=== PATIENT | female | born 1945 | race Caucasian/White ===

== ENCOUNTER 2019-11-25 12:24 | Outpatient (CLI) | payer MEDICARE, OTHER, SELFPAY ==
--- NOTE | ~2019-11-25 | XR_ITS ---
XR hip BI wo pelvis 11/25/2019 13:07 Indication: Low back pain. Procedure: 3 views of each hip Comparison: No prior studies for comparison. Findings: There is mild joint space narrowing of the hips. No fracture or traumatic malalignment. Sac ral foramen are symmetric. Pelvic structures are grossly unremarkable. No focal soft tissue abnormali ty. Impression: 1: Mild bilateral symmetric joint space narrowing, consistent with degenerative joint disease. Reviewed, dictated and finalized at location A. Impression: 1: Mild bilateral symmetric joint space narrowing, consistent with degenerative joint disease.
--- NOTE | ~2019-11-25 | XR_ITS ---
XR lumbar spine 2-3V DATE: 11/25/2019 13:07 INDICATION: Generalized low back pain. No injury or fall. TECHNIQUE: AP, lateral, coned lateral lumbosacral views COMPARISON: None FINDINGS: There is mild rotatory levoscoliosis. There is a transitional lumbosacral vertebra which may be a source of chronic low back pain. The included lower thoracic and lumbar pedicles are intact. There is moderate degenerative disc disease throughout the lumbar spine. No fracture or bone destruction or spondylolisthesis. The sacral iliac joints appear normal. IMPRESSION: Moderate degenerative disc disease throughout the lumbar spine Transitional lumbosacral vertebra, which may be associated with chronic low back pain Mild rotatory levoscoliosis Reviewed, dictated and finalized at location A. IMPRESSION: Moderate degenerative disc disease throughout the lumbar spine Transitional lumbosacral vertebra, which may be associated with chronic low johan k pain Mild rotatory levoscoliosis
--- NOTE | ~2019-11-25 | XR_ITS ---
XR sacroiliac joints min 3V DATE: 11/25/2019 13:07 INDICATION: Low back pain, sacroiliac pain. TECHNIQUE: AP and bilateral oblique views COMPARISON: None FINDINGS: There is normal alignment at the sacroiliac joints. No fracture or dislocation. No erosive change or ankylosis. Transitional lumbosacral vertebra. IMPRESSION: No significant abnormality of sacroiliac joints Transitional lumbosacral vertebra Reviewed, dictated and finalized at Location A. Reviewed, dictated and finalized at location A.
== END 2019-11-25 12:25 | disposition home or self-care (01) ==
LOC: ANHIMG 12:30
PROVIDERS: PCP Internal Medicine; Visit Provider Internal Medicine
DX: M54.5 Low back pain (principal); G89.29 Other chronic pain; M89.9 Disorder of bone, unspecified; M51.36 Other intervertebral disc degeneration, lumbar region; Q76.49 Other congenital malformations of spine, not associated with scoliosis; M41.86 Other forms of scoliosis, lumbar region
CPT/HCPCS: 72100; 72202; 73521

== ENCOUNTER 2020-01-23 15:27 | Outpatient (CLI) | payer MEDICARE, SELFPAY ==
--- NOTE | 2020-01-23 | ECHO_ITS ---
Patient Info Name: Polly Marks Age: 74 years : 1945 Gender: Female Ht: 66 in Wt: 162 lbs BSA: 1.86 m2 HR: 66 bpm BP: 202 / 78 mmHg Technical Quality: Good Exam Date: 01/23/2020 3:46 PM Exam Location: [facility] Patient Status: Outpatient Admit Date: 01/23/2020 Staff Ordering Physician: Sergo Guardado MD Manufacturing Planner: Lisbet Garcia RDCS Attending Provider: Sergo Guardado MD Referring Physician: Geo ALICEA; Exam Type: CA echo doppler color flow Study Info Indications - palpitations Complete two-dimensional, color flow and Doppler transthoracic echocardiogram is performed. Summary 1. Left ventricular chamber dimension is normal. 2. Left ventricular systolic function is normal, estimated at 65-70%. 3. Basal inferior/posterior wall are hypokinetic. 4. The left ventricular diastolic function is grade I diastolic dysfunction. 5. E/e' 11 is mildly elevated. 6. There is trace tricuspid valve regurgitation. 7. No pulmonary hypertension, estimated pulmonary arterial systolic pressure is 24 mmHg. Left Ventricle E/e' 11 is mildly elevated. Basal inferior/posterior wall are hypokinetic. Left ventricular chamber dimension is normal. Left ventricular systolic function is normal, estimated at 65-70%. The left ventricular diastolic function is grade I diastolic dysfunction. Right Ventricle Right ventricular chamber dimension is normal. Right ventricular systolic function is normal. Left Atria Left atrial chamber dimension is normal. Right Atria Right atrial chamber dimension is normal. Aortic Valve The aortic valve is trileaflet. There is no aortic valve stenosis. There is no aortic valve regurgitation. Pulmonic Valve There is no pulmonic regurgitation. Mitral Valve There is no mitral valve stenosis. There is no mitral valve regurgitation. Tricuspid Valve There is trace tricuspid valve regurgitation. No pulmonary hypertension, estimated pulmonary arterial systolic pressure is 24 mmHg. Pericardium/Pleural There is no pericardial effusion. Inferior Vena Cava Normal inferior vena cava with >50% collapse upon inspiration consistent with normal right atrial pressure, 5 mmHg. Aorta The aortic root size at the sinus of Valsalva is normal. Left Ventricular Outflow Tract Name Value Normal LVOT 2D LVOT Diameter 2.0 cm LVOT Doppler LVOT Peak Gradient 6 mmHg LVOT Mean Gradient 5 mmHg LVOT VTI 33 cm LVOT VTI/AV VTI Ratio 0.8 LVOT Stroke Volume 103 ml LVOT CO 19.8 l/min LVOT CI 10.6 l/min/m2 Pulmonic Valve Name Value Normal PV Doppler PV Peak Gradient 5 mmHg Mitral Valve -
== END 2020-01-23 15:28 | disposition home or self-care (01) ==
PROVIDERS: PCP Internal Medicine; Visit Provider Internal Medicine
DX: I34.1 Nonrheumatic mitral (valve) prolapse (principal); R00.2 Palpitations
CPT/HCPCS: 93306

== ENCOUNTER → 2020-06-05 14:18 | Outpatient (REF) | payer MEDICARE, SELFPAY | LOC: ANHLAB 14:18 | PROVIDERS: PCP Internal Medicine; Visit Provider Nurse Practitioner | DX: D49.2 Neoplasm of unspecified behavior of bone, soft tissue, and skin (principal) | CPT/HCPCS: 88305; 88342 ==

== ENCOUNTER 2021-05-22 11:40 | Outpatient (CLI) | payer MEDICARE, OTHER, SELFPAY ==
--- NOTE | ~2021-05-22 | XR_ITS ---
EXAMINATION: XR knee RT 3V DATE: 05/22/2021 12:12 INDICATION: Right knee pain. TECHNIQUE: 3 views of right knee were obtained. COMPARISON: None. FINDINGS: Bone alignment is normal. No fracture. There is mild osteoarthritis of medial and lateral c ompartments and moderate osteoarthritis of patellofemoral compartment. There is a small knee joint ef fusion. IMPRESSION: 1. Moderate right knee osteoarthritis. 2. Small right knee joint effusion. Reviewed, dictated and finalized at location A.
--- NOTE | ~2021-05-22 | XR_ITS ---
EXAMINATION: XR knee LT 3V DATE: 05/22/2021 12:12 INDICATION: Left knee pain. TECHNIQUE: 3 views of left knee were obtained. COMPARISON: None. FINDINGS: Bone alignment is normal. No fracture. There is mild osteoarthritis of medial and lateral c ompartments and severe osteoarthritis of patellofemoral compartment. No knee joint effusion. IMPRESSION: 1. Severe left knee osteoarthritis. Reviewed, dictated and finalized at location A.
== END 2021-05-22 11:41 | disposition home or self-care (01) ==
LOC: ANHIMG 11:44
PROVIDERS: PCP Internal Medicine; Visit Provider Internal Medicine
DX: M17.0 Bilateral primary osteoarthritis of knee (principal); M25.461 Effusion, right knee
CPT/HCPCS: 73562

== ENCOUNTER 2021-06-04 15:12 | Outpatient (CLI) | payer MEDICARE, OTHER, SELFPAY ==
--- NOTE | ~2021-06-04 | US_ITS ---
EXAMINATION: US venous doppler LE RT DATE: 06/04/2021 16:07 INDICATION: Right lower limb pain TECHNIQUE: Choi scale images without and with compression and Doppler images of the right lower extre mity veins were obtained. COMPARISON: None FINDINGS: The right common femoral vein, profunda femoral vein, femoral vein, popliteal vein, peronea l trunk, posterior tibial veins, and greater saphenous vein are patent. IMPRESSION: 1. Patent right lower extremity veins. No evidence of deep venous thrombosis. Reviewed, dictated and finalized at location B. 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
== END 2021-06-04 15:13 | disposition home or self-care (01) ==
LOC: ANHIMG 15:16
PROVIDERS: PCP Internal Medicine; Visit Provider Orthopaedic Surgery
DX: M79.661 Pain in right lower leg (principal); M79.89 Other specified soft tissue disorders
CPT/HCPCS: 93971

== ENCOUNTER 2021-12-26 12:37 | Outpatient (CLI) | payer MEDICARE, OTHER, SELFPAY ==
--- NOTE | ~2021-12-26 | US_ITS ---
EXAMINATION: US venous doppler LE RT DATE: 12/26/2021 13:23 INDICATION: Right lower limb swelling TECHNIQUE: Grayscale ultrasound images without and with compression and Doppler ultrasound images of the right lower extremity veins were obtained. COMPARISON: None. FINDINGS: The visualized portions of right common femoral vein, profunda (deep) femoral vein, femoral vein, pop liteal vein, peroneal trunk, posterior tibial veins, peroneal veins, gastrocnemius vein and greater s aphenous vein outflow are patent. IMPRESSION: 1. No deep venous thrombosis in the right lower limb. Reviewed, dictated and finalized at location B.
== END 2021-12-26 12:38 | disposition home or self-care (01) ==
PROVIDERS: PCP Internal Medicine; Visit Provider Nurse Practitioner
DX: M79.604 Pain in right leg (principal); R60.0 Localized edema
CPT/HCPCS: 93971

== ENCOUNTER → 2022-01-08 16:04 | Outpatient (CLI) | payer MEDICARE, OTHER, SELFPAY ==
--- NOTE | ~2022-01-08 | MR_ITS ---
EXAMINATION: MR knee RT wo con DATE: 01/08/2022 17:00 INDICATION: Right knee pain TECHNIQUE: Magnetic resonance imaging (MRI) of the right knee was performed without intravenous contr ast. Sequences included coronal PD-weighted FSE, coronal PD-weighted FS FSE, sagittal T2-weighted FS E, sagittal PD-weighted FS FSE and axial PD weighted fat saturated FSE. COMPARISON: None. FINDINGS: Medial compartment: Complex tear at the posterior horn of the medial meniscus with anterolateral displacement of a flap a rising from the central portion of the posterior horn which situated between the lateral margin of th e anterior weightbearing medial femoral condyle and the intercondylar eminence. Shallow chondral ulce ration along portions of the anterior to central weightbearing medial femoral condyle. Lateral compartment: Lateral meniscus is normal. Partial-thickness chondral fissuring at the central aspect of the lateral tibial plateau which appears to involve up to 50% the cartilage thickness but without degenerative s ubchondral changes. Partial-thickness chondral ulceration and deeper fissuring also without degenerat vidhya subchondral changes at the anterior weightbearing lateral femoral condyle. Patellofemoral compartment: Extensive full and near full-thickness chondral ulceration involving the medial patellar facet, apica l ridge and lateral side of the medial facet, the latter with mild underlying subarticular cystlike c hanges at the superomedial aspect of the lateral facet. Additional full and near full-thickness carti florencia loss involving the medial trochlea extending to the trochlear groove with a severe partial thick ness chondral ulceration along the medial side of the lateral trochlea. Ligaments and tendons: Anterior and posterior cruciate ligaments are normal. The fibular collateral ligament complex is norm al. There is mild thickening of the proximal medial collateral ligament without surrounding edema con sistent with mild scarring related to chronic sprain. The extensor mechanism is normal. The visualize d medial and lateral hamstring tendons as well as the iliotibial band are normal. Fluid: Small knee joint effusion with mild synovitis at the suprapatellar pouch. No loose osteochondral bodi es identified. Osseous/other: Small intraosseous ganglion cysts underlying the posterior medial aspect of the intercondylar eminenc e which appear to arise near the footplates of the posterior cruciate ligament and posterior horn of the medial meniscus. No fracture or abnormal marrow replacing process. IMPRESSION: 1. Complex tear at the posterior horn of the medial meniscus with small displaced meniscal flap. 2. Tricompartmental osteoarthritis, severe with extensive high-grade chondromalacia at the patellofem oral articulation and mild with small regions of moderate grade chondromalacia in the medial and late ral compartments. Reviewed, dictated and finalized at location A. IMPRESSION: 1. Complex tear at the posterior horn of the medial meniscus with small displac ed meniscal flap. 2. Tricompartmental osteoarthritis, severe with extensive high-grade chondromal acia at the patellofemoral articulation and mild with small regions of moderate grade chondromalacia in the medial and lateral compartments.
== END ==
PROVIDERS: PCP Internal Medicine; Visit Provider Orthopaedic Surgery
DX: M17.11 Unilateral primary osteoarthritis, right knee (principal); S83.231A Complex tear of medial meniscus, current injury, right knee, initial encounter; X58.XXXA Exposure to other specified factors, initial encounter
CPT/HCPCS: 73721

== ENCOUNTER 2022-04-21 01:15 | Day surgery (SDC) | payer MEDICARE, OTHER, SELFPAY ==
[2022-04-04 14:01] VITALS: BMI 25.8
--- NOTE | 2022-04-20 15:41 | PM.HPGS ---
History of Present Illness History of Present Illness Consent: Risks, benefits, and alternatives have been discussed and questions answered. Patient agrees to proceed with procedure. Chief complaint: family hx colon ca, change in bowel habits Narrative: Polly Marks is a 77 year old female With a family history of colon cancer. Her mother had colon cancer. She has also had a change in bowel habits. Her bowel movements have been loose. She is having having nocturnal diarrhea. Review of Systems Review of Systems: All systems reviewed & are unremarkable except as noted in HPI and below PMFSH Past Medical History Medical History Acute meniscal tear of right knee Back Pain Bilateral knee pain BMI 26.0-26.9,adult BMI 27.0-27.9,adult Breast cancer screening Bruxism Change in bowel habits Degenerative arthritis of knee, bilateral Depression Encounter for routine adult health examination with abnormal findings Encounter for routine adult health examination without abnormal findings Essential (primary) hypertension Fatigue FHx: colon cancer Fibromyalgia Fluctuating blood pressure Follow up Hemorrhoids History of basal cell carcinoma (BCC) Hormone replacement therapy (HRT) Hot flashes Hyperlipidemia Hypothyroidism (acquired) Low magnesium level Mild reactive airways disease MVP (mitral valve prolapse) Need for influenza vaccination Numbness in feet On penitentiary drug therapy DOUGLAS on CPAP Osteopenia Otalgia of left ear Palpitations Pedal edema Peripheral neuropathy Post menopausal syndrome Pre-diabetes Recurrent UTI Sacroiliitis Shortness of breath Shoulder pain Vitamin D deficiency Surgical History Surgical History History of bladder repair surgery History of cholecystectomy History of hysterectomy Family History Family History Mother Cerebrovascular accident No family history of malignant neoplasm Carcinoma of colon Sibling Family history of lung cancer Patient's brother is in good health Father Family history of heart disease in male family member before age 55 Family history of cardiovascular disease Family history of malignant neoplasm Family history of thyroid disease Other Diabetes mellitus Hypertension Social History Social History Smoking status: Never smoker Alcohol intake: current Drinks per week: 1 Substance use: never Substance use type: does not use Living arrangements: alone Gender identity (if verbalized by the patient): Female Spiritual care concerns: No Meds Home Medications and Allergies Home Medications Medication Instructions Recorded Confirmed Type biotin 1 tablet PO DAILY 06/05/20 04/04/22 History cholecalciferol (vitamin D3) PO DAILY 06/05/20 03/13/22 History pyridoxine (vitamin B6) 1 tablet PO DAILY 06/05/20 04/04/22 History diazepam 2 mg tablet 2 mg PO QHS PRN Sleep 02/04/21 04/04/22 History flaxseed oil 1,000 mg capsule 1,000 mg PO DAILY 06/18/21 04/04/22 History lisinopril 40 mg tablet See Rx Instructions .Route 06/28/21 04/04/22 Rx .COMPLEX #180 tabs levothyroxine 50 mcg tablet See Rx Instructions .Route 08/28/21 04/04/22 Rx .COMPLEX #90 tabs amlodipine 2.5 mg tablet See Rx Instructions .Route 10/28/21 04/04/22 Rx .COMPLEX #90 tabs carvedilol 25 mg tablet See Rx Instructions .Route 10/28/21 04/04/22 Rx .COMPLEX #180 tabs hydrochlorothiazide 12.5 mg tablet See Rx Instructions .Route 12/09/21 04/04/22 Rx .COMPLEX #90 tabs estradiol 0.5 mg tablet 0.5 mg PO .COMPLEX #90 tabs 01/20/22 04/04/22 Rx amitriptyline 25 mg tablet 25 mg PO ONCE #90 tabs 03/12/22 04/04/22 Rx pravastatin 80 mg tablet 80 mg PO BID 04/04/22 04/04/22 History tramadol 50 mg tablet 50 mg PO Q6H PRN Pain 04/04/22 04/04/22 History Allergies
[2022-04-21 09:33] VITALS: BP 174/73; PULSE 106; RESP 20; TEMP 36.2; O2SAT 100
[2022-04-21] MEDS: LACTATED RINGERS 1,000 ML 150 ML IV CONT (09:43)
--- NOTE | 2022-04-21 09:49 | WPDANESEPPF ---
Anes - Initial Pre Proc Eval Procedure: Operation Date: 04/21/22 10:30 Proposed Procedures p Colonoscopy - Fransisco Carlos MD Date/Time: 04/21/22 09:49 Surgeon: Fransisco Carlos MD Pre Op Diagnosis: family hx colon ca, change in bowel habits Patient Data Age: 77 Gender: F Height: 1.68 m Weight: 74.1 kg Last Vital Signs Temp 36.2 C L 04/21/22 09:33 Pulse 106 H 04/21/22 09:33 Resp 20 04/21/22 09:33 BP 174/73 H 04/21/22 09:33 Pulse Ox 100 04/21/22 09:33 O2 Del Method Room Air 04/21/22 09:33 Allergies Allergy/AdvReac Type Severity Reaction Status Date / Time Penicillins Allergy Severe Hives Verified 04/21/22 09:30 phenytoin Allergy Intermediate HIVES Verified 04/21/22 09:30 cefaclor Allergy Unknown THROAT Verified 04/21/22 09:30 SWELLING AND HIVES Home Medications Medication Instructions Recorded Confirmed Type biotin 1 tablet PO DAILY 06/05/20 04/04/22 History cholecalciferol (vitamin D3) PO DAILY 06/05/20 03/13/22 History pyridoxine (vitamin B6) 1 tablet PO DAILY 06/05/20 04/04/22 History diazepam 2 mg tablet 2 mg PO QHS PRN Sleep 02/04/21 04/04/22 History flaxseed oil 1,000 mg capsule 1,000 mg PO DAILY 06/18/21 04/04/22 History lisinopril 40 mg tablet See Rx Instructions .Route 06/28/21 04/04/22 Rx .COMPLEX #180 tabs levothyroxine 50 mcg tablet See Rx Instructions .Route 08/28/21 04/04/22 Rx .COMPLEX #90 tabs amlodipine 2.5 mg tablet See Rx Instructions .Route 10/28/21 04/04/22 Rx .COMPLEX #90 tabs carvedilol 25 mg tablet See Rx Instructions .Route 10/28/21 04/04/22 Rx .COMPLEX #180 tabs hydrochlorothiazide 12.5 mg tablet See Rx Instructions .Route 12/09/21 04/04/22 Rx .COMPLEX #90 tabs estradiol 0.5 mg tablet 0.5 mg PO .COMPLEX #90 tabs 01/20/22 04/04/22 Rx amitriptyline 25 mg tablet 25 mg PO ONCE #90 tabs 03/12/22 04/04/22 Rx pravastatin 80 mg tablet 80 mg PO BID 04/04/22 04/04/22 History tramadol 50 mg tablet 50 mg PO Q6H PRN Pain 04/04/22 04/04/22 History Patient hx anesthesia problems: none Family hx anesthesia problems: none Results Review: All pre-operative results and documents have been reviewed as part of the pre-operative evaluation. [facility] Past Medical History Medical History Acute meniscal tear of right knee Back Pain Bilateral knee pain BMI 26.0-26.9,adult BMI 27.0-27.9,adult Breast cancer screening Bruxism Change in bowel habits Degenerative arthritis of knee, bilateral Depression Encounter for routine adult health examination with abnormal findings Encounter for routine adult health examination without abnormal findings Essential (primary) hypertension Fatigue FHx: colon cancer Fibromyalgia Fluctuating blood pressure Follow up Hemorrhoids History of basal cell carcinoma (BCC) Hormone replacement therapy (HRT) Hot flashes Hyperlipidemia Hypothyroidism (acquired) Low magnesium level Mild reactive airways disease MVP (mitral valve prolapse) Need for influenza vaccination Numbness in feet On superintendent terminal drug therapy DOUGLAS on CPAP Osteopenia Otalgia of left ear Palpitations Pedal edema Peripheral neuropathy Post menopausal syndrome Pre-diabetes Recurrent UTI Sacroiliitis Shortness of breath Shoulder pain Vitamin D deficiency Surgical History Surgical History History of bladder repair surgery History of cholecystectomy History of hysterectomy Family History Family History Mother Cerebrovascular accident No family history of malignant neoplasm Carcinoma of colon Sibling Family history of lung cancer Patient's brother is in good health Father Family history of heart disease in male family member before age 55 Family history of cardiovascular disease Family history of malignant neoplasm Family history of thyroid disease Other Diabetes mellitus
[2022-04-21 10:25] VITALS: BP 134/62; PULSE 70; RESP 20; O2SAT 100
[2022-04-21 10:35] VITALS: BP 139/71; PULSE 76; RESP 20; O2SAT 100
[2022-04-21 10:45] VITALS: BP 153/75; PULSE 75; RESP 20; O2SAT 100
== END 2022-04-21 11:10 | disposition home or self-care (01) ==
PROVIDERS: PCP Internal Medicine; Visit Provider Internal Medicine Gastroenterology
PROC: 0DJD8ZZ Inspection of Lower Intestinal Tract, Via Natural or Artificial Opening Endoscopic (ICD-10-PCS; CPT 45378; principal; 2022-04-21 10:30)
DX: K59.00 Constipation, unspecified (principal); R19.7 Diarrhea, unspecified; D12.0 Benign neoplasm of cecum; Z98.0 Intestinal bypass and anastomosis status; K57.30 Diverticulosis of large intestine without perforation or abscess without bleeding; E03.9 Hypothyroidism, unspecified; R53.83 Other fatigue; I10 Essential (primary) hypertension; M79.7 Fibromyalgia; Z85.828 Personal history of other malignant neoplasm of skin; E78.5 Hyperlipidemia, unspecified; G47.33 Obstructive sleep apnea (adult) (pediatric); I34.1 Nonrheumatic mitral (valve) prolapse; M85.859 Other specified disorders of bone density and structure, unspecified thigh; R00.2 Palpitations; G62.9 Polyneuropathy, unspecified; R73.03 Prediabetes; E55.9 Vitamin D deficiency, unspecified; Z90.49 Acquired absence of other specified parts of digestive tract
CPT/HCPCS: 45380; 88305; J2704; J7120

== ENCOUNTER 2022-10-27 13:17 | Emergency (ER) | payer MEDICARE, OTHER, SELFPAY ==
--- NOTE | ~2022-10-27 | XR_ITS ---
EXAMINATION: XR chest 2V Exam Date/Time: 10/27/2022 14:14 CDT HISTORY: chest pain; tachycardia; hx of MVP, HTN, non smoker Comparison: None available. RESULT: Lines, tubes, and devices: None. Lungs and pleura: Clear. Cardiomediastinal silhouette: Stable. Other: No acute osseous or upper abdominal finding. IMPRESSION: No acute cardiopulmonary process. Reviewed, dictated and finalized at location K.
--- NOTE | 2022-10-27 13:18 | ECG_ITS ---
Measurements Intervals Kevin Rate: 87 P: 60 ID: [id number] QRS: -38 QRSD: 82 T: 78 QT: 369 QTc: 445 Interpretive Statements SINUS RHYTHM POSSIBLE LEFT ATRIAL ENLARGEMENT [-0.1mV P WAVE IN V1/V2] MARKED LEFT AXIS DEVIATION [QRS AXIS < -30] LEFT VENTRICULAR HYPERTROPHY AND ST-T CHANGE [VOLTAGE CRITERIA PLUS ST/T ABNORMALITY] NO PREVIOUS ECG AVAILABLE FOR COMPARISON Electronically Signed On 10-28-2022 14:57:33 CDT by Corbin Doherty M.D.
[2022-10-27 13:39] LABS: Basophils Absolute Auto 0.1 K/mm3 (0.0-0.1); Basophils Percent Auto 0.6 % (0.2-1.2); Eosinophils Absolute Auto 0.1 K/mm3 (0-0.3); Eosinophils Percent Auto 0.4 % (0-4.4); Hematocrit 40.4 % (37.0-47.0); Hemoglobin 13.5 g/dL (12.0-15.0); Immature Granulocyte Absolute 0.07 K/mm3 (0.00-0.031); Immature Granulocyte Percent A 0.5 % (0-0.5); Lymphocytes Absolute Auto 3.33 K/mm3 (0.9-3.2); Lymphocytes Percent Auto 25.3 % (18.3-44.2); Mean Corpuscular HGB Conc 33.4 g/dl (32-36); Mean Corpuscular Hemoglobin 30.8 pg (26-34); Mean Platelet Volume 9.8 fl (7.4-10.4); Monocytes Absolute Auto 0.9 K/mm3 (0.1-0.6); Monocytes Percent Auto 6.5 % (2.6-8.5); Neutrophils Absolute Auto 8.8 K/mm3 (1.3-6.7); Neutrophils Percent Auto 66.7 % (45.5-73.1); Platelet Count Result 376 k/mm3 (150-375); Red Blood Count 4.39 M/mm3 (4.2-5.4); Red Cell Distribution Width 12.4 % (11.5-14.5); White Blood Count 13.2 K/mm3 (4.5-10.0)
[2022-10-27 13:50] LABS: Alanine Aminotransferase 59 U/L (6-35); Albumin Level 4.7 g/dL (3.5-5.1); Alkaline Phosphatase 108 U/L (38-126); Anion Gap 10 mmol/L (8-16); Aspartate Amino Transferase 61 U/L (14-36); Bilirubin,Total 0.6 mg/dL (0.2-1.3); Blood Urea Nitrogen 29 mg/dL (7-17); Calcium 9.6 mg/dL (8.4-10.2); Carbon Dioxide 24 mmol/L (22-30); Chloride 97 mmol/L (98-107); Estimated Glomerular Filt Rate 27; Glucose 145 mg/dL (65-110); Lipase 99 U/L (23-300); Potassium 4.7 mmol/L (3.4-5.0); Sodium 131 mmol/L (137-145)
[2022-10-27 14:02] LABS: INR 1.1; Prothrombin Time 13.8 Seconds (11.1-14.7); Troponin I 0.012 ng/mL (0.000-0.034)
[2022-10-27 14:03] LABS: Partial Thromboplastin Time 30.1 SECONDS (22.3-36.8)
[2022-10-27 14:12] VITALS: BP 140/66; PULSE 101; RESP 18; TEMP 36.7; O2SAT 99
[2022-10-27 18:39] LABS: Troponin I 0.017 ng/mL (0.000-0.034)
[2022-10-27 20:07] LABS: Troponin I 0.019 ng/mL (0.000-0.034)
--- NOTE | 2022-10-27 22:43 | ED.GENADULT ---
HPI - General Adult General Chief complaint: Arrhythmia/Palpitations Stated complaint: palpitations, SOB Time Seen by Provider: 10/27/22 22:28 Source: patient and family Mode of arrival: ambulatory Limitations: no limitations History of Present Illness HPI narrative: Patient is 77 years old white female came to the emergency room with multiple symptoms including palpitation, feel like going to blackout, cannot get a deep breath, dizziness,. The symptoms mainly during the morning and the daytime, get better at night. The above symptoms started 1 day after her PMD changed her medication from lisinopril hydrochlorothiazide to losartan hydrochlorothiazide. Because of the swelling of the lower extremity. Patient was a today and did not eat or drink enough. Did not make urine all day long. Related Data Home Medications Medication Instructions Recorded Confirmed biotin 1 tablet PO DAILY 06/05/20 10/20/22 cholecalciferol (vitamin D3) PO DAILY 06/05/20 10/20/22 pyridoxine (vitamin B6) 1 tablet PO DAILY 06/05/20 10/20/22 diazepam 2 mg tablet 2 mg PO QHS PRN Sleep 02/04/21 10/20/22 flaxseed oil 1,000 mg capsule 1,000 mg PO DAILY 06/18/21 10/20/22 calcium carbonate 600 mg calcium 600 mg PO DAILY 07/23/22 10/20/22 (1,500 mg) tablet (Calcium) bupropion HCl 75 mg tablet 75 mg PO DAILY 10/20/22 10/20/22 Allergies Allergy/AdvReac Type Severity Reaction Status Date / Time Penicillins Allergy Severe Hives Verified 07/23/22 13:03 phenytoin Allergy Intermediate HIVES Verified 07/23/22 13:03 cefaclor Allergy Unknown THROAT Verified 07/23/22 13:03 SWELLING AND HIVES Review of Systems Review of Systems: All systems reviewed & are unremarkable except as noted in HPI and below PMFSH Past Medical History Medical History (Updated 10/28/22 @ 00:03 by Jamaal Becerra MD) Acute meniscal tear of right knee Back Pain Bilateral knee pain BMI 26.0-26.9,adult BMI 27.0-27.9,adult BMI 28.0-28.9,adult Breast cancer screening Bruxism Change in bowel habits Degenerative arthritis of knee, bilateral Depression Encounter for routine adult health examination with abnormal findings Encounter for routine adult health examination without abnormal findings Essential (primary) hypertension Fatigue FHx: colon cancer Fibromyalgia Fluctuating blood pressure Follow up Hemorrhoids History of basal cell carcinoma (BCC) Hormone replacement therapy (HRT) Hot flashes Hyperlipidemia Hypothyroidism (acquired) Low magnesium level Macular degeneration Mild reactive airways disease MVP (mitral valve prolapse) Need for influenza vaccination Numbness in feet On custodial drug therapy DOUGLAS on CPAP Osteopenia Otalgia of left ear Palpitations Pedal edema Peripheral edema Peripheral neuropathy Post menopausal syndrome Pre-diabetes Recurrent UTI Sacroiliitis Shortness of breath Shoulder pain Vitamin D deficiency Surgical History Surgical History History of bladder repair surgery History of cholecystectomy History of hysterectomy Family History Family History Mother Cerebrovascular accident No family history of malignant neoplasm Carcinoma of colon Sibling Family history of lung cancer Patient's brother is in good health Father Family history of heart disease in male family member before age 55 Family history of cardiovascular disease Family history of malignant neoplasm Family history of thyroid disease Other Diabetes mellitus Hypertension Social History Social History Smoking status: Never smoker Second hand tobacco smoke exposure: No Alcohol intake: current Drinks per week: 1 Substance use: never Substance use type: does not use Lack of Transportation: No Lack of Food: Never True Current Housing: I Have Housing Concerned About
[2022-10-27] MEDS: ASPIRIN 81 MG CHEWABLE TABLET 324 MG PO (23:23)
[2022-10-27] MEDS: SODIUM CHLORIDE 0.9% IV 1,000 ML 999 ML IV CONT (23:24)
[2022-10-27 23:26] LABS: NT Pro B Type Natriuretic Pept 499 pg/mL (19.9-100)
[2022-10-27 23:38] LABS: Alveolar/Arterial O2 Gradient 24.9 mmHg; Base Excess ABG -1.5 mEq/l (+/-2.0); Fractional Inspired Oxygen 21 %; HCO3 ABG 23.1 mEq/l (22.0-26.0); Oxygen Content ABG 17.4 %vol (16.0-22.0); Oxygen Saturation ABG 95.6 % (95.0-100.0); PCO2 ABG 38.8 mmHg (35.0-45.0); PO2 ABG 78.4 mmHg (80.0-100.0); PO2 FiO2 Ratio Arterial Blood 3.73 %; pH ABG 7.393 (7.350-7.450)
[2022-10-27 23:40] LABS: Modified Allen's Test Pass; Site Drawn RIGHT RADIAL
[2022-10-27 23:42] LABS: D Dimer < 0.27 ug/mL (<0.48)
[2022-10-28] MEDS: cloNIDine HCL 0.1 MG TABLET PO (00:04)
[2022-10-28 01:02] VITALS: BP 170/56; PULSE 88; RESP 16; O2SAT 98
== END 2022-10-28 01:03 | disposition home or self-care (01) ==
PROVIDERS: Emergency Provider Emergency Medicine; PCP Internal Medicine
DX: R00.2 Palpitations (principal); E86.0 Dehydration; E78.5 Hyperlipidemia, unspecified; J45.909 Unspecified asthma, uncomplicated; I34.1 Nonrheumatic mitral (valve) prolapse; G47.33 Obstructive sleep apnea (adult) (pediatric); E55.9 Vitamin D deficiency, unspecified; H35.30 Unspecified macular degeneration; R73.03 Prediabetes; M85.80 Other specified disorders of bone density and structure, unspecified site; M17.0 Bilateral primary osteoarthritis of knee; M79.7 Fibromyalgia; Z87.440 Personal history of urinary (tract) infections; Z85.828 Personal history of other malignant neoplasm of skin; Z90.710 Acquired absence of both cervix and uterus; R94.31 Abnormal electrocardiogram [ECG] [EKG]; R06.02 Shortness of breath
CPT/HCPCS: 36415; 36600; 71046; 80053; 82805; 83690; 83880; 84484; 85025; 85380; 85610; 85730; 93005; 96360; 99284; A9270; J7030

== ENCOUNTER 2023-06-19 11:27 | Outpatient (CLI) | payer MEDICARE, OTHER, SELFPAY ==
--- NOTE | ~2023-06-19 | XR_ITS ---
EXAMINATION: XR chest 2V DATE: 06/19/2023 11:54 INDICATION: Shortness of breath TECHNIQUE: Frontal and lateral views of the chest are obtained COMPARISON: 10/27/2022 FINDINGS: The lungs are free of acute opacities. No pleural effusion or pneumothorax. The cardiomedia stinal silhouette is normal. There is mild thoracic spondylosis. IMPRESSION: 1. No acute cardiopulmonary abnormality. Reviewed, dictated and finalized at location F. CTOR OF COUNSELING
[2023-06-19 11:59] LABS: Alanine Aminotransferase 28 U/L (6-35); Albumin Level 4.3 g/dL (3.5-5.1); Alkaline Phosphatase 94 U/L (38-126); Anion Gap 9 mmol/L (8-16); Aspartate Amino Transferase 38 U/L (14-36); Bilirubin,Total 0.5 mg/dL (0.2-1.3); Blood Urea Nitrogen 26 mg/dL (7-17); Calcium 9.1 mg/dL (8.4-10.2); Carbon Dioxide 26 mmol/L (22-30); Chloride 102 mmol/L (98-107); Estimated Glomerular Filt Rate 48; Glucose 106 mg/dL (65-110); Potassium 4.3 mmol/L (3.4-5.0); Sodium 137 mmol/L (137-145)
[2023-06-19 12:11] LABS: Troponin I < 0.012 ng/mL (0.000-0.034)
[2023-06-19 12:20] LABS: Free T4 Free Thyroxine 1.98 ng/mL (0.78-2.19)
[2023-06-19 12:29] LABS: Thyroid Stimulating Hormone 0.226 uIU/mL (0.465-4.680)
== END 2023-06-19 11:28 | disposition home or self-care (01) ==
PROVIDERS: PCP Internal Medicine; Visit Provider Internal Medicine
DX: E03.9 Hypothyroidism, unspecified (principal); R06.02 Shortness of breath
CPT/HCPCS: 36415; 71046; 80053; 83735; 84439; 84443; 84484

== ENCOUNTER 2023-08-06 14:21 | Outpatient (CLI) | payer MEDICARE, OTHER, SELFPAY ==
--- NOTE | 2023-08-06 14:47 | ECHO_ITS ---
Patient Info Name: Polly Marks Age: 78 years : 1945 Gender: Female Ht: 66 in Wt: 170 lbs BSA: 1.91 m2 HR: 53 bpm BP: 134 / 76 mmHg Technical Quality: Good Exam Date: 08/06/2023 2:54 PM Exam Location: Echo Lab Patient Status: Outpatient Admit Date: 08/06/2023 Staff Ordering Physician: Sergo Guardado MD Attending Provider: Sergo Guardado MD Referring Physician: Geo ALICEA; Exam Type: CA echo doppler color flow Study Info Indications I10 - Essential (primary) hypertension R00.2 - Palpitations Complete two-dimensional, color flow and Doppler transthoracic echocardiogram is performed. Summary 1. Complete two-dimensional, color flow and Doppler transthoracic echocardiogram is performed. 2. Left ventricular chamber dimension is normal. 3. Left ventricular systolic function is normal, estimated at 65-70%. 4. There is mild concentric increased left ventricular wall thickness. 5. The left ventricular diastolic function is abnormal. 6. E/e' 25 is elevated. 7. Left atrial chamber dimension is mildly enlarged. 8. There is moderate mitral valve regurgitation. 9. There is mild tricuspid valve regurgitation. 10. No pulmonary hypertension, estimated pulmonary arterial systolic pressure is 38 mmHg. 11. There is trace pulmonic regurgitation. 12. There is trivial pericardial effusion. Left Ventricle E/e' 25 is elevated. Left ventricular chamber dimension is normal. Left ventricular systolic function is normal, estimated at 65-70%. There is mild concentric increased left ventricular wall thickness. The left ventricular diastolic function is abnormal. Right Ventricle Right ventricular systolic function is normal and with normal TAPSE 2.2 cm. Right ventricular chamber dimension is normal. Left Atria Left atrial chamber dimension is mildly enlarged. Right Atria Right atrial chamber dimension is normal. Aortic Valve The aortic valve is trileaflet. There is no aortic valve stenosis. There is no aortic valve regurgitation. Pulmonic Valve There is trace pulmonic regurgitation. Mitral Valve There is no mitral valve stenosis. There is moderate mitral valve regurgitation. Tricuspid Valve There is mild tricuspid valve regurgitation. No pulmonary hypertension, estimated pulmonary arterial systolic pressure is 38 mmHg. Pericardium/Pleural There is trivial pericardial effusion. Inferior Vena Cava Normal inferior vena cava with >50% collapse upon inspiration consistent with normal right atrial pressure, 5 mmHg. Aorta The aortic root size at the sinus of Valsalva is normal. Left Ventricular Outflow Tract Name Value Normal LVOT 2D LVOT Diameter 2.0 cm LVOT Doppler LVOT Peak Gradient 3 mmHg LVOT Mean Gradient 2 mmHg LVOT VTI 29 cm LVOT VTI/AV VTI Ratio 0.6 LVOT Stroke Volume 88 ml LVOT CO 4.5 l/min LVOT CI 2.3 l/min/m2 Pulmonic Valve Name Value Normal
[2023-08-06 17:30] LABS: Free T4 Free Thyroxine 1.39 ng/mL (0.78-2.19)
== END 2023-08-06 14:22 | disposition home or self-care (01) ==
PROVIDERS: PCP Internal Medicine; Visit Provider Internal Medicine
DX: R00.2 Palpitations (principal); I34.1 Nonrheumatic mitral (valve) prolapse; I10 Essential (primary) hypertension; E03.9 Hypothyroidism, unspecified; Z79.899 Other long term (current) drug therapy
CPT/HCPCS: 36415; 84439; 84443; 93306

== ENCOUNTER 2023-09-23 14:10 | Outpatient (CLI) | payer MEDICARE, OTHER, SELFPAY ==
--- NOTE | ~2023-09-23 | XR_ITS ---
EXAMINATION: XR lumbar spine min 4V DATE: 09/23/2023 14:50 INDICATION: Dorsalgia, unspecified TECHNIQUE: Anteroposterior, lateral, and bilateral oblique views of the lumbar spine, and cone-down l ateral view of the lumbosacral junction were obtained. COMPARISON: 11/25/2019 FINDINGS: There are 15 degrees of lumbar levoscoliosis. There are 2 mm of anterolisthesis of L4 on L5 . Vertebral body heights are maintained. There is no fracture. There is moderate loss of intervertebr al disc space height throughout the lumbar spine. There is severe facet joint osteoarthritis at L4-5 and L5-S1 and moderate facet joint osteoarthritis throughout the remainder of the lumbar spine. IMPRESSION: 1. Moderate lumbar spondylosis without acute findings or significant interval change. Reviewed, dictated and finalized at location F. [employer] IMPRESSION: 1. Moderate lumbar spondylosis without acute findings or significant interval shireen bradley
--- NOTE | ~2023-09-23 | XR_ITS ---
EXAMINATION: XR chest 2V DATE: 09/23/2023 14:50 INDICATION: Shortness of breath. TECHNIQUE: Frontal and lateral views of the chest were obtained. COMPARISON: Chest 2 views 06/19/2023 FINDINGS: There is mild scarring at the lung apices. There is no pneumonia, pleural effusion, or pneu mothorax. The heart size is normal. IMPRESSION: 1. Stable mild scarring at the lung apices. Reviewed, dictated and finalized at location A. MENDER
[2023-09-23 15:09] LABS: Basophils Absolute Auto 0.1 K/mm3 (0.0-0.1); Basophils Percent Auto 0.6 % (0.2-1.2); Eosinophils Absolute Auto 0.3 K/mm3 (0-0.3); Eosinophils Percent Auto 2.4 % (0-4.4); Hematocrit 37.5 % (37.0-47.0); Hemoglobin 11.7 g/dL (12.0-15.0); Immature Granulocyte Absolute 0.05 K/mm3 (0.00-0.031); Immature Granulocyte Percent A 0.4 % (0-0.5); Lymphocytes Absolute Auto 3.03 K/mm3 (0.9-3.2); Lymphocytes Percent Auto 26.6 % (18.3-44.2); Mean Corpuscular HGB Conc 31.2 g/dl (32-36); Mean Corpuscular Hemoglobin 29.2 pg (26-34); Mean Corpuscular Volume 93.5 fl (80-100); Mean Platelet Volume 10.4 fl (7.4-10.4); Monocytes Absolute Auto 0.8 K/mm3 (0.1-0.6); Monocytes Percent Auto 6.8 % (2.6-8.5); Neutrophils Absolute Auto 7.2 K/mm3 (1.3-6.7); Neutrophils Percent Auto 63.2 % (45.5-73.1); Platelet Count Result 328 k/mm3 (150-375); Red Blood Count 4.01 M/mm3 (4.2-5.4); Red Cell Distribution Width 12.6 % (11.5-14.5); White Blood Count 11.4 K/mm3 (4.5-10.0)
[2023-09-23 15:21] LABS: Alanine Aminotransferase 28 U/L (6-35); Albumin Level 4.3 g/dL (3.5-5.1); Alkaline Phosphatase 88 U/L (38-126); Anion Gap 7 mmol/L (8-16); Aspartate Amino Transferase 40 U/L (14-36); Bilirubin,Total 0.7 mg/dL (0.2-1.3); Blood Urea Nitrogen 56 mg/dL (7-17); Calcium 9.3 mg/dL (8.4-10.2); Carbon Dioxide 29 mmol/L (22-30); Chloride 94 mmol/L (98-107); Cholesterol 190 mg/dL (0-200); Estimated Glomerular Filt Rate 31; Glucose 115 mg/dL (65-110); HDL Direct 34 mg/dL; Potassium 4.1 mmol/L (3.4-5.0); Sodium 130 mmol/L (137-145); Triglycerides 378 mg/dL (<150)
[2023-09-23 15:22] LABS: Hemoglobin A1C 6.4 % (<5.7)
[2023-09-23 15:33] LABS: LDL Cholesterol Direct 77 mg/dL
[2023-09-23 16:12] LABS: Free T4 Free Thyroxine 1.24 ng/mL (0.78-2.19)
== END 2023-09-23 14:11 | disposition home or self-care (01) ==
PROVIDERS: PCP Internal Medicine; Visit Provider Internal Medicine
DX: R06.02 Shortness of breath (principal); I10 Essential (primary) hypertension; E78.5 Hyperlipidemia, unspecified; E03.9 Hypothyroidism, unspecified; R73.03 Prediabetes; E78.2 Mixed hyperlipidemia; G89.29 Other chronic pain; M54.9 Dorsalgia, unspecified; M47.896 Other spondylosis, lumbar region; R91.8 Other nonspecific abnormal finding of lung field
CPT/HCPCS: 36415; 71046; 72110; 80053; 80061; 83036; 84439; 84443; 85025

== ENCOUNTER 2023-09-28 14:50 | Outpatient (CLI) | payer MEDICARE, OTHER, SELFPAY ==
[2023-09-28 15:38] LABS: Anion Gap 7 mmol/L (8-16); Blood Urea Nitrogen 34 mg/dL (7-17); Calcium 8.9 mg/dL (8.4-10.2); Carbon Dioxide 23 mmol/L (22-30); Chloride 106 mmol/L (98-107); Estimated Glomerular Filt Rate 39; Glucose 117 mg/dL (65-110); Potassium 4.4 mmol/L (3.4-5.0); Sodium 136 mmol/L (137-145)
== END 2023-09-28 14:51 | disposition home or self-care (01) ==
LOC: ANHLAB 14:53
PROVIDERS: PCP Internal Medicine; Visit Provider Internal Medicine
DX: R79.89 Other specified abnormal findings of blood chemistry (principal); R79.9 Abnormal finding of blood chemistry, unspecified
CPT/HCPCS: 36415; 80048

== ENCOUNTER 2023-10-26 11:56 | Outpatient (CLI) | payer MEDICARE, OTHER, SELFPAY ==
[2023-10-26 12:29] LABS: Anion Gap 9 mmol/L (4-12); Blood Urea Nitrogen 38 mg/dL (7-17); Calcium 9.3 mg/dL (8.4-10.2); Carbon Dioxide 23 mmol/L (22-30); Chloride 102 mmol/L (98-107); Estimated Glomerular Filt Rate 43; Glucose 126 mg/dL (65-110); Potassium 4.3 mmol/L (3.4-5.0); Sodium 134 mmol/L (137-145)
== END 2023-10-26 11:57 | disposition home or self-care (01) ==
LOC: ANHLAB 11:58
PROVIDERS: PCP Internal Medicine; Visit Provider Internal Medicine
DX: E87.20 Acidosis, unspecified (principal)
CPT/HCPCS: 36415; 80048

== ENCOUNTER 2024-01-07 15:05 | Emergency (ER) | payer MEDICARE, OTHER, SELFPAY ==
[2024-01-07] VITALS (9 sets, daily range): BP systolic 173–219; BP diastolic 68–78; PULSE 55–66; RESP 12–23; TEMP 36.8–37; O2SAT 97–100
--- NOTE | 2024-01-07 19:28 | ECG_ITS ---
Test Date: 2024-01-07 19:56:20 Measurements Intervals [place] Rate: 58 P: 60 MD: 189 QRS: -38 QRSD: 83 T: 77 QT: 421 QTc: 414 Interpretive Statements SINUS BRADYCARDIA MODERATE VOLTAGE CRITERIA FOR LVH, CONSIDER NORMAL VARIANT [MEETS CRITERIA IN ONE OF: R(aVL), S(V1), R(V5), R(V5/V6)+S(V1)] POSSIBLE ANTERIOR MYOCARDIAL INFARCTION , OF INDETERMINATE AGE [30 ms Q WAVE IN V3/V4, OR R < 0.2 mV IN V4] INFERIOR MYOCARDIAL INFARCTION , PROBABLY OLD [40+ ms Q WAVE AND/OR ST/T ABNORMALITY IN II/aVF] ABNORMAL ELECTROCARDIOGRAM No previous ECG available for comparison Electronically Signed On 01-08-2024 07:08:41 CDT by Robinson Salas M.D.
--- NOTE | 2024-01-07 20:08 | ED.GENADULT ---
HPI - General Adult General Chief complaint: Recheck/Abnormal Lab/Rx Stated complaint: high blood pressure Time Seen by Provider: 01/07/24 18:32 History of Present Illness HPI narrative: Patient is an 78-year-old female with history of hypertension, mitral valve prolapse here with high blood pressure reading at a outside primary care clinic. Patient states that she was establishing with a your OBGYN today. When she went to the clinic her blood pressure was elevated at 230 systolic and the clinic was terrified, try to request an ambulance to bring her to the ER even know it was right around the corner in the same building. Patient refused EMS transport but came into the emergency department out of an abundance of precaution given the concern of her OBGYN. She states that she never had any symptoms when it happened, denied any chest pain, headache, lightheadedness. She states she has some chronic shortness of breath which has been attributed to her mitral valve prolapse in the past, she is on a diuretic every 3 days to help with regurg. She currently denies any headache, chest pain. Related Data Home Medications Medication Instructions Recorded Confirmed biotin 1 tablet PO DAILY 06/05/20 10/27/23 cholecalciferol (vitamin D3) PO DAILY 06/05/20 10/27/23 pyridoxine (vitamin B6) 1 tablet PO DAILY 06/05/20 10/27/23 flaxseed oil 1,000 mg capsule 1,000 mg PO DAILY 06/18/21 10/27/23 Allergies Allergy/AdvReac Type Severity Reaction Status Date / Time Penicillins Allergy Severe Hives Verified 10/27/23 10:30 phenytoin Allergy Intermediate HIVES Verified 10/27/23 10:30 cefaclor Allergy Unknown THROAT Verified 10/27/23 10:30 SWELLING AND HIVES Review of Systems Review of Systems: All systems reviewed & are unremarkable except as noted in HPI and below PMFSH Past Medical History Medical History Acute meniscal tear of right knee Back Pain Bilateral knee pain BMI 26.0-26.9,adult BMI 27.0-27.9,adult BMI 28.0-28.9,adult Breast cancer screening Bruxism Change in bowel habits CKD (chronic kidney disease) Degenerative arthritis of knee, bilateral Encounter for routine adult health examination with abnormal findings Encounter for routine adult health examination without abnormal findings Essential (primary) hypertension Fatigue FHx: colon cancer Fibromyalgia Fluctuating blood pressure Follow up Hemorrhoids History of basal cell carcinoma (BCC) Hormone replacement therapy (HRT) Hot flashes Hyperlipidemia Hypothyroidism (acquired) Itchy skin Low magnesium level Macular degeneration Malaise Mild reactive airways disease MVP (mitral valve prolapse) Need for influenza vaccination Numbness in feet On 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 term care administrator drug therapy DOUGLAS on CPAP Osteopenia Otalgia of left ear Palpitations Pedal edema Peripheral edema Peripheral neuropathy Post menopausal syndrome Pre-diabetes Recurrent UTI Sacroiliitis Shortness of breath Shoulder pain Vitamin D deficiency Surgical History Surgical History History of bladder repair surgery History of cholecystectomy History of hysterectomy Family History Family History Mother Cerebrovascular accident No family history of malignant neoplasm Carcinoma of colon Sibling Family history of lung cancer Patient's brother is in good health Father Family history of heart disease in male family member before age 55 Family history of cardiovascular disease Family history of malignant neoplasm Family history of thyroid disease Other Diabetes mellitus Hypertension Social History Social History Smoking status: Never smoker Second hand tobacco smoke exposure: No Alcohol intake: current Drinks per week: 1 Substance use: never Substance use type: does
[2024-01-07] MEDS: hydrALAZINE HCL 25 MG TABLET PO (20:28)
== END 2024-01-07 21:03 | disposition home or self-care (01) ==
PROVIDERS: Emergency Provider Student in an Organized Health Care Education/Training Program; PCP Internal Medicine
DX: I12.9 Hypertensive chronic kidney disease with stage 1 through stage 4 chronic kidney disease, or unspecified chronic kidney disease (principal); N18.9 Chronic kidney disease, unspecified; I34.1 Nonrheumatic mitral (valve) prolapse; E78.5 Hyperlipidemia, unspecified; E03.9 Hypothyroidism, unspecified; E55.9 Vitamin D deficiency, unspecified; H35.30 Unspecified macular degeneration; G47.33 Obstructive sleep apnea (adult) (pediatric); G62.9 Polyneuropathy, unspecified; M79.7 Fibromyalgia; Z85.828 Personal history of other malignant neoplasm of skin; Z87.440 Personal history of urinary (tract) infections; Z90.49 Acquired absence of other specified parts of digestive tract; Z90.710 Acquired absence of both cervix and uterus; Z79.84 Long term (current) use of oral hypoglycemic drugs; Z79.899 Other long term (current) drug therapy
CPT/HCPCS: 93005; 99283; A9270

== ENCOUNTER 2024-01-18 12:54 | Emergency (ER) | payer MEDICARE, OTHER, SELFPAY ==
[2024-01-18] VITALS (10 sets, daily range): BP systolic 104–195; BP diastolic 51–67; PULSE 58–68; RESP 12–22; TEMP 35.8–36.2; O2SAT 100
--- NOTE | ~2024-01-18 | XR_ITS ---
EXAMINATION: XR chest 2V DATE: 01/18/2024 16:13 INDICATION: Shortness of breath TECHNIQUE: PA and lateral views of the chest were obtained. COMPARISON: Chest radiograph dated 09/23/[address] dated 01/28/2017 FINDINGS: Chronic mild lingular atelectasis/scarring along side a small left pericardial fat pad at the lateral left lower lung zone. Calcified right middle lobe nodule and calcified subcarinal lymph nodes consis tent with old granulomatous disease. No new airspace opacities, pulmonary edema, pleural effusion or pneumothorax. The cardiomediastinal silhouette is normal. Visualized bones and soft tissues are unrem arkable. IMPRESSION: 1. Chronic mild lingular atelectasis/scarring. No acute cardiopulmonary disease. Reviewed, dictated and finalized at location B. IMPRESSION: 1. Chronic mild lingular atelectasis/scarring. No acute cardiopulmonary disease .
--- NOTE | 2024-01-18 15:45 | ED.SOB ---
HPI - SOB/Dyspnea General Chief Complaint: Shortness of Breath/Dyspnea <Jennifer Mustafa PA-C - Last Filed: 01/18/24 15:56> Stated Complaint: SOB <Jennifer Mustafa PA-C - Last Filed: 01/18/24 15:56> Time Seen by Provider: 01/18/24 15:45 <Jennifer Mustafa PA-C - Last Filed: 01/18/24 15:56> Focused HPI: Patient is an 78 y/o female who presents to the ED with c/o shortness of breath. Patient reports she has been feeling intermittently short of breath over the last few months. States SOB is worse with any type of exertion. States she becomes winded with walking across a parking lot, up/down stairs. States this is abnormal for her. She will develop racing heart palpitations and lightheaded with exertion, as well. She saw her PCP for this recently, who adjusted her HTN medications and set her up for a cardiac stress test today. She reports she did not feel well yesterday with malaise and increased SOB. She did not go to the stress test today. She was then referred here for further evaluation. Patient denies cough, cold sx's, fevers, BLE pain or swelling, chest pain of any kind. GENERAL: Elderly but well-appearing, well-nourished, and in no acute distress. HEAD: Normocephalic, atraumatic. CHEST: Clear to auscultation. ?No respiratory distress. No focal lung sounds. HEART: Regular rate and rhythm.?+murmur. MSK: No edema. No calf tenderness. NEURO: ?Alert and oriented x3. Patient screened in triage and initial orders placed.? ?Additional care and disposition to be based upon?diagnostic testing and treatment. <KAYKAY Clayton Last Filed: 01/18/24 15:56> Focused HPI: Patient is an 78 y/o female who presents to the ED with c/o shortness of breath. Patient reports she has been feeling intermittently short of breath over the last few months. States SOB is worse with any type of exertion. States she becomes winded with walking across a parking lot, up/down stairs. States this is abnormal for her. She will develop racing heart palpitations and lightheaded with exertion, as well. She saw her PCP for this recently, who adjusted her HTN medications and set her up for a cardiac stress test today. She reports she did not feel well yesterday with malaise and increased SOB. She did not go to the stress test today. She was then referred here for further evaluation. Patient denies cough, cold sx's, fevers, BLE pain or swelling, chest pain of any kind. Patient states she checked her blood pressure twice daily and sometimes it will be within normal limits and sometimes it will be very elevated. She states she does not feel anxious when she checks her blood pressure. GENERAL: Elderly but well-appearing, well-nourished, and in no acute distress. HEAD: Normocephalic, atraumatic. CHEST: Clear to auscultation. ?No respiratory distress. No focal lung sounds. HEART: Regular rate and rhythm.?+murmur. MSK: No edema. No calf tenderness. NEURO: ?Alert and oriented x3. Patient screened in triage and initial orders placed.? ?Additional care and disposition to be based upon?diagnostic testing and treatment. <Christina Yin PA-C - Last Filed: 01/18/24 19:34> Source: patient <KAYKAY Clayton Last Filed: 01/18/24 15:56> Mode of arrival: ambulatory <KAYKAY Clayton Last Filed: 01/18/24 15:56> Limitations: no limitations <KAYKAY Clayton Last Filed: 01/18/24 15:56> History of Present Illness HPI Narrative: 78-year-old female with history of CKD, hypothyroidism, MVP, hyperparathyroidism, DM presents to the emergency department for increased shortness of breath for approximately 1 week and inconsistent blood pressure readings. Patient was seen in our emergency department on 01/06 for asymptomatic hypertension and was advised to follow-up with her PCP. she did follow-up with her PCP and had her hydroxyzine dose increased from 25 mg to 50 mg. She presents today because
--- NOTE | 2024-01-18 15:48 | ECG_ITS ---
Test Date: 2024-01-18 16:02:44 Measurements Intervals [place] Rate: 57 P: 54 MD: 190 QRS: -38 QRSD: 84 T: 85 QT: 430 QTc: 421 Interpretive Statements SINUS BRADYCARDIA LEFT VENTRICULAR HYPERTROPHY AND ST-T CHANGE [VOLTAGE CRITERIA PLUS ST/T ABNORMALITY] POSSIBLE ANTERIOR MYOCARDIAL INFARCTION , OF INDETERMINATE AGE [30 ms Q WAVE IN V3/V4, OR R < 0.2 mV IN V4] INFERIOR MYOCARDIAL INFARCTION , OF INDETERMINATE AGE [40+ ms Q WAVE AND/OR ST/T ABNORMALITY IN II/aVF] ABNORMAL ELECTROCARDIOGRAM Compared to ECG 01/07/2024 19:56:20 NO SIGNIFICANT DIFFERENCE Electronically Signed On 01-18-2024 16:06:11 CDT by Robinson Salas M.D.
[2024-01-18 16:10] LABS: Basophils Absolute Auto 0.1 K/mm3 (0.0-0.1); Basophils Percent Auto 0.6 % (0.2-1.2); Eosinophils Absolute Auto 0.2 K/mm3 (0-0.3); Eosinophils Percent Auto 1.5 % (0-4.4); Hematocrit 34.6 % (37.0-47.0); Hemoglobin 11.4 g/dL (12.0-15.0); Immature Granulocyte Absolute 0.04 K/mm3 (0.00-0.031); Immature Granulocyte Percent A 0.4 % (0-0.5); Lymphocytes Absolute Auto 3.17 K/mm3 (0.9-3.2); Lymphocytes Percent Auto 32.1 % (18.3-44.2); Mean Corpuscular HGB Conc 32.9 g/dl (32-36); Mean Corpuscular Hemoglobin 29.5 pg (26-34); Mean Corpuscular Volume 89.4 fl (80-100); Mean Platelet Volume 9.5 fl (7.4-10.4); Monocytes Absolute Auto 0.7 K/mm3 (0.1-0.6); Monocytes Percent Auto 6.7 % (2.6-8.5); Neutrophils Absolute Auto 5.8 K/mm3 (1.3-6.7); Neutrophils Percent Auto 58.7 % (45.5-73.1); Platelet Count Result 329 k/mm3 (150-375); Red Blood Count 3.87 M/mm3 (4.2-5.4); Red Cell Distribution Width 13.5 % (11.5-14.5); White Blood Count 9.9 K/mm3 (4.5-10.0)
[2024-01-18 16:23] LABS: Prothrombin Time 13.4 Seconds (11.1-14.7)
[2024-01-18 16:27] LABS: Alanine Aminotransferase 17 U/L (6-35); Albumin Level 4.3 g/dL (3.5-5.1); Alkaline Phosphatase 81 U/L (38-126); Anion Gap 10 mmol/L (4-12); Aspartate Amino Transferase 22 U/L (14-36); Bilirubin,Total 0.3 mg/dL (0.2-1.3); Blood Urea Nitrogen 47 mg/dL (7-17); Calcium 9.6 mg/dL (8.4-10.2); Carbon Dioxide 22 mmol/L (22-30); Chloride 105 mmol/L (98-107); Estimated CRCL calculation 21 ml/min; Estimated Glomerular Filt Rate 27; Glucose 101 mg/dL (65-110); Magnesium 2.1 mg/dL (1.6-2.3); Potassium 4.6 mmol/L (3.4-5.0); Sodium 137 mmol/L (137-145)
[2024-01-18 16:38] LABS: NT Pro B Type Natriuretic Pept 537 pg/mL (19.9-100); Troponin I < 0.012 ng/mL (0.000-0.034)
[2024-01-18 16:52] LABS: D Dimer 0.34 ug/mL (<0.48)
[2024-01-18 16:53] LABS: Influenza A QL RT-PCR Negative (Negative); Influenza B QL RT-PCR Negative (Negative); RSV RNA, RT-PCR Negative (Negative); SARS-CoV-2 RNA PCR Negative (Negative)
[2024-01-18 18:57] LABS: Appearance Urine Clear (Clear); Bacteria Urine None Seen /hpf; Bilirubin Urine Negative (Negative); Blood Urine Negative (Negative); Color Urine Yellow (Yellow); Glucose Urine UA Negative (Negative); Ketones Urine Negative (Negative); Leukocyte Esterase Ur 2+ LEU/UL (Negative); Mucus Urine Present /lpf; Need Manual Microscopic Reviewed; Nitrate Urine Negative (Negative); Protein Urine Negative (Negative); RBC Urine 0-2 /hpf (0-2); Specific Grav Ur 1.016 (1.001-1.035); Squamous Epithelial Cell Urine Occasional /hpf (Few); Urobilinogen Urine 0.2 mg/dL (<2.0); WBC Clumps Urine Present /HPF; WBC Urine 51-100 /hpf (0-3)
[2024-01-18 19:00] LABS: Add Urine Microscopic? YES
[2024-01-18] MEDS: CIPROFLOXACIN 250 MG TABLET PO (19:42)
== END 2024-01-18 19:48 | disposition home or self-care (01) ==
PROVIDERS: Physician Assistant; Emergency Provider Physician Assistant; PCP Internal Medicine
DX: R53.81 Other malaise (principal); R06.00 Dyspnea, unspecified; N39.0 Urinary tract infection, site not specified; E11.22 Type 2 diabetes mellitus with diabetic chronic kidney disease; I12.9 Hypertensive chronic kidney disease with stage 1 through stage 4 chronic kidney disease, or unspecified chronic kidney disease; N18.9 Chronic kidney disease, unspecified; E03.9 Hypothyroidism, unspecified; E78.5 Hyperlipidemia, unspecified; Z85.038 Personal history of other malignant neoplasm of large intestine; Z20.822 Contact with and (suspected) exposure to COVID-19
CPT/HCPCS: 36415; 71046; 80053; 81001; 83735; 83880; 84484; 85025; 85380; 85610; 85730; 87077; 87086; 87088; 87181; 87637; 93005; 99284; A9270

== ENCOUNTER 2024-01-19 12:38 | Outpatient (CLI) | payer MEDICARE, OTHER, SELFPAY ==
--- NOTE | 2024-01-19 16:34 | WPDPFTINT ---
PFT Procedure Performed PFT Procedure Performed Spirometry with Pre/Post Bronchodilator Plethysmography (Lung Vol) Diffusing Cap (DLCO) Flow Vol Loop PFT Interpretation This is a pulmonary function test with pre and post-bronchodilator spirometry, plethysmography and diffusing capacity. The test was performed and results interpreted in accordance with the 2019 and 2005 ATS/ERS Task Force guidelines respectively using the Global Lung Function Initiative-2012 reference equations. Patient demonstrated good effort and cooperation. Reproducibility criteria were met. The quality of the pre bronchodilator spirometry maneuver was Grade A and post bronchodilator spirometry maneuver was Grade A. Findings: Spirometry: the contour the inspiratory and expiratory flow tracing are normal. The pre bronchodilator FVC is 2.23 L, 82% predicted. The pre bronchodilator FEV1 is 1.65 L, 80% predicted. The pre bronchodilator FEV1: FVC ratio is 74%. The post bronchodilator FVC is 2.17 L, representing a 3% decrease. The post bronchodilator FEV1 is 1.59 L, representing a 4% decrease. The post bronchodilator FEV1: FVC ratio 73%. Plethysmography: The total lung capacity is 6.11 L, 114% predicted. The functional residual capacity is 4.21 L, 135% predicted. The residual volume is 3.88 L, 155% predicted. The residual volume: Total lung capacity ratio 63%. Diffusing capacity: The diffusing capacity unadjusted for hemoglobin and carboxyhemoglobin is 11.8, 58% predicted. The diffusing capacity adjusted for alveolar volume is 3.34, 83% predicted. Impression: The spirometry is normal without evidence of an obstructive abnormality. There is no significant improvement after inhaling a single dose of albuterol. The increase in residual volume to total lung volume ratio is consistent with hyperinflation. The diffusing capacity unadjusted for hemoglobin and carboxyhemoglobin is moderately decreased and normalizes when adjusted for alveolar volume. There are no prior studies for comparison.
== END 2024-01-19 12:39 | disposition home or self-care (01) ==
LOC: ANHPFT 12:40
PROVIDERS: PCP Internal Medicine; Visit Provider Internal Medicine
DX: R06.02 Shortness of breath (principal); R06.09 Other forms of dyspnea
CPT/HCPCS: 94060; 94726; 94729

== ENCOUNTER 2024-01-28 03:20 | Emergency (ER) | payer MEDICARE, OTHER, SELFPAY ==
[2024-01-28 03:25] VITALS: BP 187/62; PULSE 83; RESP 12; TEMP 36.4; O2SAT 99
--- NOTE | 2024-01-28 03:25 | ECG_ITS ---
Test Date: 2024-01-28 03:26:07 Measurements Intervals [place] Rate: 55 P: 64 SD: 196 QRS: -33 QRSD: 86 T: 82 QT: 436 QTc: 419 Interpretive Statements SINUS BRADYCARDIA LEFT AXIS DEVIATION LEFT VENTRICULAR HYPERTROPHY AND ST-T CHANGE CONSIDER ANTERIOR INFARCT, AGE INDETERMINATE INFERIOR INFARCT, AGE INDETERMINATE BASELINE ARTIFACT- I, II, III, AVR, AVL, AVF, V1-V6 ABNORMAL ECG Compared to ECG 01/18/2024 16:02:44 NO SIGNIFICANT CHANGE Electronically Signed On 01-28-2024 07:51:38 CDT by John Knight D.O.
[2024-01-28 03:42] LABS: Basophils Absolute Auto 0.1 K/mm3 (0.0-0.1); Basophils Percent Auto 0.5 % (0.2-1.2); Eosinophils Absolute Auto 0.2 K/mm3 (0-0.3); Eosinophils Percent Auto 2.2 % (0-4.4); Hematocrit 33.9 % (37.0-47.0); Hemoglobin 11.5 g/dL (12.0-15.0); Immature Granulocyte Absolute 0.04 K/mm3 (0.00-0.031); Immature Granulocyte Percent A 0.4 % (0-0.5); Lymphocytes Absolute Auto 4.23 K/mm3 (0.9-3.2); Lymphocytes Percent Auto 37.9 % (18.3-44.2); Mean Corpuscular HGB Conc 33.9 g/dl (32-36); Mean Corpuscular Hemoglobin 29.3 pg (26-34); Mean Corpuscular Volume 86.5 fl (80-100); Mean Platelet Volume 9.4 fl (7.4-10.4); Monocytes Absolute Auto 0.9 K/mm3 (0.1-0.6); Monocytes Percent Auto 8.2 % (2.6-8.5); Neutrophils Absolute Auto 5.7 K/mm3 (1.3-6.7); Neutrophils Percent Auto 50.8 % (45.5-73.1); Platelet Count Result 318 k/mm3 (150-375); Red Blood Count 3.92 M/mm3 (4.2-5.4); Red Cell Distribution Width 13.5 % (11.5-14.5); White Blood Count 11.2 K/mm3 (4.5-10.0)
[2024-01-28 03:53] LABS: Alanine Aminotransferase 17 U/L (6-35); Albumin Level 4.2 g/dL (3.5-5.1); Alkaline Phosphatase 71 U/L (38-126); Anion Gap 9 mmol/L (4-12); Aspartate Amino Transferase 23 U/L (14-36); Bilirubin,Total 0.5 mg/dL (0.2-1.3); Blood Urea Nitrogen 38 mg/dL (7-17); Calcium 9.1 mg/dL (8.4-10.2); Carbon Dioxide 22 mmol/L (22-30); Chloride 102 mmol/L (98-107); Estimated CRCL calculation 25 ml/min; Estimated Glomerular Filt Rate 33; Glucose 112 mg/dL (65-110); Lipase 126 U/L (23-300); Potassium 4.1 mmol/L (3.4-5.0); Sodium 133 mmol/L (137-145)
--- NOTE | 2024-01-28 04:19 | ED.GENADULT ---
HPI - General Adult General Chief complaint: Nausea/Vomiting/Diarrhea Stated complaint: Nausea Time Seen by Provider: 01/28/24 03:26 Source: patient Limitations: no limitations History of Present Illness HPI narrative: Patient is a 78-year-old female presents to the emergency department complaining of malaise, left ear pain, left neck discomfort. Patient states this is been going on since approximately 7:00 p.m. with the left ear discomfort her however with further questioning patient admits to the malaise overall been going on for the past 3 weeks. Patient was recently treated for urinary tract infection and completed treatment today with ciprofloxacin. Patient was also recently switch from Bumex to spironolactone. Patient denies any recent injuries, recent illness, sick contacts, nausea, vomiting, diarrhea, chest pain, difficulty breathing, cough,, sore throat, nasal congestion, runny nose, numbness, focal weakness, dysuria, frequency, urgency, diarrhea, melena, hematochezia, abdominal pain, confusion. Patient states that she checked her blood pressure at home it was high and she got concerned. Patient was that this or 3rd visit for elevated blood pressure. Patient denies any headache, vision changes. Patient she has been taking her medications as prescribed and is keeping a blood pressure log at home and overall her blood pressures been in a better range in the 140s at home. Patient's her primary care physician is coming up on the and she has a stress test on the . Related Data Home Medications Medication Instructions Recorded Confirmed biotin 1 tablet PO DAILY 06/05/20 01/11/24 cholecalciferol (vitamin D3) PO DAILY 06/05/20 01/11/24 pyridoxine (vitamin B6) 1 tablet PO DAILY 06/05/20 01/11/24 flaxseed oil 1,000 mg capsule 1,000 mg PO DAILY 06/18/21 01/11/24 Allergies Allergy/AdvReac Type Severity Reaction Status Date / Time Penicillins Allergy Severe Hives Verified 01/11/24 13:57 phenytoin Allergy Intermediate HIVES Verified 01/11/24 13:57 cefaclor Allergy Unknown THROAT Verified 01/11/24 13:57 SWELLING AND HIVES Review of Systems Review of Systems: A 10 system review of systems was completed on the patient and is negative except for what is stated in the HPI. Nursing and ancillary documentation was reviewed. [facility] Past Medical History Medical History Acute meniscal tear of right knee Back Pain Bilateral knee pain BMI 26.0-26.9,adult BMI 27.0-27.9,adult BMI 28.0-28.9,adult Breast cancer screening Bruxism Change in bowel habits CKD (chronic kidney disease) Degenerative arthritis of knee, bilateral Encounter for routine adult health examination with abnormal findings Encounter for routine adult health examination without abnormal findings Essential (primary) hypertension Fatigue FHx: colon cancer Fibromyalgia Fluctuating blood pressure Follow up Hemorrhoids History of basal cell carcinoma (BCC) Hormone replacement therapy (HRT) Hospital discharge follow-up Hot flashes Hyperlipidemia Hypothyroidism (acquired) Itchy skin Low magnesium level Macular degeneration Malaise Mild reactive airways disease MVP (mitral valve prolapse) Need for influenza vaccination Numbness in feet On shelter drug therapy DOUGLAS on CPAP Osteopenia Otalgia of left ear Palpitations Pedal edema Peripheral edema Peripheral neuropathy Post menopausal syndrome Pre-diabetes Recurrent UTI Sacroiliitis Shortness of breath Shoulder pain Vitamin D deficiency Surgical History Surgical History History of bladder repair surgery History of cholecystectomy History of hysterectomy Family History Family History Mother Cerebrovascular accident No family history of malignant neoplasm Carcinoma of colon Sibling Family history of lung cancer
[2024-01-28] MEDS: SODIUM CHLORIDE 0.9% IV 1,000 ML 999 ML IV CONT (04:37)
[2024-01-28 04:44] LABS: Creatine Kinase 45 U/L (30-135); Magnesium 1.7 mg/dL (1.6-2.3)
[2024-01-28 05:36] LABS: Troponin I < 0.012 ng/mL (0.000-0.034)
[2024-01-28 05:36] LABS: Appearance Urine Clear (Clear); Bacteria Urine None Seen /hpf; Bilirubin Urine Negative (Negative); Blood Urine Negative (Negative); Color Urine Yellow (Yellow); Glucose Urine UA Negative (Negative); Ketones Urine Negative (Negative); Leukocyte Esterase Ur Trace LEU/UL (Negative); Nitrate Urine Negative (Negative); Non Pathogenic Casts 0-2; Protein Urine Negative (Negative); RBC Urine 0-2 /hpf (0-2); Specific Grav Ur 1.008 (1.001-1.035); Squamous Epithelial Cell Urine None Seen /hpf (Few); Urobilinogen Urine 0.2 mg/dL (<2.0); WBC Urine 0-5 /hpf (0-3)
[2024-01-28 05:41] LABS: Add Urine Microscopic? YES
[2024-01-28 06:14] LABS: Free T4 Free Thyroxine Reflex 1.29 ng/dL (0.78-2.19)
[2024-01-28 06:17] VITALS: BP 164/53; PULSE 60; RESP 15; O2SAT 100
[2024-01-28 07:01] LABS: Total Triiodothyronine (T3) 1.07 NG/ML (0.97-1.69)
== END 2024-01-28 07:14 ==
PROVIDERS: Emergency Provider Student in an Organized Health Care Education/Training Program; PCP Internal Medicine
DX: R53.81 Other malaise (principal); N18.9 Chronic kidney disease, unspecified; I12.9 Hypertensive chronic kidney disease with stage 1 through stage 4 chronic kidney disease, or unspecified chronic kidney disease; I34.1 Nonrheumatic mitral (valve) prolapse; E78.5 Hyperlipidemia, unspecified; E03.9 Hypothyroidism, unspecified; E55.9 Vitamin D deficiency, unspecified; H35.30 Unspecified macular degeneration; M85.80 Other specified disorders of bone density and structure, unspecified site; G47.33 Obstructive sleep apnea (adult) (pediatric); G62.9 Polyneuropathy, unspecified; Z87.440 Personal history of urinary (tract) infections; R73.03 Prediabetes; M17.0 Bilateral primary osteoarthritis of knee; M79.7 Fibromyalgia; Z85.828 Personal history of other malignant neoplasm of skin; Z90.49 Acquired absence of other specified parts of digestive tract; Z90.710 Acquired absence of both cervix and uterus; Z79.899 Other long term (current) drug therapy; Z79.84 Long term (current) use of oral hypoglycemic drugs; R00.1 Bradycardia, unspecified; I51.7 Cardiomegaly; R94.31 Abnormal electrocardiogram [ECG] [EKG]
CPT/HCPCS: 36415; 80053; 81001; 82550; 83690; 83735; 84439; 84443; 84480; 84484; 85025; 93005; 96360; 96361; 99284; J7030

== ENCOUNTER 2024-04-05 11:30 | Outpatient (CLI) | payer MEDICARE, OTHER, SELFPAY ==
[2024-04-05 12:49] LABS: Thyroid Stimulating Hormone 0.314 uIU/mL (0.465-4.680)
[2024-04-05 14:17] LABS: Free T4 Free Thyroxine 1.26 ng/mL (0.78-2.19)
== END 2024-04-05 11:31 | disposition home or self-care (01) ==
LOC: ANHLAB 11:33
PROVIDERS: PCP Family Medicine; Visit Provider Family Medicine
DX: E03.9 Hypothyroidism, unspecified (principal)
CPT/HCPCS: 36415; 84439; 84443

== ENCOUNTER 2024-04-12 13:53 | Outpatient (CLI) | payer MEDICARE, OTHER, SELFPAY ==
[2024-04-12 16:37] LABS: Add Urine Microscopic? YES; Appearance Urine Clear (Clear); Bacteria Urine None Seen /hpf; Bilirubin Urine Negative (Negative); Blood Urine Negative (Negative); Color Urine Yellow (Yellow); Glucose Urine UA Negative (Negative); Ketones Urine Trace mg/dL (Negative); Leukocyte Esterase Ur 3+ LEU/UL (Negative); Need Manual Microscopic Reviewed; Nitrate Urine Negative (Negative); Protein Urine 1+ mg/dL (Negative); RBC Urine 0-2 /hpf (0-2); Specific Grav Ur 1.018 (1.001-1.035); Squamous Epithelial Cell Urine None Seen /hpf (Few); Urobilinogen Urine 0.2 mg/dL (<2.0); WBC Urine 21-50 /hpf (0-3)
== END 2024-04-12 13:54 | disposition home or self-care (01) ==
LOC: ANHLAB 13:56
PROVIDERS: PCP Family Medicine; Visit Provider Physician Assistant
DX: N39.0 Urinary tract infection, site not specified (principal); R39.11 Hesitancy of micturition
CPT/HCPCS: 81001; 87086

== ENCOUNTER 2024-04-21 15:57 | Outpatient (CLI) | payer MEDICARE, OTHER, SELFPAY ==
[2024-04-22 23:50] LABS: Add Urine Microscopic? YES; Appearance Urine Clear (Clear); Bacteria Urine None Seen /hpf; Bilirubin Urine Negative (Negative); Blood Urine Negative (Negative); Color Urine Yellow (Yellow); Glucose Urine UA Negative (Negative); Ketones Urine Negative (Negative); Leukocyte Esterase Ur 2+ LEU/UL (Negative); Nitrate Urine Negative (Negative); Protein Urine Trace mg/dL (Negative); RBC Urine 0-2 /hpf (0-2); Specific Grav Ur 1.014 (1.001-1.035); Squamous Epithelial Cell Urine None Seen /hpf (Few); Urobilinogen Urine 0.2 mg/dL (<2.0); WBC Urine 21-50 /hpf (0-3); pH Urine 5.5 (5.0-9.0)
== END 2024-04-21 15:58 | disposition home or self-care (01) ==
LOC: ANHLAB 16:00
PROVIDERS: PCP Family Medicine; Visit Provider Physician Assistant Medical
DX: N39.0 Urinary tract infection, site not specified (principal); R39.89 Other symptoms and signs involving the genitourinary system; Z79.899 Other long term (current) drug therapy
CPT/HCPCS: 81001; 87086

== ENCOUNTER 2024-05-03 15:31 | Outpatient (CLI) | payer MEDICARE, OTHER, SELFPAY ==
[2024-05-03 16:15] LABS: Hematocrit 35.7 % (37.0-47.0); Hemoglobin 11.5 g/dL (12.0-15.0); Mean Corpuscular HGB Conc 32.2 g/dl (32-36); Mean Corpuscular Hemoglobin 29.5 pg (26-34); Mean Corpuscular Volume 91.5 fl (80-100); Mean Platelet Volume 9.8 fl (7.4-10.4); Platelet Count Result 376 k/mm3 (150-375); Red Cell Distribution Width 12.4 % (11.5-14.5); White Blood Count 12.1 K/mm3 (4.5-10.0)
[2024-05-03 16:23] LABS: Add Urine Microscopic? YES; Appearance Urine Clear (Clear); Bacteria Urine None Seen /hpf; Bilirubin Urine Negative (Negative); Blood Urine Negative (Negative); Color Urine Yellow (Yellow); Glucose Urine UA Negative (Negative); Ketones Urine Negative (Negative); Leukocyte Esterase Ur 2+ LEU/UL (Negative); Nitrate Urine Negative (Negative); Protein Urine Trace mg/dL (Negative); RBC Urine 0-2 /hpf (0-2); Specific Grav Ur 1.016 (1.001-1.035); Squamous Epithelial Cell Urine None Seen /hpf (Few); Urobilinogen Urine 0.2 mg/dL (<2.0); pH Urine 5.5 (5.0-9.0)
[2024-05-03 16:44] LABS: Erythrocyte Sedimentation Rate 26 mm/hr (0-20)
[2024-05-03 16:45] LABS: Albumin Level 4.4 g/dL (3.5-5.1); Anion Gap 10 mmol/L (4-12); Blood Urea Nitrogen 50 mg/dL (7-17); Calcium 9.4 mg/dL (8.4-10.2); Carbon Dioxide 21 mmol/L (22-30); Chloride 101 mmol/L (98-107); Creatine Kinase 33 U/L (30-135); Estimated Glomerular Filt Rate 31; Glucose 107 mg/dL (65-110); Phosphorus 4.3 mg/dL (2.5-4.5); Potassium 5.5 mmol/L (3.4-5.0); Sodium 132 mmol/L (137-145)
[2024-05-03 16:52] LABS: Complement C3 113 mg/dL (88-165)
[2024-05-03 16:57] LABS: Parathyroid Intact 44.9 pg/mL (14.5-75.2)
[2024-05-03 20:46] LABS: Creatinine Urine 102.7 mg/dL; Total Protein Urine Random 16 mg/dL; Ur Ttl Prot Creatinine Ratio 0.16 mg/mg (0-0.20)
[2024-05-05 15:28] LABS: Kappa\\Lambda Light Chains 1.99 (0.26-1.65)
[2024-05-07 22:09] LABS: Immunofixation, Serum Normal pattern.
[2024-05-11 14:29] LABS: Complement Total CH50 55 U/mL (31-60)
== END 2024-05-03 15:32 | disposition home or self-care (01) ==
PROVIDERS: PCP Family Medicine; Visit Provider Internal Medicine Nephrology
DX: R94.4 Abnormal results of kidney function studies (principal); I10 Essential (primary) hypertension; E78.2 Mixed hyperlipidemia
CPT/HCPCS: 36415; 80069; 81001; 82088; 82550; 82570; 83883; 83970; 84156; 84244; 85027; 85652; 86038; 86039; 86160; 86162; 86334

== ENCOUNTER 2024-05-05 06:36 | Outpatient (RCR) | payer MEDICARE, OTHER, SELFPAY ==
[2024-05-05 17:17] LABS: Total Volume 24 Hour Urine 375 ml; Urea Nitrogen 24 Hour Urine 1.5 G/DAY (12-20)
[2024-05-13 08:41] LABS: Metanephrine, Urine 16
[2024-05-13 08:42] LABS: Normetanephrine, Urine 169
[2024-05-13 08:44] LABS: Metanephrine, Total Urine 185
[2024-05-16 16:40] LABS: Pro/Creat Ratio 256
== END 2024-05-05 07:00 | disposition home or self-care (01) ==
LOC: ANHLAB 06:36
PROVIDERS: PCP Family Medicine; Visit Provider Internal Medicine Nephrology
DX: Z51.81 Encounter for therapeutic drug level monitoring (principal); I10 Essential (primary) hypertension; E87.1 Hypo-osmolality and hyponatremia; E87.5 Hyperkalemia; R94.4 Abnormal results of kidney function studies; R82.81 Pyuria; Z79.899 Other long term (current) drug therapy
CPT/HCPCS: 81050; 83835; 84540; 86335; 87086

== ENCOUNTER 2024-06-14 08:47 | Outpatient (CLI) | payer MEDICARE, OTHER, SELFPAY ==
--- NOTE | ~2024-06-14 | CT_ITS ---
EXAMINATION: CTA abdomen pelvis DATE: 06/14/2024 09:34 INDICATION: Hypertension. Renal artery stenosis. TECHNIQUE: Computed tomographic angiography (CTA) of the abdomen and pelvis was performed with 100 mL Omnipaque-350 intravenous contrast. Automated exposure control and iterative reconstruction techniqu e were employed. The dose-length product was 581.16 mGy-cm. Maximum intensity projection 3D-reconstru ctions of the aorta and other arteries were constructed by the technologist on a separate workstation . COMPARISON: CT abdomen 06/30/2007 FINDINGS: The visualized portions of the lung bases since from mild atelectasis. No pleural effusion. The heart size is normal. No pericardial effusion. The liver, spleen, pancreas, and adrenal glands a re normal. There is a 5 mm cyst in right kidney. There is mild atrophy of left kidney. There is diver ticulosis of the colon without evidence of diverticulitis. There are no dilated loops of bowel. The a ppendix is not visualized. No ascites. There are no pathologically enlarged lymph nodes. Aortic ather osclerosis is noted. There is no significant stenosis of celiac axis, superior mesenteric artery, the renal arteries, or inferior mesenteric artery. There is lumbar levoscoliosis and severe spondylosis. IMPRESSION: 1. No significant arterial occlusive disease. Reviewed, dictated and finalized at location A. Y MOTORMAN
[2024-06-14 09:16] LABS: Estimated Glomerular Filt Rate 31
== END 2024-06-14 08:48 | disposition home or self-care (01) ==
LOC: MICIMG 08:49
PROVIDERS: PCP Family Medicine; Visit Provider Internal Medicine Nephrology
DX: I10 Essential (primary) hypertension (principal)
CPT/HCPCS: 74174; Q9967

== ENCOUNTER 2024-06-15 08:47 | Inpatient (IN) | payer MEDICARE, OTHER, SELFPAY ==
[2024-06-15] VITALS (10 sets, daily range): BP systolic 142–168; BP diastolic 51–62; PULSE 83–96; RESP 14–20; TEMP 36.2–36.8; O2SAT 97–100; BMI 21.3
--- NOTE | ~2024-06-15 | US_ITS ---
EXAMINATION: US venous doppler [facility] DATE: 06/16/2024 14:34 INDICATION: DVT is suspected clinically TECHNIQUE: Grayscale ultrasound images without and with compression and Doppler ultrasound images of the bilateral lower extremity veins were obtained. COMPARISON: 06/04/2021 and 12/26/2021 (both negative) FINDINGS: The visualized portions of right common femoral vein, profunda (deep) femoral vein, femoral vein, pop liteal vein, peroneal veins, posterior tibial veins, and greater saphenous vein outflow are patent. The visualized portions of left common femoral vein, profunda femoral vein, femoral vein, popliteal v ein, peroneal veins, posterior tibial veins, and greater saphenous vein outflow are patent. IMPRESSION: 1. No deep venous thrombosis within the bilateral lower extremities, as detailed above. Reviewed, dictated and finalized at location A. [employer]ESSING [employer]NER IMPRESSION: 1. No deep venous thrombosis within the bilateral lower extremities, as detail ed above.
--- NOTE | ~2024-06-15 | XR_ITS ---
EXAMINATION: XR chest 2V DATE: 06/15/2024 09:58 INDICATION: Shortness of breath. Tachycardia. TECHNIQUE: AP and lateral views of the chest were obtained. COMPARISON: Chest radiograph dated 01/18/2024 FINDINGS: Mild biapical pleural-parenchymal scarring. Unchanged chronic mild lingular atelectasis/scarring theresa g side a small left pericardial fat pad. Calcified nodule in the left lower lung zone consistent with old granulomatous disease. No new airspace opacities, pulmonary edema, pleural effusion or pneumotho rax. The cardiomediastinal silhouette is normal. Chronic T4 compression fracture with mild anterior w edging. IMPRESSION: 1. Chronic mild lingular atelectasis/scarring. No acute cardiopulmonary disease. Reviewed, dictated and finalized at location B. CHIPPER IMPRESSION: 1. Chronic mild lingular atelectasis/scarring. No acute cardiopulmonary disease .
--- NOTE | 2024-06-15 09:00 | ECG_ITS ---
Test Date: 2024-06-15 09:03:12 Measurements Intervals [place] Rate: 81 P: 57 UT: 175 QRS: -41 QRSD: 86 T: 78 QT: 387 QTc: 451 Interpretive Statements SINUS RHYTHM LEFT VENTRICULAR HYPERTROPHY WITH ST-T CHANGE CONSIDER ANTERIOR INFARCT, AGE INDETERMINATE INFERIOR INFARCT, AGE INDETERMINATE BASELINE ARTIFACT- I, II, III, AVR, AVL, AVF, V1-V6 ABNORMAL ECG Compared to ECG 01/28/2024 03:26:07 HEART RATE HAS INCREASED Electronically Signed On 06-15-2024 09:18:27 DESKTOP OPERATOR by John Knight D.O.
[2024-06-15 09:45] LABS: Basophils Absolute Auto 0.1 K/mm3 (0.0-0.1); Basophils Percent Auto 0.7 % (0.2-1.2); Eosinophils Absolute Auto 0.2 K/mm3 (0-0.3); Eosinophils Percent Auto 1.3 % (0-4.4); Hematocrit 35.7 % (37.0-47.0); Hemoglobin 11.6 g/dL (12.0-15.0); Immature Granulocyte Absolute 0.05 K/mm3 (0.00-0.031); Immature Granulocyte Percent A 0.4 % (0-0.5); Lymphocytes Absolute Auto 3.24 K/mm3 (0.9-3.2); Lymphocytes Percent Auto 25.5 % (18.3-44.2); Mean Corpuscular HGB Conc 32.5 g/dl (32-36); Mean Corpuscular Hemoglobin 28.9 pg (26-34); Mean Platelet Volume 9.4 fl (7.4-10.4); Monocytes Percent Auto 7.9 % (2.6-8.5); Neutrophils Absolute Auto 8.2 K/mm3 (1.3-6.7); Neutrophils Percent Auto 64.2 % (45.5-73.1); Platelet Count Result 438 k/mm3 (150-375); Red Blood Count 4.01 M/mm3 (4.2-5.4); Red Cell Distribution Width 13.4 % (11.5-14.5); White Blood Count 12.7 K/mm3 (4.5-10.0)
[2024-06-15] MEDS: diazePAM INJ (*CRX) 10 MG/2 ML SYRINGE 5 MG IV PUSH (09:55)
[2024-06-15] MEDS: SODIUM CHLORIDE 0.9% IV 1,000 ML 999 ML IV CONT (09:55)
[2024-06-15 10:03] LABS: Alanine Aminotransferase 16 U/L (6-35); Albumin Level 4.3 g/dL (3.5-5.1); Alkaline Phosphatase 99 U/L (38-126); Anion Gap 11 mmol/L (4-12); Aspartate Amino Transferase 22 U/L (14-36); Bilirubin,Total 0.5 mg/dL (0.2-1.3); Blood Urea Nitrogen 31 mg/dL (7-17); Calcium 9.5 mg/dL (8.4-10.2); Carbon Dioxide 17 mmol/L (22-30); Chloride 107 mmol/L (98-107); Estimated CRCL calculation 27 ml/min; Estimated Glomerular Filt Rate 36; Glucose 126 mg/dL (65-110); Potassium 4.3 mmol/L (3.4-5.0); Sodium 135 mmol/L (137-145)
[2024-06-15 11:59] LABS: Free T4 Free Thyroxine Reflex 1.48 ng/dL (0.78-2.19)
[2024-06-15 14:07] LABS: Total Triiodothyronine (T3) 1.06 NG/ML (0.97-1.69)
[2024-06-15 16:03] LABS: Basophils Absolute Auto 0.1 K/mm3 (0.0-0.1); Basophils Percent Auto 0.7 % (0.2-1.2); Eosinophils Absolute Auto 0.1 K/mm3 (0-0.3); Eosinophils Percent Auto 0.9 % (0-4.4); Hematocrit 32.8 % (37.0-47.0); Hemoglobin 10.8 g/dL (12.0-15.0); Immature Granulocyte Absolute 0.04 K/mm3 (0.00-0.031); Immature Granulocyte Percent A 0.3 % (0-0.5); Lymphocytes Absolute Auto 2.93 K/mm3 (0.9-3.2); Lymphocytes Percent Auto 24.6 % (18.3-44.2); Mean Corpuscular HGB Conc 32.9 g/dl (32-36); Mean Corpuscular Hemoglobin 29.8 pg (26-34); Mean Corpuscular Volume 90.4 fl (80-100); Mean Platelet Volume 9.2 fl (7.4-10.4); Monocytes Percent Auto 8.4 % (2.6-8.5); Neutrophils Absolute Auto 7.7 K/mm3 (1.3-6.7); Neutrophils Percent Auto 65.1 % (45.5-73.1); Platelet Count Result 383 k/mm3 (150-375); Red Blood Count 3.63 M/mm3 (4.2-5.4); Red Cell Distribution Width 13.7 % (11.5-14.5); White Blood Count 11.9 K/mm3 (4.5-10.0)
[2024-06-15 16:11] LABS: Lactic Acid Reflex 0.8 mmol/L (0.7-2.0)
[2024-06-15 16:13] LABS: INR 1.1; Prothrombin Time 14.5 Seconds (11.1-14.7)
[2024-06-15 16:14] LABS: Partial Thromboplastin Time 29.6 Seconds (22.3-36.8)
[2024-06-15 16:26] LABS: Troponin I 0.085 ng/mL (0.000-0.034)
--- NOTE | 2024-06-15 16:38 | ED_ITS ---
HPI - General Adult General Chief complaint: Shortness of Breath/Dyspnea Stated complaint: SOB Time Seen by Provider: 06/15/24 08:49 History of Present Illness HPI narrative: this is an 79 year female presenting ED with chief complaint shortness of breath. last night patient was feeling anxious, short of breath and had elevated blood pressures. She tried multiple things including relaxing music and Valium. Eventually she was able to go to sleep. However when she woke in the morning she was still short of breath and had developed a pressure in the center of her chest. It was nonradiating, 4/10 in intensity, constant. she has never had pain like this before there are no exacerbating alleviating symptoms. It was not related with exertion, no diaphoresis vomiting. Patient has been seen in the ED multiple times for elevated blood pressures each time with a negative workup. Yesterday patient had a CT abdomen pelvis with contrast to evaluate her kidneys due to persistent hypertension. She continue to take her metformin afterwards. Related Data Home Medications Medication Instructions Recorded Confirmed biotin 1 tablet PO DAILY 06/05/20 05/04/24 cholecalciferol (vitamin D3) PO DAILY 06/05/20 05/04/24 pyridoxine (vitamin B6) 1 tablet PO DAILY 06/05/20 05/04/24 flaxseed oil 1,000 mg capsule 1,000 mg PO DAILY 06/18/21 05/04/24 fluconazole 150 mg tablet 150 mg PO ONCE PRN 05/02/24 05/04/24 Allergies Allergy/AdvReac Type Severity Reaction Status Date / Time Penicillins Allergy Severe Hives Verified 06/15/24 09:06 phenytoin Allergy Intermediate HIVES Verified 06/15/24 09:06 cefaclor Allergy Unknown THROAT Verified 06/15/24 09:06 SWELLING AND HIVES [facility] Past Medical History Medical History Back Pain Bilateral knee pain Breast cancer screening Bruxism Change in bowel habits CKD (chronic kidney disease), stage III Degenerative arthritis of knee, bilateral Essential (primary) hypertension FHx: colon cancer Fibromyalgia Hemorrhoids History of basal cell carcinoma (BCC) Hormone replacement therapy (HRT) Hot flashes Hy kid 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 Hyperlipidemia Hypothyroidism (acquired) Low magnesium level Macular degeneration Mild reactive airways disease MVP (mitral valve prolapse) Numbness in feet On snf drug therapy DOUGLAS on CPAP Osteopenia Otalgia of left ear Palpitations Pedal edema Peripheral edema Peripheral neuropathy Post menopausal syndrome Pre-diabetes Recurrent UTI Sacroiliitis Shortness of breath Vitamin D deficiency Surgical History Surgical History History of bladder repair surgery History of cholecystectomy History of hysterectomy Family History Family History Mother Cerebrovascular accident No family history of malignant neoplasm Carcinoma of colon Sibling Family history of lung cancer Patient's brother is in good health Father Family history of heart disease in male family member before age 55 Family history of cardiovascular disease Family history of malignant neoplasm Family history of thyroid disease Other Diabetes mellitus Hypertension Social History Social History Social History: Smoking status: Never smoker Second hand tobacco smoke exposure: No Alcohol intake: current Alcohol use details: Occasionally Substance use: never Substance use type: does not use Do You Feel Safe in your Home?: Yes Lack of Transportation: No Lack of Food: Never True Current Housing: I Have Housing Concerned About Future Housing: No Difficulty Paying Gas/Electric Bills: No Difficulty Paying for Meds: No Currently Unemployed: YES Education: High School Diploma/GED Difficulty w/ Childcare or Family Care: No Living arrangements: alone Occupation/Education: retired Gender identity (if verbalized by the patient): Female Sexual Orientation (if Verbalized by the Patient): Straight or Heterosexual Spiritual care concerns: No Exam Narrative: APPEARANCE: anxious appearing Head: atraumatic. EYES: EOMI, NOSE: Atraumatic NECK: Trachea midline RESPIRATORY: tachypneic , clear to auscultation CARDIOVASCULAR: RRR, no peripheral edema ABDOMINAL: soft nontender no guarding rebound MUSCULOSKELETAl: No obvious deformities NEURO: Alert. Moving 4/4 extremities SKIN:: Warm, dry. Normal color PSYCHIATRIC: anxious. Course Vital Signs Vital signs: Vital Signs Temperature 97.2 F L 06/15/24 09:00 Pulse Rate 83 06/15/24 09:00 Respiratory Rate 14 06/15/24 09:00 Blood Pressure 157/60 H 06/15/24 09:00 Pulse Oximetry 100 06/15/24 09:00 Oxygen Delivery Room Air 06/15/24 09:00 Temperature 97.2 F L 06/15/24 09:00 Pulse Rate 90 06/15/24 16:30 Respiratory Rate 16 06/15/24 16:30 Blood Pressure 163/57 H 06/15/24 16:30 Pulse Oximetry 97 06/15/24 16:30 Oxygen Delivery Room Air 06/15/24 09:00 Medical Decision Making MDM Narrative Medical decision making narrative: -Course: 79-year-old female presenting with chest pressure and shortness of breath. patient was very anxious on arrival and was given 5 mg of IV Valium. Workup showed an elevated troponin 0.08->.085. no ischemic changes on EKG. Chest pain resolved after several hours in the emergency department and she is currently pain-free. Elevated tropes could be due to ACS vs hypertensive emergency. patient will be given aspirin/heparin. Family was concerned about Metformin/IV contrast. She was slightly acidotic on arrival but no lactic acidosis which I would expect to see from a metformin overdose 2/2 iv contrast. Patient's initial troponin was delayed and not ordered until 6 hours after arrival. This error was explained to the family and will not have any negative impact on the patient's care. I apologized to the patient and her family. Patien will be admitted for further management. -DDX includes but is not limited to: ACS, hypertensive emergency, metformin overdose, anxiety -Independent interpretation of studies: Independent EKG interpretation: Rhythm [sinus], Rate [81], Jansen -[normal], GA -[normal], QRS [narrow], QTC [normal], T waves -[negative for concerning inversions], ST Segments - [Negative for concerning elevations] Final interpretations: [Normal Sinus Rhythm] -Discussion of Management/Consultants:Harika -Interventions: 5 mg Valium, aspirin, heparin, 1 L normal saline -Shared decision making / Disposition:Admitted. Vital Signs Vital Signs: Vital Signs Temperature 97.2 F L 06/15/24 09:00 Pulse Rate 83 06/15/24 09:00 Respiratory Rate 14 06/15/24 09:00 Blood Pressure 157/60 H 06/15/24 09:00 Pulse Oximetry 100 06/15/24 09:00 Oxygen Delivery Room Air 06/15/24 09:00 Temperature 97.2 F L 06/15/24 09:00 Pulse Rate 90 06/15/24 16:30 Respiratory Rate 16 06/15/24 16:30 Blood Pressure 163/57 H 06/15/24 16:30 Pulse Oximetry 97 06/15/24 16:30 Oxygen Delivery Room Air 06/15/24 09:00 Lab Data 06/15/24 15:49 06/15/24 09:39 Labs: Lab Results 06/15/24 06/15/24 Range/Units 09:39 15:49 WBC 12.7 H 11.9 H (4.5-10.0) K/mm3 RBC 4.01 L 3.63 L (4.2-5.4) M/mm3 Hgb 11.6 L 10.8 L (12.0-15.0) g/dL Hct 35.7 L 32.8 L (37.0-47.0) % MCV 89.0 90.4 (80-100) fl MCH 28.9 29.8 (26-34) pg MCHC 32.5 32.9 (32-36) g/dl RDW 13.4 13.7 (11.5-14.5) % Plt Count 438 H 383 H (150-375) k/mm3 MPV 9.4 9.2 (7.4-10.4) fl Immature Gran % (Auto) 0.4 0.3 (0-0.5) % Neut % (Auto) 64.2 65.1 (45.5-73.1) % Lymph % (Auto) 25.5 24.6 (18.3-44.2) % Grady % (Auto) 7.9 8.4 (2.6-8.5) % Eos % (Auto) 1.3 0.9 (0-4.4) % Baso % (Auto) 0.7 0.7 (0.2-1.2) % Lymph # (Auto) 3.24 H 2.93 (0.9-3.2) K/mm3 Grady # (Auto) 1.0 H 1.0 H (0.1-0.6) K/mm3 Eos # (Auto) 0.2 0.1 (0-0.3) K/mm3 Baso # (Auto) 0.1 0.1 (0.0-0.1) K/mm3 Abs Immat Gran (auto) 0.05 H 0.04 H (0.00-0.031) K/mm3 Absolute Neuts (auto) 8.2 H 7.7 H (1.3-6.7) K/mm3 Absolute Nucleated RBC 0.000 0.000 (0.0-0.012) K/mm3 Nucleated RBC % 0.0 0.0 (0.0-0.2) % PT 14.5 (11.1-14.7) Seconds INR 1.1 APTT 29.6 (22.3-36.8) Seconds Sodium 135 L (137-145) mmol/L Potassium 4.3 (3.4-5.0) mmol/L Chloride 107 (98-107) mmol/L Carbon Dioxide 17 L (22-30) mmol/L Anion Gap 11 (4-12) mmol/L BUN 31 H (7-17) mg/dL Creatinine 1.40 H (0.7-1.0) mg/dL Estim Creat Clear Calc 27 ml/min Estimated GFR 36 L (59 - ) Glucose 126 H (65-110) mg/dL Lactic Acid 0.8 (0.7-2.0) mmol/L Calcium 9.5 (8.4-10.2) mg/dL Total Bilirubin 0.5 (0.2-1.3) mg/dL AST 22 (14-36) U/L ALT 16 (6-35) U/L Alkaline Phosphatase 99 (38-126) U/L Troponin I 0.080 H* 0.085 H* (0.000-0.034) ng/mL Total Protein 8.0 (6.3-8.2) g/dL Albumin 4.3 (3.5-5.1) g/dL TSH (Reflex) 4.640 (0.465-4.68) uIU/mL Free T4 1.48 (0.78-2.19) ng/dL Total T3 1.06 (0.97-1.69) NG/ML Discharge Plan Discharge Clinical Impression: Elevated troponin Patient Disposition: Still a Patient Condition: Stable Prescriptions: No Action metformin 500 mg tablet See Rx Instructions .ROUTE .COMPLEX Qty: 180 3RF Dose Instruction: TAKE 1 TABLET BY MOUTH TWICE DAILY Rx Instructions: TAKE 1 TABLET BY MOUTH TWICE DAILY hydroxyzine HCl 25 mg tablet See Rx Instructions .ROUTE .COMPLEX Qty: 40 2RF Dose Instruction: TAKE 1 TABLET BY MOUTH FOUR TIMES DAILY NEEDED FOR ITCHING Rx Instructions: TAKE 1 TABLET BY MOUTH FOUR TIMES DAILY NEEDED FOR ITCHING amlodipine 5 mg tablet 5 mg PO DAILY Qty: 30 5RF chlorthalidone 25 mg tablet 25 mg PO DAILY Qty: 30 5RF pyridoxine (vitamin B6) 1 tablet PO DAILY cholecalciferol (vitamin D3) PO DAILY biotin 1 tablet PO DAILY flaxseed oil 1,000 mg capsule 1,000 mg PO DAILY Rx Instructions: administer with a meal meloxicam 15 mg tablet See Rx Instructions .ROUTE .COMPLEX PRN (Reason: joint pain) Qty: 30 0RF Hold Instructions: due to edema Dose Instruction: TAKE 1 TABLET BY MOUTH DAILY Rx Instructions: TAKE 1 TABLET BY MOUTH DAILY PRN; (DME) blood-glucose meter [Blood Glucose Monitoring] Kit See Rx Instructions .Route Qty: 1 0RF Rx Instructions: Use 4 times weekly for blood glucose checks. Please fill for what is covered by INS pravastatin 80 mg tablet See Rx Instructions .ROUTE .COMPLEX Qty: 90 0RF Dose Instruction: TAKE 1 TABLET BY MOUTH DAILY. DISCONTINUE THE PRAVASTATIN 40 MG Rx Instructions: TAKE 1 TABLET BY MOUTH DAILY. fluconazole 150 mg tablet 150 mg PO ONCE PRN Rx Instructions: as a single dose prochlorperazine maleate [Compazine] 10 mg tablet 10 mg PO Q8H PRN (Reason: nausea and vomiting) Qty: 14 0RF carvedilol 25 mg tablet See Rx Instructions .ROUTE BID Qty: 180 1RF Dose Instruction: TAKE 1 TABLET BY MOUTH TWICE DAILY WITH FOOD Rx Instructions: TAKE 1 TABLET BY MOUTH DAILY WITH FOOD twice a day; tramadol 50 mg tablet 50 mg PO Q4-6H Qty: 90 0RF (DME) lancets [OneTouch Delica Plus Lancet] 30 gauge misc See Rx Instructions .ROUTE .COMPLEX Qty: 100 0RF Dose Instruction: USE TO TEST 4 TIMES A WEEK Rx Instructions: USE TO TEST 4 TIMES A WEEK (DME) OneTouch Verio test strips Strip See Rx Instructions .ROUTE .COMPLEX Qty: 50 0RF Dose Instruction: USE TO TEST BLOOD GLUCOSE 4 TIMES WEEKLY Rx Instructions: USE TO TEST BLOOD GLUCOSE 4 TIMES WEEKLY hydralazine 50 mg tablet 50 mg PO QID Qty: 360 1RF fluconazole 150 mg tablet 150 mg PO Q72H Qty: 2 0RF diazepam 2 mg tablet 2 mg PO TID PRN (Reason: anxiety) Qty: 90 0RF valsartan 320 mg tablet 320 mg PO DAILY Qty: 90 3RF amitriptyline 25 mg tablet 50 mg PO .at bedtime Qty: 180 0RF levothyroxine 50 mcg tablet See Rx Instructions .ROUTE .COMPLEX Qty: 90 1RF Dose Instruction: TAKE 1 TABLET BY MOUTH DAILY Rx Instructions: TAKE 1 TABLET BY MOUTH DAILY Follow-up/Referrals: Christopher Solis MD [Primary Care Provider] -
[2024-06-15] MEDS: HEPARIN SODIUM 5,000 UNITS/ML VIAL 4000 UNITS IV PUSH (16:42)
[2024-06-15] MEDS: ASPIRIN 81 MG CHEWABLE TABLET 324 MG PO (16:42)
[2024-06-15] MEDS: HEPARIN SOD/D5W 100 UNITS/ML 25,000 UNITS/250 ML BAG 8 UNITS IV CONT (16:44)
--- NOTE | 2024-06-15 16:49 | ECG_ITS ---
Test Date: 2024-06-15 17:21:16 Measurements Intervals [place] Rate: 93 P: 55 NV: 181 QRS: -44 QRSD: 82 T: 74 QT: 353 QTc: 441 Interpretive Statements SINUS RHYTHM LEFT VENTRICULAR HYPERTROPHY WITH ST-T CHANGE CONSIDER ANTERIOR INFARCT, AGE INDETERMINATE INFERIOR INFARCT, AGE INDETERMINATE BASELINE ARTIFACT- I, II, III, AVR, AVL, AVF, V1-V6 ABNORMAL ECG Compared to ECG 06/15/2024 09:03:12 NO SIGNIFICANT CHANGE Electronically Signed On 06-15-2024 18:42:30 [employer] by John Knight D.O.
--- NOTE | 2024-06-15 16:59 | PC.NURSE ---
This RN attempted additional IV access x2 with no success. Other staff RNs notified and to bedside to attempt. Heparin started with 1 peripheral line so treatment is not delayed.
--- NOTE | 2024-06-15 20:20 | PM.IMHP ---
H&P: HPI History of Present Illness Date/Time: 06/15/24 20:20 Chief Complaint: chest pain Narrative: This is an 79-year-old female with past medical history significant for mitral valve disease, hypertension, type diabetes mellitus, chronic kidney disease, obstructive sleep apnea on CPAP, peripheral neuropathy. patient presents to the emergency room due to palpitations, shortness of breath, generalized anxiety. This happened while in her sleep kept her up all night eventually started having chest pressure. Patient has been in her usual state of health prior to this, denies fevers, rigors, chills, nausea, vomiting, chest pain. Had lightheadedness no syncope or near syncope. Preliminary workup in emergency room was significant for troponins 0.0800 and 0.085 x 2. chemistry panel showed creatinine of 1.4 BUN 31 patient was rule out for acute pulmonary embolism with a CT chest PE protocol. Patient has been admitted for further evaluation management and treatment. XAMINATION: XR chest 2V DATE: 06/15/2024 09:58 INDICATION: Shortness of breath. Tachycardia. TECHNIQUE: AP and lateral views of the chest were obtained. COMPARISON: Chest radiograph dated 01/18/2024 FINDINGS: Mild biapical pleural-parenchymal scarring. Unchanged chronic mild lingular atelectasis/scarring along side a small left pericardial fat pad. Calcified nodule in the left lower lung zone consistent with old granulomatous disease. No new airspace opacities, pulmonary edema, pleural effusion or pneumothorax. The cardiomediastinal silhouette is normal. Chronic T4 compression fracture with mild anterior wedging. IMPRESSION: 1. Chronic mild lingular atelectasis/scarring. No acute cardiopulmonary disease. EXAMINATION: CTA abdomen pelvis DATE: 06/14/2024 09:34 INDICATION: Hypertension. Renal artery stenosis. TECHNIQUE: Computed tomographic angiography (CTA) of the abdomen and pelvis was performed with 100 mL Omnipaque-350 intravenous contrast. Automated exposure control and iterative reconstruction technique were employed. The dose-length product was 581.16 mGy-cm. Maximum intensity projection 3D-reconstructions of the aorta and other arteries were constructed by the technologist on a separate workstation. COMPARISON: CT abdomen 06/30/2007 FINDINGS: The visualized portions of the lung bases since from mild atelectasis. No pleural effusion. The heart size is normal. No pericardial effusion. The liver, spleen, pancreas, and adrenal glands are normal. There is a 5 mm cyst in right kidney. There is mild atrophy of left kidney. There is diverticulosis of the colon without evidence of diverticulitis. There are no dilated loops of bowel. The appendix is not visualized. No ascites. There are no pathologically enlarged lymph nodes. Aortic atherosclerosis is noted. There is no significant stenosis of celiac axis, superior mesenteric artery, the renal arteries, or inferior mesenteric artery. There is lumbar levoscoliosis and severe spondylosis. IMPRESSION: 1. No significant arterial occlusive disease. Review of Systems Review of Systems: Palpitations, anxiety, lightheadedness, shortness of breath, chest pressure. 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 on CPAP Osteopenia Otalgia of left ear Palpitations Pedal edema Peripheral edema Peripheral neuropathy Post menopausal syndrome Pre-diabetes Recurrent UTI Sacroiliitis Shortness of breath Vitamin D deficiency Surgical History Surgical History History of bladder repair surgery History of cholecystectomy History of hysterectomy Family History Family History (Updated 06/15/24 @ 22:37 by Rebecca Oquendo RN) Mother No family history of malignant neoplasm Carcinoma of colon Cerebrovascular accident Diabetes mellitus Hypertension Sibling Family history of lung cancer Patient's brother is in good health Diabetes mellitus Hypertension Father Family history of heart disease in male family member before age 55 Family history of cardiovascular disease Family history of malignant neoplasm Family history of thyroid disease Diabetes mellitus Hypertension Social History Social History Social History: Smoking status: Never smoker Second hand tobacco smoke exposure: No Alcohol intake: current Alcohol use details: Occasionally Substance use: never Substance use type: does not use Do You Feel Safe in your Home?: Yes Lack of Transportation: No Lack of Food: Never True Current Housing: I Have Housing Concerned About Future Housing: No Difficulty Paying Gas/Electric Bills: No Difficulty Paying for Meds: No Currently Unemployed: YES Education: High School Diploma/GED Difficulty w/ Childcare or Family Care: No Living arrangements: alone Occupation/Education: retired Gender identity (if verbalized by the patient): Female Sexual Orientation (if Verbalized by the Patient): Straight or Heterosexual Spiritual care concerns: No Meds Home Medications and Allergies Home Medications Medication Instructions Recorded Confirmed Type cholecalciferol (vitamin D3) 1 tablet PO DAILY 06/05/20 06/15/24 History pyridoxine (vitamin B6) 1 tablet PO DAILY 06/05/20 06/15/24 History blood-glucose meter (Blood Glucose #1 ea 09/29/23 06/15/24 Rx Monitoring kit) lancets 30 gauge (OneTouch Delica #100 ea 11/16/23 06/15/24 Rx Plus Lancet) blood sugar diagnostic (OneTouch #50 strips 12/01/23 06/15/24 Rx Verio test strips) amlodipine 5 mg tablet 5 mg PO DAILY #30 tabs 04/06/24 06/15/24 Rx valsartan 320 mg tablet 320 mg PO DAILY #90 tabs 05/04/24 06/15/24 Rx chlorthalidone 25 mg tablet 25 mg PO DAILY #30 tabs 06/08/24 06/15/24 Rx amitriptyline 25 mg tablet 50 mg PO HS 06/15/24 06/15/24 History carvedilol 25 mg tablet 25 mg PO BIDWM 06/15/24 06/15/24 History diazepam 2 mg tablet 4 mg PO HS 06/15/24 06/15/24 History hydralazine 50 mg tablet 50 mg PO TID 06/15/24 06/15/24 History hydroxyzine HCl 25 mg tablet 25 mg PO BID 06/15/24 06/15/24 History levothyroxine 50 mcg tablet 50 mcg PO DAILY 06/15/24 06/15/24 History metformin 500 mg tablet 500 mg PO BID 06/15/24 06/15/24 History pravastatin 80 mg tablet 80 mg PO DAILY 06/15/24 06/15/24 History tramadol 50 mg tablet 50 mg PO Q4-6H PRN Pain 06/15/24 06/15/24 History Allergies Allergy/AdvReac Type Severity Reaction Status Date / Time Penicillins Allergy Severe Hives Verified 06/15/24 22:22 phenytoin Allergy Intermediate HIVES Verified 06/15/24 22:22 cefaclor Allergy Unknown THROAT Verified 06/15/24 22:22 SWELLING AND HIVES Vital Signs Vital Signs - 24 hr 06/15/24 09:00 06/15/24 09:00 06/15/24 11:20 Temperature 97.2 F L Pulse Rate 83 92 Respiratory Rate 14 16 Blood Pressure 157/60 H 159/54 H Pulse Oximetry 100 100 Oxygen Delivery Room Air Room Air 06/15/24 14:56 06/15/24 16:30 06/15/24 19:00 Temperature Pulse Rate 89 90 96 Respiratory Rate 15 16 16 Blood Pressure 142/58 H 163/57 H 163/57 H Pulse Oximetry 100 97 99 Oxygen Delivery Exam Narrative: Patient is laying in a stretcher Const: General: comfortable, no acute distress, well developed, alert, awake and average body habitus Nutritional Appearance: average body habitus Orientation/consciousness: patient oriented x3 HENMT: Head: normal to inspection, normocephalic and atraumatic Ears: hearing grossly normal bilaterally Face/Nose/Sinus: normal facial exam Face and sinus: normal facial exam Eyes: General: appearance normal, both eyes and all related structures Pupils: Equal, round and reactive pupils present EOM: EOMs intact bilaterally Neck: Neck: full ROM, no lymphadenopathy and no JVD Thyroid: thyroid normal Lymphatic: no lymphadenopathy noted Resp: Effort & Inspection: normal respiratory effort and able to speak in complete sentences Auscultation: clear to auscultation bilaterally Cardio: Jugular venous distension: no JVD Rate: regular rate Rhythm: regular rhythm Heart sounds: S1 normal heart sound present, S2 normal heart sound present and Murmur heart sound present continuous GI: GI Palp: Yes Soft to palpation and Yes No hepatosplenomegaly present : General: Yes deferred Skin: Rashes: no rashes Wounds: no wounds Neuro: General: patient oriented x3 and CN's II-XI intact bilaterally Cranial nerves: Yes CN's II-XII intact bilaterally and Yes Equal, round and reactive pupils present Cognition (Neuro): normal cognition Speech: normal speech Gait exam (Neuro): Normal gait present Motor exam (neuro): 5/5 motor strength present throughout Extrem: General: normal to inspection, full ROM, no joint enlargement and no pedal edema H&P: Results Labs Labs: Short CBC 06/15/24 06/15/24 Range/Units 09:39 15:49 WBC 12.7 H 11.9 H (4.5-10.0) K/mm3 Hgb 11.6 L 10.8 L (12.0-15.0) g/dL Hct 35.7 L 32.8 L (37.0-47.0) % Plt Count 438 H 383 H (150-375) k/mm3 BMP 06/15/24 09:39 Sodium 135 L Potassium 4.3 Chloride 107 Carbon Dioxide 17 L BUN 31 H Creatinine 1.40 H Glucose 126 H Calcium 9.5 Cardiac Enzymes 06/15/24 06/15/24 Range/Units 09:39 15:49 Troponin I 0.080 H* 0.085 H* (0.000-0.034) ng/mL Liver Function 06/15/24 Range/Units 09:39 Total Bilirubin 0.5 (0.2-1.3) mg/dL AST 22 (14-36) U/L ALT 16 (6-35) U/L Alkaline Phosphatase 99 (38-126) U/L Albumin 4.3 (3.5-5.1) g/dL Assessment and Plan Assessment and plan (1) Elevated troponin: Code(s): R79.89 - Other specified abnormal findings of blood chemistry Status: Acute Assessment and Plan: admit to IMU on heparin drip cardiology consult continue to trend (2) DOUGLAS on CPAP: Code(s): G47.33 - Obstructive sleep apnea (adult) (pediatric); Z99.89 - Dependence on other enabling machines and devices Status: Acute Assessment and Plan: continue CPAP at nighttime (3) MVP (mitral valve prolapse): Code(s): I34.1 - Nonrheumatic mitral (valve) prolapse Status: Acute Assessment and Plan: follow-up in outpatient setting (4) Peripheral neuropathy: Qualifiers: Peripheral neuropathy type: idiopathic neuropathy, unspecified Qualified Code(s): G60.9 - Hereditary and idiopathic neuropathy, unspecified Code(s): G62.9 - Polyneuropathy, unspecified Status: Acute Assessment and Plan: unchanged (5) Fibromyalgia: Code(s): M79.7 - Fibromyalgia Status: Acute Assessment and Plan: unchanged (6) COPD (chronic obstructive pulmonary disease): Code(s): J44.9 - Chronic obstructive pulmonary disease, unspecified Status: Acute Assessment and Plan: unchanged (7) CKD (chronic kidney disease), stage III: Code(s): N18.30 - Chronic kidney disease, stage 3 unspecified Status: Acute Assessment and Plan: BUN and creatinine at patient's baseline (8) Essential (primary) hypertension: Code(s): I10 - Essential (primary) hypertension Status: Acute Assessment and Plan: restart [facility] Advance Care Plan I have confirmed that the patient's Advanced Care Plan is present, code status is documented, or surrogate decision maker is listed in patient medical record.: Yes Medication Reconciliation I have utilized all available resources to obtain, update and review the patients current medications (includes all prescriptions, OTC, herbals, cannabis, and nutritional supplements).: Yes
[2024-06-15] MEDS: LORazepam INJ (*CRX) 2 MG/ML VIAL 1 MG IV PUSH (21:43)
--- NOTE | 2024-06-15 22:00 | ADMGEN ---
This patient, Polly Marks, was admitted to IMU Room 209-. Patient/family oriented to hospital policies and general routines including ID bracelet, bed and alarms, visiting hours, pain management, procedures, bathroom and other care routines, personal items, smoking policy, room service/diet, and visiting hours. Information on how to activate the Rapid Response Team has been discussed. Patient/Family are encouraged to report perceived risks to care and to ask questions if they do not understand what they are told or what they should do.
[2024-06-15] MEDS: carvediloL 25 MG TABLET PO (22:49)
[2024-06-15] MEDS: hydrOXYzine HCL 25 MG TABLET PO (22:49)
[2024-06-15] MEDS: hydrALAZINE HCL 50 MG TABLET PO (22:49)
[2024-06-15] MEDS: AMITRIPTYLINE HCL 25 MG TABLET 50 MG PO (23:49)
[2024-06-15] MEDS: diazePAM (*CRX) 2 MG TABLET 4 MG PO (23:49)
[2024-06-15 23:55] LABS: Partial Thromboplastin Time 179.6 Seconds (22.3-36.8)
[2024-06-16] VITALS (21 sets, daily range): BP systolic 113–162; BP diastolic 38–63; PULSE 60–85; RESP 16–20; TEMP 36.4–37; O2SAT 97–100
--- NOTE | 2024-06-16 | ECHO_ITS ---
Patient Info Name: Polly Marks Age: 79 years : 1945 Gender: Female Ht: 66 in Wt: 132 lbs BSA: 1.67 m2 HR: 72 bpm BP: 131 / 50 mmHg Technical Quality: Poor Exam Date: 06/16/2024 10:05 AM Exam Location: Echo Lab Patient Status: Inpatient Admit Date: 06/15/2024 Staff Ordering Physician: Ernie Vásquez MD/megan) Surgical Garment Assembler: BECCA Attending Provider: Mk Jaimes MD Referring Physician: Thalia BLISS; Exam Type: CA echo dop color flow w con Study Info Indications - MITRAL REGURGITATION Complete two-dimensional, color flow and Doppler transthoracic echocardiogram is performed with contrast to opacify the left ventricle and to improve the deliniation of the left ventricle endocardial borders. Contrast/Agitated Saline Contrast/Ag. Saline: Definity Amount: 2.00 ml Existing IV Access: Yes Reason for Poor Study: poor echocardiographic windows Summary 1. Left ventricular chamber dimension is normal. 2. There is moderately increased left ventricular wall thickness. More symmetric septal hypertrophy. Signmoid septum. 3. Left ventricular systolic function is hyperdynamic with a visually estimated ejection fraction of 75-80%. 4. The left ventricular diastolic function is grade I diastolic dysfunction. 5. No left ventricular intracavitary gradient. 6. Mild anterior prolapse seen. 7. There is mild mitral valve regurgitation. 8. Normal inferior vena cava with >50% collapse upon inspiration consistent with normal right atrial pressure, 3 mmHg. Left Ventricle Left ventricular chamber dimension is normal. There is moderately increased left ventricular wall thickness. More symmetric septal hypertrophy. Signmoid septum. Left ventricular systolic function is hyperdynamic with a visually estimated ejection fraction of 75-80%. No left ventricular intracavitary gradient. The left ventricular diastolic function is grade I diastolic dysfunction. Right Ventricle Right ventricular chamber dimension is normal. Right ventricular systolic function is normal. Left Atria Left atrial chamber dimension is normal. Right Atria Right atrial chamber dimension is normal. Aortic Valve The aortic valve is trileaflet. There is no aortic valve regurgitation. There is no aortic valve stenosis seen. Mitral Valve Mild anterior prolapse seen. There is mild mitral valve regurgitation. Tricuspid Valve There is no tricuspid valve regurgitation. Pericardium/Pleural The pericardium appears normal. There is no pericardial effusion. Inferior Vena Cava Normal inferior vena cava with >50% collapse upon inspiration consistent with normal right atrial pressure, 3 mmHg. Aorta The prox ascending aorta size is normal. The ascending aorta arch size is normal. Left Ventricular Outflow Tract Name Value Normal LVOT 2D LVOT Diameter 1.87 cm Pulmonic Valve Name Value Normal RVOT Doppler RVOT Peak Gradient 4 mmHg PV Doppler PV Peak Gradient 5 mmHg Mitral Valve Name Value Normal MV Doppler MV Decel [place] 420.04 cm/s2 MV PHT 0 s MV Area (PHT) 5.02 cm2 4.00-5.00 MV Diastolic Function MV E Peak Velocity 63.47 cm/s MV A Peak Velocity 131.41 cm/s MV E/A 0.48 MV Decel Time 0 s MV Annular TDI MV E/e' (Septal) 10.36 <=8.00 MV E/e' (Lateral) 9.68 <=8.00 MV E/e' (Average) 10.02 Tricuspid Valve Name Value Normal TV Regurgitation Doppler TR Peak Velocity 232.83 cm/s TR Peak Gradient 22 mmHg Estimated PAP/RSVP RA Pressure 3 mmHg <=5 PA Systolic Pressure 25 mmHg <36 RV Systolic Pressure 25 mmHg <36 Aorta Name Value Normal Ascending Aorta Ao Root Diameter (MM) 3.14 cm Ao Root Diam Index (MM) 1.88 cm/m2 Aortic Valve Name Value Normal AV Regurgitation 2D LVOT Area 2.75 cm2 Ventricles Name Value Normal LV Dimensions 2D/MM IVS Diastolic Thickness (2D) 1.28 cm 0.60-1.00 LVID Diastole (2D) 3.83 cm 3.80-5.20 LVIW Diastolic Thickness (2D) 1.21 cm 0.60-0.90 LVID Systole (2D) 1.79 cm 2.20-3.50 LVOT Diameter 1.87 cm LV Mass (2D Cubed) 163.01 g 67.00-162.00 LV Mass Index (2D Cubed) 0.01 g/cm2 0.00-0.01 Relative Wall Thickness (2D) 0.63 LV Fractional Shortening/Ejection Fraction 2D/MM LV Fractional Shortening (2D) 48 % 27-45 LV EF (2D Teicholz) 79 % 54-74 LV Diastolic Volume (4C MOD) 81.59 ml LV EF (4C MOD) 89 % LV Diastolic Volume (2C MOD) 90.42 ml LV EF (2C MOD) 86 % LV Diastolic Volume (BP MOD) 85.80 ml 46.00-106.00 LV Diastolic Volume Index (BP MOD) 0.05 l/m2 0.03-0.06 LV Systolic Volume (BP MOD) 10.32 ml 14.00-42.00 LV Systolic Volume Index (BP MOD) 0.01 l/m2 0.01-0.02 LV EF (BP MOD) 88 % 54-74 LV Diastolic Length (4C) 8.17 cm LV Systolic Length (4C) 6.26 cm LV Stroke Volume (4C MOD) 72.90 ml Atria Name Value Normal LA Dimensions LA Dimension (MM) 3.16 cm 2.70-3.80 LA Volume (4C A-L) 43.26 ml LA Volume (BP A-L) 48.47 ml RA Dimensions RA Area (4C) 8.44 cm2 <=18.00 Report Signatures
[2024-06-16] MEDS: LEVOTHYROXINE SODIUM 50 MCG TABLET PO (05:15)
[2024-06-16 07:16] LABS: Basophils Absolute Auto 0.1 K/mm3 (0.0-0.1); Basophils Percent Auto 0.8 % (0.2-1.2); Eosinophils Absolute Auto 0.3 K/mm3 (0-0.3); Eosinophils Percent Auto 3.1 % (0-4.4); Hematocrit 29.6 % (37.0-47.0); Hemoglobin 9.4 g/dL (12.0-15.0); Immature Granulocyte Absolute 0.03 K/mm3 (0.00-0.031); Immature Granulocyte Percent A 0.3 % (0-0.5); Lymphocytes Percent Auto 32.6 % (18.3-44.2); Mean Corpuscular HGB Conc 31.8 g/dl (32-36); Mean Corpuscular Hemoglobin 28.8 pg (26-34); Mean Corpuscular Volume 90.8 fl (80-100); Mean Platelet Volume 9.2 fl (7.4-10.4); Monocytes Absolute Auto 0.8 K/mm3 (0.1-0.6); Monocytes Percent Auto 8.2 % (2.6-8.5); Neutrophils Absolute Auto 5.4 K/mm3 (1.3-6.7); Platelet Count Result 335 k/mm3 (150-375); Red Blood Count 3.26 M/mm3 (4.2-5.4); Red Cell Distribution Width 13.7 % (11.5-14.5); White Blood Count 9.8 K/mm3 (4.5-10.0)
[2024-06-16 07:27] LABS: Partial Thromboplastin Time 83.6 Seconds (22.3-36.8)
[2024-06-16] MEDS: amLODIPine BESYLATE 5 MG TABLET PO (08:14)
[2024-06-16] MEDS: carvediloL 25 MG TABLET PO ×2 (08:14→21:06)
[2024-06-16] MEDS: VALSARTAN 160 MG TABLET 320 MG PO (08:15)
[2024-06-16] MEDS: hydrOXYzine HCL 25 MG TABLET PO ×2 (08:15→21:05)
[2024-06-16] MEDS: PRAVASTATIN SODIUM 20 MG TABLET 80 MG PO (08:15)
[2024-06-16] MEDS: hydrALAZINE HCL 50 MG TABLET PO ×3 (08:15→16:54)
[2024-06-16] MEDS: PYRIDOXINE HCL 50 MG TABLET 100 MG PO (08:15)
[2024-06-16] MEDS: CHLORTHALIDONE 25 MG TABLET PO (08:15)
[2024-06-16] MEDS: CHOLECALCIFEROL 5,000 UNITS TABLET 5000 UNITS BY MOUTH (08:15)
[2024-06-16] MEDS: PERFLUTREN LIPID MICROSPHERES 1.5 ML VIAL DILUTED TO 10 ML TOTAL VOLUME IV PUSH (10:30)
[2024-06-16 10:53] LABS: Iron 119 ug/dL (37-170)
[2024-06-16 10:55] LABS: Albumin Level 3.5 g/dL (3.5-5.1); Anion Gap 6 mmol/L (4-12); Blood Urea Nitrogen 32 mg/dL (7-17); Calcium 8.7 mg/dL (8.4-10.2); Carbon Dioxide 21 mmol/L (22-30); Chloride 109 mmol/L (98-107); Estimated CRCL calculation 25 ml/min; Estimated Glomerular Filt Rate 33; Glucose 110 mg/dL (65-110); Phosphorus 4.4 mg/dL (2.5-4.5); Potassium 5.1 mmol/L (3.4-5.0); Sodium 136 mmol/L (137-145)
[2024-06-16 11:04] LABS: Percent Iron Saturation 41 % (20-50)
--- NOTE | 2024-06-16 11:04 | IVDEFINITY ---
Prior to administration of IV Definity the patient was educated on the risks and benefits of the imaging enhancing agent including potential adverse side effects. The patient verbalized understanding. Allergies were verified. No exclusion criteria were identified and at least one of the following inclusion criteria were met: 1) physician request, 2) patient technically difficult to image (per the [place] [employer] guidelines of two or more segments not discernable within the apical view), or 3) questionable left ventricular function. ?
--- NOTE | 2024-06-16 11:09 | PM.IMPN ---
Progress Note: A&P Assessment and Plan (1) Chest pain: Code(s): R07.9 - Chest pain, unspecified Status: Acute Assessment and Plan: Patient presents with SOB and CP. She has been having progressively worsening SOB associated with chest tightness at times. Chest tightness has not been worsening but was more sever on day of admission. Troponin elevated at 0.08 and about the same on repeat 6 hours apart EKG showing NSR with LVH, age-indeterminate inferior OR but no change from prior. Repeat EKG showing similar findings Echo Jul 2023 showing EF 65-70%, Grade I DD and mod MR. Repeat Echo pending. Cardiology consulted and appreciate their input Chemical Stress test January 2024 showing hyperdynamic global LV systolic fxn with normal myocardial perfusion. PFTs December 2023 showing no obstructive defect but with hyperinflation Heparin drip started. Continue ASA, Coreg and statin therapy. Check LE venous doppler given physical findings. LHC being considered (2) Elevated troponin: Code(s): R79.89 - Other specified abnormal findings of blood chemistry Status: Acute Assessment and Plan: As above. (3) Anemia: Code(s): D64.9 - Anemia, unspecified Status: Acute Assessment and Plan: Hgb normally runs in the 11 range. Hgb 11.6 on admission but has trended down to 9.4. Iron studies, B12 and foalte normal. Follow. (4) Essential (primary) hypertension: Code(s): I10 - Essential (primary) hypertension Status: Acute Assessment and Plan: Patient's blood pressure was reviewed on 06/16 Blood pressure remains reasonably well controlled after resuming her home medications. Will continue current medications. Suspect she has valvular disease and HTN but concern for pheochromocytoma. Unable to check for this at this time since she is on TCA. This will need to be weaned down and off. (5) CKD (chronic kidney disease), stage III: Code(s): N18.30 - Chronic kidney disease, stage 3 unspecified Status: Acute Assessment and Plan: BUN 32 and Cr 1.6 on admission and about at baseline. Potassium higher today and mild metabolic nongap acidosis. Low potassium diet. Follow (6) DOUGLAS on CPAP: Code(s): G47.33 - Obstructive sleep apnea (adult) (pediatric); Z99.89 - Dependence on other enabling machines and devices Status: Acute Assessment and Plan: Continue CPAP at nighttime (7) MVP (mitral valve prolapse): Code(s): I34.1 - Nonrheumatic mitral (valve) prolapse Status: Acute Assessment and Plan: Echo as above. Repeat Echo ordered and is pending. Suspect her SOB probably related to worsening mitral regurg. (8) COPD (chronic obstructive pulmonary disease): Code(s): J44.9 - Chronic obstructive pulmonary disease, unspecified Status: Acute Assessment and Plan: Stable. No wheezing. Remains on room air Follow Plan DVT prophylaxis - Heparin Code status - full Subjective Date/time seen: 06/16/24 11:09 Interval history: 79yo female with MV disease, HTN, DM, CKD and DOUGLAS here for chest pain, worsening SOLIZ and palpitations. Patient has been having 3 months of chest heaviness with exertion. It has not become more severe or more frequent until the day of admission. She has SOLIZ that has slowly worsened over the past few months limiting her ability to do ADLs. Symptoms are associated with tachycardia/palpitations. Chemical stress test in January was normal. Does not take NSAID. Colonoscopy 3 years ago was clear. No evidence of acute blood loss. Had viral symptoms a few days prior to admission with facial flushing, loose stools and nausea. no fever/chills Exam Narrative: AF 98.6 131/50 67 20 97% ra Gen - NARD Chest - CTA bilaterally, nml RR CV - RRR S1/S2 wit 2/6 systolic murmur left upper sternal border and at apex; Tele showing no significant dysrhythmias Abd - Soft, NT/ND, Positive BS Ext - left slightly larger than right with +Homans on left. Neuro - Alert and oriented. Nonfocal exam. Psych - Nml mood and affect Skin - Warm and dry Objective Data Vital Signs Vital Signs: Vital Signs - 24 hr 06/15/24 11:20 06/15/24 14:56 06/15/24 16:30 Temperature Pulse Rate 92 89 90 Respiratory Rate 16 15 16 Blood Pressure 159/54 H 142/58 H 163/57 H Pulse Oximetry 100 100 97 Oxygen Delivery 06/15/24 19:00 06/15/24 21:42 06/15/24 22:00 Temperature 98.2 F Pulse Rate 96 92 94 Respiratory Rate 16 16 20 Blood Pressure 163/57 H 142/62 H 168/57 H Pulse Oximetry 99 98 100 Oxygen Delivery 06/15/24 22:49 06/15/24 23:18 06/15/24 23:54 Temperature 98.2 F Pulse Rate 89 89 Respiratory Rate 20 Blood Pressure 161/51 H Pulse Oximetry 99 Oxygen Delivery Room Air 06/16/24 01:37 06/16/24 00:00 06/16/24 02:00 Temperature Pulse Rate 85 63 Respiratory Rate Blood Pressure 132/54 L Pulse Oximetry Oxygen Delivery 06/16/24 04:22 06/16/24 04:00 06/16/24 04:00 Temperature 98.5 F Pulse Rate 75 72 Respiratory Rate 20 Blood Pressure 126/54 L Pulse Oximetry 98 Oxygen Delivery Room Air 06/16/24 06:00 06/16/24 08:14 06/16/24 08:31 Temperature 98.6 F Pulse Rate 69 72 72 Respiratory Rate 20 Blood Pressure 131/50 L Pulse Oximetry 97 Oxygen Delivery 06/16/24 08:00 06/16/24 08:00 06/16/24 09:38 Temperature Pulse Rate 75 Respiratory Rate Blood Pressure Pulse Oximetry 97 Oxygen Delivery Room Air Room Air 06/16/24 10:00 06/15/24 22:22 Temperature 98.2 F Pulse Rate 67 94 Respiratory Rate 20 Blood Pressure 168/57 H Pulse Oximetry 100 Oxygen Delivery Intake/Output Intake/Output: Intake & Output 06/13/24 06/14/24 06/15/24 06/16/24 23:59 23:59 23:59 23:59 Intake Total 1000 499.7 Output Total 200 Balance 800 499.7 Meds/Results Medications: Active Medications Generic Name Dose Route Start Last Admin Trade Name Miguel Angelq PRN Reason Stop Dose Admin Amitriptyline HCl 50 mg 06/15/24 22:40 06/15/24 23:49 Amitriptyline Hcl 25 Mg Tablet PO 50 mg HS JOLIE Administration Amlodipine Besylate 5 mg 06/16/24 09:00 06/16/24 08:14 Amlodipine Besylate 5 Mg Tablet PO 5 mg DAILY JOLIE Administration Carvedilol 25 mg 06/15/24 22:35 06/16/24 08:14 Carvedilol 25 Mg Tablet PO 25 mg Q12HR JOLEI Administration Chlorthalidone 25 mg 06/16/24 09:00 06/16/24 08:15 Chlorthalidone 25 Mg Tablet PO 25 mg DAILY JOLIE Administration Diazepam 4 mg 06/15/24 22:40 06/15/24 23:49 Diazepam (*Crx) 2 Mg Tablet PO 4 mg HS JOLIE Administration Heparin Sodium (Porcine) 4,000 units 06/15/24 15:34 Heparin Sodium 5,000 Units/Ml Vial IV PUSH PRN PRN aPTT less than 55 seconds Heparin Sodium (Porcine) 2,500 units 06/15/24 15:34 Heparin Sodium 5,000 Units/Ml Vial IV PUSH PRN PRN aPTT 55 - 70 seconds Hydralazine HCl 50 mg 06/15/24 22:40 06/16/24 08:15 Hydralazine Hcl 50 Mg Tablet PO 50 mg TID JOLIE Administration Hydroxyzine HCl 25 mg 06/15/24 22:40 06/16/24 08:15 Hydroxyzine Hcl 25 Mg Tablet PO 25 mg Q12HR JOLIE Administration Heparin Sodium/Dextrose 25,000 units in 250 mls @ 6 mls/hr 06/15/24 15:40 06/16/24 07:55 Heparin Sodium/D5w 100 Units/Ml IV CONT 600 units/hr .Q24H JOLIE 6 mls/hr Titration Protocol 600 UNITS/HR Levothyroxine Sodium 50 mcg 06/16/24 06:30 06/16/24 05:15 Levothyroxine Sodium 50 Mcg Tablet PO 50 mcg DAILY@0630 JOLIE Administration Pravastatin Sodium 80 mg 06/16/24 09:00 06/16/24 08:15 Pravastatin Sodium 20 Mg Tablet PO 80 mg DAILY JOLIE Administration Pyridoxine HCl 100 mg 06/16/24 09:00 06/16/24 08:15 Pyridoxine Hcl 50 Mg Tablet PO 100 mg DAILY JOLIE Administration Tramadol HCl 50 mg 06/15/24 22:27 Tramadol Hcl (*Crx) 50 Mg Tablet PO Q4-6H PRN PAIN RATED 4-6 Valsartan 320 mg 06/16/24 09:00 06/16/24 08:15 Valsartan 160 Mg Tablet PO 320 mg DAILY JOLIE Administration Vitamin D 5,000 units 06/16/24 09:00 06/16/24 08:15 Cholecalciferol 5,000 Units Tablet BY MOUTH 5,000 units DAILY JOLIE Administration Radiology Results: ITS Impressions Chest X-Ray 06/15/24 10:15 IMPRESSION: 1. Chronic mild lingular atelectasis/scarring. No acute cardiopulmonary disease. Labs Labs: Laboratory Results - last 24 hr 06/15/24 06/15/24 06/15/24 09:39 15:49 23:29 WBC 11.9 H RBC 3.63 L Hgb 10.8 L Hct 32.8 L MCV 90.4 MCH 29.8 MCHC 32.9 RDW 13.7 Plt Count 383 H MPV 9.2 Immature Gran % (Auto) 0.3 Neut % (Auto) 65.1 Lymph % (Auto) 24.6 Mchenry % (Auto) 8.4 Eos % (Auto) 0.9 Baso % (Auto) 0.7 Lymph # (Auto) 2.93 Mchenry # (Auto) 1.0 H Eos # (Auto) 0.1 Baso # (Auto) 0.1 Abs Immat Gran (auto) 0.04 H Absolute Neuts (auto) 7.7 H Absolute Nucleated RBC 0.000 Nucleated RBC % 0.0 PT 14.5 INR 1.1 APTT 29.6 179.6 H* Sodium Potassium Chloride Carbon Dioxide Anion Gap BUN Creatinine Estim Creat Clear Calc Estimated GFR Glucose Lactic Acid 0.8 Calcium Phosphorus Iron TIBC Troponin I 0.080 H* 0.085 H* Albumin Free T4 1.48 Total T3 1.06 06/16/24 07:03 WBC 9.8 RBC 3.26 L Hgb 9.4 L Hct 29.6 L MCV 90.8 MCH 28.8 MCHC 31.8 L RDW 13.7 Plt Count 335 MPV 9.2 Immature Gran % (Auto) 0.3 Neut % (Auto) 55.0 Lymph % (Auto) 32.6 Mchenry % (Auto) 8.2 Eos % (Auto) 3.1 Baso % (Auto) 0.8 Lymph # (Auto) 3.20 Mchenry # (Auto) 0.8 H Eos # (Auto) 0.3 Baso # (Auto) 0.1 Abs Immat Gran (auto) 0.03 Absolute Neuts (auto) 5.4 Absolute Nucleated RBC 0.000 Nucleated RBC % 0.0 PT INR APTT 83.6 H Sodium 136 L Potassium 5.1 H Chloride 109 H Carbon Dioxide 21 L Anion Gap 6 BUN 32 H Creatinine 1.50 H Estim Creat Clear Calc 25 Estimated GFR 33 L Glucose 110 Lactic Acid Calcium 8.7 Phosphorus 4.4 Iron 119 TIBC 293 Troponin I Albumin 3.5 Free T4 Total T3
[2024-06-16] MEDS: traMADol HCL (*CRX) 50 MG TABLET PO (11:41)
[2024-06-16 12:07] LABS: Folic Acid > 20.0 ng/mL (2.76->20)
--- NOTE | 2024-06-16 12:23 | PM.CNCAR ---
Assessment and Plan Assessment and plan (1) MVP (mitral valve prolapse): Code(s): I34.1 - Nonrheumatic mitral (valve) prolapse Status: Acute (2) Essential (primary) hypertension: Code(s): I10 - Essential (primary) hypertension Status: Acute (3) Type 2 [place] (myocardial infarction): Code(s): I21.A1 - Myocardial infarction type 2 Status: Acute Plan 1. NSTEMI 2. HTN 3. MVP/Mitral regurgitation - It is my clinical impression that Ms Polly Marks may have underlying obstructive heart disease. she does have symptoms of worsening dyspnea on exertion and occasional chest heaviness. However with her history of recurrent presentations and several ER visits with palpitation, anxiety and accelerated hypertension I think she should be investigated for pheochromocytoma. I will leave that decision to the primary team - she will need a cardiac catheterization, the timing of which will based on her hemoglobin levels. currently a hemoglobin went down on heparin infusion. we will continue heparin infusion and monitor her hemoglobin. if it remains stable we will challenge her with antiplatelets. - Her creatinine is around 1.2-1.3. currently it is 1.5 - she is currently on pravastatin and beta-tammie - echo to assess the mitral valve History of Present Illness History of Present Illness Consult date/time: 06/16/24 12:23 Reason For Visit: Elevated Trop Narrative: Ms Polly Marks is a pleasant 79-year-old lady with history of hypertension, diabetes, CKD, sleep apnea on CPAP, mitral valve prolapse with mitral regurgitation. cardiology consulted for NSTEMI. she was admitted with symptoms of palpitation, new onset dyspnea, anxiety and chest heaviness. she has been having these symptoms intermittently for the past several months. she has also noticed worsening dyspnea on exertion for the past year. she also has had several episodes of ER visits with similar episode with similar presentation and elevated blood pressure. EKG done shows normal sinus rhythm, Q-waves in inferior leads, poor R-wave progression troponin has been flat; 0.085, 0.080 no prior history of CAD, CVA, bleeding from any source baseline hemoglobin is 11.6-11.7 hemoglobin on heparin has gone down to 9.4 Review of Systems Review of Systems: Palpitations, anxiety, lightheadedness, shortness of breath, chest pressure. 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 Hyperlipidemia Hypothyroidism (acquired) Low magnesium level Macular degeneration Mild reactive airways disease MVP (mitral valve prolapse) Numbness in feet On half-way drug therapy DOUGLAS on CPAP Osteopenia Otalgia of left ear Palpitations Pedal edema Peripheral edema Peripheral neuropathy Post menopausal syndrome Pre-diabetes Recurrent UTI Sacroiliitis Shortness of breath Vitamin D deficiency Surgical History Surgical History History of bladder repair surgery History of cholecystectomy History of hysterectomy Family History Family History (Updated 06/15/24 @ 22:37 by Rebecca Oquendo RN) Mother No family history of malignant neoplasm Carcinoma of colon Cerebrovascular accident Diabetes mellitus Hypertension Sibling Family history of lung cancer Patient's brother is in good health Diabetes mellitus Hypertension Father Family history of heart disease in male family member before age 55 Family history of cardiovascular disease Family history of malignant neoplasm Family history of thyroid disease Diabetes mellitus Hypertension Social History Social History Social History: Smoking status: Never smoker Second hand tobacco smoke exposure: No Alcohol intake: current Drinks per week: 1 Alcohol use details: Occasionally Substance use: never Substance use type: does not use Do You Feel Safe in your Home?: Yes Lack of Transportation: No Lack of Food: Never True Current Housing: I Have Housing Concerned About Future Housing: No Difficulty Paying Gas/Electric Bills: No Difficulty Paying for Meds: No Currently Unemployed: No Education: High School Diploma/GED Difficulty w/ Childcare or Family Care: No Living arrangements: alone Occupation/Education: retired Gender identity (if verbalized by the patient): Female Sexual Orientation (if Verbalized by the Patient): Straight or Heterosexual Spiritual care concerns: No Meds Home Medications and Allergies Home Medications Medication Instructions Recorded Confirmed Type cholecalciferol (vitamin D3) 1 tablet PO DAILY 06/05/20 06/15/24 History pyridoxine (vitamin B6) 1 tablet PO DAILY 06/05/20 06/15/24 History blood-glucose meter (Blood Glucose #1 ea 09/29/23 06/15/24 Rx Monitoring kit) lancets 30 gauge (OneTouch Delica #100 ea 11/16/23 06/15/24 Rx Plus Lancet) blood sugar diagnostic (Loxam HoldingTouch #50 strips 12/01/23 06/15/24 Rx Verio test strips) amlodipine 5 mg tablet 5 mg PO DAILY #30 tabs 04/06/24 06/15/24 Rx valsartan 320 mg tablet 320 mg PO DAILY #90 tabs 05/04/24 06/15/24 Rx chlorthalidone 25 mg tablet 25 mg PO DAILY #30 tabs 06/08/24 06/15/24 Rx amitriptyline 25 mg tablet 50 mg PO HS 06/15/24 06/15/24 History carvedilol 25 mg tablet 25 mg PO BIDWM 06/15/24 06/15/24 History diazepam 2 mg tablet 4 mg PO HS 06/15/24 06/15/24 History hydralazine 50 mg tablet 50 mg PO TID 06/15/24 06/15/24 History hydroxyzine HCl 25 mg tablet 25 mg PO BID 06/15/24 06/15/24 History levothyroxine 50 mcg tablet 50 mcg PO DAILY 06/15/24 06/15/24 History metformin 500 mg tablet 500 mg PO BID 06/15/24 06/15/24 History pravastatin 80 mg tablet 80 mg PO DAILY 06/15/24 06/15/24 History tramadol 50 mg tablet 50 mg PO Q4-6H PRN Pain 06/15/24 06/15/24 History Allergies Allergy/AdvReac Type Severity Reaction Status Date / Time Penicillins Allergy Severe Hives Verified 06/15/24 22:22 phenytoin Allergy Intermediate HIVES Verified 06/15/24 22:22 cefaclor Allergy Unknown THROAT Verified 06/15/24 22:22 SWELLING AND HIVES Vital Signs Vital Signs - 24 hr 06/15/24 14:56 06/15/24 16:30 06/15/24 19:00 Temperature Pulse Rate 89 90 96 Respiratory Rate 15 16 16 Blood Pressure 142/58 H 163/57 H 163/57 H Pulse Oximetry 100 97 99 Oxygen Delivery 06/15/24 21:42 06/15/24 22:00 06/15/24 22:49 Temperature 36.8 C Pulse Rate 92 94 89 Respiratory Rate 16 20 Blood Pressure 142/62 H 168/57 H Pulse Oximetry 98 100 Oxygen Delivery 06/15/24 23:18 06/15/24 23:54 06/16/24 01:37 Temperature 36.8 C Pulse Rate 89 Respiratory Rate 20 Blood Pressure 161/51 H 132/54 L Pulse Oximetry 99 Oxygen Delivery Room Air 06/16/24 00:00 06/16/24 02:00 06/16/24 04:22 Temperature 36.9 C Pulse Rate 85 63 75 Respiratory Rate 20 Blood Pressure 126/54 L Pulse Oximetry 98 Oxygen Delivery 06/16/24 04:00 06/16/24 04:00 06/16/24 06:00 Temperature Pulse Rate 72 69 Respiratory Rate Blood Pressure Pulse Oximetry Oxygen Delivery Room Air 06/16/24 08:14 06/16/24 08:31 06/16/24 08:00 Temperature 37.0 C Pulse Rate 72 72 Respiratory Rate 20 Blood Pressure 131/50 L Pulse Oximetry 97 Oxygen Delivery Room Air 06/16/24 08:00 06/16/24 09:38 06/16/24 10:00 Temperature Pulse Rate 75 67 Respiratory Rate Blood Pressure Pulse Oximetry 97 Oxygen Delivery Room Air 06/16/24 11:43 06/15/24 22:22 Temperature 36.6 C 36.8 C Pulse Rate 67 94 Respiratory Rate 16 20 Blood Pressure 155/54 H 168/57 H Pulse Oximetry 100 100 Oxygen Delivery Exam Narrative: AF 98.6 131/50 67 20 97% ra Gen - NARD Chest - CTA bilaterally, nml RR CV - RRR S1/S2 wit 2/6 systolic murmur left upper sternal border and at apex; Tele showing no significant dysrhythmias Abd - Soft, NT/ND, Positive BS Ext - left slightly larger than right with +Homans on left. Neuro - Alert and oriented. Nonfocal exam. Psych - Nml mood and affect Skin - Warm and dry Const: General: comfortable, no acute distress, well developed, alert, awake and average body habitus Nutritional Appearance: average body habitus Orientation/consciousness: patient oriented x3 HENMT: Head: normal to inspection, normocephalic and atraumatic Ears: hearing grossly normal bilaterally Face/Nose/Sinus: normal facial exam Face and sinus: normal facial exam Eyes: General: appearance normal, both eyes and all related structures Pupils: Equal, round and reactive pupils present EOM: EOMs intact bilaterally Neck: Neck: full ROM, no lymphadenopathy and no JVD Thyroid: thyroid normal Lymphatic: no lymphadenopathy noted Resp: Effort & Inspection: normal respiratory effort and able to speak in complete sentences Auscultation: clear to auscultation bilaterally Cardio: Jugular venous distension: no JVD Rate: regular rate Rhythm: regular rhythm Heart sounds: S1 normal heart sound present, S2 normal heart sound present and Murmur heart sound present continuous : General: Yes deferred Skin: Rashes: no rashes Wounds: no wounds Neuro: General: patient oriented x3 and CN's II-XI intact bilaterally Cranial nerves: Yes CN's II-XII intact bilaterally and Yes Equal, round and reactive pupils present Cognition (Neuro): normal cognition Speech: normal speech Gait exam (Neuro): Normal gait present Motor exam (neuro): 5/5 motor strength present throughout Extrem: General: normal to inspection, full ROM, no joint enlargement and no pedal edema Results Labs and Meds 06/16/24 07:03 06/16/24 07:03 Lab results: Cardiac Enzymes 06/15/24 06/15/24 Range/Units 09:39 15:49 Troponin I 0.080 H* 0.085 H* (0.000-0.034) ng/mL Coagulation 06/15/24 06/15/24 06/16/24 Range/Units 15:49 23:29 07:03 PT 14.5 (11.1-14.7) Seconds APTT 29.6 179.6 H* 83.6 H (22.3-36.8) Seconds CBC 06/15/24 06/16/24 Range/Units 15:49 07:03 WBC 11.9 H 9.8 (4.5-10.0) K/mm3 RBC 3.63 L 3.26 L (4.2-5.4) M/mm3 Hgb 10.8 L 9.4 L (12.0-15.0) g/dL Hct 32.8 L 29.6 L (37.0-47.0) % Plt Count 383 H 335 (150-375) k/mm3 Lymph # (Auto) 2.93 3.20 (0.9-3.2) K/mm3 [place] # (Auto) 1.0 H 0.8 H (0.1-0.6) K/mm3 Eos # (Auto) 0.1 0.3 (0-0.3) K/mm3 Baso # (Auto) 0.1 0.1 (0.0-0.1) K/mm3 Comprehensive Metabolic Panel 06/16/24 Range/Units 07:03 Sodium 136 L (137-145) mmol/L Potassium 5.1 H (3.4-5.0) mmol/L Chloride 109 H (98-107) mmol/L Carbon Dioxide 21 L (22-30) mmol/L BUN 32 H (7-17) mg/dL Creatinine 1.50 H (0.7-1.0) mg/dL Glucose 110 (65-110) mg/dL Calcium 8.7 (8.4-10.2) mg/dL Albumin 3.5 (3.5-5.1) g/dL Intake and Output 06/15/24 06/16/24 06/16/24 23:59 07:59 15:59 Intake Total 299.7 200 Output Total 200 Balance -200 299.7 200 Intake: IV 99.7 Heparin Sod/D5w 100 Units/ml 25 99.7 ,000 units In 250 ml @ 600 UNITS/HR 6 mls/hr IV CONT .Q24H [facility] Rx#:[id number] Oral 200 200 Output: Urine 200 Patient Weight 06/16/24 23:59 Weight 60 kg
[2024-06-16 12:26] LABS: Influenza A QL RT-PCR Negative (Negative); Influenza B QL RT-PCR Negative (Negative); RSV RNA, RT-PCR Negative (Negative); SARS-CoV-2 RNA PCR Negative (Negative)
[2024-06-16 13:29] LABS: Partial Thromboplastin Time 63.4 Seconds (22.3-36.8)
[2024-06-16 13:30] LABS: IFOB Positive Control Positive; Immunochemical Fecal Occult Bl Negative (N)
[2024-06-16] MEDS: HEPARIN SODIUM 5,000 UNITS/ML VIAL 2500 UNITS IV PUSH (13:51)
[2024-06-16] MEDS: ACETAMINOPHEN 325 MG TABLET 650 MG PO (15:39)
[2024-06-16 16:59] LABS: Hematocrit 30.3 % (37.0-47.0); Hemoglobin 9.9 g/dL (12.0-15.0)
[2024-06-16 17:10] LABS: Albumin Level 3.7 g/dL (3.5-5.1); Anion Gap 8 mmol/L (4-12); Blood Urea Nitrogen 34 mg/dL (7-17); Carbon Dioxide 21 mmol/L (22-30); Chloride 107 mmol/L (98-107); Estimated CRCL calculation 27 ml/min; Estimated Glomerular Filt Rate 36; Glucose 137 mg/dL (65-110); Phosphorus 4.3 mg/dL (2.5-4.5); Potassium 4.3 mmol/L (3.4-5.0); Sodium 136 mmol/L (137-145)
--- NOTE | 2024-06-16 17:32 | PCRCNOTE ---
Pt states she does not have a home CPAP machine and does not want to use one of ours.
[2024-06-16 21:02] LABS: Partial Thromboplastin Time 105.8 Seconds (22.3-36.8)
[2024-06-16] MEDS: AMITRIPTYLINE HCL 25 MG TABLET PO (21:05)
[2024-06-16] MEDS: diazePAM (*CRX) 2 MG TABLET 4 MG PO (21:05)
[2024-06-17] VITALS (14 sets, daily range): BP systolic 112–170; BP diastolic 37–53; PULSE 57–70; RESP 16; TEMP 36.6–36.8; O2SAT 97–100
[2024-06-17 02:16] LABS: Basophils Absolute Auto 0.1 K/mm3 (0.0-0.1); Basophils Percent Auto 0.6 % (0.2-1.2); Eosinophils Absolute Auto 0.3 K/mm3 (0-0.3); Eosinophils Percent Auto 3.6 % (0-4.4); Hematocrit 27.6 % (37.0-47.0); Hemoglobin 9.1 g/dL (12.0-15.0); Immature Granulocyte Absolute 0.02 K/mm3 (0.00-0.031); Immature Granulocyte Percent A 0.2 % (0-0.5); Lymphocytes Absolute Auto 3.17 K/mm3 (0.9-3.2); Lymphocytes Percent Auto 34.2 % (18.3-44.2); Mean Corpuscular Hemoglobin 29.6 pg (26-34); Mean Corpuscular Volume 89.9 fl (80-100); Mean Platelet Volume 9.1 fl (7.4-10.4); Monocytes Absolute Auto 0.9 K/mm3 (0.1-0.6); Monocytes Percent Auto 9.2 % (2.6-8.5); Neutrophils Absolute Auto 4.9 K/mm3 (1.3-6.7); Neutrophils Percent Auto 52.2 % (45.5-73.1); Platelet Count Result 290 k/mm3 (150-375); Red Blood Count 3.07 M/mm3 (4.2-5.4); Red Cell Distribution Width 13.4 % (11.5-14.5); White Blood Count 9.3 K/mm3 (4.5-10.0)
[2024-06-17 02:27] LABS: Alanine Aminotransferase 13 U/L (6-35); Albumin Level 3.2 g/dL (3.5-5.1); Alkaline Phosphatase 69 U/L (38-126); Anion Gap 6 mmol/L (4-12); Aspartate Amino Transferase 21 U/L (14-36); Bilirubin,Total 0.3 mg/dL (0.2-1.3); Blood Urea Nitrogen 31 mg/dL (7-17); Calcium 8.7 mg/dL (8.4-10.2); Carbon Dioxide 22 mmol/L (22-30); Chloride 108 mmol/L (98-107); Estimated CRCL calculation 25 ml/min; Estimated Glomerular Filt Rate 33; Glucose 129 mg/dL (65-110); Magnesium 1.7 mg/dL (1.6-2.3); Phosphorus 4.8 mg/dL (2.5-4.5); Potassium 4.3 mmol/L (3.4-5.0); Sodium 136 mmol/L (137-145)
[2024-06-17 02:29] LABS: Partial Thromboplastin Time 95.7 Seconds (22.3-36.8)
[2024-06-17 02:34] LABS: NT Pro B Type Natriuretic Pept 743 pg/mL (19.9-100)
[2024-06-17] MEDS: ACETAMINOPHEN 325 MG TABLET 650 MG PO ×2 (03:18→13:04)
[2024-06-17] MEDS: LEVOTHYROXINE SODIUM 50 MCG TABLET PO (05:56)
[2024-06-17] MEDS: HEPARIN SOD/D5W 100 UNITS/ML 25,000 UNITS/250 ML BAG 7 UNITS IV CONT (05:57)
[2024-06-17] MEDS: PRAVASTATIN SODIUM 20 MG TABLET 80 MG PO (09:34)
[2024-06-17] MEDS: PYRIDOXINE HCL 50 MG TABLET 100 MG PO (09:35)
[2024-06-17] MEDS: VALSARTAN 160 MG TABLET 320 MG PO (09:35)
[2024-06-17] MEDS: ASPIRIN 81 MG ENTERIC TABLET PO (09:35)
[2024-06-17] MEDS: carvediloL 25 MG TABLET PO ×2 (09:35→20:58)
[2024-06-17] MEDS: CHOLECALCIFEROL 5,000 UNITS TABLET 5000 UNITS BY MOUTH (09:36)
[2024-06-17] MEDS: amLODIPine BESYLATE 5 MG TABLET PO (09:36)
[2024-06-17] MEDS: CHLORTHALIDONE 25 MG TABLET PO (09:36)
[2024-06-17] MEDS: hydrALAZINE HCL 50 MG TABLET PO ×3 (09:39→17:41)
[2024-06-17] MEDS: hydrOXYzine HCL 25 MG TABLET PO ×2 (09:39→20:58)
--- NOTE | 2024-06-17 15:22 | PM.PNCARD ---
Progress Note: A&P Assessment and Plan (1) MVP (mitral valve prolapse): Code(s): I34.1 - Nonrheumatic mitral (valve) prolapse Status: Acute (2) Essential (primary) hypertension: Code(s): I10 - Essential (primary) hypertension Status: Acute (3) Type 2 [place] (myocardial infarction): Code(s): I21.A1 - Myocardial infarction type 2 Status: Acute Plan 1. NSTEMI 2. HTN 3. MVP/Mitral regurgitation -echo shows preserved EF with no significant mitral valve prolapse or regurgitation -await GI consult prior to cardiac catheterization - Her creatinine is around 1.2-1.3. currently it is 1.5. Consider gentle hydration - she is currently on pravastatin and beta-tammie -continue heparin infusion Subjective Date/time seen: 06/17/24 15:22 Interval history: No acyute events overnight No more chest pain or dyspnea Hb remains relatively stable on heparin infusion, HB 9.1; baseline 11.6-11.7 Exam Narrative: AF 98.6 131/50 67 20 97% ra Gen - NARD Chest - CTA bilaterally, nml RR CV - RRR S1/S2 wit 2/6 systolic murmur left upper sternal border and at apex; Tele showing no significant dysrhythmias Abd - Soft, NT/ND, Positive BS Ext - left slightly larger than right with +Homans on left. Neuro - Alert and oriented. Nonfocal exam. Psych - Nml mood and affect Skin - Warm and dry Const: General: comfortable, no acute distress, well developed, alert, awake and average body habitus Nutritional Appearance: average body habitus Orientation/consciousness: patient oriented x3 HENMT: Head: normal to inspection, normocephalic and atraumatic Ears: hearing grossly normal bilaterally Face/Nose/Sinus: normal facial exam Face and sinus: normal facial exam Eyes: General: appearance normal, both eyes and all related structures Pupils: Equal, round and reactive pupils present EOM: EOMs intact bilaterally Neck: Neck: full ROM, no lymphadenopathy and no JVD Thyroid: thyroid normal Lymphatic: no lymphadenopathy noted Resp: Effort & Inspection: normal respiratory effort and able to speak in complete sentences Auscultation: clear to auscultation bilaterally Cardio: Jugular venous distension: no JVD Rate: regular rate Rhythm: regular rhythm Heart sounds: S1 normal heart sound present, S2 normal heart sound present and Murmur heart sound present continuous : General: Yes deferred Skin: Rashes: no rashes Wounds: no wounds Neuro: General: patient oriented x3 and CN's II-XI intact bilaterally Cranial nerves: Yes CN's II-XII intact bilaterally and Yes Equal, round and reactive pupils present Cognition (Neuro): normal cognition Speech: normal speech Gait exam (Neuro): Normal gait present Motor exam (neuro): 5/5 motor strength present throughout Extrem: General: normal to inspection, full ROM, no joint enlargement and no pedal edema Objective Data Vital Signs Vital Signs: Vital Signs - 24 hr 06/16/24 15:51 06/16/24 16:00 06/16/24 16:00 Temperature 36.4 C L Pulse Rate 65 63 Respiratory Rate 18 Blood Pressure 143/63 H Pulse Oximetry 98 Oxygen Delivery Room Air 06/16/24 18:00 06/16/24 20:00 06/16/24 20:00 Temperature 36.6 C Pulse Rate 60 64 Respiratory Rate 18 Blood Pressure 162/48 H Pulse Oximetry 100 Oxygen Delivery Room Air 06/16/24 21:06 06/16/24 20:00 06/16/24 22:00 Temperature Pulse Rate 66 65 66 Respiratory Rate Blood Pressure Pulse Oximetry Oxygen Delivery 06/16/24 23:16 06/17/24 00:00 06/17/24 00:00 Temperature 36.8 C Pulse Rate 60 64 Respiratory Rate 18 Blood Pressure 113/38 L Pulse Oximetry 98 Oxygen Delivery Room Air 06/17/24 02:00 06/17/24 04:00 06/17/24 04:00 Temperature Pulse Rate 63 58 L Respiratory Rate Blood Pressure Pulse Oximetry Oxygen Delivery Room Air 06/17/24 04:00 06/17/24 06:00 06/17/24 08:00 Temperature 36.8 C 36.7 C Pulse Rate 61 58 L 58 L Respiratory Rate 16 16 Blood Pressure 112/37 L 166/53 H Pulse Oximetry 100 97 Oxygen Delivery 06/17/24 09:35 06/17/24 08:00 06/17/24 10:00 Temperature Pulse Rate 57 L 60 57 L Respiratory Rate Blood Pressure Pulse Oximetry Oxygen Delivery 06/17/24 08:00 06/17/24 12:00 Temperature 36.6 C Pulse Rate 59 L Respiratory Rate 16 Blood Pressure 159/50 H Pulse Oximetry 97 97 Oxygen Delivery Room Air Intake/Output Intake/Output: Intake & Output 06/14/24 06/15/24 06/16/24 06/17/24 23:59 23:59 23:59 23:59 Intake Total 1000 1466.1 801.9 Output Total 200 550 400 Balance 800 916.1 401.9 Meds/Results Medications: Active Medications Generic Name Dose Route Start Last Admin Trade Name Freq PRN Reason Stop Dose Admin Acetaminophen 650 mg 06/16/24 15:03 06/17/24 13:04 Acetaminophen 325 Mg Tablet PO 650 mg Q6H PRN Administration Mild Pain (1-3) or Fever Amitriptyline HCl 25 mg 06/16/24 21:00 06/16/24 21:05 Amitriptyline Hcl 25 Mg Tablet PO 25 mg HS JOLIE Administration Amlodipine Besylate 5 mg 06/16/24 09:00 06/17/24 09:36 Amlodipine Besylate 5 Mg Tablet PO 5 mg DAILY JOLIE Administration Aspirin 81 mg 06/17/24 09:00 06/17/24 09:35 Aspirin 81 Mg Enteric Tablet PO 81 mg QAM JOLIE Administration Carvedilol 25 mg 06/15/24 22:35 06/17/24 09:35 Carvedilol 25 Mg Tablet PO 25 mg Q12HR JOLIE Administration Chlorthalidone 25 mg 06/16/24 09:00 06/17/24 09:36 Chlorthalidone 25 Mg Tablet PO 25 mg DAILY JOLIE Administration Diazepam 4 mg 06/15/24 22:40 06/16/24 21:05 Diazepam (*Crx) 2 Mg Tablet PO 4 mg HS JOLIE Administration Heparin Sodium (Porcine) 4,000 units 06/15/24 15:34 Heparin Sodium 5,000 Units/Ml Vial IV PUSH PRN PRN aPTT less than 55 seconds Heparin Sodium (Porcine) 2,500 units 06/15/24 15:34 06/16/24 13:51 Heparin Sodium 5,000 Units/Ml Vial IV PUSH 2,500 units PRN PRN Administration aPTT 55 - 70 seconds Hydralazine HCl 50 mg 06/15/24 22:40 06/17/24 12:46 Hydralazine Hcl 50 Mg Tablet PO 50 mg TID JOLIE Administration Hydroxyzine HCl 25 mg 06/15/24 22:40 06/17/24 09:39 Hydroxyzine Hcl 25 Mg Tablet PO 25 mg Q12HR JOLIE Administration Heparin Sodium/Dextrose 25,000 units in 250 mls @ 7 mls/hr 06/15/24 15:40 06/17/24 05:57 Heparin Sodium/D5w 100 Units/Ml IV CONT 700 units/hr .Q24H JOLIE 7 mls/hr Administration Protocol 700 UNITS/HR Levothyroxine Sodium 50 mcg 06/16/24 06:30 06/17/24 05:56 Levothyroxine Sodium 50 Mcg Tablet PO 50 mcg DAILY@0630 JOLIE Administration Pravastatin Sodium 80 mg 06/16/24 09:00 06/17/24 09:34 Pravastatin Sodium 20 Mg Tablet PO 80 mg DAILY JOLIE Administration Pyridoxine HCl 100 mg 06/16/24 09:00 06/17/24 09:35 Pyridoxine Hcl 50 Mg Tablet PO 100 mg DAILY JOLIE Administration Tramadol HCl 50 mg 06/15/24 22:27 06/16/24 11:41 Tramadol Hcl (*Crx) 50 Mg Tablet PO 50 mg Q4-6H PRN Administration PAIN RATED 4-6 Valsartan 320 mg 06/16/24 09:00 06/17/24 09:35 Valsartan 160 Mg Tablet PO 320 mg DAILY [facility] Administration Vitamin D 5,000 units 06/16/24 09:00 06/17/24 09:36 Cholecalciferol 5,000 Units Tablet BY MOUTH 5,000 units DAILY JOLIE Administration Radiology Results: ITS Impressions Chest X-Ray 06/15/24 10:15 IMPRESSION: 1. Chronic mild lingular atelectasis/scarring. No acute cardiopulmonary disease. Venous Doppler Study 06/16/24 15:09 IMPRESSION: 1. No deep venous thrombosis within the bilateral lower extremities, as detailed above. Labs Labs: Laboratory Results - last 24 hr 06/16/24 06/16/24 06/17/24 16:53 20:27 02:03 WBC 9.3 RBC 3.07 L Hgb 9.9 L 9.1 L Hct 30.3 L 27.6 L MCV 89.9 MCH 29.6 MCHC 33.0 RDW 13.4 Plt Count 290 MPV 9.1 Immature Gran % (Auto) 0.2 Neut % (Auto) 52.2 Lymph % (Auto) 34.2 [place] % (Auto) 9.2 H Eos % (Auto) 3.6 Baso % (Auto) 0.6 Lymph # (Auto) 3.17 [place] # (Auto) 0.9 H Eos # (Auto) 0.3 Baso # (Auto) 0.1 Abs Immat Gran (auto) 0.02 Absolute Neuts (auto) 4.9 Absolute Nucleated RBC 0.000 Nucleated RBC % 0.0 APTT 105.8 H 95.7 H Sodium 136 L 136 L Potassium 4.3 4.3 Chloride 107 108 H Carbon Dioxide 21 L 22 Anion Gap 8 6 BUN 34 H 31 H Creatinine 1.40 H 1.50 H Estim Creat Clear Calc 27 25 Estimated GFR 36 L 33 L Glucose 137 H 129 H Calcium 9.0 8.7 Phosphorus 4.3 4.8 H Magnesium 1.7 Total Bilirubin 0.3 AST 21 ALT 13 Alkaline Phosphatase 69 NT-Pro-B Natriuret Pep 743 H Total Protein 6.0 L Albumin 3.7 3.2 L
--- NOTE | 2024-06-17 19:00 | P.PNIM_ITS ---
Progress Note: A&P Assessment and Plan (1) Chest pain: Code(s): R07.9 - Chest pain, unspecified Status: Acute Assessment and Plan: Patient presents with SOB and CP. She has been having progressively worsening S OB associated with chest tightness at times. Chest tightness has not been worsening but was more severe on day of admission. Chemical Stress test January 2024 showing hyperdynamic global LV systolic fxn with normal myocardial perfusion. PFTs December 2023 showing no obstructive defect but with hyperinflation Troponin elevated at 0.08 and about the same on repeat 6 hours apart EKG showing NSR with LVH, age-indeterminate inferior CA but no change from prior. Repeat EKG showing similar findings Echo showing mod LV wall thickness, symmetric septal hypertrophy with sigmoid septum, EF 75-80%, Grade I diastolic dysfxn and mild MR. LE venous doppler negative for DVT. Cardiology consulted and appreciate their input Heparin drip started. Continue ASA, Coreg and statin therapy. LHC being considered but concern to preceed with the decrease in the HH. GI consult. Possible LHC Thursday. (2) Elevated troponin: Code(s): R79.89 - Other specified abnormal findings of blood chemistry Status: Acute Assessment and Plan: As above. (3) Anemia: Code(s): D64.9 - Anemia, unspecified Status: Acute Assessment and Plan: Hgb normally runs in the 11 range. Hgb 11.6 on admission but has trended down to 9.1 bit more stable now. No evidence of acute blood loss. Stool is guaiac negative. Iron studies, B12 and folate normal. Probably chronic from her renal failure. GI consulted. Follow. (4) Essential (primary) hypertension: Code(s): I10 - Essential (primary) hypertension Status: Acute Assessment and Plan: Patient's blood pressure was reviewed on 06/17 Blood pressure remains reasonably well controlled after resuming her home medications with SBP 110-160. Concern for pheochromocytoma and has been tested for this. We are unable to check for Pheo at this time since she is on TCA. Will continue current medications. (5) CKD (chronic kidney disease), stage III: Code(s): N18.30 - Chronic kidney disease, stage 3 unspecified Status: Acute Assessment and Plan: BUN 32 and Cr 1.6 on admission and about at baseline. Potassium was higher with mild metabolic nongap acidosis but these findings have resolved. Repeat BUN and Cr stable. Continue low potassium diet. Monitor renal function Follow (6) DOUGALS on CPAP: Code(s): G47.33 - Obstructive sleep apnea (adult) (pediatric); Z99.89 - Dependence on other enabling machines and devices Status: Acute Assessment and Plan: Patient does not wear CPAP at home and refuses it here. (7) MVP (mitral valve prolapse): Code(s): I34.1 - Nonrheumatic mitral (valve) prolapse Status: Acute Assessment and Plan: Echo as above. Has mild mitral regurg. (8) COPD (chronic obstructive pulmonary disease): Code(s): J44.9 - Chronic obstructive pulmonary disease, unspecified Status: Acute Assessment and Plan: Stable. No wheezing. Remains on room air Follow Plan DVT prophylaxis - Heparin Code status - full Subjective Date/time seen: 06/17/24 19:00 Interval history: 79yo female with MV disease, HTN, DM, CKD and DOUGLAS here for chest pain, worsening SOLIZ and palpitations. Eating okay. No CP or SOB. Slight headache. No n/v. No melana or hetochezia since admission. Exam Narrative: AF 98 157/44 61 16 98% ra Gen - NARD Chest - few bibasilar crackles CV - RRR S1/S2; Tele showing no significant dysrhythmias Abd - Soft, NT/ND, Positive BS Ext - no pedla edema Psych - Nml mood and affect Skin - Warm and dry Objective Data Vital Signs Vital Signs: Vital Signs - 24 hr 06/16/24 20:00 06/16/24 20:00 06/16/24 21:06 Temperature 98 F Pulse Rate 64 66 Respiratory Rate 18 Blood Pressure 162/48 H Pulse Oximetry 100 Oxygen Delivery Room Air 06/16/24 20:00 06/16/24 22:00 06/16/24 23:16 Temperature 98.2 F Pulse Rate 65 66 60 Respiratory Rate 18 Blood Pressure 113/38 L Pulse Oximetry 98 Oxygen Delivery 06/17/24 00:00 06/17/24 00:00 06/17/24 02:00 Temperature Pulse Rate 64 63 Respiratory Rate Blood Pressure Pulse Oximetry Oxygen Delivery Room Air 06/17/24 04:00 06/17/24 04:00 06/17/24 04:00 Temperature 98.3 F Pulse Rate 58 L 61 Respiratory Rate 16 Blood Pressure 112/37 L Pulse Oximetry 100 Oxygen Delivery Room Air 06/17/24 06:00 06/17/24 08:00 06/17/24 09:35 Temperature 98.1 F Pulse Rate 58 L 58 L 57 L Respiratory Rate 16 Blood Pressure 166/53 H Pulse Oximetry 97 Oxygen Delivery 06/17/24 08:00 06/17/24 10:00 06/17/24 08:00 Temperature Pulse Rate 60 57 L Respiratory Rate Blood Pressure Pulse Oximetry 97 Oxygen Delivery Room Air 06/17/24 12:00 06/17/24 12:00 06/17/24 12:00 Temperature 98 F Pulse Rate 59 L 57 L Respiratory Rate 16 Blood Pressure 159/50 H Pulse Oximetry 97 Oxygen Delivery Room Air 06/17/24 14:00 06/17/24 15:39 06/17/24 16:00 Temperature 98 F Pulse Rate 61 61 Respiratory Rate 16 Blood Pressure 157/44 H Pulse Oximetry 98 Oxygen Delivery Room Air Intake/Output Intake/Output: Intake & Output 06/14/24 06/15/24 06/16/24 06/17/24 23:59 23:59 23:59 23:59 Intake Total 1000 1466.1 1041.9 Output Total 200 550 400 Balance 800 916.1 641.9 Meds/Results Medications: Active Medications Generic Name Dose Route Start Last Admin Trade Name Freq PRN Reason Stop Dose Admin Acetaminophen 650 mg 06/16/24 15:03 06/17/24 13:04 Acetaminophen 325 Mg Tablet PO 650 mg Q6H PRN Administration Mild Pain (1-3) or Fever Amitriptyline HCl 25 mg 06/16/24 21:00 06/16/24 21:05 Amitriptyline Hcl 25 Mg Tablet PO 25 mg HS JOLIE Administration Amlodipine Besylate 5 mg 06/16/24 09:00 06/17/24 09:36 Amlodipine Besylate 5 Mg Tablet PO 5 mg DAILY JOLIE Administration Aspirin 81 mg 06/17/24 09:00 06/17/24 09:35 Aspirin 81 Mg Enteric Tablet PO 81 mg QAM JOLIE Administration Carvedilol 25 mg 06/15/24 22:35 06/17/24 09:35 Carvedilol 25 Mg Tablet PO 25 mg Q12HR JOLIE Administration Chlorthalidone 25 mg 06/16/24 09:00 06/17/24 09:36 Chlorthalidone 25 Mg Tablet PO 25 mg DAILY JOLIE Administration Diazepam 4 mg 06/15/24 22:40 06/16/24 21:05 Diazepam (*Crx) 2 Mg Tablet PO 4 mg HS JOLIE Administration Heparin Sodium (Porcine) 4,000 units 06/15/24 15:34 Heparin Sodium 5,000 Units/Ml Vial IV PUSH PRN PRN aPTT less than 55 seconds Heparin Sodium (Porcine) 2,500 units 06/15/24 15:34 06/16/24 13:51 Heparin Sodium 5,000 Units/Ml Vial IV PUSH 2,500 units PRN PRN Administration aPTT 55 - 70 seconds Hydralazine HCl 50 mg 06/15/24 22:40 06/17/24 17:41 Hydralazine Hcl 50 Mg Tablet PO 50 mg TID JOLIE Administration Hydroxyzine HCl 25 mg 06/15/24 22:40 06/17/24 09:39 Hydroxyzine Hcl 25 Mg Tablet PO 25 mg Q12HR JOLIE Administration Heparin Sodium/Dextrose 25,000 units in 250 mls @ 7 mls/hr 06/15/24 15:40 06/17/24 05:57 Heparin Sodium/D5w 100 Units/Ml IV CONT 700 units/hr .Q24H JOLIE 7 mls/hr Administration Protocol 700 UNITS/HR Levothyroxine Sodium 50 mcg 06/16/24 06:30 06/17/24 05:56 Levothyroxine Sodium 50 Mcg Tablet PO 50 mcg DAILY@0630 JOLIE Administration Pravastatin Sodium 80 mg 06/16/24 09:00 06/17/24 09:34 Pravastatin Sodium 20 Mg Tablet PO 80 mg DAILY JOLIE Administration Pyridoxine HCl 100 mg 06/16/24 09:00 06/17/24 09:35 Pyridoxine Hcl 50 Mg Tablet PO 100 mg DAILY JOLIE Administration Tramadol HCl 50 mg 06/15/24 22:27 06/16/24 11:41 Tramadol Hcl (*Crx) 50 Mg Tablet PO 50 mg Q4-6H PRN Administration PAIN RATED 4-6 Valsartan 320 mg 06/16/24 09:00 06/17/24 09:35 Valsartan 160 Mg Tablet PO 320 mg DAILY JOLIE Administration Vitamin D 5,000 units 06/16/24 09:00 06/17/24 09:36 Cholecalciferol 5,000 Units Tablet BY MOUTH 5,000 units DAILY JOLIE Administration Radiology Results: ITS Impressions Chest X-Ray 06/15/24 10:15 IMPRESSION: 1. Chronic mild lingular atelectasis/scarring. No acute cardiopulmonary disease. Venous Doppler Study 06/16/24 15:09 IMPRESSION: 1. No deep venous thrombosis within the bilateral lower extremities, as detailed above. Labs Labs: Laboratory Results - last 24 hr 06/16/24 06/17/24 20:27 02:03 WBC 9.3 RBC 3.07 L Hgb 9.1 L Hct 27.6 L MCV 89.9 MCH 29.6 MCHC 33.0 RDW 13.4 Plt Count 290 MPV 9.1 Immature Gran % (Auto) 0.2 Neut % (Auto) 52.2 Lymph % (Auto) 34.2 [place] % (Auto) 9.2 H Eos % (Auto) 3.6 Baso % (Auto) 0.6 Lymph # (Auto) 3.17 [place] # (Auto) 0.9 H Eos # (Auto) 0.3 Baso # (Auto) 0.1 Abs Immat Gran (auto) 0.02 Absolute Neuts (auto) 4.9 Absolute Nucleated RBC 0.000 Nucleated RBC % 0.0 APTT 105.8 H 95.7 H Sodium 136 L Potassium 4.3 Chloride 108 H Carbon Dioxide 22 Anion Gap 6 BUN 31 H Creatinine 1.50 H Estim Creat Clear Calc 25 Estimated GFR 33 L Glucose 129 H Calcium 8.7 Phosphorus 4.8 H Magnesium 1.7 Total Bilirubin 0.3 AST 21 ALT 13 Alkaline Phosphatase 69 NT-Pro-B Natriuret Pep 743 H Total Protein 6.0 L Albumin 3.2 L
[2024-06-17] MEDS: diazePAM (*CRX) 2 MG TABLET 4 MG PO (20:57)
[2024-06-17] MEDS: AMITRIPTYLINE HCL 25 MG TABLET PO (20:58)
[2024-06-18] VITALS (15 sets, daily range): BP systolic 107–171; BP diastolic 37–48; PULSE 58–89; RESP 14–18; TEMP 36.5–36.8; O2SAT 97–99
[2024-06-18 04:38] LABS: Hemoglobin 9.1 g/dL (12.0-15.0); Mean Corpuscular HGB Conc 31.4 g/dl (32-36); Mean Corpuscular Hemoglobin 28.7 pg (26-34); Mean Corpuscular Volume 91.5 fl (80-100); Mean Platelet Volume 9.3 fl (7.4-10.4); Platelet Count Result 307 k/mm3 (150-375); Red Blood Count 3.17 M/mm3 (4.2-5.4); Red Cell Distribution Width 13.2 % (11.5-14.5); White Blood Count 9.6 K/mm3 (4.5-10.0)
[2024-06-18 04:47] LABS: Anion Gap 5 mmol/L (4-12); Blood Urea Nitrogen 29 mg/dL (7-17); Calcium 8.9 mg/dL (8.4-10.2); Carbon Dioxide 20 mmol/L (22-30); Chloride 108 mmol/L (98-107); Estimated CRCL calculation 27 ml/min; Estimated Glomerular Filt Rate 36; Glucose 119 mg/dL (65-110); Potassium 4.3 mmol/L (3.4-5.0); Sodium 133 mmol/L (137-145)
[2024-06-18 04:53] LABS: Partial Thromboplastin Time 74.8 Seconds (22.3-36.8)
[2024-06-18] MEDS: LEVOTHYROXINE SODIUM 50 MCG TABLET PO (06:21)
--- NOTE | 2024-06-18 08:29 | P.CONGI_ITS ---
Assessment and Plan Assessment and plan (1) Anemia: Code(s): D64.9 - Anemia, unspecified Status: Acute Assessment and Plan: Patient has a more than 2 points drop in Hb with no evidence or acute or chronic GI losses (normal iron studies, no melena). I will perform EGD on Thursday afternoon to document abscence of gastro duodenal sources of GI bleeding prior to catheterization and initiation of antiaggregant or anticoagulant therapy. GI Consult Note Consult date/time: 06/18/24 08:29 HPI: Polly Marks is a 79 year old female who is currently admitted with a history of chest pain, SOB, cardiac enzyme elevation and EKG abnormalitites, currently monitored and treated with IV heparin. She is currently awaiting cardiac catheterization. Regarding her GI history, it is only relevant for chronic GERD for which she takes nightly Omeprazole, with good control. She denies melena, hematochezia, change in bowel habits, abdominal pain. She has had multiple colonoscopies for screening purposes throughout her life, all within normal limits. From the lab standpoint, she has had an unexplained drop in Hb from 11.4 (December) to 9.4 (06/16) and 9.1 (today). Iron studies (06/16): % iron saturation 41%, Ferritin 29.4 The reason for the consultation : rule out active or potential sources of GI bleeding prior to catheterization. 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 Hyperlipidemia Hypothyroidism (acquired) Low magnesium level Macular degeneration Mild reactive airways disease MVP (mitral valve prolapse) Numbness in feet On [facility] drug therapy DOUGLAS on CPAP Osteopenia Otalgia of left ear Palpitations Pedal edema Peripheral edema Peripheral neuropathy Post menopausal syndrome Pre-diabetes Recurrent UTI Sacroiliitis Shortness of breath Vitamin D deficiency Surgical History Surgical History History of bladder repair surgery History of cholecystectomy History of hysterectomy Family History Family History (Updated 06/15/24 @ 22:37 by Rebecca Oquendo RN) Mother No family history of malignant neoplasm Carcinoma of colon Cerebrovascular accident Diabetes mellitus Hypertension Sibling Family history of lung cancer Patient's brother is in good health Diabetes mellitus Hypertension Father Family history of heart disease in male family member before age 55 Family history of cardiovascular disease Family history of malignant neoplasm Family history of thyroid disease Diabetes mellitus Hypertension Social History Social History Social History: Smoking status: Never smoker Second hand tobacco smoke exposure: No Alcohol intake: current Drinks per week: 1 Alcohol use details: Occasionally Substance use: never Substance use type: does not use Do You Feel Safe in your Home?: Yes Lack of Transportation: No Lack of Food: Never True Current Housing: I Have Housing Concerned About Future Housing: No Difficulty Paying Gas/Electric Bills: No Difficulty Paying for Meds: No Currently Unemployed: No Education: High School Diploma/GED Difficulty w/ Childcare or Family Care: No Living arrangements: alone Occupation/Education: retired Gender identity (if verbalized by the patient): Female Sexual Orientation (if Verbalized by the Patient): Straight or Heterosexual Spiritual care concerns: No Meds Home Medications and Allergies Home Medications Medication Instructions Recorded Confirmed Type cholecalciferol (vitamin D3) 1 tablet PO DAILY 06/05/20 06/15/24 History pyridoxine (vitamin B6) 1 tablet PO DAILY 06/05/20 06/15/24 History blood-glucose meter (Blood Glucose #1 ea 09/29/23 06/15/24 Rx Monitoring kit) lancets 30 gauge (OneTouch Delica #100 ea 11/16/23 06/15/24 Rx Plus Lancet) blood sugar diagnostic (OneTouch #50 strips 12/01/23 06/15/24 Rx Verio test strips) amlodipine 5 mg tablet 5 mg PO DAILY #30 tabs 04/06/24 06/15/24 Rx valsartan 320 mg tablet 320 mg PO DAILY #90 tabs 05/04/24 06/15/24 Rx chlorthalidone 25 mg tablet 25 mg PO DAILY #30 tabs 06/08/24 06/15/24 Rx amitriptyline 25 mg tablet 50 mg PO HS 06/15/24 06/15/24 History carvedilol 25 mg tablet 25 mg PO BIDWM 06/15/24 06/15/24 History diazepam 2 mg tablet 4 mg PO HS 06/15/24 06/15/24 History hydralazine 50 mg tablet 50 mg PO TID 06/15/24 06/15/24 History hydroxyzine HCl 25 mg tablet 25 mg PO BID 06/15/24 06/15/24 History levothyroxine 50 mcg tablet 50 mcg PO DAILY 06/15/24 06/15/24 History metformin 500 mg tablet 500 mg PO BID 06/15/24 06/15/24 History pravastatin 80 mg tablet 80 mg PO DAILY 06/15/24 06/15/24 History tramadol 50 mg tablet 50 mg PO Q4-6H PRN Pain 06/15/24 06/15/24 History Allergies Allergy/AdvReac Type Severity Reaction Status Date / Time Penicillins Allergy Severe Hives Verified 06/15/24 22:22 phenytoin Allergy Intermediate HIVES Verified 06/15/24 22:22 cefaclor Allergy Unknown THROAT Verified 06/15/24 22:22 SWELLING AND HIVES Vital Signs Vital Signs - 24 hr 06/17/24 09:35 06/17/24 10:00 06/17/24 12:00 Temperature 98 F Pulse Rate 57 L 57 L 59 L Respiratory Rate 16 Blood Pressure 159/50 H Pulse Oximetry 97 Oxygen Delivery 06/17/24 12:00 06/17/24 12:00 06/17/24 14:00 Temperature Pulse Rate 57 L 61 Respiratory Rate Blood Pressure Pulse Oximetry Oxygen Delivery Room Air 06/17/24 15:39 06/17/24 16:00 06/17/24 16:00 Temperature 98 F Pulse Rate 61 62 Respiratory Rate 16 Blood Pressure 157/44 H Pulse Oximetry 98 Oxygen Delivery Room Air 06/17/24 18:00 06/17/24 20:00 06/17/24 20:58 Temperature 98.1 F Pulse Rate 66 64 68 Respiratory Rate 16 Blood Pressure 170/50 H Pulse Oximetry 100 Oxygen Delivery 06/17/24 20:00 06/17/24 20:00 06/17/24 22:00 Temperature Pulse Rate 65 70 Respiratory Rate Blood Pressure Pulse Oximetry Oxygen Delivery Room Air 06/18/24 00:00 06/18/24 00:00 06/18/24 00:00 Temperature 98.0 F Pulse Rate 66 61 Respiratory Rate 16 Blood Pressure 119/37 L Pulse Oximetry 98 Oxygen Delivery Room Air 06/18/24 02:00 06/18/24 04:00 06/18/24 04:00 Temperature 98.2 F Pulse Rate 59 L 60 Respiratory Rate 16 Blood Pressure 107/40 L Pulse Oximetry 98 Oxygen Delivery Room Air 06/18/24 04:00 06/18/24 06:00 06/18/24 08:00 Temperature 97.7 F Pulse Rate 58 L 85 62 Respiratory Rate 18 Blood Pressure 165/45 H Pulse Oximetry 99 Oxygen Delivery Exam Narrative: AF 98 157/44 61 16 98% ra Gen - NARD Chest - few bibasilar crackles CV - RRR S1/S2; Tele showing no significant dysrhythmias Abd - Soft, NT/ND, Positive BS Ext - no pedla edema Psych - Nml mood and affect Skin - Warm and dry Results Labs 06/18/24 04:31 06/18/24 04:31 Labs: Short CBC 06/18/24 Range/Units 04:31 WBC 9.6 (4.5-10.0) K/mm3 Hgb 9.1 L (12.0-15.0) g/dL Hct 29.0 L (37.0-47.0) % Plt Count 307 (150-375) k/mm3 [facility] 06/18/24 04:31 Sodium 133 L Potassium 4.3 Chloride 108 H Carbon Dioxide 20 L BUN 29 H Creatinine 1.40 H Glucose 119 H Calcium 8.9
[2024-06-18] MEDS: ASPIRIN 81 MG ENTERIC TABLET PO (09:05)
[2024-06-18] MEDS: VALSARTAN 160 MG TABLET 320 MG PO (09:05)
[2024-06-18] MEDS: hydrOXYzine HCL 25 MG TABLET PO ×2 (09:05→21:03)
[2024-06-18] MEDS: CHLORTHALIDONE 25 MG TABLET PO (09:05)
[2024-06-18] MEDS: amLODIPine BESYLATE 5 MG TABLET PO (09:06)
[2024-06-18] MEDS: hydrALAZINE HCL 50 MG TABLET PO ×3 (09:06→17:48)
[2024-06-18] MEDS: carvediloL 25 MG TABLET PO ×2 (09:06→21:03)
[2024-06-18] MEDS: CHOLECALCIFEROL 5,000 UNITS TABLET 5000 UNITS BY MOUTH (09:06)
[2024-06-18] MEDS: PYRIDOXINE HCL 50 MG TABLET 100 MG PO (09:06)
[2024-06-18] MEDS: PRAVASTATIN SODIUM 20 MG TABLET 80 MG PO (09:07)
--- NOTE | 2024-06-18 12:41 | PM.PNCARD ---
Progress Note: A&P Assessment and Plan (1) MVP (mitral valve prolapse): Code(s): I34.1 - Nonrheumatic mitral (valve) prolapse Status: Acute (2) Essential (primary) hypertension: Code(s): I10 - Essential (primary) hypertension Status: Acute (3) Type 2 LA (myocardial infarction): Code(s): I21.A1 - Myocardial infarction type 2 Status: Acute Plan 1. NSTEMI 2. HTN 3. MVP/Mitral regurgitation - Echo shows preserved EF with no significant mitral valve prolapse or regurgitation - EGD scheduled for Thursday - Her creatinine is around 1.2-1.3. currently it is 1.4. Consider gentle hydration - She is currently on pravastatin and beta-tammie - Continue heparin infusion Subjective Date/time seen: 06/18/24 12:41 Interval history: No acyute events overnight No more chest pain or dyspnea Hb remains relatively stable on heparin infusion, HB 9.1; baseline 11.6-11.7 Seen by GI, EGD scheduled fro Thursday Review of Systems Review of Systems: Palpitations, anxiety, lightheadedness, shortness of breath, chest pressure. Exam Narrative: AF 98.6 131/50 67 20 97% ra Gen - NARD Chest - CTA bilaterally, nml RR CV - RRR S1/S2 wit 2/6 systolic murmur left upper sternal border and at apex; Tele showing no significant dysrhythmias Abd - Soft, NT/ND, Positive BS Ext - left slightly larger than right with +Homans on left. Neuro - Alert and oriented. Nonfocal exam. Psych - Nml mood and affect Skin - Warm and dry Const: General: comfortable, no acute distress, well developed, alert, awake and average body habitus Nutritional Appearance: average body habitus Orientation/consciousness: patient oriented x3 HENMT: Head: normal to inspection, normocephalic and atraumatic Ears: hearing grossly normal bilaterally Face/Nose/Sinus: normal facial exam Face and sinus: normal facial exam Eyes: General: appearance normal, both eyes and all related structures Pupils: Equal, round and reactive pupils present EOM: EOMs intact bilaterally Neck: Neck: full ROM, no lymphadenopathy and no JVD Thyroid: thyroid normal Lymphatic: no lymphadenopathy noted Resp: Effort & Inspection: normal respiratory effort and able to speak in complete sentences Auscultation: clear to auscultation bilaterally Cardio: Jugular venous distension: no JVD Rate: regular rate Rhythm: regular rhythm Heart sounds: S1 normal heart sound present, S2 normal heart sound present and Murmur heart sound present continuous : General: Yes deferred Skin: Rashes: no rashes Wounds: no wounds Neuro: General: patient oriented x3 and CN's II-XI intact bilaterally Cranial nerves: Yes CN's II-XII intact bilaterally and Yes Equal, round and reactive pupils present Cognition (Neuro): normal cognition Speech: normal speech Gait exam (Neuro): Normal gait present Motor exam (neuro): 5/5 motor strength present throughout Extrem: General: normal to inspection, full ROM, no joint enlargement and no pedal edema Objective Data Vital Signs Vital Signs: Vital Signs - 24 hr 06/17/24 14:00 06/17/24 15:39 06/17/24 16:00 Temperature 36.6 C Pulse Rate 61 61 Respiratory Rate 16 Blood Pressure 157/44 H Pulse Oximetry 98 Oxygen Delivery Room Air 06/17/24 16:00 06/17/24 18:00 06/17/24 20:00 Temperature 36.7 C Pulse Rate 62 66 64 Respiratory Rate 16 Blood Pressure 170/50 H Pulse Oximetry 100 Oxygen Delivery 06/17/24 20:58 06/17/24 20:00 06/17/24 20:00 Temperature Pulse Rate 68 65 Respiratory Rate Blood Pressure Pulse Oximetry Oxygen Delivery Room Air 06/17/24 22:00 06/18/24 00:00 06/18/24 00:00 Temperature 36.7 C Pulse Rate 70 66 Respiratory Rate 16 Blood Pressure 119/37 L Pulse Oximetry 98 Oxygen Delivery Room Air 06/18/24 00:00 06/18/24 02:00 06/18/24 04:00 Temperature Pulse Rate 61 59 L Respiratory Rate Blood Pressure Pulse Oximetry Oxygen Delivery Room Air 06/18/24 04:00 06/18/24 04:00 06/18/24 06:00 Temperature 36.8 C Pulse Rate 60 58 L 85 Respiratory Rate 16 Blood Pressure 107/40 L Pulse Oximetry 98 Oxygen Delivery 06/18/24 08:00 06/18/24 11:43 Temperature 36.5 C 36.7 C Pulse Rate 62 89 Respiratory Rate 18 16 Blood Pressure 165/45 H 134/45 L Pulse Oximetry 99 97 Oxygen Delivery Intake/Output Intake/Output: Intake & Output 06/15/24 06/16/24 06/17/24 06/18/24 23:59 23:59 23:59 23:59 Intake Total 1000 1466.1 2031.9 539.4 Output Total 651 178 7311 500 Balance 800 916.1 806.9 39.4 Meds/Results Medications: Active Medications Generic Name Dose Route Start Last Admin Trade Name Freq PRN Reason Stop Dose Admin Acetaminophen 650 mg 06/16/24 15:03 06/17/24 13:04 Acetaminophen 325 Mg Tablet PO 650 mg Q6H PRN Administration Mild Pain (1-3) or Fever Amitriptyline HCl 25 mg 06/16/24 21:00 06/17/24 20:58 Amitriptyline Hcl 25 Mg Tablet PO 25 mg HS JOLIE Administration Amlodipine Besylate 5 mg 06/16/24 09:00 06/18/24 09:06 Amlodipine Besylate 5 Mg Tablet PO 5 mg DAILY JLOIE Administration Aspirin 81 mg 06/17/24 09:00 06/18/24 09:05 Aspirin 81 Mg Enteric Tablet PO 81 mg QAM JOLIE Administration Carvedilol 25 mg 06/15/24 22:35 06/18/24 09:06 Carvedilol 25 Mg Tablet PO 25 mg Q12HR JOLIE Administration Chlorthalidone 25 mg 06/16/24 09:00 06/18/24 09:05 Chlorthalidone 25 Mg Tablet PO 25 mg DAILY JOLIE Administration Diazepam 4 mg 06/15/24 22:40 06/17/24 20:57 Diazepam (*Crx) 2 Mg Tablet PO 4 mg HS JOLIE Administration Heparin Sodium (Porcine) 4,000 units 06/15/24 15:34 Heparin Sodium 5,000 Units/Ml Vial IV PUSH PRN PRN aPTT less than 55 seconds Heparin Sodium (Porcine) 2,500 units 06/15/24 15:34 06/16/24 13:51 Heparin Sodium 5,000 Units/Ml Vial IV PUSH 2,500 units PRN PRN Administration aPTT 55 - 70 seconds Hydralazine HCl 50 mg 06/15/24 22:40 06/18/24 12:27 Hydralazine Hcl 50 Mg Tablet PO 50 mg TID JOLIE Administration Hydroxyzine HCl 25 mg 06/15/24 22:40 06/18/24 09:05 Hydroxyzine Hcl 25 Mg Tablet PO 25 mg Q12HR JOLIE Administration Heparin Sodium/Dextrose 25,000 units in 250 mls @ 7 mls/hr 06/15/24 15:40 06/18/24 09:00 Heparin Sodium/D5w 100 Units/Ml IV CONT 700 units/hr .Q24H JOLIE 7 mls/hr Titration Protocol 700 UNITS/HR Levothyroxine Sodium 50 mcg 06/16/24 06:30 06/18/24 06:21 Levothyroxine Sodium 50 Mcg Tablet PO 50 mcg DAILY@0630 JOLIE Administration Pravastatin Sodium 80 mg 06/16/24 09:00 06/18/24 09:07 Pravastatin Sodium 20 Mg Tablet PO 80 mg DAILY JOLIE Administration Pyridoxine HCl 100 mg 06/16/24 09:00 06/18/24 09:06 Pyridoxine Hcl 50 Mg Tablet PO 100 mg DAILY JOLIE Administration Tramadol HCl 50 mg 06/15/24 22:27 06/16/24 11:41 Tramadol Hcl (*Crx) 50 Mg Tablet PO 50 mg Q4-6H PRN Administration PAIN RATED 4-6 Valsartan 320 mg 06/16/24 09:00 06/18/24 09:05 Valsartan 160 Mg Tablet PO 320 mg DAILY JOLIE Administration Vitamin D 5,000 units 06/16/24 09:00 06/18/24 09:06 Cholecalciferol 5,000 Units Tablet BY MOUTH 5,000 units DAILY JOLIE Administration Radiology Results: ITS Impressions Chest X-Ray 06/15/24 10:15 IMPRESSION: 1. Chronic mild lingular atelectasis/scarring. No acute cardiopulmonary disease. Venous Doppler Study 06/16/24 15:09 IMPRESSION: 1. No deep venous thrombosis within the bilateral lower extremities, as detailed above. Labs Labs: Laboratory Results - last 24 hr 06/18/24 04:31 WBC 9.6 RBC 3.17 L Hgb 9.1 L Hct 29.0 L MCV 91.5 MCH 28.7 MCHC 31.4 L RDW 13.2 Plt Count 307 MPV 9.3 APTT 74.8 H Sodium 133 L Potassium 4.3 Chloride 108 H Carbon Dioxide 20 L Anion Gap 5 BUN 29 H Creatinine 1.40 H Estim Creat Clear Calc 27 Estimated GFR 36 L Glucose 119 H Calcium 8.9
--- NOTE | 2024-06-18 13:31 | P.PNIM_ITS ---
Progress Note: A&P Assessment and Plan (1) Chest pain: Code(s): R07.9 - Chest pain, unspecified Status: Acute Assessment and Plan: Patient presents with SOB and CP. She has been having progressively worsening S OB associated with chest tightness at times. Chest tightness has not been worsening but was more severe on day of admission. Chemical Stress test January 2024 showing hyperdynamic global LV systolic fxn with normal myocardial perfusion. PFTs December 2023 showing no obstructive defect but with hyperinflation Troponin elevated at 0.08 and about the same on repeat 6 hours apart EKG showing NSR with LVH, age-indeterminate inferior [place] but no change from prior. Repeat EKG showing similar findings Echo showing mod LV wall thickness, symmetric septal hypertrophy with sigmoid septum, EF 75-80%, Grade I diastolic dysfxn and mild MR. LE venous doppler negative for DVT. Cardiology consulted and appreciate their input Heparin drip started. Continue ASA, Coreg and statin therapy. LHC being considered but concern to proceed with the decrease in the HH. GI consulted. Possible LHC Thursday. (2) Elevated troponin: Code(s): R79.89 - Other specified abnormal findings of blood chemistry Status: Acute Assessment and Plan: As above. (3) Anemia: Code(s): D64.9 - Anemia, unspecified Status: Acute Assessment and Plan: Hgb normally runs in the 11 range. Hgb 11.6 on admission but has trended down to 9.1 and stable now. No evidence of acute blood loss. Stool is guaiac negative. Iron studies, B12 and folate normal. Probably chronic from her renal failure. GI consulted. EGD planned. Follow. (4) Essential (primary) hypertension: Code(s): I10 - Essential (primary) hypertension Status: Acute Assessment and Plan: Patient's blood pressure was reviewed on 06/18 Blood pressure remains reasonably well controlled after resuming her home medications with SBP 100-160. Concern for pheochromocytoma and testing has been performed prior to admission We are unable to check for Pheo here since she is on TCA. Will continue current medications. (5) CKD (chronic kidney disease), stage III: Code(s): N18.30 - Chronic kidney disease, stage 3 unspecified Status: Acute Assessment and Plan: BUN 32 and Cr 1.6 on admission and about at baseline. Potassium was higher but this resolved. She has a intermittnet mild metabolic nongap acidosis Repeat BUN and Cr stable. Continue low potassium diet. Monitor renal function Follow (6) DOUGLAS on CPAP: Code(s): G47.33 - Obstructive sleep apnea (adult) (pediatric); Z99.89 - Dependence on other enabling machines and devices Status: Acute Assessment and Plan: Patient does not wear CPAP at home and refuses it here. (7) MVP (mitral valve prolapse): Code(s): I34.1 - Nonrheumatic mitral (valve) prolapse Status: Acute Assessment and Plan: Echo as above. Has mild mitral regurg. (8) COPD (chronic obstructive pulmonary disease): Code(s): J44.9 - Chronic obstructive pulmonary disease, unspecified Status: Acute Assessment and Plan: Stable. No wheezing. Remains on room air Follow Plan DVT prophylaxis - Heparin Code status - full Subjective Date/time seen: 06/18/24 13:31 Interval history: 79yo female with MV disease, HTN, DM, CKD and DOUGLAS here for chest pain, worsening SOLIZ and palpitations. Still having occasional headache but better with tyelnol. No CP or SOB. No SOLIZ or CP with exertion. Walking to the BR. Exam Narrative: AF 98.1 134/45 89 16 97% ra Gen - NARD sitting up in chair feeding herself lunch Chest - clear bilaterally CV - RRR S1/S2; Tele showing no significant dysrhythmias Abd - Soft, NT/ND, Positive BS Ext - no pedal edema Psych - Nml mood and affect Skin - Warm and dry Objective Data Vital Signs Vital Signs: Vital Signs - 24 hr 06/17/24 14:00 06/17/24 15:39 06/17/24 16:00 Temperature 98 F Pulse Rate 61 61 Respiratory Rate 16 Blood Pressure 157/44 H Pulse Oximetry 98 Oxygen Delivery Room Air 06/17/24 16:00 06/17/24 18:00 06/17/24 20:00 Temperature 98.1 F Pulse Rate 62 66 64 Respiratory Rate 16 Blood Pressure 170/50 H Pulse Oximetry 100 Oxygen Delivery 06/17/24 20:58 06/17/24 20:00 06/17/24 20:00 Temperature Pulse Rate 68 65 Respiratory Rate Blood Pressure Pulse Oximetry Oxygen Delivery Room Air 06/17/24 22:00 06/18/24 00:00 06/18/24 00:00 Temperature 98.0 F Pulse Rate 70 66 Respiratory Rate 16 Blood Pressure 119/37 L Pulse Oximetry 98 Oxygen Delivery Room Air 06/18/24 00:00 06/18/24 02:00 06/18/24 04:00 Temperature Pulse Rate 61 59 L Respiratory Rate Blood Pressure Pulse Oximetry Oxygen Delivery Room Air 06/18/24 04:00 06/18/24 04:00 06/18/24 06:00 Temperature 98.2 F Pulse Rate 60 58 L 85 Respiratory Rate 16 Blood Pressure 107/40 L Pulse Oximetry 98 Oxygen Delivery 06/18/24 08:00 06/18/24 11:43 Temperature 97.7 F 98.1 F Pulse Rate 62 89 Respiratory Rate 18 16 Blood Pressure 165/45 H 134/45 L Pulse Oximetry 99 97 Oxygen Delivery Intake/Output Intake/Output: Intake & Output 06/15/24 06/16/24 06/17/24 06/18/24 23:59 23:59 23:59 23:59 Intake Total 1000 1466.1 2031.9 779.4 Output Total 990 717 4384 500 Balance 800 916.1 806.9 279.4 Meds/Results Medications: Active Medications Generic Name Dose Route Start Last Admin Trade Name Freq PRN Reason Stop Dose Admin Acetaminophen 650 mg 06/16/24 15:03 06/17/24 13:04 Acetaminophen 325 Mg Tablet PO 650 mg Q6H PRN Administration Mild Pain (1-3) or Fever Amitriptyline HCl 25 mg 06/16/24 21:00 06/17/24 20:58 Amitriptyline Hcl 25 Mg Tablet PO 25 mg HS JOLIE Administration Amlodipine Besylate 5 mg 06/16/24 09:00 06/18/24 09:06 Amlodipine Besylate 5 Mg Tablet PO 5 mg DAILY JOLIE Administration Aspirin 81 mg 06/17/24 09:00 06/18/24 09:05 Aspirin 81 Mg Enteric Tablet PO 81 mg QAM JOLIE Administration Carvedilol 25 mg 06/15/24 22:35 06/18/24 09:06 Carvedilol 25 Mg Tablet PO 25 mg Q12HR JOLIE Administration Chlorthalidone 25 mg 06/16/24 09:00 06/18/24 09:05 Chlorthalidone 25 Mg Tablet PO 25 mg DAILY JOLIE Administration Diazepam 4 mg 06/15/24 22:40 06/17/24 20:57 Diazepam (*Crx) 2 Mg Tablet PO 4 mg HS JOLIE Administration Heparin Sodium (Porcine) 4,000 units 06/15/24 15:34 Heparin Sodium 5,000 Units/Ml Vial IV PUSH PRN PRN aPTT less than 55 seconds Heparin Sodium (Porcine) 2,500 units 06/15/24 15:34 06/16/24 13:51 Heparin Sodium 5,000 Units/Ml Vial IV PUSH 2,500 units PRN PRN Administration aPTT 55 - 70 seconds Hydralazine HCl 50 mg 06/15/24 22:40 06/18/24 12:27 Hydralazine Hcl 50 Mg Tablet PO 50 mg TID JOLIE Administration Hydroxyzine HCl 25 mg 06/15/24 22:40 06/18/24 09:05 Hydroxyzine Hcl 25 Mg Tablet PO 25 mg Q12HR JOLIE Administration Heparin Sodium/Dextrose 25,000 units in 250 mls @ 7 mls/hr 06/15/24 15:40 06/18/24 09:00 Heparin Sodium/D5w 100 Units/Ml IV CONT 700 units/hr .Q24H JOLIE 7 mls/hr Titration Protocol 700 UNITS/HR Levothyroxine Sodium 50 mcg 06/16/24 06:30 06/18/24 06:21 Levothyroxine Sodium 50 Mcg Tablet PO 50 mcg DAILY@0630 JOLIE Administration Pravastatin Sodium 80 mg 06/16/24 09:00 06/18/24 09:07 Pravastatin Sodium 20 Mg Tablet PO 80 mg DAILY JOLIE Administration Pyridoxine HCl 100 mg 06/16/24 09:00 06/18/24 09:06 Pyridoxine Hcl 50 Mg Tablet PO 100 mg DAILY JOLIE Administration Tramadol HCl 50 mg 06/15/24 22:27 06/16/24 11:41 Tramadol Hcl (*Crx) 50 Mg Tablet PO 50 mg Q4-6H PRN Administration PAIN RATED 4-6 Valsartan 320 mg 06/16/24 09:00 06/18/24 09:05 Valsartan 160 Mg Tablet PO 320 mg DAILY JOLIE Administration Vitamin D 5,000 units 06/16/24 09:00 06/18/24 09:06 Cholecalciferol 5,000 Units Tablet BY MOUTH 5,000 units DAILY JOLIE Administration Radiology Results: ITS Impressions Chest X-Ray 06/15/24 10:15 IMPRESSION: 1. Chronic mild lingular atelectasis/scarring. No acute cardiopulmonary disease. Venous Doppler Study 06/16/24 15:09 IMPRESSION: 1. No deep venous thrombosis within the bilateral lower extremities, as detailed above. Labs Labs: Laboratory Results - last 24 hr 06/18/24 04:31 WBC 9.6 RBC 3.17 L Hgb 9.1 L Hct 29.0 L MCV 91.5 MCH 28.7 MCHC 31.4 L RDW 13.2 Plt Count 307 MPV 9.3 APTT 74.8 H Sodium 133 L Potassium 4.3 Chloride 108 H Carbon Dioxide 20 L Anion Gap 5 BUN 29 H Creatinine 1.40 H Estim Creat Clear Calc 27 Estimated GFR 36 L Glucose 119 H Calcium 8.9
[2024-06-18] MEDS: ACETAMINOPHEN 325 MG TABLET 650 MG PO (15:49)
[2024-06-18] MEDS: HEPARIN SOD/D5W 100 UNITS/ML 25,000 UNITS/250 ML BAG 7 UNITS IV CONT (15:52)
[2024-06-18] MEDS: diazePAM (*CRX) 2 MG TABLET 4 MG PO (21:03)
[2024-06-18] MEDS: AMITRIPTYLINE HCL 25 MG TABLET PO (21:03)
[2024-06-19] VITALS (19 sets, daily range): BP systolic 101–163; BP diastolic 43–63; PULSE 56–68; RESP 14–20; TEMP 36.5–36.9; O2SAT 97–100
[2024-06-19] MEDS: LEVOTHYROXINE SODIUM 50 MCG TABLET PO (05:24)
[2024-06-19 05:46] LABS: Hematocrit 29.8 % (37.0-47.0); Hemoglobin 9.6 g/dL (12.0-15.0); Mean Corpuscular HGB Conc 32.2 g/dl (32-36); Mean Corpuscular Hemoglobin 29.2 pg (26-34); Mean Corpuscular Volume 90.6 fl (80-100); Platelet Count Result 324 k/mm3 (150-375); Red Blood Count 3.29 M/mm3 (4.2-5.4); Red Cell Distribution Width 13.2 % (11.5-14.5); White Blood Count 10.6 K/mm3 (4.5-10.0)
[2024-06-19 05:51] LABS: Anion Gap 7 mmol/L (4-12); Blood Urea Nitrogen 31 mg/dL (7-17); Calcium 9.5 mg/dL (8.4-10.2); Carbon Dioxide 21 mmol/L (22-30); Chloride 106 mmol/L (98-107); Estimated CRCL calculation 25 ml/min; Estimated Glomerular Filt Rate 33; Glucose 127 mg/dL (65-110); Potassium 4.2 mmol/L (3.4-5.0); Sodium 134 mmol/L (137-145)
[2024-06-19 05:55] LABS: Partial Thromboplastin Time 67.7 Seconds (22.3-36.8)
[2024-06-19] MEDS: HEPARIN SODIUM 5,000 UNITS/ML VIAL 2500 UNITS IV PUSH (06:08)
[2024-06-19] MEDS: PYRIDOXINE HCL 50 MG TABLET 100 MG PO (08:52)
[2024-06-19] MEDS: hydrALAZINE HCL 50 MG TABLET PO ×3 (08:52→18:52)
[2024-06-19] MEDS: carvediloL 25 MG TABLET PO ×2 (08:52→21:04)
[2024-06-19] MEDS: CHLORTHALIDONE 25 MG TABLET PO (08:52)
[2024-06-19] MEDS: VALSARTAN 160 MG TABLET 320 MG PO (08:52)
[2024-06-19] MEDS: ASPIRIN 81 MG ENTERIC TABLET PO (08:52)
[2024-06-19] MEDS: hydrOXYzine HCL 25 MG TABLET PO ×2 (08:53→21:04)
[2024-06-19] MEDS: PRAVASTATIN SODIUM 20 MG TABLET 80 MG PO (08:53)
[2024-06-19] MEDS: amLODIPine BESYLATE 5 MG TABLET PO (08:53)
[2024-06-19] MEDS: CHOLECALCIFEROL 5,000 UNITS TABLET 5000 UNITS BY MOUTH (08:53)
--- NOTE | 2024-06-19 10:22 | WPDGIPROGNO ---
Progress Note: A&P Assessment and Plan (1) Anemia: Code(s): D64.9 - Anemia, unspecified Status: Acute Assessment and Plan: hemoglobin has remained stable. Doubt GI bleeding. Regardless, tomorrow afternoon will perform EGD to provide documentation of the absence of peptic ulcer disease in order to proceed with cardiac catheterization. Subjective Date/time seen: 06/19/24 10:22 Objective Data Vital Signs Vital Signs: Vital Signs - 24 hr 06/18/24 11:43 06/18/24 12:00 06/18/24 15:48 Temperature 98.1 F Pulse Rate 89 58 L Respiratory Rate 16 Blood Pressure 134/45 L Pulse Oximetry 97 Oxygen Delivery Room Air 06/18/24 16:00 06/18/24 14:00 06/18/24 16:00 Temperature 98.0 F Pulse Rate 62 60 64 Respiratory Rate 14 Blood Pressure 146/48 H Pulse Oximetry 99 Oxygen Delivery 06/18/24 18:00 06/18/24 21:03 06/18/24 20:00 Temperature Pulse Rate 65 63 Respiratory Rate Blood Pressure Pulse Oximetry Oxygen Delivery Room Air 06/18/24 21:14 06/18/24 20:00 06/18/24 22:00 Temperature 98.2 F Pulse Rate 62 62 63 Respiratory Rate 14 Blood Pressure 171/47 H Pulse Oximetry 99 Oxygen Delivery 06/19/24 00:00 06/19/24 00:00 06/19/24 00:00 Temperature 98.1 F Pulse Rate 65 61 Respiratory Rate 16 Blood Pressure 129/46 L Pulse Oximetry 97 Oxygen Delivery Room Air 06/19/24 02:00 06/19/24 04:00 06/19/24 04:00 Temperature Pulse Rate 63 59 L Respiratory Rate Blood Pressure Pulse Oximetry Oxygen Delivery Room Air 06/19/24 04:00 06/19/24 06:00 06/19/24 07:52 Temperature 98.1 F 97.7 F Pulse Rate 60 63 62 Respiratory Rate 16 14 Blood Pressure 147/46 H 130/50 L Pulse Oximetry 98 99 Oxygen Delivery 06/19/24 08:00 Temperature Pulse Rate Respiratory Rate Blood Pressure Pulse Oximetry Oxygen Delivery Room Air Intake/Output Intake/Output: Intake & Output 06/16/24 06/17/24 06/18/24 06/19/24 23:59 23:59 23:59 23:59 Intake Total 1466.1 2031.9 1377.5 114.8 Output Total 550 2555 922 0983 Balance 916.1 806.9 477.5 -885.2 Meds/Results Medications: Active Medications Generic Name Dose Route Start Last Admin Trade Name Freq PRN Reason Stop Dose Admin Acetaminophen 650 mg 06/16/24 15:03 06/18/24 15:49 Acetaminophen 325 Mg Tablet PO 650 mg Q6H PRN Administration Mild Pain (1-3) or Fever Amitriptyline HCl 25 mg 06/16/24 21:00 06/18/24 21:03 Amitriptyline Hcl 25 Mg Tablet PO 25 mg HS JOLIE Administration Amlodipine Besylate 5 mg 06/16/24 09:00 06/19/24 08:53 Amlodipine Besylate 5 Mg Tablet PO 5 mg DAILY JOLIE Administration Aspirin 81 mg 06/17/24 09:00 06/19/24 08:52 Aspirin 81 Mg Enteric Tablet PO 81 mg QAM JOLIE Administration Carvedilol 25 mg 06/15/24 22:35 06/19/24 08:52 Carvedilol 25 Mg Tablet PO 25 mg Q12HR JOLIE Administration Chlorthalidone 25 mg 06/16/24 09:00 06/19/24 08:52 Chlorthalidone 25 Mg Tablet PO 25 mg DAILY JOLIE Administration Diazepam 4 mg 06/15/24 22:40 06/18/24 21:03 Diazepam (*Crx) 2 Mg Tablet PO 4 mg HS JOLIE Administration Heparin Sodium (Porcine) 4,000 units 06/15/24 15:34 Heparin Sodium 5,000 Units/Ml Vial IV PUSH PRN PRN aPTT less than 55 seconds Heparin Sodium (Porcine) 2,500 units 06/15/24 15:34 06/19/24 06:08 Heparin Sodium 5,000 Units/Ml Vial IV PUSH 2,500 units PRN PRN Administration aPTT 55 - 70 seconds Hydralazine HCl 50 mg 06/15/24 22:40 06/19/24 08:52 Hydralazine Hcl 50 Mg Tablet PO 50 mg TID JOLIE Administration Hydroxyzine HCl 25 mg 06/15/24 22:40 06/19/24 08:53 Hydroxyzine Hcl 25 Mg Tablet PO 25 mg Q12HR JOLIE Administration Heparin Sodium/Dextrose 25,000 units in 250 mls @ 8 mls/hr 06/15/24 15:40 06/19/24 08:00 Heparin Sodium/D5w 100 Units/Ml IV CONT 800 units/hr .Q24H JOLIE 8 mls/hr Titration Protocol 800 UNITS/HR Levothyroxine Sodium 50 mcg 06/16/24 06:30 06/19/24 05:24 Levothyroxine Sodium 50 Mcg Tablet PO 50 mcg DAILY@0630 JOLIE Administration Pravastatin Sodium 80 mg 06/16/24 09:00 06/19/24 08:53 Pravastatin Sodium 20 Mg Tablet PO 80 mg DAILY JOLIE Administration Pyridoxine HCl 100 mg 06/16/24 09:00 06/19/24 08:52 Pyridoxine Hcl 50 Mg Tablet PO 100 mg DAILY JOLIE Administration Sodium Chloride 1 spray 06/19/24 05:29 Saline 0.65% Jorge Soln 44 Ml Btl NASAL Q6HR PRN Congestion Tramadol HCl 50 mg 06/15/24 22:27 06/16/24 11:41 Tramadol Hcl (*Crx) 50 Mg Tablet PO 50 mg Q4-6H PRN Administration PAIN RATED 4-6 Valsartan 320 mg 06/16/24 09:00 06/19/24 08:52 Valsartan 160 Mg Tablet PO 320 mg DAILY JOLIE Administration Vitamin D 5,000 units 06/16/24 09:00 06/19/24 08:53 Cholecalciferol 5,000 Units Tablet BY MOUTH 5,000 units DAILY JOLIE Administration Radiology Results: ITS Impressions Chest X-Ray 06/15/24 10:15 IMPRESSION: 1. Chronic mild lingular atelectasis/scarring. No acute cardiopulmonary disease. Venous Doppler Study 06/16/24 15:09 IMPRESSION: 1. No deep venous thrombosis within the bilateral lower extremities, as detailed above. Labs Labs: Laboratory Results - last 24 hr 06/19/24 04:34 WBC 10.6 H RBC 3.29 L Hgb 9.6 L Hct 29.8 L MCV 90.6 MCH 29.2 MCHC 32.2 RDW 13.2 Plt Count 324 MPV 10.0 APTT 67.7 H Sodium 134 L Potassium 4.2 Chloride 106 Carbon Dioxide 21 L Anion Gap 7 BUN 31 H Creatinine 1.50 H Estim Creat Clear Calc 25 Estimated GFR 33 L Glucose 127 H Calcium 9.5
[2024-06-19 12:37] LABS: Partial Thromboplastin Time 133.9 Seconds (22.3-36.8)
[2024-06-19] MEDS: ACETAMINOPHEN 325 MG TABLET 650 MG PO (12:59)
--- NOTE | 2024-06-19 17:14 | P.PNIM_ITS ---
Progress Note: A&P Assessment and Plan (1) Chest pain: Code(s): R07.9 - Chest pain, unspecified Status: Acute Assessment and Plan: Patient presents with SOB and CP. She has been having progressively worsening S OB associated with chest tightness at times. Chest tightness has not been worsening but was more severe on day of admission. Chemical Stress test January 2024 showing hyperdynamic global LV systolic fxn with normal myocardial perfusion. PFTs December 2023 showing no obstructive defect but with hyperinflation Troponin elevated at 0.08 and about the same on repeat 6 hours apart EKG showing NSR with LVH, age-indeterminate inferior [place] but no change from prior. Repeat EKG showing similar findings Echo showing mod LV wall thickness, symmetric septal hypertrophy with sigmoid septum, EF 75-80%, Grade I diastolic dysfxn and mild MR. LE venous doppler negative for DVT. Cardiology consulted and appreciate their input Heparin drip started. Continue ASA, Coreg and statin therapy. LHC being considered but concern to proceed with the decrease in the HH. GI consulted with EGD planned for tomorrow and then with LHC if negative EGD.. (2) Elevated troponin: Code(s): R79.89 - Other specified abnormal findings of blood chemistry Status: Acute Assessment and Plan: As above. (3) Anemia: Code(s): D64.9 - Anemia, unspecified Status: Acute Assessment and Plan: Hgb normally runs in the 11 range. Hgb 11.6 on admission but has trended down to 9.1 and stable now. No evidence of acute blood loss. Stool is guaiac negative. Iron studies, B12 and folate normal. Probably chronic from her renal failure. GI consulted. EGD planned for tomorrow. Follow. (4) Essential (primary) hypertension: Code(s): I10 - Essential (primary) hypertension Status: Acute Assessment and Plan: Patient's blood pressure was reviewed on 06/19 Blood pressure remains well controlled after resuming her home medications with SBP 100-150. Concern for pheochromocytoma and testing has been performed prior to admission We are unable to check for Pheo here since she is on TCA. Will continue current medications. (5) CKD (chronic kidney disease), stage III: Code(s): N18.30 - Chronic kidney disease, stage 3 unspecified Status: Acute Assessment and Plan: BUN 32 and Cr 1.6 on admission and about at baseline. Potassium was higher but this resolved. She has a intermittent mild metabolic nongap acidosis Repeat BUN and Cr stable. Potassium remains normal. Continue low potassium diet. Monitor renal function Follow (6) DOUGLAS on CPAP: Code(s): G47.33 - Obstructive sleep apnea (adult) (pediatric); Z99.89 - Dependence on other enabling machines and devices Status: Acute Assessment and Plan: Patient does not wear CPAP at home and refuses it here. (7) MVP (mitral valve prolapse): Code(s): I34.1 - Nonrheumatic mitral (valve) prolapse Status: Acute Assessment and Plan: Echo as above. Has mild mitral regurg. (8) COPD (chronic obstructive pulmonary disease): Code(s): J44.9 - Chronic obstructive pulmonary disease, unspecified Status: Acute Assessment and Plan: Stable. No wheezing. Remains on room air Follow Plan DVT prophylaxis - Heparin Code status - full Subjective Date/time seen: 06/19/24 17:14 Interval history: 79yo female with MV disease, HTN, DM, CKD and DOUGLAS here for chest pain, worsening SOLIZ and palpitations. No problems overnight. No CP. Walking to the bathroom. Had some SOb with exertion but not consistent Exam Narrative: AF 98.2 135/48 68 18 100% ra Gen - NARD Chest - CTA bilaterally, nml RR CV - RRR S1/S2; Tele showing no significant dysrhythmias Abd - Soft, NT/ND, Positive BS Ext - no pedal edema Psych - Nml mood and affect Skin - Warm and dry Objective Data Vital Signs Vital Signs: Vital Signs - 24 hr 06/18/24 18:00 06/18/24 21:03 06/18/24 20:00 Temperature Pulse Rate 65 63 Respiratory Rate Blood Pressure Pulse Oximetry Oxygen Delivery Room Air 06/18/24 21:14 06/18/24 20:00 06/18/24 22:00 Temperature 98.2 F Pulse Rate 62 62 63 Respiratory Rate 14 Blood Pressure 171/47 H Pulse Oximetry 99 Oxygen Delivery 06/19/24 00:00 06/19/24 00:00 06/19/24 00:00 Temperature 98.1 F Pulse Rate 65 61 Respiratory Rate 16 Blood Pressure 129/46 L Pulse Oximetry 97 Oxygen Delivery Room Air 06/19/24 02:00 06/19/24 04:00 06/19/24 04:00 Temperature Pulse Rate 63 59 L Respiratory Rate Blood Pressure Pulse Oximetry Oxygen Delivery Room Air 06/19/24 04:00 06/19/24 06:00 06/19/24 07:52 Temperature 98.1 F 97.7 F Pulse Rate 60 63 62 Respiratory Rate 16 14 Blood Pressure 147/46 H 130/50 L Pulse Oximetry 98 99 Oxygen Delivery 06/19/24 08:00 06/19/24 12:00 06/19/24 12:00 Temperature 98.4 F Pulse Rate 61 Respiratory Rate 20 Blood Pressure 136/49 L Pulse Oximetry 99 Oxygen Delivery Room Air Room Air 06/19/24 08:00 06/19/24 10:00 06/19/24 15:54 Temperature 98.2 F Pulse Rate 65 64 56 L Respiratory Rate 18 Blood Pressure 126/45 L Pulse Oximetry 99 Oxygen Delivery 06/19/24 16:00 06/19/24 16:04 06/19/24 12:00 Temperature Pulse Rate 61 68 56 L Respiratory Rate Blood Pressure 156/44 H 135/48 L Pulse Oximetry 99 100 Oxygen Delivery 06/19/24 14:00 06/19/24 16:00 06/19/24 16:00 Temperature Pulse Rate 56 L 57 L Respiratory Rate Blood Pressure Pulse Oximetry Oxygen Delivery Room Air 06/19/24 16:02 Temperature Pulse Rate 67 Respiratory Rate Blood Pressure 101/63 Pulse Oximetry 100 Oxygen Delivery Intake/Output Intake/Output: Intake & Output 06/16/24 06/17/24 06/18/24 06/19/24 23:59 23:59 23:59 23:59 Intake Total 1466.1 2031.9 1377.5 402.9 Output Total 550 9100 852 1175 Balance 916.1 806.9 477.5 -747.1 Meds/Results Medications: Active Medications Generic Name Dose Route Start Last Admin Trade Name Freq PRN Reason Stop Dose Admin Acetaminophen 650 mg 06/16/24 15:03 06/19/24 12:59 Acetaminophen 325 Mg Tablet PO 650 mg Q6H PRN Administration Mild Pain (1-3) or Fever Amitriptyline HCl 25 mg 06/16/24 21:00 06/18/24 21:03 Amitriptyline Hcl 25 Mg Tablet PO 25 mg HS JOLIE Administration Amlodipine Besylate 5 mg 06/16/24 09:00 06/19/24 08:53 Amlodipine Besylate 5 Mg Tablet PO 5 mg DAILY JOLIE Administration Aspirin 81 mg 06/17/24 09:00 06/19/24 08:52 Aspirin 81 Mg Enteric Tablet PO 81 mg QAM JOLIE Administration Carvedilol 25 mg 06/15/24 22:35 06/19/24 08:52 Carvedilol 25 Mg Tablet PO 25 mg Q12HR JOLIE Administration Chlorthalidone 25 mg 06/16/24 09:00 06/19/24 08:52 Chlorthalidone 25 Mg Tablet PO 25 mg DAILY JOLIE Administration Diazepam 4 mg 06/15/24 22:40 06/18/24 21:03 Diazepam (*Crx) 2 Mg Tablet PO 4 mg HS JOLIE Administration Heparin Sodium (Porcine) 4,000 units 06/15/24 15:34 Heparin Sodium 5,000 Units/Ml Vial IV PUSH PRN PRN aPTT less than 55 seconds Heparin Sodium (Porcine) 2,500 units 06/15/24 15:34 06/19/24 06:08 Heparin Sodium 5,000 Units/Ml Vial IV PUSH 2,500 units PRN PRN Administration aPTT 55 - 70 seconds Hydralazine HCl 50 mg 06/15/24 22:40 06/19/24 13:00 Hydralazine Hcl 50 Mg Tablet PO 50 mg TID JOLIE Administration Hydroxyzine HCl 25 mg 06/15/24 22:40 06/19/24 08:53 Hydroxyzine Hcl 25 Mg Tablet PO 25 mg Q12HR JOLIE Administration Heparin Sodium/Dextrose 25,000 units in 250 mls @ 6 mls/hr 06/15/24 15:40 06/19/24 13:57 Heparin Sodium/D5w 100 Units/Ml IV CONT 600 units/hr .Q24H [facility] 6 mls/hr Titration Protocol 600 UNITS/HR Levothyroxine Sodium 50 mcg 06/16/24 06:30 06/19/24 05:24 Levothyroxine Sodium 50 Mcg Tablet PO 50 mcg DAILY@0630 [facility] Administration Pravastatin Sodium 80 mg 06/16/24 09:00 06/19/24 08:53 Pravastatin Sodium 20 Mg Tablet PO 80 mg DAILY JOLIE Administration Pyridoxine HCl 100 mg 06/16/24 09:00 06/19/24 08:52 Pyridoxine Hcl 50 Mg Tablet PO 100 mg DAILY JOLIE Administration Sodium Chloride 1 spray 06/19/24 05:29 Saline 0.65% Jorge Soln 44 Ml Btl NASAL Q6HR PRN Congestion Tramadol HCl 50 mg 06/15/24 22:27 06/16/24 11:41 Tramadol Hcl (*Crx) 50 Mg Tablet PO 50 mg Q4-6H PRN Administration PAIN RATED 4-6 Valsartan 320 mg 06/16/24 09:00 06/19/24 08:52 Valsartan 160 Mg Tablet PO 320 mg DAILY JOLIE Administration Vitamin D 5,000 units 06/16/24 09:00 06/19/24 08:53 Cholecalciferol 5,000 Units Tablet BY MOUTH 5,000 units DAILY JOLIE Administration Radiology Results: ITS Impressions Chest X-Ray 06/15/24 10:15 IMPRESSION: 1. Chronic mild lingular atelectasis/scarring. No acute cardiopulmonary disease. Venous Doppler Study 06/16/24 15:09 IMPRESSION: 1. No deep venous thrombosis within the bilateral lower extremities, as detailed above. Labs Labs: Laboratory Results - last 24 hr 06/19/24 06/19/24 04:34 12:08 WBC 10.6 H RBC 3.29 L Hgb 9.6 L Hct 29.8 L MCV 90.6 MCH 29.2 MCHC 32.2 RDW 13.2 Plt Count 324 MPV 10.0 APTT 67.7 H 133.9 H Sodium 134 L Potassium 4.2 Chloride 106 Carbon Dioxide 21 L Anion Gap 7 BUN 31 H Creatinine 1.50 H Estim Creat Clear Calc 25 Estimated GFR 33 L Glucose 127 H Calcium 9.5
[2024-06-19 19:39] LABS: Partial Thromboplastin Time 55.4 Seconds (22.3-36.8)
[2024-06-19] MEDS: diazePAM (*CRX) 2 MG TABLET 4 MG PO (21:04)
[2024-06-19] MEDS: AMITRIPTYLINE HCL 25 MG TABLET PO (21:04)
[2024-06-20] VITALS (22 sets, daily range): BP systolic 105–149; BP diastolic 40–92; PULSE 49–67; RESP 18–24; TEMP 36.2–36.7; O2SAT 98–100
[2024-06-20 01:05] LABS: Partial Thromboplastin Time 35.9 Seconds (22.3-36.8)
[2024-06-20] MEDS: HEPARIN SODIUM 5,000 UNITS/ML VIAL 4000 UNITS IV PUSH ×3 (01:54→22:19)
[2024-06-20] MEDS: LEVOTHYROXINE SODIUM 50 MCG TABLET PO (07:02)
[2024-06-20 07:48] LABS: Hematocrit 29.6 % (37.0-47.0); Hemoglobin 9.7 g/dL (12.0-15.0); Mean Corpuscular HGB Conc 32.8 g/dl (32-36); Mean Corpuscular Hemoglobin 29.6 pg (26-34); Mean Corpuscular Volume 90.2 fl (80-100); Mean Platelet Volume 9.5 fl (7.4-10.4); Platelet Count Result 296 k/mm3 (150-375); Red Blood Count 3.28 M/mm3 (4.2-5.4); Red Cell Distribution Width 13.2 % (11.5-14.5); White Blood Count 11.5 K/mm3 (4.5-10.0)
[2024-06-20 08:12] LABS: Albumin Level 3.6 g/dL (3.5-5.1); Anion Gap 7 mmol/L (4-12); Blood Urea Nitrogen 34 mg/dL (7-17); Calcium 9.4 mg/dL (8.4-10.2); Carbon Dioxide 21 mmol/L (22-30); Chloride 105 mmol/L (98-107); Estimated CRCL calculation 24 ml/min; Estimated Glomerular Filt Rate 33; Glucose 117 mg/dL (65-110); Magnesium 1.5 mg/dL (1.6-2.3); Phosphorus 4.5 mg/dL (2.5-4.5); Potassium 4.1 mmol/L (3.4-5.0); Sodium 133 mmol/L (137-145)
[2024-06-20] MEDS: PYRIDOXINE HCL 50 MG TABLET 100 MG PO (08:46)
[2024-06-20] MEDS: VALSARTAN 160 MG TABLET 320 MG PO (08:46)
[2024-06-20] MEDS: PRAVASTATIN SODIUM 20 MG TABLET 80 MG PO (08:46)
[2024-06-20] MEDS: MAGNESIUM SULF 2 GM/WATER 50ML 2 GM/50 ML BAG IVPB (08:46)
[2024-06-20] MEDS: carvediloL 25 MG TABLET PO ×2 (08:47→20:20)
[2024-06-20] MEDS: CHLORTHALIDONE 25 MG TABLET PO (08:47)
[2024-06-20] MEDS: hydrOXYzine HCL 25 MG TABLET PO ×2 (08:47→20:20)
[2024-06-20] MEDS: amLODIPine BESYLATE 5 MG TABLET PO (08:47)
[2024-06-20] MEDS: hydrALAZINE HCL 50 MG TABLET PO ×3 (08:47→18:09)
[2024-06-20] MEDS: ASPIRIN 81 MG ENTERIC TABLET PO (08:47)
[2024-06-20] MEDS: CHOLECALCIFEROL 5,000 UNITS TABLET 5000 UNITS BY MOUTH (08:48)
--- NOTE | 2024-06-20 09:16 | SUR.PREOP ---
Spoke with Dr Hernandez, order to stop heparin drip at this time. I then called and spoke with Aletha SARABIA on IMU and informed her to turn Heparin drip off.
[2024-06-20 09:37] LABS: Partial Thromboplastin Time 199.4 Seconds (22.3-36.8)
[2024-06-20] MEDS: LACTATED RINGERS 1,000 ML 150 ML IV CONT (13:39)
--- NOTE | 2024-06-20 14:19 | WPDGIPROGNO ---
Progress Note: A&P Assessment and Plan (1) Anemia: Code(s): D64.9 - Anemia, unspecified Status: Acute Assessment and Plan: Patient here for EGD prior to planned left-sided cardiac catheterization. The patient had a slight drop in hemoglobin in the absence of overt GI bleeding. Subjective Date/time seen: 06/20/24 14:19 Objective Data Vital Signs Vital Signs: Vital Signs - 24 hr 06/19/24 15:54 06/19/24 16:00 06/19/24 16:04 Temperature 98.2 F Pulse Rate 56 L 61 68 Respiratory Rate 18 Blood Pressure 126/45 L 156/44 H 135/48 L Pulse Oximetry 99 99 100 Oxygen Delivery 06/19/24 16:00 06/19/24 16:00 06/19/24 16:02 Temperature Pulse Rate 57 L 67 Respiratory Rate Blood Pressure 101/63 Pulse Oximetry 100 Oxygen Delivery Room Air 06/19/24 18:00 06/19/24 20:11 06/19/24 21:04 Temperature 97.7 F Pulse Rate 59 L 61 65 Respiratory Rate 18 Blood Pressure 153/46 H Pulse Oximetry 98 Oxygen Delivery 06/19/24 20:00 06/19/24 22:00 06/19/24 23:16 Temperature 97.7 F Pulse Rate 58 L 60 62 Respiratory Rate 18 Blood Pressure 163/43 H Pulse Oximetry 98 Oxygen Delivery 06/20/24 00:05 06/20/24 02:00 06/20/24 04:00 Temperature Pulse Rate 67 59 L 56 L Respiratory Rate Blood Pressure Pulse Oximetry Oxygen Delivery 06/20/24 07:01 06/20/24 07:55 06/20/24 08:47 Temperature 97.8 F 98.0 F Pulse Rate 60 60 57 L Respiratory Rate 18 22 H Blood Pressure 149/48 H 147/92 H Pulse Oximetry 100 100 Oxygen Delivery 06/20/24 08:00 06/20/24 11:39 06/20/24 10:00 Temperature 97.5 F L Pulse Rate 57 L 51 L 49 L Respiratory Rate 18 Blood Pressure 116/40 L Pulse Oximetry 99 Oxygen Delivery 06/20/24 12:00 06/20/24 13:54 Temperature 97.1 F L Pulse Rate 49 L 54 L Respiratory Rate 18 Blood Pressure 130/43 L Pulse Oximetry 98 Oxygen Delivery Room Air Intake/Output Intake/Output: Intake & Output 06/17/24 06/18/24 06/19/24 06/20/24 23:59 23:59 23:59 23:59 Intake Total 2031.9 1377.5 1219.9 1065.3 Output Total 5766 241 9031 300 Balance 806.9 477.5 -130.1 765.3 Meds/Results Medications: Active Medications Generic Name Dose Route Start Last Admin Trade Name Freq PRN Reason Stop Dose Admin Acetaminophen 650 mg 06/16/24 15:03 06/19/24 12:59 Acetaminophen 325 Mg Tablet PO 650 mg Q6H PRN Administration Mild Pain (1-3) or Fever Amitriptyline HCl 25 mg 06/16/24 21:00 06/19/24 21:04 Amitriptyline Hcl 25 Mg Tablet PO 25 mg HS JOLIE Administration Amlodipine Besylate 5 mg 06/16/24 09:00 06/20/24 08:47 Amlodipine Besylate 5 Mg Tablet PO 5 mg DAILY JOLIE Administration Aspirin 81 mg 06/17/24 09:00 06/20/24 08:47 Aspirin 81 Mg Enteric Tablet PO 81 mg QAM JOLIE Administration Carvedilol 25 mg 06/15/24 22:35 06/20/24 08:47 Carvedilol 25 Mg Tablet PO 25 mg Q12HR JOLIE Administration Chlorthalidone 25 mg 06/16/24 09:00 06/20/24 08:47 Chlorthalidone 25 Mg Tablet PO 25 mg DAILY JOLIE Administration Diazepam 4 mg 06/15/24 22:40 06/19/24 21:04 Diazepam (*Crx) 2 Mg Tablet PO 4 mg HS JOLIE Administration Heparin Sodium (Porcine) 4,000 units 06/15/24 15:34 06/20/24 01:59 Heparin Sodium 5,000 Units/Ml Vial IV PUSH 4,000 units PRN PRN Administration aPTT less than 55 seconds Heparin Sodium (Porcine) 2,500 units 06/15/24 15:34 06/19/24 06:08 Heparin Sodium 5,000 Units/Ml Vial IV PUSH 2,500 units PRN PRN Administration aPTT 55 - 70 seconds Hydralazine HCl 50 mg 06/15/24 22:40 06/20/24 12:11 Hydralazine Hcl 50 Mg Tablet PO 50 mg TID JOLIE Administration Hydroxyzine HCl 25 mg 06/15/24 22:40 06/20/24 08:47 Hydroxyzine Hcl 25 Mg Tablet PO 25 mg Q12HR JOLIE Administration Heparin Sodium/Dextrose 25,000 units in 250 mls @ 0 mls/hr 06/15/24 15:40 06/20/24 09:20 Heparin Sodium/D5w 100 Units/Ml IV CONT 0 units/hr .Q0M JOLIE 0 mls/hr Titration Protocol Lactated Ringer's 1,000 mls @ 150 mls/hr 06/20/24 13:40 06/20/24 13:39 Lr - Lactated Ringers Iv IV CONT 150 mls/hr .Q6H40M JOLIE Administration Levothyroxine Sodium 50 mcg 06/16/24 06:30 06/20/24 07:02 Levothyroxine Sodium 50 Mcg Tablet PO 50 mcg DAILY@0630 JOLIE Administration Pravastatin Sodium 80 mg 06/16/24 09:00 06/20/24 08:46 Pravastatin Sodium 20 Mg Tablet PO 80 mg DAILY JOLIE Administration Pyridoxine HCl 100 mg 06/16/24 09:00 06/20/24 08:46 Pyridoxine Hcl 50 Mg Tablet PO 100 mg DAILY JOLIE Administration Sodium Chloride 1 spray 06/19/24 05:29 Saline 0.65% Jorge Soln 44 Ml Btl NASAL Q6HR PRN Congestion Tramadol HCl 50 mg 06/15/24 22:27 06/16/24 11:41 Tramadol Hcl (*Crx) 50 Mg Tablet PO 50 mg Q4-6H PRN Administration PAIN RATED 4-6 Valsartan 320 mg 06/16/24 09:00 06/20/24 08:46 Valsartan 160 Mg Tablet PO 320 mg DAILY JOLIE Administration Vitamin D 5,000 units 06/16/24 09:00 06/20/24 08:48 Cholecalciferol 5,000 Units Tablet BY MOUTH 5,000 units DAILY JOLIE Administration Radiology Results: ITS Impressions Chest X-Ray 06/15/24 10:15 IMPRESSION: 1. Chronic mild lingular atelectasis/scarring. No acute cardiopulmonary disease. Venous Doppler Study 06/16/24 15:09 IMPRESSION: 1. No deep venous thrombosis within the bilateral lower extremities, as detailed above. Labs Labs: Laboratory Results - last 24 hr 06/19/24 06/20/24 06/20/24 19:17 00:36 07:40 WBC 11.5 H RBC 3.28 L Hgb 9.7 L Hct 29.6 L MCV 90.2 MCH 29.6 MCHC 32.8 RDW 13.2 Plt Count 296 MPV 9.5 APTT 55.4 H 35.9 Sodium 133 L Potassium 4.1 Chloride 105 Carbon Dioxide 21 L Anion Gap 7 BUN 34 H Creatinine 1.50 H Estim Creat Clear Calc 24 Estimated GFR 33 L Glucose 117 H Calcium 9.4 Phosphorus 4.5 Magnesium 1.5 L Albumin 3.6 06/20/24 09:04 WBC RBC Hgb Hct MCV MCH MCHC RDW Plt Count MPV APTT 199.4 H* Sodium Potassium Chloride Carbon Dioxide Anion Gap BUN Creatinine Estim Creat Clear Calc Estimated GFR Glucose Calcium Phosphorus Magnesium Albumin
--- NOTE | 2024-06-20 14:24 | P.PNAN_ITS ---
Anes - Initial Pre Proc Eval Procedure: Operation Date: 06/20/24 13:30 Proposed Procedures p Esophagogastroduodenoscopy - Melvin Hernandez MD Date/Time: 06/20/24 14:24 Surgeon: Kurt Jaimes MD Pre Op Diagnosis: Elevated Trop Patient Data Age: 79 Gender: F Height: 1.68 m Weight: 58 kg Last Vital Signs Temp 97.1 F L 06/20/24 13:54 Pulse 54 L 06/20/24 13:54 Resp 18 06/20/24 13:54 BP 130/43 L 06/20/24 13:54 Pulse Ox 98 06/20/24 13:54 O2 Del Method Room Air 06/20/24 13:54 Allergies Allergy/AdvReac Type Severity Reaction Status Date / Time Penicillins Allergy Severe Hives Verified 06/20/24 13:50 phenytoin Allergy Intermediate HIVES Verified 06/20/24 13:50 cefaclor Allergy Unknown THROAT Verified 06/20/24 13:50 SWELLING AND HIVES Home Medications Medication Instructions Recorded Confirmed Type cholecalciferol (vitamin D3) 1 tablet PO DAILY 06/05/20 06/15/24 History pyridoxine (vitamin B6) 1 tablet PO DAILY 06/05/20 06/15/24 History blood-glucose meter (Blood Glucose #1 ea 09/29/23 06/15/24 Rx Monitoring kit) lancets 30 gauge (OneTouch Delica #100 ea 11/16/23 06/15/24 Rx Plus Lancet) blood sugar diagnostic (OneTouch #50 strips 12/01/23 06/15/24 Rx Verio test strips) amlodipine 5 mg tablet 5 mg PO DAILY #30 tabs 04/06/24 06/15/24 Rx valsartan 320 mg tablet 320 mg PO DAILY #90 tabs 05/04/24 06/15/24 Rx chlorthalidone 25 mg tablet 25 mg PO DAILY #30 tabs 06/08/24 06/15/24 Rx amitriptyline 25 mg tablet 50 mg PO HS 06/15/24 06/15/24 History carvedilol 25 mg tablet 25 mg PO BIDWM 06/15/24 06/15/24 History diazepam 2 mg tablet 4 mg PO HS 06/15/24 06/15/24 History hydralazine 50 mg tablet 50 mg PO TID 06/15/24 06/15/24 History hydroxyzine HCl 25 mg tablet 25 mg PO BID 06/15/24 06/15/24 History levothyroxine 50 mcg tablet 50 mcg PO DAILY 06/15/24 06/15/24 History metformin 500 mg tablet 500 mg PO BID 06/15/24 06/15/24 History pravastatin 80 mg tablet 80 mg PO DAILY 06/15/24 06/15/24 History tramadol 50 mg tablet 50 mg PO Q4-6H PRN Pain 06/15/24 06/15/24 History Laboratory Tests 06/19/24 06/20/24 06/20/24 19:17 00:36 07:40 WBC 11.5 H K/mm3 (4.5-10.0) RBC 3.28 L M/mm3 (4.2-5.4) Hgb 9.7 L g/dL (12.0-15.0) Hct 29.6 L % (37.0-47.0) MCV 90.2 fl (80-100) MCH 29.6 pg (26-34) MCHC 32.8 g/dl (32-36) RDW 13.2 % (11.5-14.5) Plt Count 296 k/mm3 (150-375) MPV 9.5 fl (7.4-10.4) APTT 55.4 H Seconds 35.9 Seconds (22.3-36.8) (22.3-36.8) Sodium 133 L mmol/L (137-145) Potassium 4.1 mmol/L (3.4-5.0) Chloride 105 mmol/L (98-107) Carbon Dioxide 21 L mmol/L (22-30) Anion Gap 7 mmol/L (4-12) BUN 34 H mg/dL (7-17) Creatinine 1.50 H mg/dL (0.7-1.0) Estim Creat Clear Calc 24 ml/min Estimated GFR 33 L (59 - ) Glucose 117 H mg/dL (65-110) Calcium 9.4 mg/dL (8.4-10.2) Phosphorus 4.5 mg/dL (2.5-4.5) Magnesium 1.5 L mg/dL (1.6-2.3) Albumin 3.6 g/dL (3.5-5.1) 06/20/24 09:04 WBC RBC Hgb Hct MCV MCH MCHC RDW Plt Count MPV APTT 199.4 H* Seconds (22.3-36.8) Sodium Potassium Chloride Carbon Dioxide Anion Gap BUN Creatinine Estim Creat Clear Calc Estimated GFR Glucose Calcium Phosphorus Magnesium Albumin Patient hx anesthesia problems: none Family hx anesthesia problems: none Results Review: All pre-operative results and documents have been reviewed as part of the pre- operative evaluation. 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 DOUGLAS on CPAP Osteopenia Otalgia of left ear Palpitations Pedal edema Peripheral edema Peripheral neuropathy Post menopausal syndrome Pre-diabetes Recurrent UTI Sacroiliitis Shortness of breath Vitamin D deficiency Surgical History Surgical History History of bladder repair surgery History of cholecystectomy History of hysterectomy Family History Family History Mother No family history of malignant neoplasm Carcinoma of colon Cerebrovascular accident Diabetes mellitus Hypertension Sibling Family history of lung cancer Patient's brother is in good health Diabetes mellitus Hypertension Father Family history of heart disease in male family member before age 55 Family history of cardiovascular disease Family history of malignant neoplasm Family history of thyroid disease Diabetes mellitus Hypertension Social History Social History Social History: Smoking status: Never smoker Second hand tobacco smoke exposure: No Alcohol intake: current Drinks per week: 1 Alcohol use details: Occasionally Substance use: never Substance use type: does not use Do You Feel Safe in your Home?: Yes Lack of Transportation: No Lack of Food: Never True Current Housing: I Have Housing Concerned About Future Housing: No Difficulty Paying Gas/Electric Bills: No Difficulty Paying for Meds: No Currently Unemployed: No Education: High School Diploma/GED Difficulty w/ Childcare or Family Care: No Living arrangements: alone Occupation/Education: retired Gender identity (if verbalized by the patient): Female Sexual Orientation (if Verbalized by the Patient): Straight or Heterosexual Spiritual care concerns: No Anes - Eval Final PreProcedure Day of Procedure 06/20/24 14:24 Patient weight: normal Heart: regular rate and rhythm Lungs: clear to auscultation Airway: Mallampati scale class II Neurological: alert and oriented Last oral intake: >/= 8 hours ASA classification: IV Emergent: no Anesthetic plan: proceed Anesthesia type and monitoring: general GIVS and standard monitoring Results Review: All pre-operative results and documents have been reviewed as part of the pre- operative evaluation. NSTEMI w anemia, Hgb 9 today. Appreciate cardiology notes, their rec is for EGD to eval anemia which is falling but stable. They will do cardiac cath tmrw. Pt without cp, sob at this time and feeling well overall. Informed Consent: The patient's anesthetic plan and its attendant risks and benefits were discu ssed with the patient/family/POA. Questions were solicited and answers provided to the satisfaction of the patient/family/POA.
--- NOTE | 2024-06-20 14:55 | PM.PNCARD ---
Progress Note: A&P Assessment and Plan (1) Type 2 IN (myocardial infarction): Code(s): I21.A1 - Myocardial infarction type 2 Status: Acute Plan 79-year-old woman with mitral valve prolapse, hypertension, and hyperlipidemia who initially presented to the hospital with chest heaviness and exertional dyspnea found to have troponin elevation whose clinical presentation is concerning for non ST elevation IN who is undergoing endoscopy today for decline in hemoglobin in setting of heparin drip Non ST-elevation IN -NPO past midnight for cardiac catheterization tomorrow her endoscopy unrevealing for bleeding -continue aspirin 81 mg and pravastatin 80 mg every evening -continue carvedilol 25 mg p.o. b.i.d. Hypertension -continue hydralazine 50 mg t.i.d. Hyperlipidemia -continue pravastatin 80 mg every evening Subjective Date/time seen: 06/20/24 14:55 Interval history: No chest heaviness. No shortness of breath. No orthopnea. Review of Systems Cardiovascular: Cardiovascular: Reports as per HPI Respiratory: Respiratory: Reports as per HPI Exam Const: General: comfortable HENMT: Mouth: Yes moist mucous membranes Eyes: EOM: EOMs intact bilaterally Neck: Neck: no JVD Resp: Effort & Inspection: normal respiratory effort Auscultation: clear to auscultation bilaterally Cardio: Rate: regular rate Rhythm: regular rhythm Heart sounds: Murmur heart sound present GI: GI Palp: Yes Soft to palpation Neuro: Speech: normal speech Extrem: General: no edema Objective Data Vital Signs Vital Signs: Vital Signs - 24 hr 06/19/24 15:54 06/19/24 16:00 06/19/24 16:04 Temperature 36.8 C Pulse Rate 56 L 61 68 Respiratory Rate 18 Blood Pressure 126/45 L 156/44 H 135/48 L Pulse Oximetry 99 99 100 Oxygen Delivery 06/19/24 16:00 06/19/24 16:00 06/19/24 16:02 Temperature Pulse Rate 57 L 67 Respiratory Rate Blood Pressure 101/63 Pulse Oximetry 100 Oxygen Delivery Room Air 06/19/24 18:00 06/19/24 20:11 06/19/24 21:04 Temperature 36.5 C Pulse Rate 59 L 61 65 Respiratory Rate 18 Blood Pressure 153/46 H Pulse Oximetry 98 Oxygen Delivery 06/19/24 20:00 06/19/24 22:00 06/19/24 23:16 Temperature 36.5 C Pulse Rate 58 L 60 62 Respiratory Rate 18 Blood Pressure 163/43 H Pulse Oximetry 98 Oxygen Delivery 06/20/24 00:05 06/20/24 02:00 06/20/24 04:00 Temperature Pulse Rate 67 59 L 56 L Respiratory Rate Blood Pressure Pulse Oximetry Oxygen Delivery 06/20/24 07:01 06/20/24 07:55 06/20/24 08:47 Temperature 36.6 C 36.7 C Pulse Rate 60 60 57 L Respiratory Rate 18 22 H Blood Pressure 149/48 H 147/92 H Pulse Oximetry 100 100 Oxygen Delivery 06/20/24 08:00 06/20/24 11:39 06/20/24 10:00 Temperature 36.4 C L Pulse Rate 57 L 51 L 49 L Respiratory Rate 18 Blood Pressure 116/40 L Pulse Oximetry 99 Oxygen Delivery 06/20/24 12:00 06/20/24 13:54 06/20/24 14:44 Temperature 36.2 C L Pulse Rate 49 L 54 L 52 L Respiratory Rate 18 23 H Blood Pressure 130/43 L 105/47 L Pulse Oximetry 98 99 Oxygen Delivery Room Air Room Air Intake/Output Intake/Output: Intake & Output 06/17/24 06/18/24 06/19/24 06/20/24 23:59 23:59 23:59 23:59 Intake Total 2031.9 1377.5 1219.9 1065.3 Output Total 8867 932 6231 300 Balance 806.9 477.5 -130.1 765.3 Meds/Results Medications: Active Medications Generic Name Dose Route Start Last Admin Trade Name Marianela PRN Reason Stop Dose Admin Acetaminophen 650 mg 06/16/24 15:03 06/19/24 12:59 Acetaminophen 325 Mg Tablet PO 650 mg Q6H PRN Administration Mild Pain (1-3) or Fever Amitriptyline HCl 25 mg 06/16/24 21:00 06/19/24 21:04 Amitriptyline Hcl 25 Mg Tablet PO 25 mg HS JOLIE Administration Amlodipine Besylate 5 mg 06/16/24 09:00 06/20/24 08:47 Amlodipine Besylate 5 Mg Tablet PO 5 mg DAILY JOLIE Administration Aspirin 81 mg 06/17/24 09:00 06/20/24 08:47 Aspirin 81 Mg Enteric Tablet PO 81 mg QAM JOLIE Administration Carvedilol 25 mg 06/15/24 22:35 06/20/24 08:47 Carvedilol 25 Mg Tablet PO 25 mg Q12HR JOLIE Administration Chlorthalidone 25 mg 06/16/24 09:00 06/20/24 08:47 Chlorthalidone 25 Mg Tablet PO 25 mg DAILY JOLIE Administration Diazepam 4 mg 06/15/24 22:40 06/19/24 21:04 Diazepam (*Crx) 2 Mg Tablet PO 4 mg HS JOLIE Administration Heparin Sodium (Porcine) 4,000 units 06/15/24 15:34 06/20/24 01:59 Heparin Sodium 5,000 Units/Ml Vial IV PUSH 4,000 units PRN PRN Administration aPTT less than 55 seconds Heparin Sodium (Porcine) 2,500 units 06/15/24 15:34 06/19/24 06:08 Heparin Sodium 5,000 Units/Ml Vial IV PUSH 2,500 units PRN PRN Administration aPTT 55 - 70 seconds Hydralazine HCl 50 mg 06/15/24 22:40 06/20/24 12:11 Hydralazine Hcl 50 Mg Tablet PO 50 mg TID JOLIE Administration Hydroxyzine HCl 25 mg 06/15/24 22:40 06/20/24 08:47 Hydroxyzine Hcl 25 Mg Tablet PO 25 mg Q12HR JOLIE Administration Heparin Sodium/Dextrose 25,000 units in 250 mls @ 0 mls/hr 06/15/24 15:40 06/20/24 09:20 Heparin Sodium/D5w 100 Units/Ml IV CONT 0 units/hr .Q0M JOLIE 0 mls/hr Titration Protocol Lactated Ringer's 1,000 mls @ 150 mls/hr 06/20/24 13:40 06/20/24 14:39 Lr - Lactated Ringers Iv IV CONT 150 mls/hr .Q6H40M JOLIE Infusion Levothyroxine Sodium 50 mcg 06/16/24 06:30 06/20/24 07:02 Levothyroxine Sodium 50 Mcg Tablet PO 50 mcg DAILY@0630 JOLIE Administration Pravastatin Sodium 80 mg 06/16/24 09:00 06/20/24 08:46 Pravastatin Sodium 20 Mg Tablet PO 80 mg DAILY JOLIE Administration Pyridoxine HCl 100 mg 06/16/24 09:00 06/20/24 08:46 Pyridoxine Hcl 50 Mg Tablet PO 100 mg DAILY JOLIE Administration Sodium Chloride 1 spray 06/19/24 05:29 Saline 0.65% Jorge Soln 44 Ml Btl NASAL Q6HR PRN Congestion Tramadol HCl 50 mg 06/15/24 22:27 06/16/24 11:41 Tramadol Hcl (*Crx) 50 Mg Tablet PO 50 mg Q4-6H PRN Administration PAIN RATED 4-6 Valsartan 320 mg 06/16/24 09:00 06/20/24 08:46 Valsartan 160 Mg Tablet PO 320 mg DAILY JOLIE Administration Vitamin D 5,000 units 06/16/24 09:00 06/20/24 08:48 Cholecalciferol 5,000 Units Tablet BY MOUTH 5,000 units DAILY JOLIE Administration Radiology Results: ITS Impressions Chest X-Ray 06/15/24 10:15 IMPRESSION: 1. Chronic mild lingular atelectasis/scarring. No acute cardiopulmonary disease. Venous Doppler Study 06/16/24 15:09 IMPRESSION: 1. No deep venous thrombosis within the bilateral lower extremities, as detailed above. Labs Labs: Laboratory Results - last 24 hr 06/19/24 06/20/24 06/20/24 19:17 00:36 07:40 WBC 11.5 H RBC 3.28 L Hgb 9.7 L Hct 29.6 L MCV 90.2 MCH 29.6 MCHC 32.8 RDW 13.2 Plt Count 296 MPV 9.5 APTT 55.4 H 35.9 Sodium 133 L Potassium 4.1 Chloride 105 Carbon Dioxide 21 L Anion Gap 7 BUN 34 H Creatinine 1.50 H Estim Creat Clear Calc 24 Estimated GFR 33 L Glucose 117 H Calcium 9.4 Phosphorus 4.5 Magnesium 1.5 L Albumin 3.6 06/20/24 09:04 WBC RBC Hgb Hct MCV MCH MCHC RDW Plt Count MPV APTT 199.4 H* Sodium Potassium Chloride Carbon Dioxide Anion Gap BUN Creatinine Estim Creat Clear Calc Estimated GFR Glucose Calcium Phosphorus Magnesium Albumin
[2024-06-20] MEDS: HEPARIN SOD/D5W 100 UNITS/ML 25,000 UNITS/250 ML BAG 7 UNITS IV CONT (15:45)
--- NOTE | 2024-06-20 16:48 | P.PNIM_ITS ---
Progress Note: A&P Assessment and Plan (1) Chest pain: Code(s): R07.9 - Chest pain, unspecified Status: Acute Assessment and Plan: Patient presents with SOB and CP. She has been having progressively worsening S OB associated with chest tightness at times. Chest tightness has not been worsening but was more severe on day of admission. Chemical Stress test January 2024 showing hyperdynamic global LV systolic fxn with normal myocardial perfusion. PFTs December 2023 showing no obstructive defect but with hyperinflation Troponin elevated at 0.08 and about the same on repeat 6 hours apart EKG showing NSR with LVH, age-indeterminate inferior NH but no change from prior. Repeat EKG showing similar findings Echo showing mod LV wall thickness, symmetric septal hypertrophy with sigmoid septum, EF 75-80%, Grade I diastolic dysfxn and mild MR. LE venous doppler negative for DVT. Cardiology consulted and appreciate their input Heparin drip started. Continue ASA, Coreg and statin therapy. LHC being considered but concern for decreasing HH. GI consulted. EGD showing moderate diffuse acute erosive gastritis body of stomach and antrum with moderate erosive changes. GI felt patient could proceed to [facility] safely. (2) Elevated troponin: Code(s): R79.89 - Other specified abnormal findings of blood chemistry Status: Acute Assessment and Plan: As above. (3) Anemia: Code(s): D64.9 - Anemia, unspecified Status: Acute Assessment and Plan: Hgb normally runs in the 11 range. Hgb 11.6 on admission but trended down to 9.1 and stable now. No evidence of acute blood loss. Stool is guaiac negative. Iron studies, B12 and folate normal. Probably chronic from her renal failure. GI consulted. EGD as above Follow HH. (4) Essential (primary) hypertension: Code(s): I10 - Essential (primary) hypertension Status: Acute Assessment and Plan: Patient's blood pressure was reviewed on 06/20 Blood pressure remains well controlled after resuming her home medications with SBP 100-130. Concern for pheochromocytoma and testing was performed prior to admission We are unable to check for Pheo here since she is on TCA. Will continue current medications. (5) CKD (chronic kidney disease), stage III: Code(s): N18.30 - Chronic kidney disease, stage 3 unspecified Status: Acute Assessment and Plan: BUN 32 and Cr 1.6 on admission and about at baseline. Potassium was higher but this resolved. She has a intermittent mild metabolic nongap acidosis Repeat BUN and Cr stable. Potassium remains normal. Continue low potassium diet. Monitor renal function Follow (6) DOUGLAS on CPAP: Code(s): G47.33 - Obstructive sleep apnea (adult) (pediatric); Z99.89 - Dependence on other enabling machines and devices Status: Acute Assessment and Plan: Patient does not wear CPAP at home and refuses it here. (7) MVP (mitral valve prolapse): Code(s): I34.1 - Nonrheumatic mitral (valve) prolapse Status: Acute Assessment and Plan: Echo as above. Has mild mitral regurg. (8) COPD (chronic obstructive pulmonary disease): Code(s): J44.9 - Chronic obstructive pulmonary disease, unspecified Status: Acute Assessment and Plan: Stable. No wheezing. Remains on room air Follow Plan DVT prophylaxis - Heparin Code status - full Subjective Date/time seen: 06/20/24 16:48 Interval history: 79yo female with MV disease, HTN, DM, CKD and DOUGLAS here for chest pain, worsening SOLIZ and palpitations. Slept poorly. No CP or SOB. Walking steady with staff. No SOLIZ Exam Narrative: AF 97.6 136/53 56 20 100% ra Gen - NARD Chest - left base inspiratory crackles o/w clear. CV - RRR S1/S2 with USB murmur; Tele showing no significant dysrhythmias Abd - Soft, NT/ND, Positive BS Ext - no pedal edema Psych - Nml mood and affect Skin - Warm and dry Objective Data Vital Signs Vital Signs: Vital Signs - 24 hr 06/19/24 18:00 06/19/24 20:11 06/19/24 21:04 Temperature 97.7 F Pulse Rate 59 L 61 65 Respiratory Rate 18 Blood Pressure 153/46 H Pulse Oximetry 98 Oxygen Delivery 06/19/24 20:00 06/19/24 22:00 06/19/24 23:16 Temperature 97.7 F Pulse Rate 58 L 60 62 Respiratory Rate 18 Blood Pressure 163/43 H Pulse Oximetry 98 Oxygen Delivery 06/20/24 00:05 06/20/24 02:00 06/20/24 04:00 Temperature Pulse Rate 67 59 L 56 L Respiratory Rate Blood Pressure Pulse Oximetry Oxygen Delivery 06/20/24 07:01 06/20/24 07:55 06/20/24 08:47 Temperature 97.8 F 98.0 F Pulse Rate 60 60 57 L Respiratory Rate 18 22 H Blood Pressure 149/48 H 147/92 H Pulse Oximetry 100 100 Oxygen Delivery 06/20/24 08:00 06/20/24 11:39 06/20/24 10:00 Temperature 97.5 F L Pulse Rate 57 L 51 L 49 L Respiratory Rate 18 Blood Pressure 116/40 L Pulse Oximetry 99 Oxygen Delivery 06/20/24 12:00 06/20/24 13:54 06/20/24 14:44 Temperature 97.1 F L Pulse Rate 49 L 54 L 52 L Respiratory Rate 18 23 H Blood Pressure 130/43 L 105/47 L Pulse Oximetry 98 99 Oxygen Delivery Room Air Room Air 06/20/24 14:54 06/20/24 15:04 06/20/24 16:18 Temperature 97.6 F Pulse Rate 53 L 56 L 56 L Respiratory Rate 24 H 21 H 20 Blood Pressure 112/49 L 121/52 L 136/53 L Pulse Oximetry 98 100 100 Oxygen Delivery Room Air Room Air Intake/Output Intake/Output: Intake & Output 06/17/24 06/18/24 06/19/24 06/20/24 23:59 23:59 23:59 23:59 Intake Total 2031.9 1377.5 1219.9 1265.3 Output Total 9283 946 7612 300 Balance 806.9 477.5 -130.1 965.3 Meds/Results Medications: Active Medications Generic Name Dose Route Start Last Admin Trade Name Marianela PRN Reason Stop Dose Admin Acetaminophen 650 mg 06/16/24 15:03 06/19/24 12:59 Acetaminophen 325 Mg Tablet PO 650 mg Q6H PRN Administration Mild Pain (1-3) or Fever Amitriptyline HCl 25 mg 06/16/24 21:00 06/19/24 21:04 Amitriptyline Hcl 25 Mg Tablet PO 25 mg HS JOLIE Administration Amlodipine Besylate 5 mg 06/16/24 09:00 06/20/24 08:47 Amlodipine Besylate 5 Mg Tablet PO 5 mg DAILY JOLIE Administration Aspirin 81 mg 06/17/24 09:00 06/20/24 08:47 Aspirin 81 Mg Enteric Tablet PO 81 mg QAM JOLIE Administration Carvedilol 25 mg 06/15/24 22:35 06/20/24 08:47 Carvedilol 25 Mg Tablet PO 25 mg Q12HR JOLIE Administration Chlorthalidone 25 mg 06/16/24 09:00 06/20/24 08:47 Chlorthalidone 25 Mg Tablet PO 25 mg DAILY JOLIE Administration Diazepam 4 mg 06/15/24 22:40 06/19/24 21:04 Diazepam (*Crx) 2 Mg Tablet PO 4 mg HS JOLIE Administration Heparin Sodium (Porcine) 4,000 units 06/15/24 15:34 06/20/24 01:59 Heparin Sodium 5,000 Units/Ml Vial IV PUSH 4,000 units PRN PRN Administration aPTT less than 55 seconds Heparin Sodium (Porcine) 2,500 units 06/15/24 15:34 06/19/24 06:08 Heparin Sodium 5,000 Units/Ml Vial IV PUSH 2,500 units PRN PRN Administration aPTT 55 - 70 seconds Hydralazine HCl 50 mg 06/15/24 22:40 06/20/24 12:11 Hydralazine Hcl 50 Mg Tablet PO 50 mg TID JOLIE Administration Hydroxyzine HCl 25 mg 06/15/24 22:40 06/20/24 08:47 Hydroxyzine Hcl 25 Mg Tablet PO 25 mg Q12HR JOLIE Administration Heparin Sodium/Dextrose 25,000 units in 250 mls @ 7 mls/hr 06/15/24 15:40 06/20/24 15:45 Heparin Sodium/D5w 100 Units/Ml IV CONT 700 units/hr .Q24H JOLIE 7 mls/hr Administration Protocol 700 UNITS/HR Levothyroxine Sodium 50 mcg 06/16/24 06:30 06/20/24 07:02 Levothyroxine Sodium 50 Mcg Tablet PO 50 mcg DAILY@0630 JOLIE Administration Pantoprazole Sodium 40 mg 06/20/24 21:00 Pantoprazole Sodium Iv 40 Mg Vial IV PUSH Q12HR JOLIE Pravastatin Sodium 80 mg 06/16/24 09:00 06/20/24 08:46 Pravastatin Sodium 20 Mg Tablet PO 80 mg DAILY JOLIE Administration Pyridoxine HCl 100 mg 06/16/24 09:00 06/20/24 08:46 Pyridoxine Hcl 50 Mg Tablet PO 100 mg DAILY JOLIE Administration Sodium Chloride 1 spray 06/19/24 05:29 Saline 0.65% Jorge Soln 44 Ml Btl NASAL Q6HR PRN Congestion Tramadol HCl 50 mg 06/15/24 22:27 06/16/24 11:41 Tramadol Hcl (*Crx) 50 Mg Tablet PO 50 mg Q4-6H PRN Administration PAIN RATED 4-6 Valsartan 320 mg 06/16/24 09:00 06/20/24 08:46 Valsartan 160 Mg Tablet PO 320 mg DAILY JOLIE Administration Vitamin D 5,000 units 06/16/24 09:00 06/20/24 08:48 Cholecalciferol 5,000 Units Tablet BY MOUTH 5,000 units DAILY JOLIE Administration Radiology Results: ITS Impressions Chest X-Ray 06/15/24 10:15 IMPRESSION: 1. Chronic mild lingular atelectasis/scarring. No acute cardiopulmonary disease. Venous Doppler Study 06/16/24 15:09 IMPRESSION: 1. No deep venous thrombosis within the bilateral lower extremities, as detailed above. Labs Labs: Laboratory Results - last 24 hr 06/19/24 06/20/24 06/20/24 19:17 00:36 07:40 WBC 11.5 H RBC 3.28 L Hgb 9.7 L Hct 29.6 L MCV 90.2 MCH 29.6 MCHC 32.8 RDW 13.2 Plt Count 296 MPV 9.5 APTT 55.4 H 35.9 Sodium 133 L Potassium 4.1 Chloride 105 Carbon Dioxide 21 L Anion Gap 7 BUN 34 H Creatinine 1.50 H Estim Creat Clear Calc 24 Estimated GFR 33 L Glucose 117 H Calcium 9.4 Phosphorus 4.5 Magnesium 1.5 L Albumin 3.6 06/20/24 09:04 WBC RBC Hgb Hct MCV MCH MCHC RDW Plt Count MPV APTT 199.4 H* Sodium Potassium Chloride Carbon Dioxide Anion Gap BUN Creatinine Estim Creat Clear Calc Estimated GFR Glucose Calcium Phosphorus Magnesium Albumin
[2024-06-20] MEDS: PANTOPRAZOLE SODIUM IV 40 MG VIAL IV PUSH (20:19)
[2024-06-20] MEDS: diazePAM (*CRX) 2 MG TABLET 4 MG PO (20:20)
[2024-06-20] MEDS: AMITRIPTYLINE HCL 25 MG TABLET PO (20:23)
[2024-06-20 22:10] LABS: Partial Thromboplastin Time 52.1 Seconds (22.3-36.8)
[2024-06-21] VITALS (44 sets, daily range): BP systolic 100–158; BP diastolic 31–67; PULSE 52–84; RESP 12–20; TEMP 36.4–36.8; O2SAT 93–100
[2024-06-21 05:29] LABS: Partial Thromboplastin Time > 200.0 Seconds (22.3-36.8)
[2024-06-21] MEDS: LEVOTHYROXINE SODIUM 50 MCG TABLET PO (05:36)
--- NOTE | 2024-06-21 09:13 | WPDANESPN ---
Anes - Prog Note Post-Op Date/Time: 06/21/24 09:13 Cardiovascular status: normal Respiratory status: normal Airway patency: baseline Mental status: baseline Post-Op hydration status: normal Vital Signs: Last Vital Signs Temp 36.8 C 06/21/24 07:23 Pulse 67 06/21/24 07:23 Resp 20 06/21/24 07:23 BP 130/44 L 06/21/24 07:23 Pulse Ox 100 06/21/24 07:23 O2 Del Method Room Air 06/21/24 04:00 Pain Score (VAS): 210 I/O: Intake & Output 06/20/24 06/21/24 06/21/24 23:59 07:59 15:59 Intake Total 486.2 71.7 Balance 486.2 71.7 Laboratory Tests 06/20/24 07:40 06/20/24 07:40 06/20/24 06/20/24 06/21/24 09:04 21:52 04:37 APTT 199.4 H* 52.1 H > 200.0 H* Post-procedural complaints: none Patient Feedback: Patient satisfied with anesthetic care.
[2024-06-21] MEDS: PRAVASTATIN SODIUM 20 MG TABLET 80 MG PO (09:49)
[2024-06-21] MEDS: PYRIDOXINE HCL 50 MG TABLET 100 MG PO (09:49)
[2024-06-21] MEDS: amLODIPine BESYLATE 5 MG TABLET PO (09:49)
[2024-06-21] MEDS: VALSARTAN 160 MG TABLET 320 MG PO (09:49)
[2024-06-21] MEDS: hydrOXYzine HCL 25 MG TABLET PO ×2 (09:49→21:23)
[2024-06-21] MEDS: CHOLECALCIFEROL 5,000 UNITS TABLET 5000 UNITS BY MOUTH (09:50)
[2024-06-21] MEDS: hydrALAZINE HCL 50 MG TABLET PO ×3 (09:50→21:24)
[2024-06-21] MEDS: ASPIRIN 81 MG ENTERIC TABLET PO (09:50)
[2024-06-21] MEDS: carvediloL 25 MG TABLET PO ×2 (09:50→21:23)
[2024-06-21] MEDS: CHLORTHALIDONE 25 MG TABLET PO (09:50)
[2024-06-21] MEDS: PANTOPRAZOLE SODIUM IV 40 MG VIAL IV PUSH ×2 (09:51→21:24)
[2024-06-21 11:50] LABS: Partial Thromboplastin Time 160.3 Seconds (22.3-36.8)
--- NOTE | 2024-06-21 13:06 | P.PNIM_ITS ---
Progress Note: A&P Assessment and Plan (1) Chest pain: Code(s): R07.9 - Chest pain, unspecified Status: Acute Assessment and Plan: Patient presents with SOB and CP. She has been having progressively worsening S OB associated with chest tightness at times. Chemical Stress test January 2024 showing hyperdynamic global LV systolic fxn with normal myocardial perfusion. PFTs December 2023 showing no obstructive defect but with hyperinflation Troponin elevated at 0.08 and about the same on repeat 6 hours apart EKG showing NSR with LVH, age-indeterminate inferior DE but no change from prior. Repeat EKG showing similar findings Echo showing mod LV wall thickness, symmetric septal hypertrophy with sigmoid septum, EF 75-80%, Grade I diastolic dysfxn and mild MR. LE venous doppler negative for DVT. Cardiology consulted and appreciate their input Heparin drip started. Continue ASA, Coreg and statin therapy. [facility] planned but concern for decreasing HH. GI consulted. EGD showing moderate diffuse acute erosive gastritis body of stomach and antrum with moderate erosive changes. GI felt patient could proceed to [facility] safely. [facility] today. (2) Elevated troponin: Code(s): R79.89 - Other specified abnormal findings of blood chemistry Status: Acute Assessment and Plan: As above. (3) Anemia: Code(s): D64.9 - Anemia, unspecified Status: Acute Assessment and Plan: Hgb normally runs in the 11 range. Hgb 11.6 on admission but trended down to 9.1 and stable now. No evidence of acute blood loss. Stool is guaiac negative. Iron studies, B12 and folate normal. Probably chronic from her renal failure. GI consulted. EGD as above Follow HH. (4) Essential (primary) hypertension: Code(s): I10 - Essential (primary) hypertension Status: Acute Assessment and Plan: Patient's blood pressure was reviewed on 06/20 Blood pressure remains well controlled after resuming her home medications with SBP 100-130. Concern for pheochromocytoma and testing was performed prior to admission We are unable to check for Pheo here since she is on TCA. Will continue current medications. (5) CKD (chronic kidney disease), stage III: Code(s): N18.30 - Chronic kidney disease, stage 3 unspecified Status: Acute Assessment and Plan: BUN 32 and Cr 1.6 on admission and about at baseline. Potassium was higher but this resolved. She has a intermittent mild metabolic nongap acidosis Repeat BUN and Cr stable. Potassium remains normal. Continue low potassium diet. Monitor renal function Follow (6) DOUGLAS on CPAP: Code(s): G47.33 - Obstructive sleep apnea (adult) (pediatric); Z99.89 - Dependence on other enabling machines and devices Status: Acute Assessment and Plan: Patient does not wear CPAP at home and refuses it here. (7) MVP (mitral valve prolapse): Code(s): I34.1 - Nonrheumatic mitral (valve) prolapse Status: Acute Assessment and Plan: Echo as above. Has mild mitral regurg. (8) COPD (chronic obstructive pulmonary disease): Code(s): J44.9 - Chronic obstructive pulmonary disease, unspecified Status: Acute Assessment and Plan: Stable. No wheezing. Remains on room air Follow Plan DVT prophylaxis - Heparin Code status - full Subjective Date/time seen: 06/21/24 13:06 Interval history: 79yo female with MV disease, HTN, DM, CKD and DOUGLAS here for chest pain, worsening SOLIZ and palpitations. No CP or SOB. Walking to the BR. Exam Narrative: AF 97.8 123/37 56 18 98% ra Gen - NARD Chest - CTA bilaterally CV - RRR S1/S2; Tele showing no significant dysrhythmias Abd - Soft, NT/ND, Positive BS Ext - no pedal edema Psych - Nml mood and affect Skin - Warm and dry Objective Data Vital Signs Vital Signs: Vital Signs - 24 hr 06/20/24 13:54 06/20/24 14:44 06/20/24 14:54 Temperature 97.1 F L Pulse Rate 54 L 52 L 53 L Respiratory Rate 18 23 H 24 H Blood Pressure 130/43 L 105/47 L 112/49 L Pulse Oximetry 98 99 98 Oxygen Delivery Room Air Room Air Room Air 06/20/24 15:04 06/20/24 16:18 06/20/24 16:00 Temperature 97.6 F Pulse Rate 56 L 56 L 55 L Respiratory Rate 21 H 20 Blood Pressure 121/52 L 136/53 L Pulse Oximetry 100 100 Oxygen Delivery Room Air 06/20/24 18:00 06/20/24 19:56 06/20/24 20:20 Temperature Pulse Rate 57 L 57 L 59 L Respiratory Rate 20 Blood Pressure Pulse Oximetry 100 Oxygen Delivery Room Air 06/20/24 20:40 06/20/24 20:00 06/20/24 22:12 Temperature 97.6 F Pulse Rate 56 L 57 L 59 L Respiratory Rate 20 Blood Pressure 145/41 H Pulse Oximetry 99 Oxygen Delivery 06/21/24 00:24 06/21/24 00:00 06/21/24 00:00 Temperature 98.1 F Pulse Rate 62 62 62 Respiratory Rate 20 20 Blood Pressure 129/42 L Pulse Oximetry 97 97 Oxygen Delivery Room Air 06/21/24 02:22 06/21/24 04:00 06/21/24 04:00 Temperature Pulse Rate 56 L 56 L 56 L Respiratory Rate 20 Blood Pressure Pulse Oximetry 97 Oxygen Delivery Room Air 06/21/24 04:40 06/21/24 06:00 06/21/24 07:23 Temperature 98.3 F 98.3 F Pulse Rate 60 63 67 Respiratory Rate 20 20 Blood Pressure 123/45 L 130/44 L Pulse Oximetry 98 100 Oxygen Delivery 06/21/24 09:50 06/21/24 11:15 Temperature 97.8 F Pulse Rate 58 L 56 L Respiratory Rate 18 Blood Pressure 123/37 L Pulse Oximetry 98 Oxygen Delivery Intake/Output Intake/Output: Intake & Output 06/18/24 06/19/24 06/20/24 06/21/24 23:59 23:59 23:59 23:59 Intake Total 1377.5 1219.9 1751.5 116.9 Output Total 900 1350 300 Balance 477.5 -130.1 1451.5 116.9 Meds/Results Medications: Active Medications Generic Name Dose Route Start Last Admin Trade Name Marianela PRN Reason Stop Dose Admin Acetaminophen 650 mg 06/16/24 15:03 06/19/24 12:59 Acetaminophen 325 Mg Tablet PO 650 mg Q6H PRN Administration Mild Pain (1-3) or Fever Amitriptyline HCl 25 mg 06/16/24 21:00 06/20/24 20:23 Amitriptyline Hcl 25 Mg Tablet PO 25 mg HS JOLIE Administration Amlodipine Besylate 5 mg 06/16/24 09:00 06/21/24 09:49 Amlodipine Besylate 5 Mg Tablet PO 5 mg DAILY JOLIE Administration Aspirin 81 mg 06/17/24 09:00 06/21/24 09:50 Aspirin 81 Mg Enteric Tablet PO 81 mg QAM JOLIE Administration Carvedilol 25 mg 06/15/24 22:35 06/21/24 09:50 Carvedilol 25 Mg Tablet PO 25 mg Q12HR JOLIE Administration Chlorthalidone 25 mg 06/16/24 09:00 06/21/24 09:50 Chlorthalidone 25 Mg Tablet PO 25 mg DAILY JOLIE Administration Diazepam 4 mg 06/15/24 22:40 06/20/24 20:20 Diazepam (*Crx) 2 Mg Tablet PO 4 mg HS JOLIE Administration Heparin Sodium (Porcine) 4,000 units 06/15/24 15:34 06/20/24 22:19 Heparin Sodium 5,000 Units/Ml Vial IV PUSH 4,000 units PRN PRN Administration aPTT less than 55 seconds Heparin Sodium (Porcine) 2,500 units 06/15/24 15:34 06/19/24 06:08 Heparin Sodium 5,000 Units/Ml Vial IV PUSH 2,500 units PRN PRN Administration aPTT 55 - 70 seconds Hydralazine HCl 50 mg 06/15/24 22:40 06/21/24 12:13 Hydralazine Hcl 50 Mg Tablet PO 50 mg TID JOLIE Administration Hydroxyzine HCl 25 mg 06/15/24 22:40 06/21/24 09:49 Hydroxyzine Hcl 25 Mg Tablet PO 25 mg Q12HR JOLIE Administration Heparin Sodium/Dextrose 25,000 units in 250 mls @ 0 mls/hr 06/15/24 15:40 06/21/24 12:14 Heparin Sodium/D5w 100 Units/Ml IV CONT 0 units/hr .Q0M JOLIE 0 mls/hr Titration Protocol Levothyroxine Sodium 50 mcg 06/16/24 06:30 06/21/24 05:36 Levothyroxine Sodium 50 Mcg Tablet PO 50 mcg DAILY@0630 JOLIE Administration Pantoprazole Sodium 40 mg 06/20/24 21:00 06/21/24 09:51 Pantoprazole Sodium Iv 40 Mg Vial IV PUSH 40 mg Q12HR JOLIE Administration Pravastatin Sodium 80 mg 06/16/24 09:00 06/21/24 09:49 Pravastatin Sodium 20 Mg Tablet PO 80 mg DAILY JOLIE Administration Pyridoxine HCl 100 mg 06/16/24 09:00 06/21/24 09:49 Pyridoxine Hcl 50 Mg Tablet PO 100 mg DAILY JOLIE Administration Sodium Chloride 1 spray 06/19/24 05:29 Saline 0.65% Jorge Soln 44 Ml Btl NASAL Q6HR PRN Congestion Tramadol HCl 50 mg 06/15/24 22:27 06/16/24 11:41 Tramadol Hcl (*Crx) 50 Mg Tablet PO 50 mg Q4-6H PRN Administration PAIN RATED 4-6 Valsartan 320 mg 06/16/24 09:00 06/21/24 09:49 Valsartan 160 Mg Tablet PO 320 mg DAILY JOLIE Administration Vitamin D 5,000 units 06/16/24 09:00 06/21/24 09:50 Cholecalciferol 5,000 Units Tablet BY MOUTH 5,000 units DAILY JOLIE Administration Radiology Results: ITS Impressions Chest X-Ray 06/15/24 10:15 IMPRESSION: 1. Chronic mild lingular atelectasis/scarring. No acute cardiopulmonary disease. Venous Doppler Study 06/16/24 15:09 IMPRESSION: 1. No deep venous thrombosis within the bilateral lower extremities, as detailed above. Labs Labs: Laboratory Results - last 24 hr 06/20/24 06/21/24 06/21/24 21:52 04:37 11:02 APTT 52.1 H > 200.0 H* 160.3 H*
--- NOTE | 2024-06-21 13:48 | PM.PNCARD ---
Progress Note: A&P Assessment and Plan (1) NSTEMI (non-ST elevated myocardial infarction): Code(s): I21.4 - Non-ST elevation (NSTEMI) myocardial infarction Status: Acute Assessment and Plan: 79-year-old woman with mitral valve prolapse, hypertension, and hyperlipidemia who initially presented to the hospital with chest heaviness and exertional dyspnea found to have troponin elevation whose clinical presentation is concerning for non ST [place] today. -Continue Aspirin 81 mg and Pravastatin 80 mg every evening -Continue Carvedilol 25 mg p.o. BID Hypertension -Continue Hydralazine -Continue Amlodipine -Continue Carvedilol -Continue Chlorthalidone -Continue Valsartan Hyperlipidemia -Continue Pravastatin 80 mg every evening Subjective Date/time seen: 06/21/24 13:48 Interval history: Reason for visit: NSTEMI Date of service 06/21: No chest pain, otherwise feeling well. Review of Systems Review of Systems: All systems reviewed & are unremarkable except as noted in HPI and below (HPI) Exam Const: General: comfortable and no acute distress HENMT: Mouth: Yes moist mucous membranes Eyes: General: appearance normal, both eyes and all related structures Sclera: sclerae normal Resp: Effort & Inspection: normal respiratory effort Cardio: Rate: regular rate Rhythm: regular rhythm Skin: General skin exam: normal color Neuro: Speech: normal speech Psych: Mental Status: mental status grossly normal Affect: normal affect Objective Data Vital Signs Vital Signs: Vital Signs - 24 hr 06/20/24 13:54 06/20/24 14:44 06/20/24 14:54 Temperature 36.2 C L Pulse Rate 54 L 52 L 53 L Respiratory Rate 18 23 H 24 H Blood Pressure 130/43 L 105/47 L 112/49 L Pulse Oximetry 98 99 98 Oxygen Delivery Room Air Room Air Room Air 06/20/24 15:04 06/20/24 16:18 06/20/24 16:00 Temperature 36.4 C Pulse Rate 56 L 56 L 55 L Respiratory Rate 21 H 20 Blood Pressure 121/52 L 136/53 L Pulse Oximetry 100 100 Oxygen Delivery Room Air 06/20/24 18:00 06/20/24 19:56 06/20/24 20:20 Temperature Pulse Rate 57 L 57 L 59 L Respiratory Rate 20 Blood Pressure Pulse Oximetry 100 Oxygen Delivery Room Air 06/20/24 20:40 06/20/24 20:00 06/20/24 22:12 Temperature 36.4 C Pulse Rate 56 L 57 L 59 L Respiratory Rate 20 Blood Pressure 145/41 H Pulse Oximetry 99 Oxygen Delivery 06/21/24 00:24 06/21/24 00:00 06/21/24 00:00 Temperature 36.7 C Pulse Rate 62 62 62 Respiratory Rate 20 20 Blood Pressure 129/42 L Pulse Oximetry 97 97 Oxygen Delivery Room Air 06/21/24 02:22 06/21/24 04:00 06/21/24 04:00 Temperature Pulse Rate 56 L 56 L 56 L Respiratory Rate 20 Blood Pressure Pulse Oximetry 97 Oxygen Delivery Room Air 06/21/24 04:40 06/21/24 06:00 06/21/24 07:23 Temperature 36.8 C 36.8 C Pulse Rate 60 63 67 Respiratory Rate 20 20 Blood Pressure 123/45 L 130/44 L Pulse Oximetry 98 100 Oxygen Delivery 06/21/24 09:50 06/21/24 11:15 Temperature 36.6 C Pulse Rate 58 L 56 L Respiratory Rate 18 Blood Pressure 123/37 L Pulse Oximetry 98 Oxygen Delivery Intake/Output Intake/Output: Intake & Output 06/18/24 06/19/24 06/20/24 06/21/24 23:59 23:59 23:59 23:59 Intake Total 1377.5 1219.9 1751.5 116.9 Output Total 900 1350 300 Balance 477.5 -130.1 1451.5 116.9 Meds/Results Medications: Active Medications Generic Name Dose Route Start Last Admin Trade Name Marianela PRN Reason Stop Dose Admin Acetaminophen 650 mg 06/16/24 15:03 06/19/24 12:59 Acetaminophen 325 Mg Tablet PO 650 mg Q6H PRN Administration Mild Pain (1-3) or Fever Amitriptyline HCl 25 mg 06/16/24 21:00 06/20/24 20:23 Amitriptyline Hcl 25 Mg Tablet PO 25 mg HS JOLIE Administration Amlodipine Besylate 5 mg 06/16/24 09:00 06/21/24 09:49 Amlodipine Besylate 5 Mg Tablet PO 5 mg DAILY JOLIE Administration Aspirin 81 mg 06/17/24 09:00 06/21/24 09:50 Aspirin 81 Mg Enteric Tablet PO 81 mg QAM JOLIE Administration Carvedilol 25 mg 06/15/24 22:35 06/21/24 09:50 Carvedilol 25 Mg Tablet PO 25 mg Q12HR JOLIE Administration Chlorthalidone 25 mg 06/16/24 09:00 06/21/24 09:50 Chlorthalidone 25 Mg Tablet PO 25 mg DAILY JOLIE Administration Diazepam 4 mg 06/15/24 22:40 06/20/24 20:20 Diazepam (*Crx) 2 Mg Tablet PO 4 mg HS JOLIE Administration Heparin Sodium (Porcine) 4,000 units 06/15/24 15:34 06/20/24 22:19 Heparin Sodium 5,000 Units/Ml Vial IV PUSH 4,000 units PRN PRN Administration aPTT less than 55 seconds Heparin Sodium (Porcine) 2,500 units 06/15/24 15:34 06/19/24 06:08 Heparin Sodium 5,000 Units/Ml Vial IV PUSH 2,500 units PRN PRN Administration aPTT 55 - 70 seconds Hydralazine HCl 50 mg 06/15/24 22:40 06/21/24 12:13 Hydralazine Hcl 50 Mg Tablet PO 50 mg TID JOLIE Administration Hydroxyzine HCl 25 mg 06/15/24 22:40 06/21/24 09:49 Hydroxyzine Hcl 25 Mg Tablet PO 25 mg Q12HR JOLIE Administration Heparin Sodium/Dextrose 25,000 units in 250 mls @ 6 mls/hr 06/15/24 15:40 06/21/24 13:28 Heparin Sodium/D5w 100 Units/Ml IV CONT 600 units/hr .Q24H JOLIE 6 mls/hr Titration Protocol 600 UNITS/HR Levothyroxine Sodium 50 mcg 06/16/24 06:30 06/21/24 05:36 Levothyroxine Sodium 50 Mcg Tablet PO 50 mcg DAILY@0630 JOLIE Administration Pantoprazole Sodium 40 mg 06/20/24 21:00 06/21/24 09:51 Pantoprazole Sodium Iv 40 Mg Vial IV PUSH 40 mg Q12HR JOLIE Administration Polyethylene Glycol 17 gm 06/21/24 13:10 Polyethylene Glycol 3350 17 Gm Powd.Pack PO QAM JOLIE Pravastatin Sodium 80 mg 06/16/24 09:00 06/21/24 09:49 Pravastatin Sodium 20 Mg Tablet PO 80 mg DAILY JOLIE Administration Pyridoxine HCl 100 mg 06/16/24 09:00 06/21/24 09:49 Pyridoxine Hcl 50 Mg Tablet PO 100 mg DAILY JOLIE Administration Sodium Chloride 1 spray 06/19/24 05:29 Saline 0.65% Jorge Soln 44 Ml Btl NASAL Q6HR PRN Congestion Tramadol HCl 50 mg 06/15/24 22:27 06/16/24 11:41 Tramadol Hcl (*Crx) 50 Mg Tablet PO 50 mg Q4-6H PRN Administration PAIN RATED 4-6 Valsartan 320 mg 06/16/24 09:00 06/21/24 09:49 Valsartan 160 Mg Tablet PO 320 mg DAILY JOLIE Administration Vitamin D 5,000 units 06/16/24 09:00 06/21/24 09:50 Cholecalciferol 5,000 Units Tablet BY MOUTH 5,000 units DAILY JOLIE Administration Radiology Results: ITS Impressions Chest X-Ray 06/15/24 10:15 IMPRESSION: 1. Chronic mild lingular atelectasis/scarring. No acute cardiopulmonary disease. Venous Doppler Study 06/16/24 15:09 IMPRESSION: 1. No deep venous thrombosis within the bilateral lower extremities, as detailed above. Labs Labs: Laboratory Results - last 24 hr 06/20/24 06/21/24 06/21/24 21:52 04:37 11:02 APTT 52.1 H > 200.0 H* 160.3 H*
--- NOTE | 2024-06-21 15:26 | WPDMODSED ---
Moderate Sedation Note-Pt Data Patient Data Diagnosis: NSTEMI Present Complaint: NSTEMI Procedure to be performed/Plan: Coronary angiography, left heart cath, +/- PCI Allergies Allergy/AdvReac Type Severity Reaction Status Date / Time Penicillins Allergy Severe Hives Verified 06/20/24 13:50 phenytoin Allergy Intermediate HIVES Verified 06/20/24 13:50 cefaclor Allergy Unknown THROAT Verified 06/20/24 13:50 SWELLING AND HIVES Home Medications Medication Instructions Recorded Confirmed Type cholecalciferol (vitamin D3) 1 tablet PO DAILY 06/05/20 06/15/24 History pyridoxine (vitamin B6) 1 tablet PO DAILY 06/05/20 06/15/24 History blood-glucose meter (Blood Glucose #1 ea 09/29/23 06/15/24 Rx Monitoring kit) lancets 30 gauge (Revolve.Touch Delica #100 ea 11/16/23 06/15/24 Rx Plus Lancet) blood sugar diagnostic (Revolve.Touch #50 strips 12/01/23 06/15/24 Rx Verio test strips) amlodipine 5 mg tablet 5 mg PO DAILY #30 tabs 04/06/24 06/15/24 Rx valsartan 320 mg tablet 320 mg PO DAILY #90 tabs 05/04/24 06/15/24 Rx chlorthalidone 25 mg tablet 25 mg PO DAILY #30 tabs 06/08/24 06/15/24 Rx amitriptyline 25 mg tablet 50 mg PO HS 06/15/24 06/15/24 History carvedilol 25 mg tablet 25 mg PO BIDWM 06/15/24 06/15/24 History diazepam 2 mg tablet 4 mg PO HS 06/15/24 06/15/24 History hydralazine 50 mg tablet 50 mg PO TID 06/15/24 06/15/24 History hydroxyzine HCl 25 mg tablet 25 mg PO BID 06/15/24 06/15/24 History levothyroxine 50 mcg tablet 50 mcg PO DAILY 06/15/24 06/15/24 History metformin 500 mg tablet 500 mg PO BID 06/15/24 06/15/24 History pravastatin 80 mg tablet 80 mg PO DAILY 06/15/24 06/15/24 History tramadol 50 mg tablet 50 mg PO Q4-6H PRN Pain 06/15/24 06/15/24 History Current Medications: Active Medications Acetaminophen (Acetaminophen 325 Mg Tablet) 650 mg PO Q6H PRN PRN Reason: Mild Pain (1-3) or Fever Last Admin: 06/19/24 12:59 Dose: 650 mg Amitriptyline HCl (Amitriptyline Hcl 25 Mg Tablet) 25 mg PO HS [facility] Last Admin: 06/20/24 20:23 Dose: 25 mg Amlodipine Besylate (Amlodipine Besylate 5 Mg Tablet) 5 mg PO DAILY [facility] Last Admin: 06/21/24 09:49 Dose: 5 mg Aspirin (Aspirin 81 Mg Enteric Tablet) 81 mg PO QAM [facility] Last Admin: 06/21/24 09:50 Dose: 81 mg Atorvastatin Calcium (Atorvastatin 40 Mg Tablet) 80 mg PO DAILY [facility] Carvedilol (Carvedilol 25 Mg Tablet) 25 mg PO Q12HR [facility] Last Admin: 06/21/24 09:50 Dose: 25 mg Chlorthalidone (Chlorthalidone 25 Mg Tablet) 25 mg PO DAILY [facility] Last Admin: 06/21/24 09:50 Dose: 25 mg Diazepam (Diazepam (*Crx) 2 Mg Tablet) 4 mg PO HS [facility] Last Admin: 06/20/24 20:20 Dose: 4 mg Hydralazine HCl (Hydralazine Hcl 50 Mg Tablet) 50 mg PO TID [facility] Last Admin: 06/21/24 12:13 Dose: 50 mg Hydroxyzine HCl (Hydroxyzine Hcl 25 Mg Tablet) 25 mg PO Q12HR [facility] Last Admin: 06/21/24 09:49 Dose: 25 mg Levothyroxine Sodium (Levothyroxine Sodium 50 Mcg Tablet) 50 mcg PO DAILY@0630 [facility] Last Admin: 06/21/24 05:36 Dose: 50 mcg Pantoprazole Sodium (Pantoprazole Sodium Iv 40 Mg Vial) 40 mg IV PUSH Q12HR [facility] Last Admin: 06/21/24 09:51 Dose: 40 mg Polyethylene Glycol (Polyethylene Glycol 3350 17 Gm Powd.Pack) 17 gm PO QAM [facility] Pyridoxine HCl (Pyridoxine Hcl 50 Mg Tablet) 100 mg PO DAILY [facility] Last Admin: 06/21/24 09:49 Dose: 100 mg Sodium Chloride (Saline 0.65% Jorge Soln 44 Ml Btl) 1 spray NASAL Q6HR PRN PRN Reason: Congestion Ticagrelor (Ticagrelor 90 Mg Tablet) 90 mg PO Q12HR [facility] Tramadol HCl (Tramadol Hcl (*Crx) 50 Mg Tablet) 50 mg PO Q4-6H PRN PRN Reason: PAIN RATED 4-6 Last Admin: 06/16/24 11:41 Dose: 50 mg Valsartan (Valsartan 160 Mg Tablet) 320 mg PO DAILY [facility] Last Admin: 06/21/24 09:49 Dose: 320 mg Vitamin D (Cholecalciferol 5,000 Units Tablet) 5,000 units BY MOUTH DAILY [facility] Last Admin: 06/21/24 09:50 Dose: 5,000 units Sedation/Anesthesia: No previous sedation/anesthesia problems (including family history). 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 Hyperlipidemia Hypothyroidism (acquired) Low magnesium level Macular degeneration Mild reactive airways disease MVP (mitral valve prolapse) Numbness in feet On fdc drug therapy DOUGLAS on CPAP Osteopenia Otalgia of left ear Palpitations Pedal edema Peripheral edema Peripheral neuropathy Post menopausal syndrome Pre-diabetes Recurrent UTI Sacroiliitis Shortness of breath Vitamin D deficiency Surgical History Surgical History History of bladder repair surgery History of cholecystectomy History of hysterectomy Family History Family History Mother No family history of malignant neoplasm Carcinoma of colon Cerebrovascular accident Diabetes mellitus Hypertension Sibling Family history of lung cancer Patient's brother is in good health Diabetes mellitus Hypertension Father Family history of heart disease in male family member before age 55 Family history of cardiovascular disease Family history of malignant neoplasm Family history of thyroid disease Diabetes mellitus Hypertension Social History Social History Social History: Smoking status: Never smoker Second hand tobacco smoke exposure: No Alcohol intake: current Drinks per week: 1 Alcohol use details: Occasionally Substance use: never Substance use type: does not use Do You Feel Safe in your Home?: Yes Lack of Transportation: No Lack of Food: Never True Current Housing: I Have Housing Concerned About Future Housing: No Difficulty Paying Gas/Electric Bills: No Difficulty Paying for Meds: No Currently Unemployed: No Education: High School Diploma/GED Difficulty w/ Childcare or Family Care: No Living arrangements: alone Occupation/Education: retired Gender identity (if verbalized by the patient): Female Sexual Orientation (if Verbalized by the Patient): Straight or Heterosexual Spiritual care concerns: No Mod Sed Physical Exam Physical Exam Pre Procedural Exam: Normal: Appearance, Heart Rate, Heart Rhythm, Neuro Exam, Extremities and Skin Hours since solid foods: 12 Hours since liquid intake: 8 Mallampati Classification: class II and class III Internal Medicine - PN: Obj Da Vital Signs Vital Signs: Vital Signs - 24 hr 06/20/24 16:18 06/20/24 16:00 06/20/24 18:00 Temperature 36.4 C Pulse Rate 56 L 55 L 57 L Respiratory Rate 20 Blood Pressure 136/53 L Pulse Oximetry 100 Oxygen Delivery 06/20/24 19:56 06/20/24 20:20 06/20/24 20:40 Temperature 36.4 C Pulse Rate 57 L 59 L 56 L Respiratory Rate 20 20 Blood Pressure 145/41 H Pulse Oximetry 100 99 Oxygen Delivery Room Air 06/20/24 20:00 06/20/24 22:12 06/21/24 00:24 Temperature 36.7 C Pulse Rate 57 L 59 L 62 Respiratory Rate 20 Blood Pressure 129/42 L Pulse Oximetry 97 Oxygen Delivery 06/21/24 00:00 06/21/24 00:00 06/21/24 02:22 Temperature Pulse Rate 62 62 56 L Respiratory Rate 20 Blood Pressure Pulse Oximetry 97 Oxygen Delivery Room Air 06/21/24 04:00 06/21/24 04:00 06/21/24 04:40 Temperature 36.8 C Pulse Rate 56 L 56 L 60 Respiratory Rate 20 20 Blood Pressure 123/45 L Pulse Oximetry 97 98 Oxygen Delivery Room Air 06/21/24 06:00 06/21/24 07:23 06/21/24 09:50 Temperature 36.8 C Pulse Rate 63 67 58 L Respiratory Rate 20 Blood Pressure 130/44 L Pulse Oximetry 100 Oxygen Delivery 06/21/24 11:15 06/21/24 08:00 06/21/24 10:00 Temperature 36.6 C Pulse Rate 56 L 84 61 Respiratory Rate 18 Blood Pressure 123/37 L Pulse Oximetry 98 Oxygen Delivery 06/21/24 12:00 Temperature Pulse Rate 59 L Respiratory Rate Blood Pressure Pulse Oximetry Oxygen Delivery Intake/Output Intake/Output: Intake & Output 06/18/24 06/19/24 06/20/24 06/21/24 23:59 23:59 23:59 23:59 Intake Total 1377.5 1219.9 1751.5 116.9 Output Total 900 1350 300 Balance 477.5 -130.1 1451.5 116.9 Meds/Results Medications: Active Medications Generic Name Dose Route Start Last Admin Trade Name Freq PRN Reason Stop Dose Admin Acetaminophen 650 mg 06/16/24 15:03 06/19/24 12:59 Acetaminophen 325 Mg Tablet PO 650 mg Q6H PRN Administration Mild Pain (1-3) or Fever Amitriptyline HCl 25 mg 06/16/24 21:00 06/20/24 20:23 Amitriptyline Hcl 25 Mg Tablet PO 25 mg HS JOLIE Administration Amlodipine Besylate 5 mg 06/16/24 09:00 06/21/24 09:49 Amlodipine Besylate 5 Mg Tablet PO 5 mg DAILY JOLIE Administration Aspirin 81 mg 06/17/24 09:00 06/21/24 09:50 Aspirin 81 Mg Enteric Tablet PO 81 mg QAM JOLIE Administration Atorvastatin Calcium 80 mg 06/22/24 09:00 Atorvastatin 40 Mg Tablet PO DAILY JOLIE Carvedilol 25 mg 06/15/24 22:35 06/21/24 09:50 Carvedilol 25 Mg Tablet PO 25 mg Q12HR JOLIE Administration Chlorthalidone 25 mg 06/16/24 09:00 06/21/24 09:50 Chlorthalidone 25 Mg Tablet PO 25 mg DAILY JOLIE Administration Diazepam 4 mg 06/15/24 22:40 06/20/24 20:20 Diazepam (*Crx) 2 Mg Tablet PO 4 mg HS JOLIE Administration Hydralazine HCl 50 mg 06/15/24 22:40 06/21/24 12:13 Hydralazine Hcl 50 Mg Tablet PO 50 mg TID JOLIE Administration Hydroxyzine HCl 25 mg 06/15/24 22:40 06/21/24 09:49 Hydroxyzine Hcl 25 Mg Tablet PO 25 mg Q12HR JOLIE Administration Levothyroxine Sodium 50 mcg 06/16/24 06:30 06/21/24 05:36 Levothyroxine Sodium 50 Mcg Tablet PO 50 mcg DAILY@0630 JOLIE Administration Pantoprazole Sodium 40 mg 06/20/24 21:00 06/21/24 09:51 Pantoprazole Sodium Iv 40 Mg Vial IV PUSH 40 mg Q12HR JOLIE Administration Polyethylene Glycol 17 gm 06/21/24 13:10 Polyethylene Glycol 3350 17 Gm Powd.Pack PO QAM JOLIE Pyridoxine HCl 100 mg 06/16/24 09:00 06/21/24 09:49 Pyridoxine Hcl 50 Mg Tablet PO 100 mg DAILY JOLIE Administration Sodium Chloride 1 spray 06/19/24 05:29 Saline 0.65% Jorge Soln 44 Ml Btl NASAL Q6HR PRN Congestion Ticagrelor 90 mg 06/21/24 21:00 Ticagrelor 90 Mg Tablet PO Q12HR JOLIE Tramadol HCl 50 mg 06/15/24 22:27 06/16/24 11:41 Tramadol Hcl (*Crx) 50 Mg Tablet PO 50 mg Q4-6H PRN Administration PAIN RATED 4-6 Valsartan 320 mg 06/16/24 09:00 06/21/24 09:49 Valsartan 160 Mg Tablet PO 320 mg DAILY [facility] Administration Vitamin D 5,000 units 06/16/24 09:00 06/21/24 09:50 Cholecalciferol 5,000 Units Tablet BY MOUTH 5,000 units DAILY JOLIE Administration Radiology Results: ITS Impressions Chest X-Ray 06/15/24 10:15 IMPRESSION: 1. Chronic mild lingular atelectasis/scarring. No acute cardiopulmonary disease. Venous Doppler Study 06/16/24 15:09 IMPRESSION: 1. No deep venous thrombosis within the bilateral lower extremities, as detailed above. Labs 06/20/24 07:40 06/20/24 07:40 Labs: Laboratory Results - last 24 hr 06/20/24 06/21/24 06/21/24 21:52 04:37 11:02 APTT 52.1 H > 200.0 H* 160.3 H* ASA Classification/Sedation ASA Classification/Sedation ASA Class: III Emergent: No Risks: Risks, benefits and alternatives explained and patient/family accepted plan for sedation. Patient re-evaluated immediately prior to sedation.
--- NOTE | 2024-06-21 15:27 | WPDCARDPROC ---
Cardiac Cath Procedure Note Date of procedure:: 06/21/24 Performing physician:: CATHETERIZATION LABORATORY REPORT Procedure Date: 06/21/2024 Tape Recorder Repairer: Corbin Doherty M.D., [facility]? Referring Physician: Vinny Wahl M.D. ? Anesthesia: Versed and Fentanyl were ordered and given in my presence at 14:18, procedure ended at 15:14. Supervision of nurse monitored moderate sedation with Versed and Fentanyl was provided for 56 minutes. Total of Versed 1.5mg and Fentanyl 50mcg were administered by the Tax Accountant RN Bao Zhang. Pre-op Diagnosis: Coronary artery disease Post-op Diagnosis: 1. Significant obstructive disease in the mid LAD and distal LAD s/p PCI with JAVID x 1 in the mid LAD and JAVID x 1 in the distal LAD. 2. Significant obstructive disease in diagonal branch. Will plan for medical management given small vessel size. 3. Left-dominant coronary artery system Procedure(s): 1. Moderate sedation 2. Ultrasound-guided access of the right radial artery 3. Coronary angiography 4. Left heart cath 5. PCI of the mid LAD with JAVID x 1 6. PCI of the distal LAD with JAVID x 1 7. IVUS Access Site: Right radial artery Brief History and Clinical Indications: Patient is an 79 year old female who is referred for [facility] for NSTEMI. All risks, benefits and alternatives to left heart catheterization with or without percutaneous coronary intervention was discussed at length with the patient. Risk of complications including but not limited to bleeding, infection, arrhythmia, stroke, worsening kidney function, blood loss, groin hematoma, limb loss, emergency coronary artery bypass grafting, and even were discussed with the patient and all questions were answered. The patient understood and wished to proceed. Time out called, patient name, date of , medical record number, allergies, procedure performed, identify Tape Recorder Repairer, patient and staff member concurred with accurate data, procedure carried on. Findings: LEFT HEART CATHETERIZATION FINDINGS: 1. Left main: The left main coronary artery is widely patent without any significant obstructive disease. 2. Left anterior descending: The proximal LAD has mild diffuse disease. The mid portion has a focal 70% stenosis. The distal LAD has a focal 80% stenosis. The first diagonal branch is a small caliber branch with an 80-90% stenosis in the mid portion. 3. Left circumflex: The left circumflex artery is the dominant vessel. The mid portion of the LCX has mild disease. The proximal portion of OM-2 has moderate disease. 4. Right coronary artery: The RCA is the non-dominant vessel. Small caliber artery. The proximal and mid portions have mild-moderate diffuse disease. Description of Procedure and PCI: Informed consent signed and placed in the chart. Patient transferred to landscaping and groundskeeping laborer room. Prepped and draped in usual sterile fashion. 2% lidocaine injected subcutaneously in right wrist area. 22-gauge venipuncture catheter used to access the right radial artery under ultrasound guidance. 6-FR slender sheath placed in right radial artery. Nitroglycerine and Verapamil were given intraarterial through the sheath. Versacore wire advanced under fluoroscopy 5F Tig 4 diagnostic catheter engaged Left Main Coronary Artery. 5F Tig 4 diagnostic catheter engaged Right Coronary Artery Multiple orthogonal angiogram obtained and reviewed Hemostasis was achieved by application of TR band. Angiomax was used for anticoagulation. 6F EBU 3.0 guide catheter was used to intubate the left main. 0.014 [place] coronary wire was passed in to the distal LAD The distal lesion was pre-dilated with a 2.0 mm x 10 mm balloon inflated to high SHAN. The mid lesion was pre-dilated with a 2.0 mm x 10 mm balloon inflated to high SHAN. A 2.0 mm x 12 mm Rivera JAIVD was successfully deployed into mid-distal LAD. A 2.75 mm x 12 mm Rivera JAVID was successfully deployed in the the mid LAD. Attempted to pass IVUS catheter distal to the stent, but would not cross without losing guide support. Intracoronary NTG was administered Coronary wire and guide-catheter were removed Pre-procedure - ROYCE 3 flow Post-procedure - ROYCE 3 flow No angiographic complications identified. Hemostasis was achieved by application of TR band. Disposition: Floor Plan: The patient will be monitored in the recovery area. DAPT for 1 year followed by ASA indefinitely. Continue aggressive medical therapy and risk factor modification. ? Corbin Doherty M.D. Interventional Cardiology
[2024-06-21] MEDS: polyethylene glycoL 3350 17 GM POWD.PACK PO (21:22)
[2024-06-21] MEDS: diazePAM (*CRX) 2 MG TABLET 4 MG PO (21:23)
[2024-06-21] MEDS: AMITRIPTYLINE HCL 25 MG TABLET PO (21:23)
[2024-06-21] MEDS: TICAGRELOR 90 MG TABLET PO (21:24)
[2024-06-22] VITALS (12 sets, daily range): BP systolic 132–146; BP diastolic 45–71; PULSE 53–60; RESP 16–18; TEMP 36.4–36.8; O2SAT 97–100
[2024-06-22] MEDS: ACETAMINOPHEN 325 MG TABLET 650 MG PO (03:27)
[2024-06-22] MEDS: LEVOTHYROXINE SODIUM 50 MCG TABLET PO (06:09)
[2024-06-22 08:39] LABS: Anion Gap 7 mmol/L (4-12); Blood Urea Nitrogen 31 mg/dL (7-17); Calcium 9.2 mg/dL (8.4-10.2); Carbon Dioxide 21 mmol/L (22-30); Chloride 101 mmol/L (98-107); Estimated CRCL calculation 22 ml/min; Estimated Glomerular Filt Rate 29; Glucose 133 mg/dL (65-110); Potassium 4.5 mmol/L (3.4-5.0); Sodium 129 mmol/L (137-145)
--- NOTE | 2024-06-22 09:37 | P.PNCA_ITS ---
Progress Note: A&P Assessment and Plan (1) NSTEMI (non-ST elevated myocardial infarction): Code(s): I21.4 - Non-ST elevation (NSTEMI) myocardial infarction Status: Acute Assessment and Plan: 79-year-old woman with mitral valve prolapse, hypertension, and hyperlipidemia who initially presented to the hospital with chest heaviness and exertional dyspnea found to have troponin elevation whose clinical presentation is concerning for non ST elevation [place] Non ST-elevation [place] -[facility] 06/21. Underwent PCI to the mid and distal LAD with JAVID x 2. -Continue Aspirin 81 mg. -Contiue Brilinta 90mg BID for at least 1 year. -Switched the Pravastatin to Atorvastatin for high intensity dosing. -Continue Carvedilol 25 mg p.o. BID -Refer to cardiac rehab. Hypertension -Continue Hydralazine -Continue Amlodipine -Continue Carvedilol -Continue Chlorthalidone -Continue Valsartan Hyperlipidemia -Switched the Pravastatin to Atorvastatin for high intensity dosing. Okay to discharge home from a cardiac standpoint. Will arrange follow up in our office. Recommendations and plan discussed with Hospitalist. Subjective Date/time seen: 06/22/24 09:37 Interval history: Reason for visit: NSTEMI Date of service 06/21: No chest pain, otherwise feeling well. Date of service 06/22: Doing well. Review of Systems Review of Systems: All systems reviewed & are unremarkable except as noted in HPI and below (HPI) Exam Const: General: comfortable and no acute distress HENMT: Mouth: Yes moist mucous membranes Eyes: General: appearance normal, both eyes and all related structures Sclera: sclerae normal Resp: Effort & Inspection: normal respiratory effort Cardio: Rate: regular rate Rhythm: regular rhythm Skin: General skin exam: normal color Neuro: Speech: normal speech Psych: Mental Status: mental status grossly normal Affect: normal affect Objective Data Vital Signs Vital Signs: Vital Signs - 24 hr 06/21/24 09:50 06/21/24 11:15 06/21/24 10:00 Temperature 36.6 C Pulse Rate 58 L 56 L 61 Pulse Rate [Radial] Respiratory Rate 18 Blood Pressure 123/37 L Pulse Oximetry 98 Oxygen Delivery 06/21/24 12:00 06/21/24 15:45 06/21/24 16:00 Temperature Pulse Rate 59 L 58 L Pulse Rate [Radial] 58 L Respiratory Rate 12 Blood Pressure 122/44 L Pulse Oximetry 96 Oxygen Delivery Room Air 06/21/24 15:45 06/21/24 16:30 06/21/24 16:45 Temperature Pulse Rate 57 L 61 57 L Pulse Rate [Radial] Respiratory Rate 12 15 19 Blood Pressure 114/46 L 125/44 L 119/45 L Pulse Oximetry 93 97 97 Oxygen Delivery Room Air Room Air Room Air 06/21/24 17:00 06/21/24 16:15 06/21/24 17:30 Temperature Pulse Rate 56 L 54 L Pulse Rate [Radial] 53 L Respiratory Rate 16 20 Blood Pressure 124/46 L 110/47 L Pulse Oximetry 98 97 Oxygen Delivery Room Air Room Air 06/21/24 17:30 06/21/24 17:45 06/21/24 17:45 Temperature Pulse Rate 53 L 53 L Pulse Rate [Radial] 53 L Respiratory Rate 16 16 Blood Pressure 103/52 L 110/58 L Pulse Oximetry 96 96 Oxygen Delivery Room Air Room Air 06/21/24 18:15 06/21/24 18:15 06/21/24 18:30 Temperature Pulse Rate 59 L Pulse Rate [Radial] 59 L 52 L Respiratory Rate 16 Blood Pressure 127/44 L Pulse Oximetry 100 Oxygen Delivery Room Air 06/21/24 18:30 06/21/24 18:45 06/21/24 18:45 Temperature Pulse Rate 52 L 55 L Pulse Rate [Radial] 55 L Respiratory Rate 18 16 Blood Pressure 110/42 L 121/44 L Pulse Oximetry 100 100 Oxygen Delivery Room Air Room Air 06/21/24 19:15 06/21/24 19:15 06/21/24 19:45 Temperature Pulse Rate 57 L Pulse Rate [Radial] 54 L 61 Respiratory Rate 19 Blood Pressure 141/40 H Pulse Oximetry 99 Oxygen Delivery Room Air 06/21/24 19:45 06/21/24 20:00 06/21/24 20:00 Temperature Pulse Rate 61 55 L Pulse Rate [Radial] 59 L Respiratory Rate 18 17 Blood Pressure 138/67 139/40 L Pulse Oximetry 98 98 Oxygen Delivery Room Air Room Air 06/21/24 20:15 06/21/24 20:15 06/21/24 20:30 Temperature Pulse Rate 57 L 58 L Pulse Rate [Radial] 59 L Respiratory Rate 16 17 Blood Pressure 137/44 L 116/40 L Pulse Oximetry 98 99 Oxygen Delivery Room Air Room Air 06/21/24 20:30 06/21/24 18:00 06/21/24 18:00 Temperature Pulse Rate 54 L Pulse Rate [Radial] 56 L 56 L Respiratory Rate 16 Blood Pressure 158/58 H Pulse Oximetry 100 Oxygen Delivery Room Air 06/21/24 19:00 06/21/24 19:00 06/21/24 19:30 Temperature Pulse Rate 54 L 59 L Pulse Rate [Radial] 56 L Respiratory Rate 18 20 Blood Pressure 125/45 L 140/48 L Pulse Oximetry 100 Oxygen Delivery Room Air 06/21/24 19:30 06/21/24 20:45 06/21/24 20:45 Temperature Pulse Rate 58 L Pulse Rate [Radial] 54 L 59 L Respiratory Rate Blood Pressure 117/31 L Pulse Oximetry 98 Oxygen Delivery Room Air 06/21/24 21:23 06/21/24 21:15 06/21/24 21:45 Temperature 36.4 C 36.5 C Pulse Rate 76 58 L 57 L Pulse Rate [Radial] Respiratory Rate 16 16 Blood Pressure 113/32 L 141/40 H Pulse Oximetry 98 100 Oxygen Delivery 06/21/24 20:00 06/21/24 20:00 06/21/24 21:01 Temperature Pulse Rate 57 L 57 L Pulse Rate [Radial] 57 L Respiratory Rate 16 Blood Pressure Pulse Oximetry 100 Oxygen Delivery Room Air 06/21/24 21:03 06/21/24 21:18 06/21/24 21:48 Temperature Pulse Rate Pulse Rate [Radial] 57 L 57 L 57 L Respiratory Rate Blood Pressure Pulse Oximetry Oxygen Delivery 06/21/24 22:00 06/21/24 22:18 06/21/24 22:45 Temperature 36.7 C Pulse Rate 58 L 58 L Pulse Rate [Radial] 57 L Respiratory Rate 16 Blood Pressure 112/40 L Pulse Oximetry 100 Oxygen Delivery 06/21/24 23:45 06/21/24 23:18 06/22/24 00:00 Temperature 36.7 C Pulse Rate 54 L 54 L Pulse Rate [Radial] 57 L Respiratory Rate 16 16 Blood Pressure 100/35 L Pulse Oximetry 98 98 Oxygen Delivery Room Air 06/22/24 00:00 06/22/24 00:00 06/22/24 02:00 Temperature Pulse Rate 54 L 54 L 57 L Pulse Rate [Radial] Respiratory Rate Blood Pressure Pulse Oximetry Oxygen Delivery 06/22/24 03:58 06/22/24 03:58 06/22/24 04:00 Temperature 36.4 C L Pulse Rate 57 L 57 L 60 Pulse Rate [Radial] Respiratory Rate 16 16 Blood Pressure 135/71 Pulse Oximetry 98 99 Oxygen Delivery Room Air 06/22/24 06:00 06/22/24 08:08 Temperature 36.8 C Pulse Rate 56 L 57 L Pulse Rate [Radial] Respiratory Rate 18 Blood Pressure 132/45 L Pulse Oximetry 100 Oxygen Delivery Intake/Output Intake/Output: Intake & Output 06/19/24 06/20/24 06/21/24 06/22/24 23:59 23:59 23:59 23:59 Intake Total 1219.9 1751.5 596.9 350 Output Total 1350 300 600 800 Balance -130.1 1451.5 -3.1 -450 Meds/Results Medications: Active Medications Generic Name Dose Route Start Last Admin Trade Name Freq PRN Reason Stop Dose Admin Acetaminophen 650 mg 06/16/24 15:03 06/22/24 03:27 Acetaminophen 325 Mg Tablet PO 650 mg Q6H PRN Administration Mild Pain (1-3) or Fever Amitriptyline HCl 25 mg 06/16/24 21:00 06/21/24 21:23 Amitriptyline Hcl 25 Mg Tablet PO 25 mg HS JOLIE Administration Amlodipine Besylate 5 mg 06/16/24 09:00 06/21/24 09:49 Amlodipine Besylate 5 Mg Tablet PO 5 mg DAILY JOLIE Administration Aspirin 81 mg 06/17/24 09:00 06/21/24 09:50 Aspirin 81 Mg Enteric Tablet PO 81 mg QAM JOLIE Administration Atorvastatin Calcium 80 mg 06/22/24 09:00 Atorvastatin 40 Mg Tablet PO DAILY JOLIE Carvedilol 25 mg 06/15/24 22:35 06/21/24 21:23 Carvedilol 25 Mg Tablet PO 25 mg Q12HR JOLIE Administration Chlorthalidone 25 mg 06/16/24 09:00 06/21/24 09:50 Chlorthalidone 25 Mg Tablet PO 25 mg DAILY JOLIE Administration Diazepam 4 mg 06/15/24 22:40 06/21/24 21:23 Diazepam (*Crx) 2 Mg Tablet PO 4 mg HS JOLIE Administration Hydralazine HCl 50 mg 06/15/24 22:40 06/21/24 21:24 Hydralazine Hcl 50 Mg Tablet PO 50 mg TID JOLIE Administration Hydroxyzine HCl 25 mg 06/15/24 22:40 06/21/24 21:23 Hydroxyzine Hcl 25 Mg Tablet PO 25 mg Q12HR JOLIE Administration Levothyroxine Sodium 50 mcg 06/16/24 06:30 06/22/24 06:09 Levothyroxine Sodium 50 Mcg Tablet PO 50 mcg DAILY@0630 JOLIE Administration Pantoprazole Sodium 40 mg 06/20/24 21:00 06/21/24 21:24 Pantoprazole Sodium Iv 40 Mg Vial IV PUSH 40 mg Q12HR JOLIE Administration Polyethylene Glycol 17 gm 06/21/24 13:10 06/21/24 21:22 Polyethylene Glycol 3350 17 Gm Powd.Pack PO 17 gm QAM JOLIE Administration Pyridoxine HCl 100 mg 06/16/24 09:00 06/21/24 09:49 Pyridoxine Hcl 50 Mg Tablet PO 100 mg DAILY JOLIE Administration Sodium Chloride 1 spray 06/19/24 05:29 Saline 0.65% Jorge Soln 44 Ml Btl NASAL Q6HR PRN Congestion Ticagrelor 90 mg 06/21/24 21:00 06/21/24 21:24 Ticagrelor 90 Mg Tablet PO 90 mg Q12HR JOLIE Administration Tramadol HCl 50 mg 06/15/24 22:27 06/16/24 11:41 Tramadol Hcl (*Crx) 50 Mg Tablet PO 50 mg Q4-6H PRN Administration PAIN RATED 4-6 Valsartan 320 mg 06/16/24 09:00 06/21/24 09:49 Valsartan 160 Mg Tablet PO 320 mg DAILY JOLIE Administration Vitamin D 5,000 units 06/16/24 09:00 06/21/24 09:50 Cholecalciferol 5,000 Units Tablet BY MOUTH 5,000 units DAILY JOLIE Administration Radiology Results: ITS Impressions Chest X-Ray 06/15/24 10:15 IMPRESSION: 1. Chronic mild lingular atelectasis/scarring. No acute cardiopulmonary disease. Venous Doppler Study 06/16/24 15:09 IMPRESSION: 1. No deep venous thrombosis within the bilateral lower extremities, as detailed above. Labs Labs: Laboratory Results - last 24 hr 06/21/24 06/22/24 11:02 08:16 APTT 160.3 H* Sodium 129 L Potassium 4.5 Chloride 101 Carbon Dioxide 21 L Anion Gap 7 BUN 31 H Creatinine 1.70 H Estim Creat Clear Calc 22 Estimated GFR 29 L Glucose 133 H Calcium 9.2
[2024-06-22] MEDS: PYRIDOXINE HCL 50 MG TABLET 100 MG PO (09:51)
[2024-06-22] MEDS: amLODIPine BESYLATE 5 MG TABLET PO (09:51)
[2024-06-22] MEDS: ATORVASTATIN 40 MG TABLET 80 MG PO (09:51)
[2024-06-22] MEDS: VALSARTAN 160 MG TABLET 320 MG PO (09:51)
[2024-06-22] MEDS: polyethylene glycoL 3350 17 GM POWD.PACK PO (09:51)
[2024-06-22] MEDS: carvediloL 25 MG TABLET PO (09:52)
[2024-06-22] MEDS: TICAGRELOR 90 MG TABLET PO (09:52)
[2024-06-22] MEDS: hydrOXYzine HCL 25 MG TABLET PO (09:52)
[2024-06-22] MEDS: ASPIRIN 81 MG ENTERIC TABLET PO (09:52)
[2024-06-22] MEDS: hydrALAZINE HCL 50 MG TABLET PO ×2 (09:52→12:48)
[2024-06-22] MEDS: PANTOPRAZOLE SODIUM IV 40 MG VIAL IV PUSH (09:53)
[2024-06-22] MEDS: CHLORTHALIDONE 25 MG TABLET PO (09:53)
[2024-06-22] MEDS: CHOLECALCIFEROL 5,000 UNITS TABLET 5000 UNITS BY MOUTH (09:53)
--- NOTE | 2024-06-22 11:32 | PCNWS ---
Weekly nutritional screen. Patient is tolerating current heart healthy diet with adequate intake per pt. No weight loss reported. No nutritional recommendations at this time.
[2024-06-22] MEDS: MAGNESIUM OXIDE 400 MG TABLET PO (12:48)
--- NOTE | 2024-06-22 14:27 | PCCPR ---
Spoke with pt at bedside providing overview of the [facility] program. She verbalized interested in participation. States she will be looking forward to getting started soon.
--- NOTE | 2024-06-22 14:44 | PM.DS ---
DS: Admitting Diagnosis Discharge Date 06/22/2024 Admitting Diagnosis Chest pain DS: Discharge Diagnosis Discharge Diagnosis (1) Chest pain: Code(s): R07.9 - Chest pain, unspecified Status: Acute Assessment and Plan: Patient presents with SOB and CP. She has been having progressively worsening SOB associated with chest tightness at times. Chemical Stress test January 2024 showing hyperdynamic global LV systolic fxn with normal myocardial perfusion. PFTs December 2023 showing no obstructive defect but with hyperinflation Troponin elevated at 0.08 and about the same on repeat 6 hours apart EKG showing NSR with LVH, age-indeterminate inferior OH but no change from prior. Repeat EKG showing similar findings Echo showing mod LV wall thickness, symmetric septal hypertrophy with sigmoid septum, EF 75-80%, Grade I diastolic dysfxn and mild MR. LE venous doppler negative for DVT. Cardiology consulted and appreciate their input Heparin drip started. Continue ASA, Coreg and statin therapy. [facility] planned but concern for decreasing HH. GI consulted. EGD showing moderate diffuse acute erosive gastritis body of stomach and antrum with moderate erosive changes. GI felt patient could proceed to [facility] safely. LHC today. (2) Elevated troponin: Code(s): R79.89 - Other specified abnormal findings of blood chemistry Status: Acute Assessment and Plan: As above. (3) Anemia: Code(s): D64.9 - Anemia, unspecified Status: Acute Assessment and Plan: Hgb normally runs in the 11 range. Hgb 11.6 on admission but trended down to 9.1 and stable now. No evidence of acute blood loss. Stool is guaiac negative. Iron studies, B12 and folate normal. Probably chronic from her renal failure. GI consulted. EGD as above Follow HH. (4) Essential (primary) hypertension: Code(s): I10 - Essential (primary) hypertension Status: Acute Assessment and Plan: Patient's blood pressure was reviewed on 06/20 Blood pressure remains well controlled after resuming her home medications with SBP 100-130. Concern for pheochromocytoma and testing was performed prior to admission We are unable to check for Pheo here since she is on TCA. Will continue current medications. (5) CKD (chronic kidney disease), stage III: Code(s): N18.30 - Chronic kidney disease, stage 3 unspecified Status: Acute Assessment and Plan: BUN 32 and Cr 1.6 on admission and about at baseline. Potassium was higher but this resolved. She has a intermittent mild metabolic nongap acidosis Repeat BUN and Cr stable. Potassium remains normal. Continue low potassium diet. Monitor renal function Follow (6) DOUGLAS on CPAP: Code(s): G47.33 - Obstructive sleep apnea (adult) (pediatric); Z99.89 - Dependence on other enabling machines and devices Status: Acute Assessment and Plan: Patient does not wear CPAP at home and refuses it here. (7) MVP (mitral valve prolapse): Code(s): I34.1 - Nonrheumatic mitral (valve) prolapse Status: Acute Assessment and Plan: Echo as above. Has mild mitral regurg. (8) COPD (chronic obstructive pulmonary disease): Code(s): J44.9 - Chronic obstructive pulmonary disease, unspecified Status: Acute Assessment and Plan: Stable. No wheezing. Remains on room air Follow Plan DVT prophylaxis - Heparin Code status - full DS: Summary Hospital Course Reason for hospitalization: Chest pain Hospital Course: 79 years old female was admitted for chest pain. Patient has elevated troponin and EKG changes. Cardiology was consulted. Cardiac catheterization was done that showed patient has mid and distal LAD obstruction. Patient was stented and medical management was started. Today patient is feeling better and was discharged home in stable condition follow-up with primary care and cardiology scheduled. Patient advised to return to ER if she gets chest pain and not feeling good at home. Status at Discharge Cognitive/behavioral status at discharge: Stable Time Spent with Patient Time attestation: Total time spent providing and/or coordinating discharge services: 30 minute Exam Narrative: AF 97.8 123/37 56 18 98% ra Gen - NARD Chest - CTA bilaterally CV - RRR S1/S2; Tele showing no significant dysrhythmias Abd - Soft, NT/ND, Positive BS Ext - no pedal edema Psych - Nml mood and affect Skin - Warm and dry Const: General: comfortable, no acute distress, well developed, alert, awake and average body habitus Nutritional Appearance: average body habitus Orientation/consciousness: patient oriented x3 HENMT: Head: normal to inspection, normocephalic and atraumatic Ears: hearing grossly normal bilaterally Face/Nose/Sinus: normal facial exam Face and sinus: normal facial exam Eyes: General: appearance normal, both eyes and all related structures Pupils: Equal, round and reactive pupils present EOM: EOMs intact bilaterally Neck: Neck: full ROM, no lymphadenopathy and no JVD Thyroid: thyroid normal Lymphatic: no lymphadenopathy noted Resp: Effort & Inspection: normal respiratory effort and able to speak in complete sentences Auscultation: clear to auscultation bilaterally Cardio: Jugular venous distension: no JVD Rate: regular rate Rhythm: regular rhythm Heart sounds: S1 normal heart sound present, S2 normal heart sound present and Murmur heart sound present continuous : General: Yes deferred Skin: Rashes: no rashes Wounds: no wounds Neuro: General: patient oriented x3 and CN's II-XI intact bilaterally Cranial nerves: Yes CN's II-XII intact bilaterally and Yes Equal, round and reactive pupils present Cognition (Neuro): normal cognition Speech: normal speech Gait exam (Neuro): Normal gait present Motor exam (neuro): 5/5 motor strength present throughout Extrem: General: normal to inspection, full ROM, no joint enlargement and no pedal edema DS: Data Data Completed and Pending Labs on day of discharge: Labs from last 24 hours 06/22/24 08:16 Sodium 129 L Potassium 4.5 Chloride 101 Carbon Dioxide 21 L Anion Gap 7 BUN 31 H Creatinine 1.70 H Estim Creat Clear Calc 22 Estimated GFR 29 L Glucose 133 H Calcium 9.2 Discharge Plan Discharge Attending physician on discharge: Almas Vásquez Consulting providers: Ernie Vásquez Discharging Clinician: Almas Vásquez Patient Disposition: Home, Self-Care Activity: as tolerated Diet: as tolerated and heart healthy Discharge Instructions: Elevated Troponin Patient Instructions: Antibiotic Form, Heparin (By injection), Chest Pain (GEN), After Radial Heart Catheterization (GEN) Follow-up/Referrals: Christopher Solis MD [Primary Care Provider] - Ernie Vásquez MD [Physician] - Discharge Medications: New Brilinta 90 mg Tablet 90 mg PO Q12HR Qty: 180 3RF aspirin 81 mg Tablet,Delayed Release (Dr/Ec) 81 mg PO QAM Qty: 90 3RF atorvastatin 80 mg tablet 80 mg PO DAILY Qty: 90 3RF Brilinta 90 mg tablet 90 mg PO Q12H Qty: 60 0RF aspirin 81 mg tablet,delayed release (DR/EC) 81 mg PO DAILY Qty: 30 0RF atorvastatin 80 mg tablet 80 mg PO DAILY Qty: 30 0RF carvedilol [Coreg] 25 mg Tablet 25 mg PO Q12HR Qty: 60 0RF Continued amlodipine 5 mg tablet 5 mg PO DAILY Qty: 30 5RF chlorthalidone 25 mg tablet 25 mg PO DAILY Qty: 30 5RF pyridoxine (vitamin B6) 1 tablet PO DAILY cholecalciferol (vitamin D3) 1 tablet PO DAILY (DME) blood-glucose meter [Blood Glucose Monitoring] Kit See Rx Instructions .Route Qty: 1 0RF Rx Instructions: Use 4 times weekly for blood glucose checks. Please fill for what is covered by INS metformin 500 mg tablet 500 mg PO BID tramadol 50 mg tablet 50 mg PO Q4-6H PRN (Reason: Pain) amitriptyline 25 mg tablet 50 mg PO HS diazepam 2 mg tablet 4 mg PO HS levothyroxine 50 mcg tablet 50 mcg PO DAILY hydroxyzine HCl 25 mg tablet 25 mg PO BID (DME) lancets [OneTouch Delica Plus Lancet] 30 gauge misc See Rx Instructions .ROUTE .COMPLEX Qty: 100 0RF Dose Instruction: USE TO TEST 4 TIMES A WEEK Rx Instructions: USE TO TEST 4 TIMES A WEEK (DME) OneTouch Verio test strips Strip See Rx Instructions .ROUTE .COMPLEX Qty: 50 0RF Dose Instruction: USE TO TEST BLOOD GLUCOSE 4 TIMES WEEKLY Rx Instructions: USE TO TEST BLOOD GLUCOSE 4 TIMES WEEKLY valsartan 320 mg tablet 320 mg PO DAILY Qty: 90 3RF carvedilol 25 mg tablet 25 mg PO BID Qty: 180 1RF hydralazine 50 mg tablet 50 mg PO TID Qty: 270 1RF Discontinued pravastatin 80 mg tablet 80 mg PO DAILY Date of admission: 06/15/24 18:05 Primary Care Provider: Christopher Solis Admitting Provider: Mk Jaimes Attending physician on admission: Mk Jaimes Condition: Stable
--- NOTE | 2024-06-22 16:46 | PC.NURSE ---
Addendum entered by CRISTIANA HUNTER 06/22/24 16:47: Stent card sent with patient Original Note: 1615- Meds to bed delivered. IVs and tele removed. DC instructions given to patient and family friend. RASHEEDA garica.
== END 2024-06-22 16:15 | disposition home or self-care (01) | DRG 321 ==
LOC: ANHED 16:51 → ANHIMU 21:49
PROVIDERS: Internal Medicine; Internal Medicine Gastroenterology; Internal Medicine Interventional Cardiology; Nurse Practitioner; Admitting Provider Internal Medicine; Emergency Provider Emergency Medicine; PCP Family Medicine; Visit Provider Internal Medicine
PROC: 0DJ08ZZ Inspection of Upper Intestinal Tract, Via Natural or Artificial Opening Endoscopic (ICD-10-PCS; CPT 43235; principal; 2024-06-20 13:30)
PROC: 027035Z Dilation of Coronary Artery, One Artery with Two Drug-eluting Intraluminal Devices, Percutaneous Approach (ICD-10-PCS; CPT 93454; principal; 2024-06-21 14:00)
PROC: 027035Z Dilation of Coronary Artery, One Artery with Two Drug-eluting Intraluminal Devices, Percutaneous Approach (ICD-10-PCS; 2024-06-21 14:00)
PROC: 027035Z Dilation of Coronary Artery, One Artery with Two Drug-eluting Intraluminal Devices, Percutaneous Approach (ICD-10-PCS; 2024-06-21 14:00)
DX: I25.10 Atherosclerotic heart disease of native coronary artery without angina pectoris (principal); K29.01 Acute gastritis with bleeding; I12.9 Hypertensive chronic kidney disease with stage 1 through stage 4 chronic kidney disease, or unspecified chronic kidney disease; N18.30 Chronic kidney disease, stage 3 unspecified; I34.1 Nonrheumatic mitral (valve) prolapse; D64.9 Anemia, unspecified; E03.9 Hypothyroidism, unspecified; E55.9 Vitamin D deficiency, unspecified; E78.5 Hyperlipidemia, unspecified; K21.9 Gastro-esophageal reflux disease without esophagitis; M79.7 Fibromyalgia; M17.0 Bilateral primary osteoarthritis of knee; M85.80 Other specified disorders of bone density and structure, unspecified site; R73.03 Prediabetes; G47.33 Obstructive sleep apnea (adult) (pediatric); G62.9 Polyneuropathy, unspecified; H35.30 Unspecified macular degeneration; Z20.822 Contact with and (suspected) exposure to COVID-19; Z80.0 Family history of malignant neoplasm of digestive organs; Z79.899 Other long term (current) drug therapy
CPT/HCPCS: 36415; 71046; 80048; 80053; 80069; 82274; 82607; 82728; 82746; 83540; 83550; 83605; 83735; 83880; 84100; 84439; 84443; 84480; 84484; 85014; 85018; 85025; 85027; 85610; 85730; 87637; 92978; 93005; 93454; 93970; 96361; 96365; 96375; 99285; A9270; C1725; C1753; C1769; C1874; C1887; C1894; C8929; C9600; J0583; J1644; J2003; J2060; J2250; J2305; J2470; J2704; J3010; J3360; J3475; J7030; J7040; J7120; Q9957

== ENCOUNTER 2024-07-14 15:20 | Outpatient (CLI) | payer MEDICARE, OTHER, SELFPAY ==
[2024-07-14 15:57] LABS: Anion Gap 10 mmol/L (4-12); Blood Urea Nitrogen 29 mg/dL (7-17); Carbon Dioxide 18 mmol/L (22-30); Chloride 104 mmol/L (98-107); Estimated Glomerular Filt Rate 31; Glucose 123 mg/dL (65-110); Potassium 4.4 mmol/L (3.4-5.0); Sodium 132 mmol/L (137-145)
== END 2024-07-14 15:21 | disposition home or self-care (01) ==
PROVIDERS: PCP Family Medicine; Visit Provider Internal Medicine Nephrology
DX: I10 Essential (primary) hypertension (principal)
CPT/HCPCS: 36415; 80048

== ENCOUNTER 2024-08-23 13:43 | Outpatient (CLI) | payer MEDICARE, OTHER, SELFPAY ==
--- OUTSIDE RECORDS SUMMARY | 2024-08-23 14:22 | XMS_ITS | Clinical Summary ---
Author Organization [facility] [employer] Address [facility] [place] [address] Care Team Providers Care Newspaper Columnist Name Role Phone Sergo Guardado MD Primary Care Provider [phone] Source Comments [facility],non-owned Affiliates and Associated Physician Practices is amultiple site organization consisting of ambulatory clinics and hospital sitesin [place], [place], [place] and [place]. This disclosure is being madepursuant to the Care Everywhere program and may not contain all information available regarding this patient. Last updated 18.[facility] [employer] Allergies Active Allergy Reactions Criticality Noted Date Comments Cephalexin 06/30/2017 Flu like symptoms Penicillins Anaphylaxis High 06/30/2017 Medications * Be aware that medications may not be up to date on this document. Alwaysverify current medications with the patient. Medication Sig Dispensed Refills Start Date End Date Status AMITRIPTYLINE HCL PO Active AMLODIPINE BESYLATE PO Active CARVEDILOL PO Active HYDROCHLOROTHIAZIDE PO Active LEVOTHYROXINE SODIUM PO Active LISINOPRIL PO Active PRAVASTATIN SODIUM PO Active Omeprazole (PRILOSEC PO) Active traMADol (ULTRAM) 50 MG tablet Take 1 (one) tablet by mouth every 6 hours as needed for Pain Active Cyanocobalamin (VITAMIN B12 PO) Active Cholecalciferol (VITAMIN D-3 PO) Active biotin 5 MG tablet Take 1 (one) tablet by mouth once daily Active Estradiol (ESTRACE VA) Active azithromycin (ZITHROMAX) 250 MG tablet 2 tabs po x 1 day then 1 tab days 2-5 6 tablet 12/09/2017 Active amitriptyline (Elavil) 25 MG tablet Take 2 (two) tablets by mouth at bedtime 07/10/2023 Active diazePAM (Valium) 2 MG tablet 08/03/2023 Active estradiol (Estrace) 0.5 MG tablet 07/09/2023 Active hydrALAZINE (Apresoline) 25 MG tablet Take 1 (one) tablet by mouth 3 times daily 06/29/2023 Active hydrOXYzine HCl (Atarax) 25 MG tablet Take 1 (one) tablet by mouth 4 times daily as needed For itching. 06/30/2023 Active levothyroxine (Synthroid) 25 MCG tablet TAKE 1 TABLET BY MOUTH 5 DAYS A WEEK 07/14/2023 Active levothyroxine (Synthroid) 50 MCG tablet TAKE 1 TABLET BY MOUTH 2 DAYS A WEEK 07/14/2023 Active meloxicam (Mobic) 15 MG tablet Take 1 (one) tablet by mouth once daily 06/28/2023 Active sulfamethoxazole-tr imethoprim (Bactrim DS; Septra DS) 800-160 MG tablet TAKE 1 TABLET BY MOUTH EVERY 12 HOURS FOR UTI 06/08/2023 Active valsartan-hydroCHLO ROthiazide (Diovan HCT) 320-25 MG tablet TAKE 1 TABLET BY MOUTH DAILY. DISCONTINUE HCTZ AND LISINOPRIL. THANK YOU 05/13/2023 Active METFORMIN HCL PO Active Hospital, Clinic, or Other Facility Administered Medication Ordered Dose Route Frequency Start Date End Date Status methylPREDNISolone acetate (DEPO-Medrol) injection 160 mgIndications:Primary osteoarthritis of both knees 160 mg IX ONCE 07/29/2024 07/29/2024 Ended lidocaine PF (Xylocaine MPF) 1 % injection 6 mLIndications:Primary osteoarthritis of both knees 6 mL IX ONCE 07/29/2024 07/29/2024 Ended Active Problems Problem Noted Date Diagnosed Date Primary osteoarthritis of both knees 06/16/2023 Encounters Date Type Department Care Team Description 07/29/2024 11:50 AM ATTENDANT SELF SERVICE STORE Office Visit [facility] [address] [facility], [address] [address] Anthony Loza MD Primary osteoarthritis of both knees (Primary Dx) from Last 3 Months Family History Medical History Relation Name Comments Cancer - Lung Brother smoker Cancer - Other Father Hypertension Father Hypertension Mother Relation Name Status Comments Brother Father Mother Social History Tobacco Use Types Packs/Day Years Used Date Smoking Tobacco: Never Smokeless Tobacco: Never PHQ-2 Answer Date Recorded Patient Health Questionnaire-2 Score 1 07/29/2024 Sex and Gender Information Value Date Recorded Sex Assigned at Not on file Gender Identity Not on file Sexual Orientation Not on file Last Filed Vital Signs Vital Sign Reading Time Taken Comments Blood Pressure 116/60 12/09/2017 2:51 PM CDT Pulse 59 12/09/2017 2:51 PM CDT Temperature 36.8 ??C (98.3 ??F) 12/09/2017 2:51 PM CD T Respiratory Rate 16 12/09/2017 2:51 PM CDT Oxygen Saturation 97% 12/09/2017 2:51 PM CDT Inhaled Oxygen Concentration - - Weight 76.7 kg (169 lb) 04/24/2023 11:46 AM CDT Height 167.6 cm (5' 6 ) 04/24/2023 11:46 AM CDT Body Mass Index 27.28 04/24/2023 11:46 AM CDT Plan of Treatment Upcoming Encounters Date Type Department Care Team (Late st Contact Info) Description 10/31/2024 11:40 AM CDT Office Visit [facility] Orth[facility] [address] [facility], [address] [place] [address] Stanislaw Ricardo, BUCKLE 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 12 MONTHS 1945 DTAP/TDAP/TD VACCINES (1 - Tdap) 1962 PNEUMOCOCCAL VACCINE 50+ (1 of 1 - PCV) 1993 ZOSTER VACCINE (1 of 2) 1993 Respiratory Syncytial Virus (RSV) Vaccine Pt: or over 60 yrs (1 - 1-dose 75+ series) 2018 COVID-19 VACCINE (2 - 2023-2 5 season) 2024 05/24/2021 INFLUENZA VACCINE (#1) 2024 DEPRESSION SCREENING Completed 07/29/2024, 08/04/2023, 06/15/2023 HEPATITIS B VACCINE Aged Out No longe r eligible based on patient's age to complete this topic HIB VACCINE Aged Out No longer eligi ble based on patient's age to complete this topic HPV VACCINE Aged Out No longer eligi ble based on patient's age to complete this topic MENINGOCOCCAL (Group B) VACCINE Aged Out No longer eligible b ased on patient's age to complete this topic MENINGOCOCCAL VACCINE Aged Out No jose jonathan eligible based on patient's age to complete this topic Care Teams Newspaper Columnist Relationship Specialty Start Date End Date Sergo Guardado MD [address] [place] [address] PCP - General 04/25/22
--- OUTSIDE RECORDS SUMMARY | 2024-08-23 14:22 | XMS_ITS | Clinical Summary ---
Author Organization [facility] Address [address] [place] [address]. [place], [place] [address] [place] [address] Care Team Providers Care Electronics Research Engineer Name Role Phone Unavailable Primary Care Provider Unavailabl e Social History Tobacco Use Types Packs/Day Years Used Date Smoking Tobacco: Never Assessed Comments Unknown Sex and Gender Information Value Date Recorded Sex Assigned at Not on file Legal Sex Female 6:07 PM CDT Gender Identity Not on file Sexual Orientation Not on file Last Filed Vital Signs Vital Sign Reading Time Taken Comments Blood Pressure 157/60 07/22/2013 11:24 AM REGIONAL SALES CONSULTANT Pulse 60 07/22/2013 11:24 AM REGIONAL SALES CONSULTANT Temperature - - Respiratory Rate - - Oxygen Saturation - - Inhaled Oxygen Concentration - - Weight 70.3 kg (155 lb) 07/22/2013 11:24 AM REGIONAL SALES CONSULTANT Height 167.6 cm (5' 6 ) 07/22/2013 11:24 AM REGIONAL SALES CONSULTANT Body Mass Index 25.02 07/22/2013 11:24 AM REGIONAL SALES CONSULTANT Plan of Treatment Health Maintenance Due Date Last Done Comments DTaP, Tdap and Td Vaccines ( 1 - Tdap) 1962 Zoster Vaccines (1 of 2) 1993 Dexa Scan (General) 2008 Pneumococcal Vaccine: 65+ Ye ars (1 of 1 - PCV) 2008 RSV Immunization or 60+ Years (1 - 1-dose 75+ series) 2018 COVID-19 Vaccine ( - 2023-2 5 season) 2024 Influenza Adult (#1) 2024 Meningococcal B Vaccine Aged Out No l onger eligible based on patient's age to complete this topic Meningococcal Vaccine Aged Out No jose jonathan eligible based on patient's age to complete this topic RSV Immunizations Under 20 Months Aged Out No longer eligible based on patient's age to complete this topic
--- OUTSIDE RECORDS SUMMARY | 2024-08-23 14:22 | XMS_ITS | Patient Health Summary ---
Author Organization [facility] Address [address] [place] [address] Care Team Providers Care Shellacker Name Role Phone Sergo Guardado MD Primary Care Provider [phone] Note from [facility],non-owned Affiliates and Associated Physician Practices is amultiple site organization consisting of ambulatory clinics and hospital sitesin [place], [place], [place] and [place]. This disclosure is being madepursuant to the Care Everywhere program and may not contain all information available regarding this patient. Last updated 18.[facility] Allergies * Cephalexin(Flu like symptoms) * Penicillins(Anaphylaxis) -High Criticality Medications * Be aware that medications may not be up to date on this document. Alwaysverify current medications with the patient. * AMITRIPTYLINE HCL PO * AMLODIPINE BESYLATE PO * CARVEDILOL PO * HYDROCHLOROTHIAZIDE PO * LEVOTHYROXINE SODIUM PO * LISINOPRIL PO * PRAVASTATIN SODIUM PO * Omeprazole (PRILOSEC PO) * traMADol (ULTRAM) 50 MG tablet Take 1 (one) tablet by mouth every 6 hours as needed for Pain * Cyanocobalamin (VITAMIN B12 PO) * Cholecalciferol (VITAMIN D-3 PO) * biotin 5 MG tablet Take 1 (one) tablet by mouth once daily * Estradiol (ESTRACE VA) * azithromycin (ZITHROMAX) 250 MG tablet(Started 12/09/2017) 2 tabs po x 1 day then 1 tab days 2-5 * amitriptyline (Elavil) 25 MG tablet(Started 07/10/2023) Take 2 (two) tablets by mouth at bedtime * diazePAM (Valium) 2 MG tablet(Started 08/03/2023) * estradiol (Estrace) 0.5 MG tablet(Started 07/09/2023) * hydrALAZINE (Apresoline) 25 MG tablet(Started 06/29/2023) Take 1 (one) tablet by mouth 3 times daily * hydrOXYzine HCl (Atarax) 25 MG tablet(Started 06/30/2023) Take 1 (one) tablet by mouth 4 times daily as needed For itching. * levothyroxine (Synthroid) 25 MCG tablet(Started 07/14/2023) TAKE 1 TABLET BY MOUTH 5 DAYS A WEEK * levothyroxine (Synthroid) 50 MCG tablet(Started 07/14/2023) TAKE 1 TABLET BY MOUTH 2 DAYS A WEEK * meloxicam (Mobic) 15 MG tablet(Started 06/28/2023) Take 1 (one) tablet by mouth once daily * sulfamethoxazole-trimethoprim (Bactrim DS; Septra DS) 800-160 MG tablet (Started 06/08/2023) TAKE 1 TABLET BY MOUTH EVERY 12 HOURS FOR UTI * valsartan-hydroCHLOROthiazide (Diovan HCT) 320-25 MG tablet(Started 05/13/2023) TAKE 1 TABLET BY MOUTH DAILY. DISCONTINUE HCTZ AND LISINOPRIL. THANK YOU * METFORMIN HCL PO Active Problems Problem Noted Date Diagnosed Date Primary osteoarthritis of both knees 06/16/2023 Social History Tobacco Use Types Packs/Day Years [...] Mass Index 27.28 04/24/2023 11:46 AM CDT Procedures * XR KNEE BILAT 4VW OR MORE(Performed 06/15/2023) Performed for Pain in both knees, unspecified chronicity * STREP A SCREEN - POINT OF CARE (AMB) STL(Performed 12/09/2017) Performed for Strep pharyngitis * CULTURE URINE(Performed 09/21/2017) Performed for Dysuria * URINALYSIS AUTO - POINT OF CARE (AMB) STL(Performed 09/21/2017) Performed for Dysuria * URINALYSIS AUTO - POINT OF CARE (AMB) STL(Performed 06/30/2017) Performed for Acute cystitis with hematuria * CULTURE URINE(Performed 06/30/2017) Performed for Acute cystitis with hematuria Results * XR KNEE BILAT 4VW OR MORE (06/15/2023 4:23 PM TECHNICAL OPERATIONS VICE PRESIDENT) Narrative [facility] [address] - 06/15/2023 4:23 PM TECHNICAL OPERATIONS VICE PRESIDENT Please see progress note in Epic for results. Anthony Loza MD DIAGNOSTIC IMAGING O RDERABLES [facility] [address] * (ABNORMAL) STREP A SCREEN (12/09/2017) Strep A Rapid POCT Positive(A) Negative Strep A Internal Control Present Lot # [id number] Expiration Date [id number] Throat ENTIRE THROAT (SURFACE REGION OF NECK) / Unknown 12/09/2017 Jarret Camacho CLAY MOLDER-COMMUNITY SERVICE ORGANIZATION DIRECTOR LAB - POINT OF CARE ORDERABLES * CULTURE URINE (09/21/2017 1:04 PM TECHNICAL OPERATIONS VICE PRESIDENT) Only the most recent of2 resultswithin the time period is included. Urine Culture Routine Final report [facility] INSURANCE BILL Result 1 [facility] INSURANCE BILL Comment: Mixed urogenital juice Less than 10,000 colonies/mL Urine URINE SPECIMEN OBTAINED BY CLEAN CATCH PROCEDURE / Unknown 09/21/2017 1:04 PM TECHNICAL OPERATIONS VICE PRESIDENT 09/21/2017 Narrative Resulting Agency Comment [facility] [id number] [facility] ??[facility] [id number] Jarret Camacho CLAY MOLDER-COMMUNITY SERVICE ORGANIZATION DIRECTOR LAB - MICRO BIOLOGY ORDERABLES [facility] INSURANCE BILL [address] [address] * URINALYSIS AUTO - POINT OF CARE (AMB) STL (09/21/2017) Only the most recent of2 resultswithin the time period is included. Clarity UA POCT dark Color UA POCT yellow Leukocyte UA neg Negative Nitrite UA POCT neg Negative Urobilinogen UA 0.2 0.1 - 1.0 Protein UA POCT neg Negative pH UA 5.0 5.0 - 8.0 pH units Blood UA neg Negative Specific Premium UA POCT 1.020 1.002 - 1.030 Ketone UA neg Negative Bilirubin UA POCT neg Negative Glucose UA neg Negative Expiration Date [id number] Lot # [id number] QC Verified Yes Yes Urine URINE / Unknown 09/21/2017 Jarret Camacho CLAY MOLDER-COMMUNITY SERVICE ORGANIZATION DIRECTOR LAB - POINT OF CARE ORDERABLES Care Teams Shellacker Relationship Specialty Start Date End Date Sergo Guardado MD [address] [place] [phone] PCP - General 04/25/22
--- OUTSIDE RECORDS SUMMARY | 2024-08-23 14:22 | XMS_ITS | Referral Summary ---
Author Organization [facility] Address [facility]3 [facility] [place] [address] Care Team Providers Care Executive Chef Assistant Name Role Phone Sergo Guardado MD Primary Care Provider [phone] Source Comments [facility],non-[facility] Affiliates and Associated Physician Practices is amultiple site organization consisting of ambulatory clinics and hospital sitesin [place], [place], [place] and [place]. This disclosure is being madepursuant to the Care Everywhere program and may not contain all information available regarding this patient. Last updated 18.[facility] Encounters Date Type Department Care Team Description 07/29/2024 11:50 AM RESEARCH EDITOR Office Visit [facility] Orthopedics [address] [place] [address], [address] [address] Anthony Loza MD Primary osteoarthritis of both knees (Primary Dx) from Last 3 Months Allergies Active Allergy Reactions Criticality Noted Date [...] Description 10/31/2024 11:40 AM CDT Office Visit [facility] [address] [address] Stanislaw Ricardo, SOLAR INSTALLATION SUPERVISOR-[facility] [address] [address] Care Teams Executive Chef Assistant Relationship Specialty Start Date End Date Sergo Guardado MD [address] [place] [phone] PCP - General 04/25/22
[2024-08-23 14:35] LABS: Hematocrit 32.3 % (37.0-47.0); Mean Corpuscular Hemoglobin 29.2 pg (26-34); Mean Corpuscular Volume 94.4 fl (80-100); Mean Platelet Volume 9.7 fl (7.4-10.4); Platelet Count Result 336 k/mm3 (150-375); Red Blood Count 3.42 M/mm3 (4.2-5.4); Red Cell Distribution Width 13.7 % (11.5-14.5); White Blood Count 10.3 K/mm3 (4.5-10.0)
[2024-08-23 14:51] LABS: Phosphorus 4.1 mg/dL (2.5-4.5)
[2024-08-23 15:02] LABS: Parathyroid Intact 41.9 pg/mL (14.5-75.2)
[2024-08-23 15:19] LABS: Potassium Urine Random 38.7 meq/L; Sodium Urine Random 61 meq/L
[2024-08-23 15:20] LABS: Cortisol Random 3.78 ug/dL
[2024-08-23 15:28] LABS: Creatinine Urine 155.5 mg/dL; Total Protein Urine Random 15 mg/dL
[2024-08-25 13:24] LABS: Chloride Rand Ur 65 mmol/L (32-290); Chloride/Creatinine Rand Ur 44 (38-318); Creatinine Random Urine 147 mg/dL (20-275)
[2024-08-25 16:29] LABS: Osmolality, Urine 474 mOsm/kg (50-1200)
== END 2024-08-23 13:44 | disposition home or self-care (01) ==
PROVIDERS: PCP Family Medicine; Visit Provider Internal Medicine Nephrology
DX: E03.9 Hypothyroidism, unspecified (principal); E78.2 Mixed hyperlipidemia; R94.4 Abnormal results of kidney function studies; E87.5 Hyperkalemia; E87.1 Hypo-osmolality and hyponatremia; R82.81 Pyuria
CPT/HCPCS: 36415; 82436; 82533; 82570; 83930; 83935; 83970; 84100; 84133; 84156; 84300; 84443; 85027

== ENCOUNTER 2024-08-23 13:50 | Outpatient (CLI) | payer MEDICARE, OTHER, SELFPAY ==
[2024-08-23 14:49] LABS: Alanine Aminotransferase 24 U/L (6-35); Albumin Level 3.9 g/dL (3.5-5.1); Alkaline Phosphatase 95 U/L (38-126); Anion Gap 11 mmol/L (4-12); Aspartate Amino Transferase 23 U/L (14-36); Bilirubin,Total 0.5 mg/dL (0.2-1.3); Blood Urea Nitrogen 33 mg/dL (7-17); Calcium 9.3 mg/dL (8.4-10.2); Carbon Dioxide 21 mmol/L (22-30); Chloride 105 mmol/L (98-107); Estimated Glomerular Filt Rate 30; Glucose 135 mg/dL (65-110); Potassium 4.1 mmol/L (3.4-5.0); Sodium 137 mmol/L (137-145)
== END 2024-08-23 13:51 | disposition home or self-care (01) ==
LOC: ANHLAB 13:51
PROVIDERS: PCP Family Medicine; Visit Provider Internal Medicine
DX: Z95.5 Presence of coronary angioplasty implant and graft (principal)
CPT/HCPCS: 36415; 80053

== ENCOUNTER 2024-08-26 14:07 | Outpatient (NON) | payer MEDICARE, OTHER, SELFPAY ==
--- OUTSIDE RECORDS SUMMARY | 2024-08-26 14:10 | XMS_ITS | Patient Health Summary ---
Author Organization [facility] Address [facility]3 [facility] [place] [address] Care Team Providers Care Coding And Reimbursement Specialist Name Role Phone Sergo Guardado MD Primary Care Provider [phone] Note from [facility],non-owned Affiliates and Associated Physician Practices is amultiple site organization consisting of ambulatory clinics and hospital sitesin [place], [place], [place] and [place]. This disclosure is being madepursuant to the Care Everywhere program and may not contain all information available regarding this patient. Last updated 18.[facility] Allergies * Cephalexin(Flu like symptoms) * [...] BILAT 4VW OR MORE (06/15/2023 4:23 PM WHEEL SHOP SUPERVISOR) Narrative [facility] [address] - 06/15/2023 4:23 PM WHEEL SHOP SUPERVISOR Please see progress note in Epic for results. Anthony Loza MD DIAGNOSTIC IMAGING O RDERABLES [facility] [address] * (ABNORMAL) STREP A SCREEN (12/09/2017) Strep A Rapid POCT Positive(A) Negative Strep A Internal Control Present Lot # [id number] Expiration Date [id number] Throat ENTIRE THROAT (SURFACE REGION OF NECK) / Unknown 12/09/2017 Jarret Camacho STRUCTURAL ENGINEER-AIRCRAFT POWERTRAIN REPAIRER LAB - POINT OF CARE ORDERABLES * CULTURE URINE (09/21/2017 1:04 PM WHEEL SHOP SUPERVISOR) Only the most recent of2 resultswithin the time period is included. Urine Culture Routine Final report [facility] INSURANCE BILL Result 1 [facility] INSURANCE BILL Comment: Mixed urogenital juice Less than 10,000 colonies/mL Urine URINE SPECIMEN OBTAINED BY CLEAN CATCH PROCEDURE / Unknown 09/21/2017 1:04 PM WHEEL SHOP SUPERVISOR 09/21/2017 Narrative Resulting Agency Comment [facility] [id number] [facility] [id number] Jarret Camacho STRUCTURAL ENGINEER-AIRCRAFT POWERTRAIN REPAIRER LAB - MICRO BIOLOGY ORDERABLES [facility] INSURANCE BILL [address] [place] [address] * URINALYSIS AUTO - POINT OF CARE (AMB) STL (09/21/2017) Only the most recent of2 resultswithin the time period is included. Clarity UA POCT dark Color UA POCT yellow Leukocyte UA neg Negative Nitrite UA POCT neg Negative Urobilinogen UA 0.2 0.1 - 1.0 Protein UA POCT neg Negative pH UA 5.0 5.0 - 8.0 pH units Blood UA neg Negative Specific [place] UA POCT 1.020 1.002 - 1.030 Ketone UA neg Negative Bilirubin UA POCT neg Negative Glucose UA neg Negative Expiration Date [id number] Lot # [id number] QC Verified Yes Yes Urine URINE / Unknown 09/21/2017 Jarret Camacho STRUCTURAL ENGINEER-AIRCRAFT POWERTRAIN REPAIRER LAB - POINT OF CARE ORDERABLES Care Teams Coding And Reimbursement Specialist Relationship Specialty Start Date End Date Sergo Guardado MD [address] [place] [phone] PCP - General 04/25/22
--- OUTSIDE RECORDS SUMMARY | 2024-08-26 14:10 | XMS_ITS | Referral Summary ---
Author Organization [facility] Address [facility]3 [facility] [place] [address] Care Team Providers Care High School Assistant Principal Name Role Phone Sergo Guardado MD Primary Care Provider [phone] Source Comments [facility],non-[facility] Affiliates and Associated Physician Practices is amultiple site organization consisting of ambulatory clinics and hospital sitesin [place], [place], [place] and [place]. This disclosure is being madepursuant to the Care Everywhere program and may not contain all information available regarding this patient. Last updated 18.[facility] Encounters Date Type Department Care Team Description 07/29/2024 11:50 AM STEEL ANALYST Office Visit [facility] Orthopedics [address] [place] [address], [address] [address] Anthony Loza MD Primary osteoarthritis [...] Description 10/31/2024 11:40 AM CDT Office Visit [facility] [address] [address] Stanislaw Ricardo, DURAL MECHANIC-[facility] [address] [address] Care Teams High School Assistant Principal Relationship Specialty Start Date End Date Sergo Guardado MD [address] [place] [phone] PCP - General 04/25/22
--- OUTSIDE RECORDS SUMMARY | 2024-08-26 14:10 | XMS_ITS | Clinical Summary ---
Author Organization [facility] Address [address] [place] [address]. [place], [place] [address] [place] [address] Care Team Providers Care Recreation Clerk Name Role Phone Unavailable Primary Care Provider [...] Comments Blood Pressure 157/60 07/22/2013 11:24 AM FIBREGLASS GUN HAND Pulse 60 07/22/2013 11:24 AM FIBREGLASS GUN HAND Temperature - - Respiratory Rate - - Oxygen Saturation - - Inhaled Oxygen Concentration - - Weight 70.3 kg (155 lb) 07/22/2013 11:24 AM FIBREGLASS GUN HAND Height 167.6 cm (5' 6 ) 07/22/2013 11:24 AM FIBREGLASS GUN HAND Body Mass Index 25.02 07/22/2013 11:24 AM FIBREGLASS GUN HAND Plan of Treatment Health Maintenance Due Date [...]
--- OUTSIDE RECORDS SUMMARY | 2024-08-26 14:10 | XMS_ITS | Clinical Summary ---
Author Organization [facility] [employer] Address [facility]3 [facility] [place] [address] Care Team Providers Care Banana Handler Name Role Phone Sergo Guardado MD Primary Care Provider Source Comments [facility],non-owned Affiliates and Associated Physician Practices is amultiple site organization consisting of ambulatory clinics and hospital sitesin [place], [place], [place] and [place]. This disclosure is being madepursuant to the Care Everywhere program and may not contain all information available regarding this patient. Last updated 18.[facility] [employer] Allergies Active Allergy Reactions Criticality Noted Date [...] Department Care Team Description 07/29/2024 11:50 AM FLAVORER Office Visit [facility] Orth[facility] [address] [facility], [address] [address] Anthony Loza MD Primary osteoarthritis [...] Description 10/31/2024 11:40 AM CDT Office Visit [facility] [address] [facility], [address] [place] [address] Stanislaw Ricardo, GARDE MANGER-ENVIRONMENT ARTIST [address] [facility] [address] [place] [address] Health Maintenance Due Date Last Done [...] age to complete this topic Care Teams Banana Handler Relationship Specialty Start Date End Date Sergo Guardado MD [address] [place] [address] PCP - General 04/25/22
[2024-08-26 14:20] LABS: Add Urine Microscopic? YES; Appearance Urine Clear (Clear); Bacteria Urine None Seen /hpf; Bilirubin Urine Negative (Negative); Blood Urine Negative (Negative); Color Urine Yellow (Yellow); Glucose Urine UA Negative (Negative); Ketones Urine Negative (Negative); Leukocyte Esterase Ur Trace LEU/UL (Negative); Nitrate Urine Negative (Negative); Non Pathogenic Casts 0-2; Protein Urine Negative (Negative); RBC Urine 0-2 /hpf (0-2); Specific Grav Ur 1.015 (1.001-1.035); Squamous Epithelial Cell Urine None Seen /hpf (Few); Urobilinogen Urine 0.2 mg/dL (<2.0); WBC Urine 0-5 /hpf (0-3)
== END 2024-08-26 14:08 | disposition home or self-care (01) ==
PROVIDERS: PCP Family Medicine; Visit Provider Internal Medicine Nephrology
DX: R30.0 Dysuria (principal)
CPT/HCPCS: 81001; 87086

== ENCOUNTER 2024-09-09 13:37 | Outpatient (CLI) | payer MEDICARE, OTHER, SELFPAY ==
--- NOTE | ~2024-09-09 | US_ITS ---
EXAMINATION: US renal BI DATE: 09/09/2024 14:40 INDICATION: Essential/primary hypertension TECHNIQUE: Multiple ultrasound grayscale images of the kidneys were obtained. COMPARISON: CT dated 06/14/2024 FINDINGS: The right kidney measures 10.2 x 4.4 x 5.3 cm. The left kidney measures 8.7 x 4.4 x 4.5 with region o f cortical scarring at the lower pole. The kidneys demonstrate normal echogenicity. There is no hydro nephrosis in either kidney. No stones identified. The bladder is normal with bilateral ureteral jets visualized on color Doppler.. IMPRESSION: 1. Small region of cortical scarring at the lower pole the left kidney. Otherwise normal kidneys wit h no hydronephrosis. Reviewed, dictated and finalized at location [facility] IMPRESSION: 1. Small region of cortical scarring at the lower pole the left kidney. Otherw ise normal kidneys with no hydronephrosis.
--- OUTSIDE RECORDS SUMMARY | 2024-09-09 13:47 | XMS_ITS | Patient Health Summary ---
Author Organization [facility] Address [facility] [place] [address] Care Team Providers Care Chefs Name Role Phone Sergo Guardado MD Primary Care Provider [phone] Note from [facility],non-owned Affiliates and Associated Physician Practices is amultiple site organization consisting of ambulatory clinics and hospital sitesin [place], [place], [place] and [place]. This disclosure is being madepursuant to the Care Everywhere program and may not contain all information available regarding this patient. Last updated 18.[facility] Allergies * Cephalexin(Flu like symptoms) * [...] 59 12/09/2017 2:51 PM CDT Temperature 36.8 C (98.3 F) 12/09/2017 2:51 PM CDT Respiratory Rate 16 12/09/2017 2:51 PM CDT [...] BILAT 4VW OR MORE (06/15/2023 4:23 PM SALES REPRESENTATIVE HEALTH INSURANCE) Narrative [facility] [place] [address] - 06/15/2023 4:23 PM SALES REPRESENTATIVE HEALTH INSURANCE Please see progress note in Epic for results. Anthony Loza MD DIAGNOSTIC IMAGING O RDERABLES [facility] [address] * (ABNORMAL) STREP A SCREEN (12/09/2017) Strep A Rapid POCT Positive(A) Negative Strep A Internal Control Present Lot # [id number] Expiration Date [id number] Throat ENTIRE THROAT (SURFACE REGION OF NECK) / Unknown 12/09/2017 Jarret Camacho FRUIT OR NUT FARM WORKER-ALCOHOL AND DRUG COUNSELOR LAB - POINT OF CARE ORDERABLES * CULTURE URINE (09/21/2017 1:04 PM SALES REPRESENTATIVE HEALTH INSURANCE) Only the most recent of2 resultswithin the time period is included. Urine Culture Routine Final report [facility] INSURANCE BILL Result 1 [facility] INSURANCE BILL Comment: Mixed urogenital juice Less than 10,000 colonies/mL Urine URINE SPECIMEN OBTAINED BY CLEAN CATCH PROCEDURE / Unknown 09/21/2017 1:04 PM SALES REPRESENTATIVE HEALTH INSURANCE 09/21/2017 Narrative Resulting Agency Comment [address] [phone] Jarret Camacho FRUIT OR NUT FARM WORKER-ALCOHOL AND DRUG COUNSELOR LAB - MICRO BIOLOGY ORDERABLES [facility] INSURANCE BILL [address] [place] [address] * URINALYSIS AUTO - POINT OF CARE (AMB) STL (09/21/2017) Only the most recent of2 resultswithin the time period is included. Clarity UA POCT dark Color UA POCT yellow Leukocyte UA neg Negative Nitrite UA POCT neg Negative Urobilinogen UA 0.2 0.1 - 1.0 Protein UA POCT neg Negative pH UA 5.0 5.0 - 8.0 pH units Blood UA neg Negative Specific [place] UA POCT 1.020 1.002 - 1.030 Ketone UA neg Negative Bilirubin UA POCT neg Negative Glucose UA neg Negative Expiration Date [id number] Lot # [id number] QC Verified Yes Yes Urine URINE / Unknown 09/21/2017 Jarret Camacho FRUIT OR NUT FARM WORKER-ALCOHOL AND DRUG COUNSELOR LAB - POINT OF CARE ORDERABLES Care Teams Chefs Relationship Specialty Start Date End Date Sergo Guardado MD [address] [place] [address] PCP - General 04/25/22
--- OUTSIDE RECORDS SUMMARY | 2024-09-09 13:47 | XMS_ITS | Clinical Summary ---
Author Organization [facility] Address [address] [place] [address] Care Team Providers Care Drying Tunnel Operator Name Role Phone Unavailable Primary Care Provider [...] Comments Blood Pressure 157/60 07/22/2013 11:24 AM GRAVEL SCREENER Pulse 60 07/22/2013 11:24 AM GRAVEL SCREENER Temperature - - Respiratory Rate - - Oxygen Saturation - - Inhaled Oxygen Concentration - - Weight 70.3 kg (155 lb) 07/22/2013 11:24 AM GRAVEL SCREENER Height 167.6 cm (5' 6 ) 07/22/2013 11:24 AM GRAVEL SCREENER Body Mass Index 25.02 07/22/2013 11:24 AM GRAVEL SCREENER Plan of Treatment Health Maintenance Due Date [...]
--- OUTSIDE RECORDS SUMMARY | 2024-09-09 13:47 | XMS_ITS | Referral Summary ---
Author Organization [facility] Address [facility]3 [facility] [place] [address] Care Team Providers Care Glass Blowing Lathe Operator Name Role Phone Sergo Guardado MD Primary Care Provider Source Comments [facility],non-[facility] Affiliates and Associated Physician Practices is amultiple site organization consisting of ambulatory clinics and hospital sitesin [place], [place], [place] and [place]. This disclosure is being madepursuant to the Care Everywhere program and may not contain all information available regarding this patient. Last updated 18.[facility] Encounters Date Type Department Care Team Description 07/29/2024 11:50 AM DRY YARD WORKER Office Visit [facility] [address] [place] [address], [address] [phone] Anthony Loza MD Primary osteoarthritis [...] YOU 05/13/2023 Active METFORMIN HCL PO Active Active Problems Problem Noted Date Diagnosed Date [...] Team (Late st Contact Info) Description 10/31/2024 11:45 AM CDT Office Visit [facility] [address] [facility], [address] [place] [address] Stanislaw Ricardo, PHYSICIAN GYNECOLOGIST-DISCOVERY MANAGER [address] [facility] [address] [place] [address] Care Teams Glass Blowing Lathe Operator Relationship Specialty Start Date End Date Sergo Guardado MD [address] [place] [address] PCP - General 04/25/22
--- OUTSIDE RECORDS SUMMARY | 2024-09-09 13:47 | XMS_ITS | Clinical Summary ---
Author Organization [facility] Address [facility]3 [facility] [place] [address] Care Team Providers Care Supervisor Aircraft Cleaning Name Role Phone Sergo Guardado MD Primary Care Provider [phone] Source Comments [facility],non-owned Affiliates and Associated Physician Practices is amultiple site organization consisting of ambulatory clinics and hospital sitesin [place], [place], [place] and [place]. This disclosure is being madepursuant to the Care Everywhere program and may not contain all information available regarding this patient. Last updated 18.[facility] Allergies Active Allergy Reactions Criticality Noted Date [...] Department Care Team Description 07/29/2024 11:50 AM PHYSICAL SCIENCE AIDE Office Visit [facility] Orthopedics [address] [place] [address], [address] [phone] Anthony Loza MD Primary osteoarthritis of both [...] Description 10/31/2024 11:45 AM CDT Office Visit [facility] [address] [facility], [address] [place] [phone] Stanislaw Ricardo, [facility] [address] [facility] [address] [place] [phone] Health Maintenance Due Date Last Done Comments BONE DENSITY TESTING 1945 MEDICARE AWV 12 MONTHS 1945 DTAP/TDAP/TD VACCINES (1 - [...] age to complete this topic Care Teams Supervisor Aircraft Cleaning Relationship Specialty Start Date End Date Sergo Guardado MD [address] [place] [address] PCP - General 04/25/22
== END 2024-09-09 13:38 | disposition home or self-care (01) ==
PROVIDERS: PCP Family Medicine; Visit Provider Internal Medicine Nephrology
DX: I10 Essential (primary) hypertension (principal); R94.4 Abnormal results of kidney function studies
CPT/HCPCS: 76775

== ENCOUNTER 2024-09-22 13:45 | Outpatient (RCR) | payer MEDICARE, OTHER, SELFPAY | END 2024-10-17 13:44 | disposition home or self-care (01) | LOC: ANHCPREHAB 13:45 | PROVIDERS: PCP Family Medicine; Visit Provider Internal Medicine | DX: Z98.61 Coronary angioplasty status (principal); I25.2 Old myocardial infarction | CPT/HCPCS: 93798 ==

== ENCOUNTER 2025-01-10 12:30 | Outpatient (CLI) | payer MEDICARE, OTHER, SELFPAY ==
--- OUTSIDE RECORDS SUMMARY | 2025-01-10 13:01 | XMS_ITS | Clinical Summary ---
Author Organization [facility] [address] [facility] [address] [place] [address] Care Team Providers Care Issuing Operator Name Role Phone Christopher Solis MD Primary Care Provider Allergies Active Allergy Reactions Criticality Noted Date Comments Cefaclor Hives Medium 07/14/2024 Phenytoin Hives Medium 07/27/1999 Penicillins Anaphylaxis High 06/30/2017 Medications aspirin 81 mg enteric coated tablet Take 1 tablet (81 mg total) by mouth every morning 06/22/2024 Active atorvastatin (LIPITOR) 80 mg tablet Take 1 tablet (80 mg total) by mouth daily 06/22/2024 Active amLODIPine (NORVASC) 5 mg tablet Take 1 tablet (5 mg total) by mouth daily 07/03/2024 Active amitriptyline (ELAVIL) 25 mg tablet Take 2 tablets (50 mg total) by mouth nightly Active carvediloL (COREG) 25 mg tablet Take 1 tablet (25 mg total) by mouth 2 (two) times a day 06/22/2024 Active chlorthalidone (HYGROTON) 25 mg tablet Take 1 tablet (25 mg total) by mouth daily 06/08/2024 Active diazePAM (VALIUM) 2 mg tablet Take by mouth 3 (three) times a day as needed Active hydrALAZINE (APRESOLINE) 50 mg tablet Take 1 tablet (50 mg total) by mouth 3 (three) times a day Active hydrOXYzine (ATARAX) 25 mg tablet TAKE 1 TABLET BY MOUTH FOUR TIMES DAILY NEEDED FOR ITCHING Active levothyroxine (SYNTHROID) 50 mcg tablet Take 1 tablet (50 mcg total) by mouth daily Active metFORMIN (GLUCOPHAGE) 500 mg tablet Take 1 tablet (500 mg total) by mouth 2 (two) times a day 07/03/2024 Active traMADoL (ULTRAM) 50 mg tablet Take 1 tablet (50 mg total) by mouth every 6 (six) hours as needed Active valsartan (DIOVAN) 320 mg tablet Take 1 tablet (320 mg total) by mouth daily 05/04/2024 Active cholecalciferol (VITAMIN D-3) 1,000 unit capsule Take by mouth Active clopidogreL (PLAVIX) 75 mg tabletIndicatio ns:Thrombosis Prevention after PCI Take 1 tablet (75 mg total) by mouth daily 90 tablet 3 08/23/2024 Active Active Problems No known active problems Encounters Date Type Department Care Team Description 11/29/2024 Telephone [facility] Card[facility] [address] [place] [address] [address] [place] [phone] Juan Diego Garg MD 11/18/2024 Orders Only [facility] [address] [place] [address] [address] [place] [phone] Christopher Solis MD 11/09/2024 8:30 AM CDT Office Visit [facility] [address] [place] [address] [address] [place] [phone] Juan Diego Garg MD Renal artery stenosis (Primary Dx); Coronary artery disease involving [place] coronary artery of [place] heart without angina pectoris; S/P angioplasty with stent; 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) from Last 3 Months Social History Tobacco Use Types Packs/Day Years Used Date Smoking Tobacco: Never Tobacco Cessation:Counseling Given: Not Answered Comments Unknown Sex and Gender Information Value Date Recorded Sex Assigned at Not on file 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 Gender Identity Not on file Sexual Orientation Not on file Obstetrics History Last Filed Vital Signs Vital Sign Reading Time Taken Comments Blood Pressure 148/60 11/09/2024 8:24 AM CDT Pulse 54 11/09/2024 8:24 AM CDT Temperature - - Respiratory Rate - - Oxygen Saturation 99% 11/09/2024 8:24 AM CDT Inhaled Oxygen Concentration - - Weight 74.8 kg (165 lb) 11/09/2024 8:24 AM CDT Height 167.6 cm (5' 6) 11/09/2024 8:24 AM CDT Body Mass Index 26.63 11/09/2024 8:24 AM CDT Plan of Treatment Health Maintenance Due Date Last Done Comments Albumin Creatinine Ratio, Urine 1945 Depression Screening 1945 Fall Risk Assessment 1945 Hemoglobin A1C 1943 Osteoporosis Screening-Bone Density Scan 1943 eGFR 1943 Dilated Eye Exam 1943 Foot Exam 1943 DTaP/Tdap/Td Vaccine (1 - Tdap) 1954 Hepatitis B Screening 1961 Zoster Vaccine (1 of 2) 1993 Well Visit 65+ 2008 Pneumococcal vaccine 65+ (2 of 2 - PPSV23) 06/27/2020 05/02/2020 Covid-19 Vaccine (7 2023-2 5 season) 2024 07/12/2023, 04/28/2022, 12/11/2021, Additional history exists Influenza Vaccine (Season Ended) 2025 07/12/2023, 04/28/2022, 05/06/2021, Additional history exists Lipid Panel 11/09/2025 11/09/2024 Procedures Procedure Name Priority Date/Time Associated Diagnosis Comments POCT LIPID PANEL Routine 11/09/2024 8:18 AM CDT Coronary artery disease involving [place] coronary artery of [place] heart without angina pectoris ELECTROCARDIOGRAM REPORT Routine 11/09/2024 Coronary artery disease involving [place] coronary artery of [place] heart without angina pectoris from Last 3 Months Results * POCT lipid panel (11/09/2024 8:18 AM CDT) Cholesterol, POC 149 mg/dL HDL, POC 35 mg/dL Triglycerides, POC 163 mg/dL LDL Cholesterol POC 81 mg/dL Chol/HDL Ratio, POC 2.3 Non-HDL Cholesterol, POC 113 mg/dL Cholesterol Total, POC 149 mg/dL Capillary blood 11/09/2024 8 :18 AM CDT Juan Diego Garg MD POINT OF CARE TEST ORDERABLES Fi nal Result * Electrocardiogram Report (11/09/2024) 11/09/2024 Juan Diego Garg MD ECG ORDERABLES Final Result from Last 3 Months Insurance MEDICARE [facility] Care Teams Issuing Operator Relationship Specialty Start Date End Date Christopher Solis MD [address] [facility] [address] [place] [address] PCP - General Family Medicine 07/14/24
--- OUTSIDE RECORDS SUMMARY | 2025-01-10 13:01 | XMS_ITS | Clinical Summary ---
Author Organization [facility] Address [address] [place] [address] Care Team Providers Care Insurance Checker Name Role Phone Christopher Solis MD Primary Care Provider [phone] Encounters Date Type Department Care Team Description 12/01/2024 11:46 AM CDT - 12/01/2024 11:59 PM CDT Hospital Encounter [facility] [address] [place] [address] Robinson Powers NP Discharge Disposition: Home or Self Care (Routine Discharge) 12/01/2024 Travel from Last 3 Months Social History Tobacco Use Types Packs/Day Years Used Date Smoking Tobacco: Never Assessed Comments Unknown Sex and Gender Information Value Date Recorded Sex Assigned at Female 10/07/2024 12:19 PM CDT Legal Sex Female 6:07 PM CDT Gender Identity Not on file Sexual Orientation Not on file Last Filed Vital Signs Vital Sign Reading Time Taken Comments Blood Pressure 157/60 07/22/2013 11:24 AM 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 Pulse 60 07/22/2013 11:24 AM ASE 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 Temperature - - Respiratory Rate - - Oxygen Saturation - - Inhaled Oxygen Concentration - - Weight 70.3 kg (155 lb) 07/22/2013 11:24 AM ASE 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 Height 167.6 cm (5' 6) 07/22/2013 11:24 AM ASE 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 Body Mass Index 25.02 07/22/2013 11:24 AM ASE 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 Plan of Treatment Health Maintenance Due Date Last Done Comments DTaP, Tdap and Td Vaccines (1 - Tdap) 1962 Zoster Vaccines (1 of 2) 1993 Annual Medicare Wellness Visit 2008 Dexa Scan (General) 2008 RSV Immunization or 60+ Years (1 - 1-dose 75+ series) 2018 Pneumococcal Vaccine: 50+ Years (2 of 2 - PPSV23) 05/02/2021 05/02/2020 COVID-19 Vaccine (2023- season) 2024 05/03/2024, 07/12/2023, 04/28/2022, Additional history exists Meningococcal B Vaccine Aged Out No l onger eligible based on patient's age to complete this topic Meningococcal Vaccine Aged Out No jose jonathan eligible based on patient's age to complete this topic RSV Immunizations Under 20 Months Aged Out No longer eligible based on patient's age to complete this topic Procedures Procedure Name Priority Date/Time Associated Diagnosis Comments MRI LUMB SPINE WO CON Routine 12/01/2024 1:18 PM CDT Sacroiliitis Lumbar radiculopathy Lower back pain Other low back pain Segmental and somatic dysfunction of lumbar region Sprain of sacroiliac joint, subsequent encounter from Last 3 Months Results * MRI LUMB SPINE WO CON (12/01/2024 1:18 PM CDT) Anatomical Region Laterality Modality Spine Magnetic Resonan ce 12/06/2024 3:09 PM CDT Impressions 12/06/2024 4:32 PM CDT IMPRESSION: 1. Multilevel degenerative changes in the lumbar and partially imaged lower thoracic spine contributing to varying degrees of spinal canal and foraminal stenosis, as detailed above. 2. Mid lumbar levoscoliosis and multilevel listheses. NOTE: Designated S1 vertebral level demonstrates transitional morphology with a rudimentary S1-S2 intervertebral disc. Advise close attention to vertebral body numbering in case of future surgery or intervention. Ordered By: ROBINSON POWERS Interpreted By: Jose D Samson MD, 12/06/2024 3:09 PM Narrative 12/06/2024 4:32 PM CDT [address] [address] DATE: 12/01/2024 12:25 PM INDICATION: Low back pain. Sciatica. Sacroiliitis. EXAMINATION: MRI lumbar spine without contrast. TECHNIQUE: Multiplanar and multisequence MRI images of the lumbar spine were obtained without contrast. COMPARISON: 10/07/2024 FINDINGS: For the purposes of this examination, 5 nonrib-bearing vertebral levels are designated as L1-L5. Using this numbering system, the designated S1 vertebral level demonstrates transitional morphology with a rudimentary S1-S2 intervertebral disc. Using this numbering system, the conus medullaris terminates at the upper L2 level. Mid lumbar levoscoliosis. Slight right lateral listhesis of L2 on L3 and left lateral listhesis of L4 on L5. Grade 1 anterolisthesis of L5 on S1 more so than L4 on L5. Slight retrolisthesis of L2 on L3. Otherwise the lumbar vertebral alignment, vertebral body heights, and facet alignment are maintained. Multilevel degenerative changes are evident in the lower thoracic and lumbar spine with disc degeneration, endplate osteophytes, ligamentum flavum thickening, and facet hypertrophy noted. Multilevel disc desiccation. Greatest loss of disc height at L5-S1. Imaged portions of the soft tissues reveal no definite acute findings. T11-T12: Ligamentous and facet hypertrophy. No canal or foraminal narrowing. T12-L1: Ligamentous and facet hypertrophy. No canal or foraminal narrowing. L1-L2: Mild disc bulge. Ligamentous and facet hypertrophy. No canal or foraminal narrowing. L2-L3: Slight retrolisthesis. Disc bulge with extension into the foramina. Endplate osteophytes. Ligamentous and facet hypertrophy. Mild canal stenosis. Mild foraminal narrowing. L3-L4: Disc and posterior/marginal endplate osteophyte complex. Ligamentous and facet hypertrophy. Moderate canal stenosis with partial effacement of the thecal sac. Mild to moderate foraminal narrowing. L4-L5: Slight anterolisthesis. Disc bulge with extension into the foramina. Endplate osteophytes. Ligamentous and facet hypertrophy. Bilateral lateral recess and moderate to severe canal stenosis. Moderate right and mild left foraminal narrowing. L5-S1: Anterolisthesis. Disc bulge with extension into the foramina. Endplate osteophytes. Ligamentous and facet hypertrophy. Possible synovial cyst along the anteromedial aspect of the left facet articulation. Severe canal stenosis. Moderate to severe left and mild right foraminal narrowing. Procedure Note Jose D Samson MD - 12/06/2024 [address] [place] [address] DATE: 12/01/2024 12:25 PM INDICATION: Low back pain. Sciatica. Sacroiliitis. EXAMINATION: MRI lumbar spine without contrast. TECHNIQUE: Multiplanar and multisequence MRI images of the lumbar spine were obtainedwithout contrast. COMPARISON: 10/07/2024 FINDINGS: For the purposes of this examination, 5 nonrib-bearing vertebral levelsare designated as L1-L5. Using this numbering system, the designated [id number] level demonstrates transitional morphology with a rudimentaryS1-S2 intervertebral disc. Using this numbering system, the conusmedullaris terminates at the upper L2 level. Mid lumbar levoscoliosis. Slight right lateral listhesis of L2 on L3 andleft lateral listhesis of L4 on L5. Grade 1 anterolisthesis of L5 on S1more so than L4 on L5. Slight retrolisthesis of L2 on L3. Otherwise thelumbar vertebral alignment, vertebral body heights, and facet alignmentare maintained. Multilevel degenerative changes are evident in the lower thoracic andlumbar spine with disc degeneration, endplate osteophytes, ligamentumflavum thickening, and facet hypertrophy noted. Multilevel discdesiccation. Greatest loss of disc height at L5-S1. Imaged portions of the soft tissues reveal no definite acute findings. T11-T12: Ligamentous and facet hypertrophy. No canal or foraminalnarrowing. T12-L1: Ligamentous and facet hypertrophy. No canal or foraminalnarrowing. L1-L2: Mild disc bulge. Ligamentous and facet hypertrophy. No canal orforaminal narrowing. L2-L3: Slight retrolisthesis. Disc bulge with extension into the foramina.Endplate osteophytes. Ligamentous and facet hypertrophy. Mild canalstenosis. Mild foraminal narrowing. L3-L4: Disc and posterior/marginal endplate osteophyte complex.Ligamentous and facet hypertrophy. Moderate canal stenosis with partialeffacement of the thecal sac. Mild to moderate foraminal narrowing. L4-L5: Slight anterolisthesis. Disc bulge with extension into theforamina. Endplate osteophytes. Ligamentous and facet hypertrophy.Bilateral lateral recess and moderate to severe canal stenosis. Moderateright and mild left foraminal narrowing. L5-S1: Anterolisthesis. Disc bulge with extension into the foramina.Endplate osteophytes. Ligamentous and facet hypertrophy. Possible synovialcyst along the anteromedial aspect of the left facet articulation. Severecanal stenosis. Moderate to severe left and mild right foraminalnarrowing. IMPRESSION: 1. Multilevel degenerative changes in the lumbar and partially imagedlower thoracic spine contributing to varying degrees of spinal canal andforaminal stenosis, as detailed above. 2. Mid lumbar levoscoliosis and multilevel listheses. NOTE: Designated S1 vertebral level demonstrates transitional morphologywith a rudimentary S1-S2 intervertebral disc. Advise close attention tovertebral body numbering in case of future surgery or intervention. Ordered By: ROBINSON POWERS Interpreted By: Jose D Samson MD, 12/06/2024 3:09 PM Robinson Powers TAB MACHINE OPERATOR MRI Final Result from Last 3 Months Insurance MEDICARE [facility] Care Teams Insurance Checker Relationship Specialty Start Date End Date Christopher Solis MD [address] [place] [address] PCP - General FAMILY PRACTICE 10/06/24
--- OUTSIDE RECORDS SUMMARY | 2025-01-10 13:01 | XMS_ITS | Referral Summary ---
Author Organization [place] [address] [address] [place] [phone] Care Team Providers Care Catalogue Clerk Name Role Phone Christopher Solis MD Primary Care Provider Encounters Date Type Department Care Team Description 11/29/[address] [facility] Medical [facility] Cardiology [address] [place] [address] [place] [phone] Juan Diego Garg MD 11/18/[address] [facility] Medical [facility] Cardiology [address] [place] [address] [place] [phone] Christopher Solis MD 11/09/2024 8:30 AM CDT Office Visit [facility] Cardiology [address] [place] [address] [address] [place] [address] Juan Diego Garg MD Renal artery stenosis (Primary Dx); Coronary artery disease involving [place] coronary artery of [place] heart without angina pectoris; S/P angioplasty with stent; 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) from Last 3 Months Allergies Active Allergy [...] Active Active Problems No known active problems Social History Tobacco Use Types Packs/Day Years Used Date Smoking Tobacco: Never Tobacco Cessation:Counseling Given: Not Answered Comments Unknown Sex and Gender Information Value Date Recorded Sex Assigned at Not on file 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 Gender Identity Not on file Sexual Orientation [...] 11/09/2024 8:24 AM CDT Plan of Treatment Not on file Procedures Procedure Name Priority Date/Time Associated Diagnosis Comments POCT LIPID PANEL Routine 11/09/2024 8:18 AM CDT Coronary artery disease involving [place] coronary artery of [place] heart without angina pectoris ELECTROCARDIOGRAM REPORT Routine 11/09/2024 Coronary artery disease involving [place] coronary artery of [place] heart without angina pectoris from Last 3 Months Results * POCT lipid panel (11/09/2024 8:18 AM CDT) Cholesterol, POC 149 mg/dL HDL, POC 35 mg/dL Triglycerides, POC 163 mg/dL LDL Cholesterol POC 81 mg/dL Chol/HDL Ratio, POC 2.3 Non-HDL Cholesterol, POC 113 mg/dL Cholesterol Total, POC 149 mg/dL Capillary blood 11/09/2024 8 :18 AM CDT us Juan Diego Garg MD POINT OF CARE TEST ORDERABLES Fi nal Result * Electrocardiogram Report (11/09/2024) 11/09/2024 us Juan Diego Garg MD ECG ORDERABLES Final Result from Last 3 Months Insurance MEDICARE [facility] Care Teams Catalogue Clerk Relationship Specialty Start Date End Date Christopher Solis MD [address] [facility] [address] [place] [address] PCP - General Family Medicine 07/14/24
--- OUTSIDE RECORDS SUMMARY | 2025-01-10 13:01 | XMS_ITS | Clinical Summary ---
Author Organization [facility] Address [facility] [place] [address] Care Team Providers Care Supervisor Brine Name Role Phone Sergo Guardado MD Primary Care Provider [phone] Source Comments [facility],non-owned Affiliates and Associated Physician Practices is amultiple site organization consisting of ambulatory clinics and hospital sitesin [place], [place], [place] and [place]. This disclosure is being madepursuant to the Care Everywhere program and may not contain all information available regarding this patient. Last updated 18.[facility] Allergies Active Allergy Reactions Criticality Noted Date Comments Cephalexin 06/30/2017 Flu like symptoms Penicillins Anaphylaxis High 06/30/2017 Medications * Be aware that medications may not be up to date on this document. Alwaysverify current medications with the patient. AMITRIPTYLINE HCL PO Active AMLODIPINE BESYLATE PO Active CARVEDILOL PO Active HYDROCHLOROTHIA ZIDE PO Active LEVOTHYROXINE SODIUM PO Active LISINOPRIL [...] then 1 tab days 2-5 6 tablet 8 Active amitriptyline (Elavil) 25 MG tablet Take 2 (two) tablets by mouth at bedtime 3 Active diazePAM (Valium) 2 MG tablet 4 Active estradiol (Estrace) 0.5 MG tablet 3 Active hydrALAZINE (Apresoline) 25 MG tablet Take 1 (one) tablet by mouth 3 times daily 3 Active hydrOXYzine HCl (Atarax) 25 MG tablet Take 1 (one) tablet by mouth 4 times daily as needed For itching. 3 Active levothyroxine (Synthroid) 25 MCG tablet TAKE 1 TABLET BY MOUTH 5 DAYS A WEEK 3 Active levothyroxine (Synthroid) 50 MCG tablet TAKE 1 TABLET BY MOUTH 2 DAYS A WEEK 3 Active meloxicam (Mobic) 15 MG tablet Take 1 (one) tablet by mouth once daily 3 Active sulfamethoxazol e-trimethoprim (Bactrim DS; Septra DS) 800-160 MG tablet TAKE 1 TABLET BY MOUTH EVERY 12 HOURS FOR UTI 3 Active valsartan-hydro CHLOROthiazide (Diovan HCT) 320-25 MG tablet TAKE 1 TABLET BY MOUTH DAILY. DISCONTINUE HCTZ AND LISINOPRIL. THANK YOU 3 Active METFORMIN HCL PO Active Active Problems Problem Noted Date Diagnosed Date Primary osteoarthritis of both knees 06/16/2023 Encounters Date Type Department Care Team Description 10/31/2024 11:45 AM CDT Office Visit 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 Primary osteoarthritis of both knees (Primary Dx) from Last 3 Months Family History Medical History Relation Name Comments Cancer - Lung Brother smoker Cancer - Other Father Hypertension Father Hypertension Mother Relation Name Status Comments Brother Father Mother Social History Tobacco Use Types Packs/Day Years Used Date Smoking Tobacco: Never Smokeless Tobacco: Never PHQ-2 Answer Date Recorded Patient Health Questionnaire-2 Score 1 07/29/2024 Comments Unknown Sex and Gender Information Value Date Recorded Sex Assigned at Not on file 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 Gender Identity Not on file Sexual Orientation [...] 11:46 AM CDT Height 167.6 cm (5' 6) 04/24/2023 11:46 AM CDT Body Mass Index 27.28 04/24/2023 11:46 AM CDT Plan of Treatment Upcoming Encounters Date Type Department Care Team (Late st Contact Info) Description 02/07/2025 12:20 PM CDT Office Visit [facility] Orthopedics [address] [address] [place] [address] [address] Health Maintenance Due Date Last Done Comments [...] 2023-2 5 season) 2024 05/24/2021 INFLUENZA VACCINE (Season Ended) 2025 DEPRESSION SCREENING Completed 07/29/2024, 08/04/2023, 06/15/2023 HEPATITIS B VACCINE Aged Out No longe r eligible based on patient's age to complete this topic HIB VACCINE Aged Out No longer eligi ble based on patient's age to complete this topic HPV VACCINE Aged Out No longer eligi ble based on patient's age to complete this topic MENINGOCOCCAL (Group B) VACCINE SHARED DECISION-MAKING Aged Out No longer eligible based on patient's age to complete this topic MENINGOCOCCAL GROUPS A/C/Y/W VACCINE Aged Out No longer eligible b ased on patient's age to complete this topic Insurance MEDICARE MEDICARE MEDICARE SUPPLEMENT PAYOR GENERIC MEDICARE Care Teams Supervisor Brine Relationship Specialty Start Date End Date Sergo Guardado MD [address] [place] [address] PCP - General 04/25/22
[2025-01-10 13:35] LABS: Hematocrit 31.5 % (37.0-47.0); Mean Corpuscular HGB Conc 31.7 g/dl (32-36); Mean Corpuscular Volume 88.2 fl (80-100); Platelet Count Result 382 k/mm3 (150-375); Red Blood Count 3.57 M/mm3 (4.2-5.4); Red Cell Distribution Width 13.7 % (11.5-14.5); White Blood Count 11.2 K/mm3 (4.5-10.0)
[2025-01-10 13:56] LABS: Albumin Level 4.2 g/dL (3.5-5.1); Anion Gap 13 mmol/L (4-12); Blood Urea Nitrogen 32 mg/dL (7-17); Calcium 9.6 mg/dL (8.4-10.2); Carbon Dioxide 20 mmol/L (22-30); Chloride 105 mmol/L (98-107); Estimated Glomerular Filt Rate 35; Glucose 116 mg/dL (65-110); Phosphorus 4.5 mg/dL (2.5-4.5); Potassium 5.1 mmol/L (3.4-5.0); Sodium 138 mmol/L (137-145)
[2025-01-10 14:01] LABS: Creatinine Urine 116.2 mg/dL; Total Protein Urine Random 30 mg/dL; Ur Ttl Prot Creatinine Ratio 0.26 mg/mg (0-0.20)
[2025-01-10 14:08] LABS: Parathyroid Intact 43.6 pg/mL (14.5-75.2)
== END 2025-01-10 12:31 | disposition home or self-care (01) ==
PROVIDERS: PCP Family Medicine; Visit Provider Internal Medicine Nephrology
DX: R94.4 Abnormal results of kidney function studies (principal); I13.10 Hypertensive heart and chronic kidney disease without heart failure, with stage 1 through stage 4 chronic kidney disease, or unspecified chronic kidney disease; N18.32 Chronic kidney disease, stage 3b
CPT/HCPCS: 36415; 80069; 82570; 83970; 84156; 85027

== ENCOUNTER 2025-03-30 15:55 | Outpatient (CLI) | payer MEDICARE, OTHER, SELFPAY ==
--- OUTSIDE RECORDS SUMMARY | 2025-03-30 15:58 | XMS_ITS | Patient Health Record ---
Author Organization [facility] Address [address] [place] [address] Care Team Providers Care Shipping And Receiving Material Handler Name Role Phone Jaydon Ribera Unavailable [phone] Reason For Referral No Information Medications Medication SIG (Take, Route, Frequency, Duration) Notes Start Date End Date Status DULoxetine HCl 20 MG Capsule Delayed Release Particles Oral Active Azithromycin 250 MG Tablet Oral Active Cefuroxime Axetil 500 MG Tablet Oral Active ProAir HFA 108 (90 Base) MCG/ACT Aerosol Solution Inhalation Act vidhya Pravastatin Sodium 40 MG Tablet Oral Active LIDOCAINE-COLLAGEN 2 % TOPICAL GEL *Reorder from Datical for eRx and Interaction Alerts* Active busPIRone HCl 5 MG Tablet Oral Active hydroCHLOROthiazide 12.5 MG Tablet Oral Active Zolpidem Tartrate 10 MG Tablet Oral Active Scopolamine 1 MG/3DAYS Patch 72 Hour Transdermal Active Fluconazole 150 MG Tablet Oral Active amLODIPine Besylate 2.5 MG Tablet Oral Active diazePAM 2 MG Tablet Oral Active NITROFURANTOIN MONOHYD MACRO 100 MG CAPSULE *Reorder from Datical for eRx and Interaction Alerts* Active Ondansetron 4 MG Tablet Disintegrating Oral Active Amitriptyline HCl 25 MG Tablet Oral Active Lisinopril 40 MG Tablet Oral Active DULoxetine HCl 30 MG Capsule Delayed Release Particles Oral Active Levothyroxine Sodium 50 MCG Tablet Oral Active HYDROcodone-Acetaminophen 5-325 MG Tablet Oral Active traMADol HCl 50 MG Tablet Oral Active Ciprofloxacin HCl 250 MG Tablet Oral Active Fluticasone Propionate Diskus 50 MCG/ACT Aerosol Powder Breath Activated Inhalation *Reorder from Datical for eRx and Interaction Alerts* Active Oseltamivir Phosphate 75 MG Capsule Oral Active Trimethoprim 100 MG Tablet Oral Active Ciprofloxacin HCl 500 MG Tablet Oral Active Carvedilol 25 MG Tablet Oral Active levoFLOXacin 250 MG Tablet Oral Active Polyethylene Glycol 3350 17 gram Powder ORAL *Pick strength-form from Datical for eRX* Active valACYclovir HCl 1 GM Tablet Oral Active Nitrofurantoin Macrocrystal 100 MG Capsule Oral Active Estradiol 1 MG Tablet Oral Active SULFAMETHOXAZOLE-TRIMETHO PRIM 400 MG-80 MG/5ML INTRAVENOUS SOLUTION *Reorder from Datical for eRx and Interaction Alerts* Active Sulfamethoxazole-Trimetho prim 800-160 MG Tablet Oral Activ e E.E.S. 400 400 MG Tablet Oral Active Plan Of Treatment No Information
--- OUTSIDE RECORDS SUMMARY | 2025-03-30 15:58 | XMS_ITS | Clinical Summary ---
Author Organization [facility] Address [address] [place] [address] Care Team Providers Care Patient Services Rep Name Role Phone Christopher Solis MD Primary Care Provider [phone] Social History Tobacco Use Types Packs/Day Years Used Date Smoking Tobacco: Never Assessed Comments Unknown Sex and Gender Information Value Date Recorded Sex Assigned at Female 10/07/2024 12:19 PM CDT Legal Sex Female 6:07 PM CDT Gender Identity Not on file Sexual Orientation Not on file Last Filed Vital Signs Vital Sign Reading Time Taken Comments Blood Pressure 157/60 07/22/2013 11:24 AM LINE PRODUCER Pulse 60 07/22/2013 11:24 AM LINE PRODUCER Temperature - - Respiratory Rate - - Oxygen Saturation - - Inhaled Oxygen Concentration - - Weight 70.3 kg (155 lb) 07/22/2013 11:24 AM LINE PRODUCER Height 167.6 cm (5' 6) 07/22/2013 11:24 AM LINE PRODUCER Body Mass Index 25.02 07/22/2013 11:24 AM LINE PRODUCER Plan of Treatment Health Maintenance Due Date Last Done Comments DTaP, Tdap and Td Vaccines (1 - Tdap) 1962 Zoster Vaccines (1 of 2) 1993 Annual Medicare Wellness Visit 2008 Dexa Scan (General) 2008 RSV Immunization or 60+ Years (1 - 1-dose 75+ series) 2018 Pneumococcal Vaccine: 50+ Years (2 of 2 - PPSV23) 05/02/2021 05/02/2020 COVID-19 Vaccine ( season) 2024 05/03/2024, 07/12/2023, 04/28/2022, Additional history exists Meningococcal B Vaccine Aged Out No l onger eligible based on patient's age to complete this topic Meningococcal Vaccine Aged Out No jose jonathan eligible based on patient's age to complete this topic RSV Immunizations Under 20 Months Aged Out No longer eligible based on patient's age to complete this topic Insurance MEDICARE [facility] Care Teams Patient Services Rep Relationship Specialty Start Date End Date Christopher Solis MD [address] [place] [address] PCP - General FAMILY PRACTICE 10/06/24
--- OUTSIDE RECORDS SUMMARY | 2025-03-30 15:58 | XMS_ITS | Encounter Summary ---
Author Organization [facility] Healthcare Address [address] [place] [address] Care Team Providers Care Grinder Set Up Operator Thread Name Role Phone Sergo Guardado MD Primary Care Provider [phone] Christopher Solis MD Primary Care Provider Encounter Details Date Type Department Care Team (Late st Contact Info) Description 06/20/2024 Orders Only [facility] Management [address] [place] [address] Scanning, Provider Social History Tobacco Use Types Packs/Day Years Used Date Smoking Tobacco: Never Assessed Comments Unknown Sex and Gender Information Value Date Recorded Sex Assigned at Not on file 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 Gender Identity Not on file Sexual Orientation Not on file documented as of this encounter Plan of Treatment Not on file documented as of this encounter Procedures Procedure Name Priority Date/Time Associated Diagnosis Comments SCAN - LABS 06/20/2024 documented in this encounter Results * SCAN - LABS (06/20/2024) Provider Scanning Final Result documented in this encounter Visit Diagnoses Not on filedocumented in this encounter Care Teams Grinder Set Up Operator Thread Relationship Specialty Start Date End Date Sergo Guardado MD PCP - General Internal Medicine 01/11/24 07/13/24 Christopher Solis MD [address] [facility] [address] [place] [address] PCP - General Family Medicine 07/14/24 documented as of this encounter
--- OUTSIDE RECORDS SUMMARY | 2025-03-30 15:58 | XMS_ITS | Encounter Summary ---
Author Organization [facility] Healthcare Address [address] [place] [address] Care Team Providers Care Peoplesoft Hr Developer Name Role Phone Christopher Solis MD Primary Care Provider Encounter Details Date Type Department Care Team (Late st Contact Info) Description 08/23/2024 Orders Only [facility] Health Information Management [address] [place] [address] Scanning, Provider Social History Tobacco Use Types Packs/Day Years Used Date Smoking Tobacco: Never Comments Unknown Sex and Gender Information Value Date Recorded Sex Assigned at Not on file 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 Female 2:54 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 Gender Identity Not on file Sexual Orientation Not on file documented as of this encounter Plan of Treatment Not on file documented as of this encounter Procedures Procedure Name Priority Date/Time Associated Diagnosis Comments SCAN - LABS 08/23/2024 documented in this encounter Results * SCAN - LABS (08/23/2024) us Provider Scanning Edited Result - Final documented in this encounter Visit Diagnoses Not on filedocumented in this encounter Care Teams Peoplesoft Hr Developer Relationship Specialty Start Date End Date Christopher Solis MD [address] [facility] [address] [place] [address] PCP - General Family Medicine 07/14/24 documented as of this encounter
--- OUTSIDE RECORDS SUMMARY | 2025-03-30 15:58 | XMS_ITS | Encounter Summary ---
Author Organization [facility] Healthcare Address [address] [place] [address] Care Team Providers Care Livestock Farm Manager Name Role Phone Sergo Guardado MD Primary Care Provider [phone] Christopher Solis MD Primary Care Provider Encounter Details Date Type Department Care Team (Late st Contact Info) Description 06/16/2024 Orders Only [facility] Information Management [address] [place] [address] Scanning, Provider Social History Tobacco Use Types Packs/Day Years Used Date Smoking Tobacco: Never Assessed Comments Unknown Sex and Gender Information Value Date Recorded Sex Assigned at Not on file 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 Gender Identity Not on file Sexual Orientation Not on file documented as of this encounter Plan of Treatment Not on file documented as of this encounter Procedures Procedure Name Priority Date/Time Associated Diagnosis Comments SCAN - RADIOLOGY/IMAGING 06/15/2024 documented in this encounter Results * SCAN - RADIOLOGY/IMAGING (06/15/2024) Anatomical Region Laterality Modality Other us Provider Scanning Edited Result - Final documented in this encounter Visit Diagnoses Not on filedocumented in this encounter Care Teams Livestock Farm Manager Relationship Specialty Start Date End Date Sergo Guardado MD PCP - General Internal Medicine 01/11/24 07/13/24 Christopher Solis MD [address] [facility] [address] [place] [address] PCP - General Family Medicine 07/14/24 documented as of this encounter
--- OUTSIDE RECORDS SUMMARY | 2025-03-30 15:59 | XMS_ITS | Clinical Summary ---
Author Organization [facility] Address [facility]3 [place] [address] Care Team Providers Care Internet Developer Name Role Phone Sergo Guardado MD Primary Care Provider [phone] Source Comments [facility],non-owned Affiliates and Associated Physician Practices is amultiple site organization consisting of ambulatory clinics and hospital sitesin [place], [place], [place] and [place]. This disclosure is being madepursuant to the Care Everywhere program and may not contain all information available regarding this patient. Last updated 18.[facility] [employer] Allergies Active Allergy Reactions Criticality Noted Date [...] YOU 3 Active METFORMIN HCL PO Active atorvastatin (Lipitor) 80 MG tablet Take 1 (one) tablet by mouth once daily 5 Active clopidogrel (plaVIX) 75 MG tablet 5 Active valsartan (Diovan) 320 MG tablet Take 1 (one) tablet by mouth once daily 5 Active Active Problems Problem Noted Date Diagnosed Date Primary osteoarthritis of both knees 06/16/2023 Encounters Date Type Department Care Team Description 02/07/2025 12:20 PM CDT Office Visit [facility] Health Orthopedics [address] [facility] [place], [address] [address] Anthony Loza MD Primary osteoarthritis [...] on file 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 Gender Identity Not on file Sexual Orientation [...] Care Team (Late st Contact Info) Description 05/09/2025 11:30 AM CDT Office Visit [facility] Health Orthopedics [address] [phone] [place] [address] [address] Health Maintenance Due Date Last [...] 5 season) 2024 05/24/2021 INFLUENZA VACCINE (#1) 2025 DEPRESSION SCREENING Completed 07/29/2024, 08/04/2023, 06/15/2023 [...] MEDICARE SUPPLEMENT PAYOR GENERIC MEDICARE Care Teams Internet Developer Relationship Specialty Start Date End Date Sergo Guardado MD [address] [place] [phone] PCP - General 04/25/22
--- OUTSIDE RECORDS SUMMARY | 2025-03-30 15:59 | XMS_ITS | Clinical Summary ---
Author Organization [facility] [address] [facility] [address] [place] [address] Care Team Providers Care Ophthalmic Photographer Name Role Phone Christopher Solis MD Primary [...] Encounters Date Type Department Care Team Description 02/02/2025 Telephone [facility] Medical [facility] Cardiology [address] [place] [phone] Juan Diego Garg MD 02/01/2025 10:30 AM CDT Office Visit [facility] Cardiology [address] [place] [phone] Juan Diego Garg MD Resistant hypertension (Primary Dx); Renal artery stenosis; Coronary artery disease involving [place] coronary artery of [place] heart without angina pectoris; S/P angioplasty with stent; 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) from Last 3 Months Social History Tobacco Use Types Packs/Day Years Used Date Smoking Tobacco: Never Tobacco Cessation:Counseling Given: Not Answered Comments Unknown Sex and Gender Information Value Date Recorded Sex Assigned at Not on file 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 Gender Identity Not on file Sexual Orientation Not on file Obstetrics History Last Filed Vital Signs Vital Sign Reading Time Taken Comments Blood Pressure 166/58 02/01/2025 10:39 AM CDT Pulse 69 02/01/2025 10:39 AM CDT Temperature - - Respiratory Rate - - Oxygen Saturation 97% 02/01/2025 10:39 AM CDT Inhaled Oxygen Concentration - - Weight 75.8 kg (167 lb) 02/01/2025 10:39 AM CDT Height 167.6 cm (5' 6) 02/01/2025 10:39 AM CDT Body Mass Index 26.95 02/01/2025 10:39 AM CDT Plan of Treatment Health Maintenance [...] Pneumococcal vaccine 65+ (2 of 2 - PPSV23, PCV20, or PCV21) 06/27/2020 05/02/2020 Covid-19 Vaccine (7 - 2023-2 5 season) 2024 07/12/2023, 04/28/2022, 12/11/2021, Additional history exists Influenza Vaccine (#1) 2025 , 04/28/2022, 05/06/2021, Additional history exists Lipid Panel 11/09/2025 11/09/2024 Procedures Procedure Name Priority Date/Time Associated Diagnosis Comments POCT LIPID PANEL Routine 11/09/2024 8:18 AM CDT Coronary artery disease involving [place] coronary artery of [place] heart without angina pectoris from Last 3 Months or Most Recently Relevant to Health Maintenance Results * POCT lipid panel (11/09/2024 8:18 AM CDT) Cholesterol, POC 149 mg/dL HDL, POC 35 mg/dL Triglycerides, POC 163 mg/dL LDL Cholesterol POC 81 mg/dL Chol/HDL Ratio, POC 2.3 Non-HDL Cholesterol, POC 113 mg/dL Cholesterol Total, POC 149 mg/dL Capillary blood 11/09/2024 8 :18 AM CDT Juan Diego Garg MD POINT OF CARE TEST ORDERABLES Fi nal Result from Last 3 Months or Most Recently Relevant to Health Maintenance Insurance MEDICARE [facility] [id number] Care Teams Ophthalmic Photographer Relationship Specialty Start Date End Date Christopher Solis MD [address] [facility] [address] [place] [address] PCP - General Family Medicine 07/14/24
[2025-03-30 16:54] LABS: Thyroid Stimulating Hormone 0.416 uIU/mL (0.465-4.680)
== END 2025-03-30 15:56 | disposition home or self-care (01) ==
PROVIDERS: PCP Family Medicine; Visit Provider Family Medicine
DX: E03.9 Hypothyroidism, unspecified (principal)
CPT/HCPCS: 36415; 84443

== ENCOUNTER 2025-05-29 11:46 | Outpatient (CLI) | payer MEDICARE, OTHER, SELFPAY ==
[2025-05-29 12:17] LABS: Hematocrit 32.2 % (37.0-47.0); Hemoglobin 10.0 g/dL (12.0-15.0); Mean Corpuscular HGB Conc 31.1 g/dl (32-36); Mean Corpuscular Hemoglobin 27.7 pg (26-34); Mean Corpuscular Volume 89.2 fl (80-100); Platelet Count Result 376 k/mm3 (150-375); Red Blood Count 3.61 M/mm3 (4.2-5.4); White Blood Count 9.7 K/mm3 (4.5-10.0)
[2025-05-29 12:23] LABS: Total Protein Urine Random 156 mg/dL; Ur Ttl Prot Creatinine Ratio 1.32 mg/mg (0-0.20)
[2025-05-29 12:38] LABS: Albumin Level 3.9 g/dL (3.5-5.1); Anion Gap 8 mmol/L (4-12); Blood Urea Nitrogen 35 mg/dL (7-17); Calcium 8.7 mg/dL (8.4-10.2); Carbon Dioxide 20 mmol/L (22-30); Chloride 109 mmol/L (98-107); Estimated Glomerular Filt Rate 35; Glucose 138 mg/dL (65-110); Potassium 4.4 mmol/L (3.4-5.0); Sodium 137 mmol/L (137-145)
[2025-05-29 12:50] LABS: Parathyroid Intact 103.9 pg/mL (14.5-75.2)
--- OUTSIDE RECORDS SUMMARY | 2025-05-29 13:19 | XMS_ITS | Clinical Summary ---
Author Organization [facility] Address [facility] [place] [address] Care Team Providers Care Core Carrier Name Role Phone Christopher Solis MD Primary Care Provider [phone] Social History Tobacco Use Types Packs/Day Years Used Date Smoking Tobacco: Never Assessed Comments Unknown Sex and Gender Information Value Date Recorded Sex Assigned at Female 10/07/2024 12:19 PM CDT Legal Sex Female 6:07 PM CDT Gender Identity Not on file Sexual Orientation Not on file Last Filed Vital Signs Vital Sign Reading Time Taken Comments Blood Pressure 157/60 07/22/2013 11:24 AM INSURANCE BILLING CLERK Pulse 60 07/22/2013 11:24 AM INSURANCE BILLING CLERK Temperature - - Respiratory Rate - - Oxygen Saturation - - Inhaled Oxygen Concentration - - Weight 70.3 kg (155 lb) 07/22/2013 11:24 AM INSURANCE BILLING CLERK Height 167.6 cm (5' 6) 07/22/2013 11:24 AM INSURANCE BILLING CLERK Body Mass Index 25.02 07/22/2013 11:24 AM INSURANCE BILLING CLERK Plan of Treatment Health Maintenance Due Date Last Done Comments DTaP, Tdap and Td Vaccines (1 - Tdap) 1962 Zoster Vaccines (1 of 2) 1993 Annual Medicare Wellness Visit 2008 Dexa Scan (General) 2008 RSV Immunization or 60+ Years (1 - 1-dose 75+ series) 2018 Pneumococcal Vaccine: 50+ Years (2 of 2 - PCV20 or PCV21) 05/02/2021 05/02/2020 COVID-19 Vaccine ( season) 2025 05/03/2024, 07/12/2023, 04/28/2022, Additional history exists Influenza Adult (#1) 2025 05/03/2024, 05/06/2021, 05/14/2020, Additional history exists Hepatitis A Vaccines Aged Out No long er eligible based on patient's age to complete this topic Meningococcal B Vaccine Aged Out No l onger eligible based on patient's age to complete this topic Meningococcal Vaccine Aged Out No jose jonathan eligible based on patient's age to complete this topic RSV Immunizations Under 20 Months Aged Out No longer eligible based on patient's age to complete this topic Insurance MEDICARE [facility] Care Teams Core Carrier Relationship Specialty Start Date End Date Christopher Solis MD [address] [place] [address] PCP - General FAMILY PRACTICE 10/06/24
--- OUTSIDE RECORDS SUMMARY | 2025-05-29 13:19 | XMS_ITS | Encounter Summary ---
Author Organization [facility] Healthcare Address [address] [place] [address] Care Team Providers Care Medical Staff Services Coordinator Name Role Phone Sergo Guardado MD Primary Care Provider [phone] Christopher Solis MD Primary Care Provider Encounter Details Date Type Department Care Team (Late st Contact Info) Description 06/16/2024 Orders Only [facility] Health Information Management [address] [place] [address] Scanning, Provider Social History Tobacco Use Types Packs/Day Years Used Date Smoking Tobacco: Never Assessed Comments Unknown Sex and Gender Information Value Date Recorded Sex Assigned at Not on file 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
--- OUTSIDE RECORDS SUMMARY | 2025-05-29 13:19 | XMS_ITS | Patient Health Record ---
Author Organization [facility] Address [address] [place] [address] Care Team Providers Care Porcelain Finish Sprayer Name Role Phone Jaydon Ribera Unavailable [phone] Reason For Referral No Information Medications Medication [...] LIDOCAINE-COLLAGEN 2 % TOPICAL GEL *Reorder from [facility] for eRx and Interaction Alerts* Active busPIRone HCl 5 MG Tablet Oral Active hydroCHLOROthiazide 12.5 MG Tablet Oral Active Zolpidem Tartrate 10 MG Tablet Oral Active Scopolamine 1 MG/3DAYS Patch 72 Hour Transdermal Active Fluconazole 150 MG Tablet Oral Active amLODIPine Besylate 2.5 MG Tablet Oral Active diazePAM 2 MG Tablet Oral Active NITROFURANTOIN MONOHYD MACRO 100 MG CAPSULE *Reorder from [facility] for eRx and Interaction Alerts* Active Ondansetron [...] Aerosol Powder Breath Activated Inhalation *Reorder from [facility] for eRx and Interaction Alerts* Active Oseltamivir Phosphate 75 MG Capsule Oral Active Trimethoprim 100 MG Tablet Oral Active Ciprofloxacin HCl 500 MG Tablet Oral Active Carvedilol 25 MG Tablet Oral Active levoFLOXacin 250 MG Tablet Oral Active Polyethylene Glycol 3350 17 gram Powder ORAL *Pick strength-form from Blushr for eRX* Active valACYclovir HCl 1 GM Tablet Oral Active Nitrofurantoin Macrocrystal 100 MG Capsule Oral Active Estradiol 1 MG Tablet Oral Active SULFAMETHOXAZOLE-TRIMETHO PRIM 400 MG-80 MG/5ML INTRAVENOUS SOLUTION *Reorder from [facility] for eRx and Interaction Alerts* Active Sulfamethoxazole-Trimetho prim 800-160 MG Tablet Oral Activ e E.E.S. 400 400 MG Tablet Oral Active Plan Of Treatment No Information
--- OUTSIDE RECORDS SUMMARY | 2025-05-29 13:19 | XMS_ITS | Encounter Summary ---
Author Organization [facility] Healthcare Address [address] [place] [address] Care Team Providers Care Sheet Heater Helper Name Role Phone Sergo Guardado MD Primary Care Provider [phone] Christopher Solis MD Primary Care Provider Encounter Details Date Type Department Care Team (Late st Contact Info) Description 06/20/2024 Orders Only [facility] [place] Health Information Management [address] [place] [address] Scanning, Provider Social History Tobacco Use Types Packs/Day Years Used Date Smoking Tobacco: Never Assessed Comments Unknown Sex and Gender Information Value Date Recorded Sex Assigned at Not on file 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
--- OUTSIDE RECORDS SUMMARY | 2025-05-29 13:20 | XMS_ITS | Clinical Summary ---
Author Organization [facility] Address [facility] [facility] [place] [address] Care Team Providers Care Disability Hearing Officer Name Role Phone Sergo Guardado MD Primary Care Provider [phone] Source Comments [facility],non-owned Affiliates and Associated Physician Practices is amultiple site organization consisting of ambulatory clinics and hospital sitesin [place], [place], [place]. This disclosure is being madepursuant to the Care Everywhere program and may not contain all information available regarding this patient. Last updated 18.[facility]og Allergies Active Allergy Reactions Criticality Noted Date [...] tablet by mouth once daily 5 Active Aspirin Low Dose 81 MG tablet Take 1 (one) tablet by mouth every morning 5 Active chlorthalidone (Hygroton) 25 MG tablet Take 1 (one) tablet by mouth once daily 5 Active ciprofloxacin (Cipro) 250 MG tablet Oral Active DULoxetine (Cymbalta) 30 MG capsule Oral Active guanFACINE (Tenex) 1 MG tablet Take 1 (one) tablet by mouth once daily 5 Active hydrALAZINE (Apresoline) 50 MG tablet Take 1 (one) tablet by mouth 4 times daily 5 Active levoFLOXacin (Levaquin) 250 MG tablet Oral Active pravastatin (Pravachol) 80 MG tablet Take 1 (one) tablet by mouth once daily 4 Active spironolactone (Aldactone) 25 MG tablet Take 1 (one) tablet by mouth once daily 5 Active Hospital, Clinic, or Other Facility Administered Medication Ordered Dose Route Frequency Start Date End Date Status lidocaine PF (Xylocaine MPF) 1 % injection 6 mLIndications:Primary osteoarthritis of both knees 6 mL IX ONCE 05/09/2025 05/09/2025 Ended methylPREDNISolone acetate (DEPO-Medrol) injection 160 mgIndications:Primary osteoarthritis of both knees 160 mg IX ONCE 05/09/2025 05/09/2025 Ended Active Problems Problem Noted Date Diagnosed Date Primary osteoarthritis of both knees 06/16/2023 Encounters Date Type Department Care Team Description 05/09/2025 11:45 AM CDT Ancillary Procedure [facility] Orthopedics - Radiology [address] [place] [id number] Anthony Loza MD Primary osteoarthritis of both knees 05/09/2025 11:30 AM CDT Office Visit [facility] Orthopedics [address] [place] [address], [address] [place] [address] Anthony Loza MD Primary osteoarthritis of both [...] on file Legal Sex Female 12:32 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 Gender Identity Not on file Sexual [...] Care Team (Late st Contact Info) Description 08/15/2025 1:00 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 Office Visit [facility] Health Orthopedics [address] [phone] [place] [address] [facility] [address] [place] [address] Health Maintenance Due Date Last Done Comments BONE DENSITY TESTING 1945 MEDICARE AWV 12 MONTHS 1945 DTAP/TDAP/TD VACCINES (1 - Tdap) 1962 PNEUMOCOCCAL VACCINE 50+ (1 of 1 - PCV) 1993 ZOSTER VACCINE (1 of 2) 1993 Respiratory Syncytial Virus (RSV) Vaccine Pt: or over 60 yrs (1 - 1-dose 75+ series) 2018 COVID-19 VACCINE (2 - 2024-2 6 season) 2025 05/24/2021 INFLUENZA VACCINE (#1) 2025 DEPRESSION SCREENING [...] Procedure Name Priority Date/Time Associated Diagnosis Comments XR KNEE BILAT 3VW Routine 05/09/2025 11: 59 AM CDT Primary osteoarthritis of both knees from Last 3 Months Results * XR Knee Bilat 3Vw (05/09/2025 11:59 AM CDT) Narrative [facility] [address] - 05/09/2025 11:59 AM CDT Please see progress note in Epic for results. us Anthony Loza MD DIAGNOSTIC IMAGING ORDERABLES Final Result [facility] [address] from Last 3 Months Insurance MEDICARE MEDICARE MEDICARE SUPPLEMENT PAYOR GENERIC MEDICARE Care Teams Disability Hearing Officer Relationship Specialty Start Date End Date Sergo Guardado MD [address] [place] [address] PCP - General 04/25/22
--- OUTSIDE RECORDS SUMMARY | 2025-05-29 13:20 | XMS_ITS | Clinical Summary ---
Author Organization [facility] [address] Address [address] [facility] [address] [place] [address] Care Team Providers Care Pharmacy Data Analyst Name Role Phone Christopher Solis MD Primary [...] on file Legal Sex Female 2:54 PM PROGRESS CLERK Gender Identity Not on file Sexual Orientation [...] PCV20, or PCV21) 06/27/2020 05/02/2020 Covid-19 Vaccine (2024-2 6 season) 2025 07/12/2023, 04/28/2022, 12/11/2021, Additional history exists Influenza Vaccine (#1) 2025 , 04/28/2022, 05/06/2021, Additional history exists Lipid Panel 11/09/2025 11/09/2024 Procedures Procedure Name Priority Date/Time Associated Diagnosis Comments POCT LIPID PANEL Routine 11/09/2024 8:18 AM CDT Coronary artery disease involving [place] coronary artery of [place] heart without angina pectoris from Last 3 [...] Recently Relevant to Health Maintenance Insurance MEDICARE [facility] Care Teams Pharmacy Data Analyst Relationship Specialty Start Date End Date Christopher Solis MD [address] [address] PCP - General Family Medicine 07/14/24
--- OUTSIDE RECORDS SUMMARY | 2025-05-29 13:20 | XMS_ITS | Encounter Summary ---
Author Organization [facility] Healthcare Address [address] [place] [address] Care Team Providers Care Layout Operator Name Role Phone Christopher Solis MD Primary Care Provider Encounter Details Date Type Department Care Team (Late st Contact Info) Description 08/23/2024 Orders Only [facility] [place] Information Management [address] [place] [address] Scanning, Provider Social History Tobacco Use Types Packs/Day Years Used Date Smoking Tobacco: Never Comments Unknown Sex and Gender Information Value Date Recorded Sex Assigned at Not on file 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
== END 2025-05-29 11:47 | disposition home or self-care (01) ==
LOC: ANHLAB 11:49
PROVIDERS: PCP Family Medicine; Visit Provider Internal Medicine Nephrology
DX: N18.32 Chronic kidney disease, stage 3b (principal)
CPT/HCPCS: 36415; 80069; 82570; 83970; 84156; 85027